=== PATIENT | female | born 1950 | race Caucasian/White ===

== ENCOUNTER → 2017-03-10 | Outpatient (CLI) | payer OTHER, MEDICAID ==
[~2017-03-10] VITALS: Ht 172.7 cm; Wt 134.7 kg
[~2017-03-10] MED LIST: ADENOSINE 113 MG in GIVE UN-DILUTED 0 ML IV ONE; ADENOSINE 90 MG/30 ML INJ IV ONE
== END | disposition home or self-care (01) ==
LOC: Rad HDHVI 10:35
PROVIDERS: ATTEND Internal Medicine Cardiovascular Disease
DX: I10 Essential (primary) hypertension (principal); E78.5 Hyperlipidemia, unspecified; R63.8 Other symptoms and signs concerning food and fluid intake
CPT/HCPCS: 78452; 93005; 96374; 96375; A9500; J0153

== ENCOUNTER → 2017-03-12 | Outpatient (CLI) | payer OTHER, MEDICAID | END | disposition home or self-care (01) | LOC: Rad HDHVI 07:50 | PROVIDERS: ATTEND Internal Medicine Cardiovascular Disease | DX: I08.1 Rheumatic disorders of both mitral and tricuspid valves (principal); I10 Essential (primary) hypertension | CPT/HCPCS: 93306 ==

== ENCOUNTER 2023-10-08 11:48 | Inpatient (IN) | payer OTHER, MEDICAID ==
[~2023-10-08] VITALS: Ht 170.2 cm; Wt 114.5 kg
[2023-10-08 13:19] LABS: Basophils # (auto) 0.1 10 ^3/uL (0-0.2); Basophils % (auto) 0.6 % (0.0-2.0); Eosinophils # (auto) 0.3 10 ^3/uL (0-0.8); Eosinophils % (auto) 2.6 % (0.0-7.0); Hematocrit 38.2 % (36.0-46.0); Hemoglobin 12.5 g/dL (12.2-16.2); Lymphocytes % (auto) 9.3 % (10.0-50.0); Mean Corpuscular Hemoglobin 28.2 pg (28.0-32.0); Mean Corpuscular Hgb Conc. 32.9 g/dL (32.0-36.0); Mean Corpuscular Volume 85.9 fL (80.0-100.0); Monocytes # (auto) 0.8 10 ^3/uL (0-1.3); Monocytes % (auto) 8.1 % (0.0-12.0); Neutrophils # (auto) 8.3 10 ^3/uL (1.6-8.6); Neutrophils % (auto) 79.4 % (37.0-80.0); Red Blood Cells 4.44 10^6/uL (4.0-5.20); Red Cell Distribution Width 15.6 % (11.8-14.3); White Blood Cell 10.4 10^3/uL (4.4-10.8)
[2023-10-08] MEDS: ONDANSETRON HCL 4 MG/2 ML VIAL IV ONE ×2 (13:25→20:35)
[2023-10-08] MEDS: MORPHINE SULFATE 4 MG/ML SYR/VIAL IV ONE (13:26)
[2023-10-08] MEDS: SODIUM CHLORIDE 0.9% 1,000 ML IV ONE (13:33)
[2023-10-08 13:34] LABS: INR 1.1 (0.9-1.15); Prothrombin Time 11.6 sec (9.3-11.8)
[2023-10-08 13:49] LABS: Alkaline Phosphatase 67 U/L (46-116); Anion Gap 3 (5-15); Aspartate Aminotransferase 15 U/L (13-40); BUN/Creatinine Ratio 21.9 (10.0-20.0); Blood Urea Nitrogen 16 mg/dL (9-23); Calcium 10.1 mg/dL (8.5-10.1); Carbon Dioxide 32 mmol/L (20-30); Chloride 107 mmol/L (98-107); Glucose 102 mg/dL (74-106); Potassium 4.1 mmol/L (3.5-5.1); Sodium 142 mmol/L (136-145)
[2023-10-08 13:50] LABS: Albumin 4.1 g/dL (3.2-4.8); Bilirubin, Total 0.5 mg/dL (0.2-1.0)
[2023-10-08 13:54] LABS: Alanine Aminotransferase < 9 U/L (7-40)
[2023-10-08 15:04] LABS: Urine Bacteria None Seen /hpf (None Seen)
[2023-10-08 15:40] LABS: Urine Blood Negative /uL (Negative); Urine Clarity Clear (Clear); Urine Color Yellow (Yellow); Urine Mucus FEW (None Seen); Urine Protein, UAD TRACE (Negative); Urine Specific Gravity 1.021 (1.001-1.035); Urine Urobilinogen Normal (Negative); Urine WBC 1 /hpf (0 - 5)
[2023-10-08 19:30] VITALS: PULSE 62; RESP 12; O2SAT 96
[2023-10-08] MEDS: ONDANSETRON HCL 4 MG/2 ML VIAL ONE (20:35)
[2023-10-08] MEDS: HYDROmorphone HCL 2 MG/ML VL/or syr IV ONE (20:35)
[2023-10-08] MEDS: SODIUM CHLORIDE 0.9% 1,000 ML IV SCH (22:30)
[2023-10-08] MEDS: ONDANSETRON HCL 4 MG/2 ML VIAL IV PRN (22:56)
[2023-10-08] MEDS: MORPHINE SULFATE 4 MG/ML SYR/VIAL IV PRN (22:57)
[2023-10-09] VITALS (8 sets, daily range): BP systolic 90–143; BP diastolic 57–78; PULSE 67–97; RESP 18–23; TEMP 98.4–100.3; O2SAT 90–97
[2023-10-09] MEDS ORDERED: METO25TA93 PO (01:48)
[2023-10-09] MEDS ORDERED: MIRA50TA PO (01:48)
[2023-10-09] MEDS ORDERED: OMEP1CAP70 PO (01:48)
[2023-10-09] MEDS ORDERED: LOSA-534 PO (01:48)
[2023-10-09] MEDS ORDERED: MELO15TA29 PO (01:48)
[2023-10-09] MEDS ORDERED: HYDR-4072 (01:48)
[2023-10-09] MEDS ORDERED: PRAV20TA3 PO (01:48)
[2023-10-09 07:14] LABS: Basophils # (auto) 0 10 ^3/uL (0-0.2); Basophils % (auto) 0.3 % (0.0-2.0); Eosinophils # (auto) 0.1 10 ^3/uL (0-0.8); Eosinophils % (auto) 1.2 % (0.0-7.0); Hematocrit 37.3 % (36.0-46.0); Hemoglobin 12.1 g/dL (12.2-16.2); Lymphocytes % (auto) 10.9 % (10.0-50.0); Mean Corpuscular Hemoglobin 27.9 pg (28.0-32.0); Mean Corpuscular Hgb Conc. 32.3 g/dL (32.0-36.0); Mean Corpuscular Volume 86.2 fL (80.0-100.0); Monocytes # (auto) 0.9 10 ^3/uL (0-1.3); Monocytes % (auto) 9.9 % (0.0-12.0); Neutrophils # (auto) 7.3 10 ^3/uL (1.6-8.6); Neutrophils % (auto) 77.7 % (37.0-80.0); Nucleated Red Blood Cells % 0.1 %; Red Blood Cells 4.33 10^6/uL (4.0-5.20); Red Cell Distribution Width 15.1 % (11.8-14.3); White Blood Cell 9.5 10^3/uL (4.4-10.8)
[2023-10-09 07:16] LABS: Chloride 106 mmol/L (98-107); Potassium 4.4 mmol/L (3.5-5.1); Sodium 141 mmol/L (136-145)
[2023-10-09 07:17] LABS: Anion Gap 3 (5-15); Carbon Dioxide 32 mmol/L (20-30)
[2023-10-09 07:18] LABS: Calcium 9.8 mg/dL (8.5-10.1)
[2023-10-09 07:22] LABS: BUN/Creatinine Ratio 16.4 (10.0-20.0); Blood Urea Nitrogen 12 mg/dL (9-23); Glucose 129 mg/dL (74-106)
[2023-10-09 08:59] LABS: Hepatitis B Surface Antigen Negative (Negative)
[2023-10-09 09:19] LABS: Hepatitis C Antibody Negative (Negative)
[2023-10-10] VITALS (8 sets, daily range): BP systolic 115–145; BP diastolic 51–81; PULSE 68–86; RESP 19–23; TEMP 97.9–98.9; O2SAT 90–96
[2023-10-10] MEDS ORDERED: ACETAMINOPHEN 325 MG TAB PO PRN (10:45)
[2023-10-11] VITALS (8 sets, daily range): BP systolic 105–176; BP diastolic 57–87; PULSE 74–88; RESP 19–22; TEMP 98–98.3; O2SAT 90–95
[2023-10-11] MEDS: PANTOPRAZOLE 40 MG/10 ML VIAL INJ IV SCH (09:45)
[2023-10-11] MEDS: LACTULOSE 20Gm/30ML SOLN PO ONE (09:46)
[2023-10-11] MEDS: METOPROLOL SUCCINATE XL 50 MG TAB PO SCH (09:46)
[2023-10-11] MEDS: ENOXAPARIN SOD 40 MG/0.4 ML SYRINGE SC SCH (09:46)
[2023-10-11] MEDS: DOCUSATE SOD 100 MG CAP PO SCH (09:46)
[2023-10-11] MEDS: LOSARTAN POTASSIUM 50 MG TAB PO SCH (09:47)
[2023-10-11] MEDS: ATORVASTATIN 20 MG TAB PO SCH (22:12)
[2023-10-12 05:00] VITALS: BP 141/78; PULSE 67; RESP 23; TEMP 98; O2SAT 90
[2023-10-12 06:20] LABS: Basophils # (auto) 0 10 ^3/uL (0-0.2); Basophils % (auto) 0.2 % (0.0-2.0); Eosinophils # (auto) 0.1 10 ^3/uL (0-0.8); Eosinophils % (auto) 0.7 % (0.0-7.0); Hematocrit 36.9 % (36.0-46.0); Hemoglobin 12.4 g/dL (12.2-16.2); Lymphocytes # (auto) 1.2 10 ^3/uL (0.4-5.4); Lymphocytes % (auto) 8.9 % (10.0-50.0); Mean Corpuscular Hemoglobin 28.5 pg (28.0-32.0); Mean Corpuscular Hgb Conc. 33.8 g/dL (32.0-36.0); Mean Corpuscular Volume 84.3 fL (80.0-100.0); Monocytes # (auto) 1.3 10 ^3/uL (0-1.3); Neutrophils # (auto) 10.8 10 ^3/uL (1.6-8.6); Neutrophils % (auto) 80.2 % (37.0-80.0); Nucleated Red Blood Cells % 0.1 %; Red Blood Cells 4.37 10^6/uL (4.0-5.20); Red Cell Distribution Width 14.1 % (11.8-14.3); White Blood Cell 13.5 10^3/uL (4.4-10.8)
[2023-10-12 06:25] LABS: Anion Gap 4 (5-15); Carbon Dioxide 31 mmol/L (20-30); Chloride 98 mmol/L (98-107); Potassium 3.6 mmol/L (3.5-5.1)
[2023-10-12 06:31] LABS: BUN/Creatinine Ratio 17.9 (10.0-20.0); Blood Urea Nitrogen 10 mg/dL (9-23); Glucose 119 mg/dL (74-106); Sodium 133 mmol/L (136-145)
[2023-10-12 08:00] VITALS: BP 155/77; PULSE 75; RESP 18; TEMP 98.6; O2SAT 90
[2023-10-12 09:20] VITALS: BP 155/77; PULSE 75; RESP 18; TEMP 98.6; O2SAT 90
[2023-10-12 13:12] VITALS: BP 145/72; PULSE 72; RESP 20; TEMP 98.5; O2SAT 92
[2023-10-12 17:35] VITALS: BP 132/75; PULSE 71; RESP 20; TEMP 98.2; O2SAT 98
[2023-10-12 20:00] VITALS: RESP 20; O2SAT 95
[2023-10-13 05:00] VITALS: BP 140/66; PULSE 65; RESP 23; TEMP 98; O2SAT 92
[2023-10-13 06:33] LABS: COVID19 ANTIGEN SOFIA FIA NEGATIVE (NEGATIVE)
[2023-10-13 08:00] VITALS: BP 122/48; PULSE 69; RESP 18; TEMP 98.9; O2SAT 94
[2023-10-13 09:00] VITALS: BP 122/48; PULSE 69; RESP 18; TEMP 98.9; O2SAT 94
[2023-10-13 13:00] VITALS: BP_SYST 133; BP_SYST 138; BP_DIAS 67; BP_DIAS 80; PULSE 68; PULSE 94; RESP 18; RESP 20; TEMP 98.1; TEMP 98.7; O2SAT 94; O2SAT 99
[2023-10-13 16:35] VITALS: BP 133/67; PULSE 68; RESP 20; TEMP 98.7; O2SAT 94
[2023-10-13 17:00] VITALS: BP 131/61; PULSE 62; RESP 18; TEMP 98; O2SAT 95
== END 2023-10-13 19:05 | disposition short-term general hospital (02) | DRG 563 ==
LOC: ER 11:48 → EDBD 11:48 → OVERFLOW 21:37 → CENTRAL 23:45
PROVIDERS: ADMIT Nurse Practitioner; ATTEND Family Medicine
PROC: 05HD33Z Insertion of Infusion Device into Right Cephalic Vein, Percutaneous Approach (ICD-10-PCS; principal; 2023-10-13)
PROC: B54MZZA Ultrasonography of Right Upper Extremity Veins, Guidance (ICD-10-PCS; 2023-10-13)
DX: S82.251A Displaced comminuted fracture of shaft of right tibia, initial encounter for closed fracture (principal); Z68.43 Body mass index [BMI] 50.0-59.9, adult; I10 Essential (primary) hypertension; E66.01 Morbid (severe) obesity due to excess calories; Z20.822 Contact with and (suspected) exposure to COVID-19; W18.39XA Other fall on same level, initial encounter; Y93.89 Activity, other specified; Y92.89 Other specified places as the place of occurrence of the external cause; Y99.8 Other external cause status; Z82.49 Family history of ischemic heart disease and other diseases of the circulatory system
CPT/HCPCS: 36415; 73562; 73590; 73600; 80048; 80053; 81001; 85025; 85610; 86803; 87340; 87426; C9113; G0378; J2405

== ENCOUNTER 2023-10-15 17:29 | Inpatient (IN) | payer OTHER, MEDICAID ==
[~2023-10-15] VITALS: Ht 172.7 cm; Wt 153.0 kg
[~2023-10-15 17:29] MED LIST changes: -ADENOSINE 113 MG in GIVE UN-DILUTED 0 ML IV ONE; -ADENOSINE 90 MG/30 ML INJ IV ONE; +HYDR-4072; +LOSA-534 PO; +MELO15TA29 PO; +METO25TA93 PO; +MIRA50TA PO; +OMEP1CAP70 PO; +PRAV20TA3 PO
[2023-10-15 22:45] VITALS: BP_SYST 99; BP_DIAS 55; BP_DIAS 59; PULSE 88; RESP 20; TEMP 98.5; TEMP 99.5; O2SAT 92
[2023-10-15 23:52] VITALS: BP_SYST 99; BP_DIAS 55; BP_DIAS 59; PULSE 88; PULSE 92; RESP 20; TEMP 98.5; TEMP 99.5; O2SAT 92
[2023-10-16] VITALS (8 sets, daily range): BP systolic 98–154; BP diastolic 56–74; PULSE 68–87; RESP 16–20; TEMP 97.4–98.8; O2SAT 91–96
[2023-10-16] MEDS ORDERED: ONDANSETRON HCL 4 MG/2 ML VIAL IV PRN
[2023-10-16] MEDS ORDERED: TEMAZEPAM 15 MG CAP PO PRN
[2023-10-16] MEDS ORDERED: ACETAMINOPHEN 325 MG TAB PO PRN
[2023-10-16 00:16] LABS: Basophils # (auto) 0 10 ^3/uL (0-0.2); Basophils % (auto) 0.1 % (0.0-2.0); Eosinophils # (auto) 0.8 10 ^3/uL (0-0.8); Eosinophils % (auto) 4.9 % (0.0-7.0); Hematocrit 36.1 % (36.0-46.0); Hemoglobin 11.6 g/dL (12.2-16.2); Lymphocytes # (auto) 0.8 10 ^3/uL (0.4-5.4); Lymphocytes % (auto) 5.2 % (10.0-50.0); Mean Corpuscular Hemoglobin 27.6 pg (28.0-32.0); Mean Corpuscular Hgb Conc. 32.2 g/dL (32.0-36.0); Mean Corpuscular Volume 85.7 fL (80.0-100.0); Monocytes # (auto) 1.1 10 ^3/uL (0-1.3); Monocytes % (auto) 6.9 % (0.0-12.0); Neutrophils # (auto) 12.9 10 ^3/uL (1.6-8.6); Neutrophils % (auto) 82.9 % (37.0-80.0); Red Blood Cells 4.22 10^6/uL (4.0-5.20); Red Cell Distribution Width 15.1 % (11.8-14.3); White Blood Cell 15.6 10^3/uL (4.4-10.8)
[2023-10-16 00:31] LABS: INR 1.17 (0.9-1.15); Partial Thromboplastin Time 26.3 SEC (24.5-34.5); Prothrombin Time 12.3 sec (9.3-11.8)
[2023-10-16 00:34] LABS: Alanine Aminotransferase 16 U/L (7-40); Albumin 3.4 g/dL (3.2-4.8); Alkaline Phosphatase 67 U/L (46-116); Anion Gap 4 (5-15); Aspartate Aminotransferase 19 U/L (13-40); BUN/Creatinine Ratio 29.6 (10.0-20.0); Blood Urea Nitrogen 24 mg/dL (9-23); Calcium 10.1 mg/dL (8.7-10.4); Carbon Dioxide 31 mmol/L (20-30); Chloride 103 mmol/L (98-107); Glucose 124 mg/dL (74-106); Potassium 3.8 mmol/L (3.5-5.1); Sodium 138 mmol/L (136-145)
[2023-10-16 00:35] LABS: Bilirubin, Total 0.5 mg/dL (0.2-1.0); Total Protein 6.4 g/dL (5.7-8.2)
[2023-10-16 03:55] LABS: Urine Bacteria None Seen /hpf (None Seen)
[2023-10-16 04:15] LABS: Urine Blood 2+ /uL (Negative); Urine Clarity Turbid (Clear); Urine Color Yellow (Yellow); Urine Hyaline Cast FEW /lpf (0 - 2); Urine Mucus FEW (None Seen); Urine Protein, UAD 1+ (Negative); Urine Specific Gravity 1.026 (1.001-1.035); Urine Urobilinogen Normal (Negative); Urine WBC 626 /hpf (0 - 5); Urine WBC Clumps PRESENT /hpf (None Seen)
[2023-10-16] MEDS: HYDROcodone-ACET 5/325MG TAB PO PRN (05:50)
[2023-10-16] MEDS: LOSARTAN POTASSIUM 50 MG TAB PO SCH (10:00)
[2023-10-16] MEDS: METOPROLOL SUCCINATE XL 50 MG TAB PO SCH (10:00)
[2023-10-16] MEDS: ENOXAPARIN SOD 40 MG/0.4 ML SYRINGE SC SCH (12:18)
[2023-10-16] MEDS: cefTRIAXone 1GM/50ML D5W 50 ML IV ONE (14:27)
[2023-10-16] MEDS: cloNIDine HCL 0.1 MG TAB PO PRN (18:06)
[2023-10-16] MEDS: PRAVASTATIN SODIUM 20 MG TAB PO SCH (20:57)
[2023-10-16] MEDS: MUPIROCIN 2% OINT 15gm or 22gm FOR MRSA NARES EACHNOSTRI SCH (21:31)
[2023-10-17 05:00] VITALS: BP 112/62; PULSE 76; RESP 20; TEMP 97.9; O2SAT 96
[2023-10-17 08:53] VITALS: BP 122/75; PULSE 71; RESP 19; TEMP 98.2; O2SAT 96
[2023-10-17] MEDS: cefTRIAXone 1GM/50ML D5W 50 ML IV SCH (10:56)
[2023-10-17] MEDS: MORPHINE SULFATE INJ 2 MG/ml SYRG IV PRN (12:26)
[2023-10-17 13:00] VITALS: BP 120/75; PULSE 69; RESP 18; TEMP 98.5; O2SAT 93
[2023-10-17 15:59] LABS: COVID19 ANTIGEN SOFIA FIA NEGATIVE (NEGATIVE)
[2023-10-17 17:00] VITALS: BP 128/62; PULSE 69; RESP 19; TEMP 98.2; O2SAT 97
[2023-10-17 17:53] VITALS: BP 128/62; PULSE 69; RESP 19; TEMP 98.2; O2SAT 97
[2023-10-17 21:00] VITALS: BP 119/71; PULSE 71; RESP 0; TEMP 98.7; O2SAT 97
[2023-10-18 01:00] VITALS: BP 117/62; PULSE 70; RESP 18; TEMP 96.5; O2SAT 94
[2023-10-18 05:00] VITALS: BP 151/70; PULSE 70; RESP 19; TEMP 96.9; O2SAT 96
[2023-10-18 08:34] VITALS: BP 134/50; PULSE 66; RESP 17; TEMP 97.6; O2SAT 92
== END 2023-10-18 07:30 | DRG 872 ==
LOC: WEST WING 22:04
PROVIDERS: ADMIT Nurse Practitioner; ATTEND Family Medicine
DX: A41.9 Sepsis, unspecified organism (principal); N39.0 Urinary tract infection, site not specified; Z68.43 Body mass index [BMI] 50.0-59.9, adult; I10 Essential (primary) hypertension; E78.00 Pure hypercholesterolemia, unspecified; E66.01 Morbid (severe) obesity due to excess calories; Z20.822 Contact with and (suspected) exposure to COVID-19
CPT/HCPCS: 36415; 80053; 81001; 85025; 85610; 85730; 87040; 87077; 87081; 87086; 87088; 87186; 87426; 97110; 97163; 97530; G0378

== ENCOUNTER 2025-04-19 09:55 | Inpatient (IN) | payer MEDICARE, MEDICAID ==
[~2025-04-19] VITALS: Ht 175.3 cm; Wt 167.0 kg
[2025-04-19 02:07] VITALS: BP 108/54; PULSE 85; RESP 20; TEMP 97.5; O2SAT 95
[~2025-04-19 09:55] MED LIST changes: +BRIM0.2S2 LEFTEYE; +DORZ2SOL18 LEFTEYE; +HYDR-3682 PO; +LATA0.008 LEFTEYE; +PRAM0.752 PO
[2025-04-19] MEDS ORDERED: OXYB5TAB14 PO (10:31)
--- NOTE | 2025-04-19 10:31 | ED.PDOC ---
SOB-HPI HPI Comments 74 y/o F, with PMHx of HTN and HLD presents to the ED for CC of shortness of breath. EMS reports, patient is coming from home where she c/o shortness of breath with a non-productive cough x1day. Patient states, she is always short of breath however, symptoms have been exacerbated in the past couple of days; patient is on continuous home O2 at 2L via [place] Patient denies chest pain, palpitations, fever, chills, or recent sick contacts. 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 Family History Family History: Unknown Social History Smoker: Unknown Alcohol: Unknown Drugs: Unknown Lives In: Home Constitutional: denies: chills, diaphoresis, fatigue, fever, malaise, sweats, weakness, others EENTM: denies: blurred vision, double vision, ear bleeding, ear discharge, ear drainage, ear pain, ear ringing, eye pain, eye redness, hearing loss, mouth pain, mouth swelling, nasal discharge, nose bleeding, nose congestion, nose pain, photophobia, tearing, throat pain, throat swelling, voice changes, others Respiratory: reports: cough, shortness of breath; denies: hemoptysis, orthopnea, SOB at rest, SOB with excertion, stridor, wheezing, others Cardiovascular: denies: chest pain, dizzy spells, diaphoresis, Dyspnea on exertion, edema, irregular heart beat, left arm pain, lightheadedness, palpitations, PND, syncope, others Gastrointestinal: denies: abdomen distended, abdominal pain, blood streaked bowels, constipated, diarrhea, dysphagia, difficulty swallowing, hematemesis, melena, nausea, poor appetite, poor fluid intake, rectal bleeding, rectal pain, vomiting, others Genitourinary: denies: abnormal vagina bleeding, burning, dyspareunia, dysuria, flank pain, frequency, hematuria, incontinence, pain, , vagina discharge, urgency, others Neurological: denies: dizziness, fainting, headache, left sided numbness, left sided weakness, numbness, paresthesia, pre-existing deficit, right sided numbness, right sided weakness, seizure, speech problems, tingling, tremors, weakness, others Musculoskeletal: denies: back pain, gout, joint pain, joint swelling, muscle pain, muscle stiffness, neck pain, others Integumetry: denies: bruises, change in color, change in hair/nails, dryness, laceration, lesions, lumps, rash, wounds, others Allergic/Immunocompromised: denies: Difficulty Healing, Frequent Infections, Hives, Itching, others Hematologic/Lymphatic: denies: anemia, blood clots, easy bleeding, easy bruising, swollen glands, others Endocrine: denies: excessive hunger, excessive sweating, excessive thirst, excessive urination, flushing, intolerance to cold, intolerance to heat, u nexplained weight gain, unexplained weight loss, others Psychiatric: denies: anxiety, bipolar disorder, depression, hopeless, panic disorder, schizophrenia, sleepless, suicidal, others All Other Systems: Reviewed and Negative Physical Exam General Appearance: Moderate Distress HEENT: Normal ENT Inspection, Pharynx Normal, TMs Normal Neck: Full Range of Motion, Non-Tender, Normal, Normal Inspection Respiratory: Chest Non-Tender, Lungs Clear, No Accessory Muscle Use, No Respiratory Distress, Normal Breath Sounds Cardiovascular: Irregular Breast Exam: Deferred Gastrointestinal: No Organomegaly, Non Tender, No Pulsatile Mass, Normal Bowel Sounds, Soft Genitalia: Deferred Pelvic: Deferred Rectal: Deferred Extremities: No calf tenderness Musculoskeletal : Apperance: Normal Neurologic: Alert Cerebellar Function: NOT DONE Reflexes: NOT DONE Skin: Normal Color Peripheral Pulses: 3+ Radial (R), 3+ Radial (L) Lymphatic: No Adenopathy EKG EKG : Pulse Rate (adult): 126 Cardiac Rhythm: Afib Was a procedure done? Was a procedure done?: No Differential Dx Differential Diagnosis: Anxiety, Asthma, Bronchitis, Pneumonia, Sinusitis, Pharyngitis, URI X-Ray, Labs, Meds, VS Vital Signs Date Time Temp Pulse Resp B/P (MAP) Pulse Ox O2 Delivery O2 Flow Rate FiO2 04/19/25 10:04 141 04/19/25 09:56 98.9 88 15 135/102 95 98.9 Lab Test 04/19/25 10:41 Range/Units White Blood Count Pending Red Blood Count Pending Hemoglobin Pending Hematocrit Pending Mean Corpuscular Volume Pending Mean Corpuscular Hemoglobin Pending Mean Corpuscular Hemoglobin Concent Pending Red Cell Distribution Width Pending Platelet Count Pending Mean Platelet Volume Pending Neutrophils (%) (Auto) Pending Lymphocytes (%) (Auto) Pending Monocytes (%) (Auto) Pending Basophils (%) (Auto) Pending Neutrophils # (Auto) Pending Lymphocytes # (Auto) Pending Monocytes # (Auto) Pending Sodium Level Pending Potassium Level Pending Chloride Level Pending Carbon Dioxide Level Pending Anion Gap Pending Blood Urea Nitrogen Pending Creatinine Pending Glomerular Filtration Rate Calc Pending BUN/Creatinine Ratio Pending Serum Glucose Pending Calcium Level Pending Troponin I High Sensitivity Pending B-Type Natriuretic Peptide Pending [place] [id number] Ph: [phone] DIAGNOSTIC IMAGING Diagnostic Imaging Report : [id number] Signed PATIENT: MIREYA ALLRED ACCT: [id number] UNIT: [id number] : 1950 LOC: ER ROOM / BED: / AGE / SEX: 74 / F ADM STATUS: REG ER SERVICE 1022 ORDERING PHYSICIAN: FELICITY AVILES MD PROCEDURE(s): CXRP - CHEST PORTABLE REASON: sob ORDER NUMBER(s): [id number], ACCESSION NUMBER(s): [id number] CHEST RADIOGRAPH Indication: sob Technique: Single frontal view of the chest was obtained. Comparison: None Findings: Limited study with right costophrenic angle out of [id number]. Pulmonary vascular congestion. No significant pleural effusion. No pneumothorax. Enlarged cardiomediastinal silhouette. IMPRESSION: Limited study with right costophrenic angle out of nasmu-ti-[id number]. Cardiomegaly and pulmonary vascular congestion. ATED BY: FRANDY RATLIFF MD DICTATED DATE/TIME: 04/19/25 1104 SIGNED BY: FRANDY RATLIFF MD SIGNED DATE/TIME: 04/19/25 1104 CC: Patient alert. Complaining of shortness a breath. EKG reviewed does show atrial fibrillation. Chest x-ray reviewed does show congestion. Was given Lasix pain Started on amiodarone. No history of AFib. Explained to the patient. Continue monitoring. Time of 1ST Reevaluation: 10:55 Reevaluation 1ST: Unchanged Patient Education/Counseling: Diagnosis, Treatment Family Education/Counseling: No Family Present SEPSIS Sepsis Screen Date sepsis recognized/suspect: Apr 19, 2025 Time Sepsis recognized/suspect: 955 Recent Procedure: No On Antibiotic Therapy: No Respiratory Rate >20: No Heart Rate >90: No Temp<36 C (96.8 F) or >38.3 C: No SBP <90 or MAP <65 mmHG: No New Acute Mental Status Change: No Is the patient on CPAP, BIPAP,: No Physician Orders Troponin-I Hs (04/19/25 10:22) Complete Blood Count (04/19/25 10:22) Chest Portable (04/19/25 10:22) Urinalysis (04/19/25 10:22) Basic Metabolic Panel (04/19/25 10:22) Troponin-I Hs (04/19/25 11:22) Troponin-I Hs (04/19/25 13:22) B-Type Natriuretic Peptide (04/19/25 10:22) Amiodarone 450mg/250ml Ae (Cordarone) (04/19/25 10:45) Vital Signs Date Time Temp Pulse Resp B/P (MAP) Pulse Ox O2 Delivery O2 Flow Rate FiO2 04/19/25 10:04 141 04/19/25 09:56 98.9 88 15 135/102 95 98.9 Laboratory Tests Test 04/19/25 10:41 White Blood Count Pending Departure 1 Departure Time of Disposition: 11:26 Impression: Primary Impression: CHF (congestive heart failure) Qualified Codes: I50.43 - Acute on chronic combined systolic (congestive) and diastolic (congestive) heart failure Additional Impression: Atrial fibrillation Qualified Codes: I48.0 - Paroxysmal atrial fibrillation Disposition: ADMITTED INPATIENT Admit to: Med Surg Condition: Guarded Critical Care Note Critical Care Time?: Yes (90 min-critical care time only) Stability Stability form required: No Heart Score Heart Score: Heart Score Response (Comments) Value History Slightly Suspicious 0 EKG Normal 0 Age >65 2 Risk Factors >3 or Hx ASHD 2 Troponin Normal limit 0 Total 4 I personally scribed for FELICITY AVILES MD ([email or web address]) on 04/19/25 at 10:31. Electronically submitted by Maxine Jasmine ([email or web address]). I personally scribed for FELICITY AVILES MD ([email or web address]) on 04/19/25 at 11:10. Electronically submitted by Maxine Jasmine ([email or web address]). FELICITY AVILES MD Apr 19, 2025 10:31
--- NOTE | 2025-04-19 10:44 | ECG ---
[facility] Test Date: 2025-04-19 Test Time: 10:04:05 Pat Name: MIREYA ALLRED Department: ED Room: 0232T Gender: F Lead Mechanic: ARISTIDES : 1950 Requested By: EMERGENCY EMERGENCY Order Number: [id number] Reading MD: Arnold Zurita Measurements Intervals [place] Rate: 141 P: 0 [place]: 0 QRS: -81 QRSD: 117 T: 84 QT: 323 QTc: 495 Interpretive Statements Atrial fibrillation Paired ventricular premature complexes Nonspecific IVCD with LAD Inferior infarct, old Probable anteroseptal infarct, old Lateral leads are also involved Artifact in lead(s) I,II,III,aVR,aVL,V1,V2 Electronically Signed On 04-20-2025 17:47:21 PST by Arnold Zurita Please click the below link to view image of tracing.
--- NOTE | 2025-04-19 11:07 | DVH ---
CHEST RADIOGRAPH Indication: sob Technique: Single frontal view of the chest was obtained. Comparison: None Findings: Limited study with right costophrenic angle out of [id number]. Pulmonary vascular congestion. No significant pleural effusion. No pneumothorax. Enlarged cardiomediastinal silhouette. IMPRESSION: Limited study with right costophrenic angle out of [id number]. Cardiomegaly and pulmonary vascular congestion.
[2025-04-19 11:15] VITALS: PULSE 95; RESP 22; O2SAT 95
[2025-04-19 11:40] LABS: Hematocrit 39.2 % (36.0-46.0); Hemoglobin 12.7 g/dL (12.2-16.2); Mean Corpuscular Hemoglobin 27.5 pg (28.0-32.0); Mean Corpuscular Volume 84.8 fL (80.0-100.0); Nucleated Red Blood Cells % 0.0 %
[2025-04-19 11:43] LABS: Potassium 4.2 mmol/L (3.5-5.1); Sodium 137 mmol/L (136-145)
[2025-04-19 11:44] LABS: Anion Gap 8 (5-15); Calcium 9.7 mg/dL (8.7-10.4)
[2025-04-19 11:49] LABS: BUN/Creatinine Ratio 13.0 (10.0-20.0); Glucose 104 mg/dL (74-106)
[2025-04-19 11:57] LABS: Blood Urea Nitrogen 7 mg/dL (9-23); Carbon Dioxide 36 mmol/L (20-31); Chloride 93 mmol/L (98-107)
[2025-04-19] MEDS: AMIODARONE BOLUS KIT 100 ML IV ONE (12:49)
[2025-04-19 13:00] VITALS: BP 135/102; PULSE 88; RESP 15; TEMP 98.9; O2SAT 95
[2025-04-19] MEDS ORDERED: ALBUTEROL SULF 2.5 MG/0.5ML(0.5%) NEB SOLN NEB PRN (13:00)
[2025-04-19] MEDS ORDERED: ONDANSETRON HCL 4 MG/2 ML VIAL IV PRN (13:00)
[2025-04-19] MEDS ORDERED: IPRATROPIUM BROM 0.5 MG/2.5ML INH SOL NEB PRN (13:00)
[2025-04-19] MEDS ORDERED: NITROGLYCERIN 0.4 MG SL TAB SL PRN (13:00)
[2025-04-19] MEDS ORDERED: MORPHINE SULFATE INJ 2 MG/ml SYRG IV PRN (13:00)
--- NOTE | 2025-04-19 13:20 | DVHHP2 ---
History of Present Illness Reason for Visit: Shortness of breath History of Present Illness Mayelin Ziegler is a 74-year-old female with past medical history of hypertension, hyperlipidemia, and home oxygen use, who came to the hospital for shortness of breath. Patient states her shortness of breath began last night. It was continuing to worsen this morning so her became concerned and called EMS. Patient was found to be in atrial fibrillation with RVR. Patient denies any chest pain or palpitations. 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) Past Surgical History: Cholecystectomy, Hysterectomy, Hernia Repair, Other (left arm, right leg) Smoke: No ALCOHOL: none Drugs: None Lives: with Family Domestic Violence: Neg Review of Systems Constitutional: No: Fever, Chills, Sweats, Weakness, Malaise, Other Eyes: No: Pain, Vision change, Conjunctivae inflammation, Eyelid inflammation, Other, Redness ENT: No: Ear pain, Ear discharge, Nose pain, Nose discharge, Nose congestion, Mouth pain, Mouth swelling, Throat pain, Throat swelling, Other Respiratory: Cough, Dry, Shortness of breath, SOB with excertion; No: Wheezing, Hemoptysis, Pleuritic Pain, Sputum, Wheezing, Other Cardiovascular: No: Chest Pain, Palpitations, Orthopnea, Paroxysmal Noc. Dyspnea, Edema, Lt Headedness, Other Gastrointestinal: No: Nausea, Vomiting, Abdominal Pain, Diarrhea, Constipation, Melena, Hematochezia, Other Genitourinary: No Dysuria, No Frequency, No Incontinence, No Hematuria, No Retention, No Other Musculoskeletal: No: other, neck pain, shoulder pain, arm pain, back pain, hand pain, leg pain, foot pain Skin: No: Rash, Lesions, Jaundice, Bruising, Other Neurological: No: Weakness, Numbness, Incoordination, Change in speech, Confusion, Seizures, Other Allergies: Coded Allergies: NO KNOWN ALLERGIES (Unverified , 02/26/16) Exam Vital Signs Vital Signs Date Time Temp Pulse Resp B/P (MAP) Pulse Ox O2 Delivery O2 Flow Rate FiO2 04/19/25 12:00 87 04/19/25 09:56 98.9 15 135/102 95 98.9 General Appearance: Alert, Oriented X3, Cooperative, mild distress HEENT: Atraumatic, PERRLA, Mucous membr. moist/pink Respiratory: Other (Diminished breath sounds) Cardiovascular: Other (Atrail fibrillation) Abdominal: Normal bowel sounds, Soft, No tenderness Extremities: No clubbing, No cyanosis, Normal pulses, Other (bilateral lower extremity edema) Skin: No rashes, No breakdown Neuro: Normal speech Psych/Mental Status: Mental status NL Labs/Xrays Labs Test 04/19/25 10:41 Range/Units White Blood Count 8.4 4.4-10.8 10^3/uL Red Blood Count 4.62 4.0-5.20 10^6/uL Hemoglobin 12.7 12.2-16.2 g/dL Hematocrit 39.2 36.0-46.0 % Mean Corpuscular Volume 84.8 80.0-100.0 fL Mean Corpuscular Hemoglobin 27.5 L 28.0-32.0 pg Mean Corpuscular Hemoglobin Concent 32.4 32.0-36.0 g/dL Red Cell Distribution Width 14.9 H 11.8-14.3 % Platelet Count 188 140-450 10^3/uL Mean Platelet Volume 7.6 6.9-10.8 fL Neutrophils (%) (Auto) 77.4 37.0-80.0 % Lymphocytes (%) (Auto) 11.8 10.0-50.0 % Monocytes (%) (Auto) 8.3 0.0-12.0 % Eosinophils (%) (Auto) 2.1 0.0-7.0 % Basophils (%) (Auto) 0.4 0.0-2.0 % Neutrophils # (Auto) 6.5 1.6-8.6 10 ^3/uL Lymphocytes # (Auto) 1.0 0.4-5.4 10 ^3/uL Monocytes # (Auto) 0.7 0-1.3 10 ^3/uL Eosinophils # (Auto) 0.2 0-0.8 10 ^3/uL Basophils # (Auto) 0 0-0.2 10 ^3/uL Nucleated Red Blood Cells 0.0 % Sodium Level 137 136-145 mmol/L Potassium Level 4.2 3.5-5.1 mmol/L Chloride Level 93 L 98-107 mmol/L Carbon Dioxide Level 36 H 20-31 mmol/L Anion Gap 8 5-15 Blood Urea Nitrogen 7 L 9-23 mg/dL Creatinine 0.54 L 0.550-1.02 mg/dL Glomerular Filtration Rate Calc 95 >90 mL/min BUN/Creatinine Ratio 13.0 10.0-20.0 Serum Glucose 104 74-106 mg/dL Calcium Level 9.7 8.7-10.4 mg/dL Troponin I High Sensitivity 13 </=34 ng/L B-Type Natriuretic Peptide 239.22 0-100 pg/mL CHEST RADIOGRAPH Findings: Limited study with right costophrenic angle out of [id number]-wvxr. Pulmonary vascular congestion. No significant pleural effusion. No pneumothorax. Enlarged cardiomediastinal silhouette. IMPRESSION: Limited study with right costophrenic angle out of secxb-eo-doda. Cardiomegaly and pulmonary vascular congestion. SEPSIS Sepsis Screen Date sepsis recognized/suspect: Apr 19, 2025 Time Sepsis recognized/suspect: 955 Recent Procedure: No On Antibiotic Therapy: No Respiratory Rate >20: No Heart Rate >90: No Temp<36 C (96.8 F) or >38.3 C: No SBP <90 or MAP <65 mmHG: No New Acute Mental Status Change: No Is the patient on CPAP, BIPAP,: No Physician Orders Chest Portable (04/19/25 10:22) Urinalysis (04/19/25 10:22) Troponin-I Hs (04/19/25 11:22) Troponin-I Hs (04/19/25 13:22) Amiodarone 450mg/250ml Ae (Cordarone) (04/19/25 10:45) Admit (04/19/25 12:56) Code Status (04/19/25 12:56) Ondansetron Hcl (Zofran) (04/19/25 13:00) Docusate Sodium Capsule (Colace Capsule) (04/19/25 13:00) Complete Blood Count (04/20/25 04:00) Comprehensive Metabolic Panel (04/20/25 04:00) Cardiac Diet-2gna,Lofat,Lochol (04/19/25 Lunch) Echo 2d Mode Cardiac Dop (04/19/25 12:56) Condition: Serious (04/19/25 12:56) Nitroglycerin Sublingual (Ntrostat Subli (04/19/25 13:00) Morphine Sulfate Injection (04/19/25 13:00) Stat Ekg For Chest Pain (04/19/25 12:56) Notify Md Of Changes From Base (04/19/25 12:56) Weigher And Grader For 24 Hours (04/19/25 12:56) Emergency Dysrhythmia Protocol (04/19/25 12:56) Rhythm Strips Once Every Shift (04/19/25 12:56) Oxygen By Nasal Cannula (04/19/25 12:56) * Cardiology Consult (04/19/25 12:56) Albuterol Medneb (Ventolin Medneb) (04/19/25 13:00) Ipratropium Medneb (Atrovent Medneb) (04/19/25 13:00) Losartan Tablet (Cozaar Tablet) (04/20/25 10:00) Pravastatin Sodium Tablet (Pravachol Tab (04/20/25 10:00) (Nf) Metoprolol Succinate (Metoprolol Ingram (04/20/25 10:00) (Nf) Omeprazole (Omeprazole Dr) (04/19/25 22:00) Vital Signs Date Time Temp Pulse Resp B/P (MAP) Pulse Ox O2 Delivery O2 Flow Rate FiO2 04/19/25 12:00 87 04/19/25 11:27 126 04/19/25 10:04 141 04/19/25 09:56 98.9 88 15 135/102 95 98.9 Laboratory Tests Test 04/19/25 10:41 White Blood Count 8.4 10^3/uL (4.4-10.8) Medications Medications Dose Ordered Sig/Jl Route Start Time Stop Time Status Last Admin Dose Admin Amiodarone HCl 100 ml @ 600 mls/hr ONCE ONCE IV 04/19/25 10:30 04/19/25 10:39 DC 04/19/25 12:49 600 MLS/HR Amiodarone HCl 250 ml @ 33.33 mls/ hr [id number] ONCE IV 04/19/25 10:45 04/19/25 18:15 04/19/25 12:56 33.33 MLS/HR Assessment/Plan Assessment/Plan Assessment: New onset atrial fibrillation, Pulmonary vascular congestion, Bilateral edema, Hypertension, Hyperlipidemia, Home oxygen use, Plan: Admit to Tele, Cardiology consult, ECHO, IV amiodarone, IV Lasix, Breathing treatments as needed, Supplemental oxygen as needed, Home medications reconciled, Plan discussed with: Patient My Orders Orders - MICAH RAHMAN Procedure Category Date Status Time Admit ADMIT 04/19/25 Verified 12:56 Code Status CODE 04/19/25 Verified 12:56 Ondansetron Hcl PHA 04/19/25 Verified (Zofran) 13:00 Docusate Sodium PHA 04/19/25 Verified Capsule (Colace 13:00 Complete Blood Count LAB 04/20/25 Verified 04:00 Comprehensive LAB 04/20/25 Verified Metabolic Panel 04:00 Cardiac DIET 04/19/25 Verified Diet-2gna,Lofat,Lochol Lunch Echo 2d Mode Cardiac US 04/19/25 Verified DOP 12:56 Condition: Serious CORI 04/19/25 Verified 12:56 Nitroglycerin PHA 04/19/25 Verified Sublingual (Ntrostat 13:00 Morphine Sulfate PHA 04/19/25 Verified Injection 13:00 Stat Ekg For Chest CORI 04/19/25 Verified Pain 12:56 Notify Md Of Changes CORI 04/19/25 Verified From Base 12:56 Weigher And Grader For CORI 04/19/25 Verified 24 Hours 12:56 Emergency Dysrhythmia CORI 04/19/25 Verified Protocol 12:56 Rhythm Strips Once CORI 04/19/25 Verified Every Shift 12:56 Oxygen By Nasal RT 04/19/25 Verified Cannula 12:56 * Cardiology Consult CONS 04/19/25 Verified 12:56 Albuterol Medneb PHA 04/19/25 Verified (Ventolin Medneb) 13:00 Ipratropium Medneb PHA 04/19/25 Verified (Atrovent Medneb) 13:00 Losartan Tablet PHA 04/20/25 Verified (Cozaar Tablet) 10:00 Pravastatin Sodium PHA 04/20/25 Verified Tablet (Pravachol Tab 10:00 (Nf) Metoprolol PHA 04/20/25 Verified Succinate (Metoprolol 10:00 (Nf) Omeprazole PHA 04/19/25 Verified (Omeprazole Dr) 22:00 Date of Service: Apr 19, 2025 Billing Provider: MICAH RAHMAN Common Visit Codes: [id number] INP/OBS CARE (HIGH) MICAH RAHMAN Apr 19, 2025 13:20
[2025-04-19 13:30] VITALS: O2SAT 98
--- NOTE | 2025-04-19 14:25 | DVHINCON2 ---
Date Seen: Apr 19, 2025 Referring Physician BONNIE Katz Reason for Consultation New onset a-fib History of Present Illness This is a 74-year-old female who presented to the emergency room via EMS with a chief complaint of shortness of breath. At time of assessment the patient was found A&O x2 and with associated anisocoria. Information obtained from records which indicate the patient presented with a chief complaint of shortness of breath and an associated nonproductive cough for one day. She underwent a 12 lead electrocardiogram revealing atrial fibrillation rhythm regular ventricular rate and multiple premature ventricular contractions in the 140s bpm. Patient denies a previous history of tachyarrhythmias or cardiovascular disease. She is currently on an amiodarone drip with a heart rate fluctuating between 70s-90s bpm and on a simple mask for O2 supplementation. Significant medical history includes pulmonary hypertension, hypertension, dyslipidemia, home oxygen dependent, arthritis, carpal tunnel, bed-bound status, and morbid obesity. Past Medical History Past medical history reviewed. No other significant than mentioned above. Past Surgical History Cholecystectomy Hysterectomy Hernia repair Left arm Right CVA Family History: Hypertension G8 MOTHER G8 FATHER Family History Unable to obtain family history at this time. Social History Unable to obtain social history at this time. It appears the patient lives with . Allergies: Coded Allergies: NO KNOWN ALLERGIES (Unverified , 02/26/16) Home Meds Reported Medications Meloxicam (Meloxicam) 15 Mg Tab, 15 MG PO DAILY, TAB 10/09/23 Pravastatin Sodium (PRAVACHOL TABLET) 20 Mg Tb, 1 TAB PO DAILY 10/09/23 Metoprolol Succinate (Metoprolol Succinate Er) 25 Mg Tab, 1 TAB PO DAILY 10/09/23 Meloxicam (Meloxicam) 15 Mg Tab, 1 TAB PO DAILY 10/09/23 Mirabegron Base (MYRBETRIQ) 50 Mg Tab, 1 TAB PO DAILY 10/09/23 Omeprazole (Omeprazole Dr) 20 Mg Cap, 1 CAP PO BID 10/09/23 Losartan Potassium (Losartan Potassium) 50 Mg Tab, 1 TAB PO DAILY 10/09/23 Hydrocodone-Acetaminophen (Hydrocodone/Acetaminophen 10-325 mg) 1 Tab Tab 10/09/23 Home Meds Home medications reviewed. Current Medications Current Medications Medications (Trade) Dose Ordered Sig/Jl Route PRN Reason Start Time Stop Time Status Last Admin Ondansetron HCl (Zofran) 4 mg Q4HP PRN IV NAUSEA / VOMITING 04/19/25 13:00 Docusate Sodium (Colace Capsule) 100 mg BIDPRN PRN PO FOR CONSTIPATION 04/19/25 13:00 Nitroglycerin (Ntrostat Sublingual) 0.4 mg Q5MINP PRN SL FOR CHEST PAIN 04/19/25 13:00 Morphine Sulfate 2 mg Q30M PRN IV FOR CHEST PAIN 04/19/25 13:00 Albuterol (Ventolin Medneb) 2.5 mg Q4HPRN PRN NEB SHORTNESS OF BREATH 04/19/25 13:00 Ipratropium [place] (Atrovent Medneb) 0.5 mg Q4HPRN PRN NEB SHORTNESS OF BREATH 04/19/25 13:00 Losartan Potassium (Cozaar Tablet) 50 mg DAILY PO 04/20/25 10:00 Pravastatin Sodium (Pravachol Tablet) 20 mg DAILY PO 04/20/25 10:00 Patient Own Medication 1 tab DAILY PO 04/20/25 10:00 UNV Patient Own Medication 1 cap BID PO 04/19/25 22:00 UNV Furosemide (Lasix Injection) 20 mg DAILY IV 04/20/25 10:00 Metoprolol Succinate (Toprol Xl) 25 mg DAILY PO 04/20/25 10:00 Pantoprazole Sodium (Protonix Tablet) 40 mg DAILY PO 04/20/25 10:00 Review of Systems Constitutional: No symptom reported Ears, Nose, & Throat: No symptom reported Eyes: No symptom reported Neurological: No symptoms reported Pulmonary/Respiratory: SOB, nonproductive cough Cardiovascular: No symptom reported Gastrointestinal: No symptom reported Genitourinary: No symptom reported Musculoskeletal: No symptom reported Skin: No symptom reported Psychiatric: No symptom reported Endocrine: No symptom reported Hemotologic/Lymphatic: No symptom reported Vital Signs Vital Signs Date Time Temp Pulse Resp B/P (MAP) Pulse Ox O2 Delivery O2 Flow Rate FiO2 04/19/25 13:30 98 Simple Mask* 6 50 04/19/25 13:00 98.9 88 15 135/102 98.9 Physical Exam General Appearance: Somewhat obtunded. Morbidly obese. Moderate acute respiratory distress Head Exam: Normal inspection Neck Exam: Normal inspection. Non-tender. Normal alignment Pulmonary/Respiratory: Chest non-tender. Diminished bilateral breath sounds. O2 via simple mask Cardiovascular/Chest: Irregular rate and rhythm. AFib, controlled rate. No murmurs. No JVD. Peripheral Pulses: 2+ Radial (R). 2+ Radial (L). 2+ Pedal (R). 2+ Pedal (L) Abdominal Exam: Normal bowel sounds Ankle Exam: Positive ankle edema Lower extremities: Positive lower extremity edema Neuro/Mental Status: A&O x2. Somewhat obtunded Thoughts/Psych: Unable to assess at this time Appearance: Moderate acute respiratory distress Skin Exam: Erythema to bilateral lower extremity Labs/Diagnostic Data Labs Test 04/19/25 13:29 04/19/25 10:41 Range/Units Troponin I High Sensitivity 13 </=34 ng/L White Blood Count 8.4 4.4-10.8 10^3/uL Red Blood Count 4.62 4.0-5.20 10^6/uL Hemoglobin 12.7 12.2-16.2 g/dL Hematocrit 39.2 36.0-46.0 % Mean Corpuscular Volume 84.8 80.0-100.0 fL Mean Corpuscular Hemoglobin 27.5 L 28.0-32.0 pg Mean Corpuscular Hemoglobin Concent 32.4 32.0-36.0 g/dL Red Cell Distribution Width 14.9 H 11.8-14.3 % Platelet Count 188 140-450 10^3/uL Mean Platelet Volume 7.6 6.9-10.8 fL Neutrophils (%) (Auto) 77.4 37.0-80.0 % Lymphocytes (%) (Auto) 11.8 10.0-50.0 % Monocytes (%) (Auto) 8.3 0.0-12.0 % Eosinophils (%) (Auto) 2.1 0.0-7.0 % Basophils (%) (Auto) 0.4 0.0-2.0 % Neutrophils # (Auto) 6.5 1.6-8.6 10 ^3/uL Lymphocytes # (Auto) 1.0 0.4-5.4 10 ^3/uL Monocytes # (Auto) 0.7 0-1.3 10 ^3/uL Eosinophils # (Auto) 0.2 0-0.8 10 ^3/uL Basophils # (Auto) 0 0-0.2 10 ^3/uL Nucleated Red Blood Cells 0.0 % Sodium Level 137 136-145 mmol/L Potassium Level 4.2 3.5-5.1 mmol/L Chloride Level 93 L 98-107 mmol/L Carbon Dioxide Level 36 H 20-31 mmol/L Anion Gap 8 5-15 Blood Urea Nitrogen 7 L 9-23 mg/dL Creatinine 0.54 L 0.550-1.02 mg/dL Glomerular Filtration Rate Calc 95 >90 mL/min BUN/Creatinine Ratio 13.0 10.0-20.0 Serum Glucose 104 74-106 mg/dL Calcium Level 9.7 8.7-10.4 mg/dL B-Type Natriuretic Peptide 239.22 0-100 pg/mL Assessment Atrial fibrillation with rapid ventricular rate, newly diagnosed De Librado decompensated HFpEF, NYHA Class III Rule out acute CVA (+anisocoria) Pulmonary hypertension, moderate degree Acute respiratory failure Hypertension Home O2 dependence Bed-bound status Morbid obesity Plan/Recommendation (Dr. Liu) We will continue further cardiac evaluation with a transthoracic echocardiogram to rule out structural heart disease. In the meantime, initiate preload and afterload reduction, strict I&Os, daily weight, and maintain fluid restrictions. Continue rate control with beta-monica. Continue antiarrhythmic therapy, amiodarone drip. Initiate anticoagulation therapy after a head CT has been completed ([id number] Score 5 points, HAS-BLED Score 1 point). Replete electrolytes as necessary, K>4 and Mg>2. Rule out acute CVA and lower extremity DVT. Obtain an ABG. Continue with TSH level. Further orders per clinical course and progression. Thank you for allowing us to participate in this patient's care. Please call if you have any questions or concerns. Critical care time: 45 minutes. This medical document was created using an electronic medical record system with voice recognition software and computerized dictation system. Although this document has been carefully reviewed, there might still be some phonetic and typographical errors. Occasional wrong-word or ``sound-alike substitutions may have occurred due to the inherent limitations of voice recognition software. These areas are purely typographical due to imperfections of the software programs and do not reflect any compromise in the patient's medical care. Please read the chart carefully and recognize, using context, where these substitutions have occurred. Plan discussed with: Patient, Other NYHA Physical activity limitations: Class3(Marked) ordinary (activity causes symtoms) Date of Service: Apr 19, 2025 Billing Provider: THU GONZALEZ Cardiology Common Codes: 73198-BASCYQHN CARE 30-74 MIN THU GONZALEZ Apr 19, 2025 14:25
[2025-04-19] MEDS: FUROSEMIDE 20 MG/2 ML VIAL IV ONE (14:36)
[2025-04-19 14:44] LABS: Triglycerides 71.0 mg/dL (< 150)
[2025-04-19 14:45] LABS: Magnesium 1.8 mg/dL (1.6-2.6)
[2025-04-19 14:46] LABS: Cholesterol 139.0 mg/dL (< 200); HDL Cholesterol 41.0 mg/dL (40-59)
[2025-04-19 14:51] LABS: Base Excess 7.3 mmol/L (-2.0-3.0)
--- NOTE | 2025-04-19 15:21 | DVH ---
Bilateral lower extremity venous duplex Clinical History: Edema rule out DVT Comparison: None Technique: Duplex Doppler evaluation of the deep venous systems of both lower extremities from the common femoral veins to the popliteal veins including color Doppler and spectral/pulsed waveform analysis was performed. Findings: RIGHT SIDE: The common femoral vein demonstrates appropriate compressibility and waveform variability. There is compressibility/patency of the great saphenous vein at the proximal thigh. The femoral vein demonstrates appropriate compressibility and waveform variability. The deep femoral vein demonstrates appropriate compressibility and waveform variability. The popliteal vein demonstrates appropriate compressibility and waveform variability. There is normal compressibility at the tibioperoneal trunk. LEFT SIDE: The common femoral vein demonstrates appropriate compressibility and waveform variability. There is compressibility/patency of the great saphenous vein at the proximal thigh. The femoral vein demonstrates appropriate compressibility and waveform variability. The deep femoral vein demonstrates appropriate compressibility and waveform variability. The popliteal vein demonstrates appropriate compressibility and waveform variability. There is normal compressibility at the tibioperoneal trunk. Impression: No right or left femoropopliteal venous thrombosis.
[2025-04-19] MEDS: METOPROLOL TARTRATE 1MG/1ML-5ML VIAL IV ONE (15:22)
[2025-04-19 16:08] VITALS: PULSE 80; O2SAT 98
--- NOTE | 2025-04-19 16:38 | DVH ---
Procedure: CT HEAD WITHOUT CONTRAST Study Date and Requested Time: 04/19/2025 03:56 PM History: Anisacoria rule out acute CVA Comparison: None Dose: CTDI: 61.83 mGy DLP: 1.71 mGycm Technique: Multiplanar images obtained through the brain without intravenous contrast. Findings: Streak/motion artifact slightly limits evaluation. Mild frontoparietal predominant brain Atrophy. Mild chronic small vessel ischemic changes. No hemorrhages, masses, mass effect, midline shift, herniation or cytotoxic edema following a large vascular territory. No intra-axial or extra-axial fluid collections. No evidence of hydrocephalus. The basal cisterns are patent. The pituitary gland, sella and parasellar regions are unremarkable. The cerebellar tonsils are in normal position. The cerebellum is unremarkable. The orbits and globes are unremarkable. The paranasal sinuses and mastoids are clear. There are no worrisome calvarial lesions. Chronic deformity of the right lamina papyracea. Impression: Streak/motion artifact slightly limits evaluation. Otherwise, No evidence of acute intracranial abnormality. If symptoms persist, consider MRI for further evaluation.
[2025-04-19] MEDS: MAGNESIUM SULFATE 1GM/100ML 100 ML IV ONE (16:57)
[2025-04-19 18:36] LABS: Base Excess 6.0 mmol/L (-2.0-3.0)
[2025-04-19] MEDS: FUROSEMIDE 40 MG/4 ML VIAL IV SCH (18:39)
[2025-04-19 20:36] LABS: Urine Protein, UAD Negative (Negative)
--- NOTE | 2025-04-19 21:14 | DVHSR ---
APPROVED REPORT EXAM: Two-dimensional and M-mode echocardiogram with Doppler and color Doppler. Blood Pressure: 135/102 mmHg INDICATION New onset atrial fibrillation RISK FACTORS Obesity: Height: 5'9", Weight: 396 DIMENSIONS LVDd 5.1 (3.8-5.7cm) LA (2D) (1.9-4.0cm) Aortic Root 3.9 (2.0-3.7cm) LVDs 3.2 (2.5-4.0cm) LA (MM) (1.9-4.0cm) Aortic Cusp Exc 1.8 (1.5-2.0cm) EF (%) 65.0 (55-70%) Rt. Atrium (1.9-4.0cm) Asc. Aorta cm IVSd 1.2 (0.7-1.1cm) RV (D) (1.8-2.4cm) PWd 1.2 (0.7-1.1cm) Mitral Valve Mitral Mitral Stenosis E/A ratio 0.0 2D MVA cm2 Aortic Valve Aortic Valve Aortic Stenosis LVOT Diameter 2.2 (1.8-2.4cm) Doppler NORMAN cm2 2D NORMAN 2.67cm2 Pulmonic Valve V2 1.11m/s Tricuspid Valve TR Velocity 3.37m/s RVSP 60mmHg Other Information Quality : Technically Limited Rhythm : Technically limited study due to body habitus, patient lying flat. Conclusion MODERATELY CALCIFIED POSTERIOR MITRAL LEAFLET MODERATELY CALCIFIED AORTIC LEAFLETS MODERATE DEGREE LVH AND MODERATE DEGREE LV DIASTOLIC DYSFUNCTION LV EF IS 60% no effusion MODERATELY DILATED RV AND RA SEVERE PULMONARY HYPERTENSION RVSP IS 60 MM OF HG AND IS VERY HIGH
[2025-04-19] MEDS ORDERED: PATIENTS OWN MEDICATION (Omeprazole (Omeprazole Dr) 1 CAP) PO SCH (22:00)
[2025-04-19 22:29] VITALS: O2SAT 95
[2025-04-20] VITALS (10 sets, daily range): BP systolic 92–132; BP diastolic 54–84; PULSE 61–97; RESP 17–19; TEMP 97.2–98.9; O2SAT 91–98
--- NOTE | 2025-04-20 00:01 | DVHINCON2 ---
Date Seen: Apr 19, 2025 Referring Physician BONNIE Katz Reason for Consultation New onset a-fib History of Present Illness This is a 74-year-old female with a past medical history of pulmonary hypertension, hypertension, dyslipidemia, home oxygen dependent, arthritis, carpal tunnel, bed-bound status, and morbid obesity who presented to the emergency room via EMS with a complaint of shortness of breath. At time of assessment the patient was found A&O x2 and with associated anisocoria. Information obtained from records which indicate the patient presented with a chief complaint of shortness of breath and an associated nonproductive cough for one day. She underwent a 12 lead electrocardiogram revealing atrial fibrillation rhythm regular ventricular rate and multiple premature ventricular contractions in the 140s bpm. Patient denies a previous history of tachyarrhythmias or cardiovascular disease. She is currently on an amiodarone drip with a heart rate fluctuating between 70s-90s bpm and on a simple mask for O2 supplementation. TROP 13 >15. Chest x-ray shows cardiomegaly and pulmonary vascular congestion. Patient was admitted to the hospital. I am asked to consult on this patient. Past Medical History Past medical history reviewed. No other significant than mentioned above. Past Surgical History Cholecystectomy Hysterectomy Hernia repair Left arm Right CVA Family History: Hypertension G8 MOTHER G8 FATHER Allergies: Coded Allergies: NO KNOWN ALLERGIES (Unverified , 02/26/16) Home Meds Reported Medications Meloxicam (Meloxicam) 15 Mg Tab, 15 MG PO DAILY, TAB 10/09/23 Pravastatin Sodium (PRAVACHOL TABLET) 20 Mg Tb, 1 TAB PO DAILY 10/09/23 Metoprolol Succinate (Metoprolol Succinate Er) 25 Mg Tab, 1 TAB PO DAILY 10/09/23 Meloxicam (Meloxicam) 15 Mg Tab, 1 TAB PO DAILY 10/09/23 Mirabegron Base (MYRBETRIQ) 50 Mg Tab, 1 TAB PO DAILY 10/09/23 Omeprazole (Omeprazole Dr) 20 Mg Cap, 1 CAP PO BID 10/09/23 Losartan Potassium (Losartan Potassium) 50 Mg Tab, 1 TAB PO DAILY 10/09/23 Hydrocodone-Acetaminophen (Hydrocodone/Acetaminophen 10-325 mg) 1 Tab Tab 10/09/23 Current Medications Current Medications Medications (Trade) Dose Ordered Sig/Jl Route PRN Reason Start Time Stop Time Status Last Admin Ondansetron HCl (Zofran) 4 mg Q4HP PRN IV NAUSEA / VOMITING 04/19/25 13:00 Docusate Sodium (Colace Capsule) 100 mg BIDPRN PRN PO FOR CONSTIPATION 04/19/25 13:00 Nitroglycerin (Ntrostat Sublingual) 0.4 mg Q5MINP PRN SL FOR CHEST PAIN 04/19/25 13:00 Morphine Sulfate 2 mg Q30M PRN IV FOR CHEST PAIN 04/19/25 13:00 Albuterol (Ventolin Medneb) 2.5 mg Q4HPRN PRN NEB SHORTNESS OF BREATH 04/19/25 13:00 Ipratropium [place] (Atrovent Medneb) 0.5 mg Q4HPRN PRN NEB SHORTNESS OF BREATH 04/19/25 13:00 Losartan Potassium (Cozaar Tablet) 50 mg DAILY PO 04/20/25 10:00 Pravastatin Sodium (Pravachol Tablet) 20 mg DAILY PO 04/20/25 10:00 Patient Own Medication 1 tab DAILY PO 04/20/25 10:00 UNV Patient Own Medication 1 cap BID PO 04/19/25 22:00 UNV Furosemide (Lasix Injection) 20 mg DAILY IV 04/20/25 10:00 04/19/25 14:30 DC Metoprolol Succinate (Toprol Xl) 25 mg DAILY PO 04/20/25 10:00 Pantoprazole Sodium (Protonix Tablet) 40 mg DAILY PO 04/20/25 10:00 Furosemide (Lasix Injection) 40 mg BIDD IV 04/19/25 18:00 Review of Systems Constitutional: No symptom reported Ears, Nose, & Throat: No symptom reported Eyes: No symptom reported Neurological: No symptoms reported Pulmonary/Respiratory: SOB, nonproductive cough Cardiovascular: No symptom reported Gastrointestinal: No symptom reported Genitourinary: No symptom reported Musculoskeletal: No symptom reported Skin: No symptom reported Psychiatric: No symptom reported Endocrine: No symptom reported Hemotologic/Lymphatic: No symptom reported Vital Signs Vital Signs Date Time Temp Pulse Resp B/P (MAP) Pulse Ox O2 Delivery O2 Flow Rate FiO2 04/19/25 16:08 80 98 Facial BiPAP Mask 30 04/19/25 15:22 143/71 04/19/25 13:30 6 04/19/25 13:00 98.9 15 98.9 Physical Exam GENERAL: Somewhat obtunded. Morbidly obese. EYES: PERRL, EOMI. Anicteric. HENT: Moist mucous membranes. LUNGS: Clear to auscultation bilaterally. CARDIOVASCULAR: Irregular rate and rhythm. AFib, controlled rate. ABDOMEN: Soft, nontender and nondistended. EXTREMITIES: BLE edema. SKIN: Warm, dry. Erythema to bilateral lower extremity. Labs/Diagnostic Data Labs Test 04/19/25 16:13 04/19/25 14:42 04/19/25 13:29 04/19/25 10:41 Range/Units Troponin I High Sensitivity 15 </=34 ng/L Blood Gas Specimen Type Arterial Blood Gas Sample Site Left radial Blood Gas Patient Temperature 37.0 Arterial Blood Date Drawn [id number] Arterial Blood pH 7.299 L 7.350-7.450 Arterial Blood Partial Pressure CO2 76.2 *H 32.0-45.0 mmHg Arterial Blood Partial Pressure O2 83.9 83.0-108.0 mmHg Arterial Blood HCO3 36.6 H 21.0-28.0 mmol/L Arterial Blood Oxygen Saturation 95.5 94.0-98.0 % Arterial Blood Base Excess 7.3 H -2.0-3.0 mmol/L Arterial Blood Oxyhemoglobin 93.2 L 94.0-98.0 % Arterial Blood Carboxyhemoglobin 1.8 H 0.5-1.5 % Arterial Blood Methemoglobin 0.6 0.0-1.5 % Arterial Blood Deoxyhemoglobin 4.4 0.0-5.0 % Brandon Test Yes Blood Gas Total Hemoglobin 13.50 12.0-16.0 g/dL Blood Gas Liter Flow 5.00 Blood Gas Modality Nasal cannula FiO2 % 36.0 Blood Gas Critical Value Read Back Colleen agudelo Blood Gas Notified Whom Paola rivero [facility] Blood Gas Notified Time [id number] Blood Gas Notified By Elvia johnson rrt Magnesium Level 1.8 1.6-2.6 mg/dL Triglycerides Level 71 < 150 mg/dL Cholesterol Level 139 < 200 mg/dL LDL Cholesterol 87 < 100 mg/dL HDL Cholesterol 41 40-59 mg/dL Thyroid Stimulating Hormone (TSH) 1.58 0.55-4.78 uIU/mL White Blood Count 8.4 4.4-10.8 10^3/uL Red Blood Count 4.62 4.0-5.20 10^6/uL Hemoglobin 12.7 12.2-16.2 g/dL Hematocrit 39.2 36.0-46.0 % Mean Corpuscular Volume 84.8 80.0-100.0 fL Mean Corpuscular Hemoglobin 27.5 L 28.0-32.0 pg Mean Corpuscular Hemoglobin Concent 32.4 32.0-36.0 g/dL Red Cell Distribution Width 14.9 H 11.8-14.3 % Platelet Count 188 140-450 10^3/uL Mean Platelet Volume 7.6 6.9-10.8 fL Neutrophils (%) (Auto) 77.4 37.0-80.0 % Lymphocytes (%) (Auto) 11.8 10.0-50.0 % Monocytes (%) (Auto) 8.3 0.0-12.0 % Eosinophils (%) (Auto) 2.1 0.0-7.0 % Basophils (%) (Auto) 0.4 0.0-2.0 % Neutrophils # (Auto) 6.5 1.6-8.6 10 ^3/uL Lymphocytes # (Auto) 1.0 0.4-5.4 10 ^3/uL Monocytes # (Auto) 0.7 0-1.3 10 ^3/uL Eosinophils # (Auto) 0.2 0-0.8 10 ^3/uL Basophils # (Auto) 0 0-0.2 10 ^3/uL Nucleated Red Blood Cells 0.0 % D-Dimer, Quantitative 0.47 0.0-0.49 mg/L FEU Sodium Level 137 136-145 mmol/L Potassium Level 4.2 3.5-5.1 mmol/L Chloride Level 93 L 98-107 mmol/L Carbon Dioxide Level 36 H 20-31 mmol/L Anion Gap 8 5-15 Blood Urea Nitrogen 7 L 9-23 mg/dL Creatinine 0.54 L 0.550-1.02 mg/dL Glomerular Filtration Rate Calc 95 >90 mL/min BUN/Creatinine Ratio 13.0 10.0-20.0 Serum Glucose 104 74-106 mg/dL Hemoglobin A1c 5.5 <5.7 % A1C Calcium Level 9.7 8.7-10.4 mg/dL B-Type Natriuretic Peptide 239.22 0-100 pg/mL Assessment Atrial fibrillation with rapid ventricular rate, newly diagnosed. De Librado decompensated HFpEF, NYHA Class III. Rule out acute CVA (+anisocoria). Pulmonary hypertension, moderate degree. Acute respiratory failure. Hypertension. Home O2 dependence. Bed-bound status. Morbid obesity. Plan/Recommendation I agree with your ongoing assessment and care of plan. Patient has been seen by Maylin Rivero NP on my behalf, her and I discussed the plan with the patient. We will continue further cardiac evaluation with a transthoracic echocardiogram to rule out structural heart disease. In the meantime, initiate preload and afterload reduction, strict I&Os, daily weight, and maintain fluid restrictions. Continue rate control with beta-monica. Continue antiarrhythmic therapy, amiodarone drip. Initiate anticoagulation therapy after a head CT has been completed ([id number] Score 5 points, HAS- BLED Score 1 point). Replete electrolytes as necessary, K>4 and Mg>2. Rule out acute CVA and lower extremity DVT. Obtain an ABG. Continue with TSH level. Further orders per clinical course and progression. Additional plan as per the hospital course. Plan discussed with: Other NYHA Physical activity limitations: Class3(Marked) ordinary Date of Service: Apr 20, 2025 Billing Provider: AZAR MELGOZA MD Cardiology Common Codes: 09778-[id number] INP/OBS CARE (High), 63523-[id number] CARE 30-74 MIN, 62258-[id number] CARE-EACH +30MIN AZAR MELGOZA MD Apr 19, 2025 17:20
[2025-04-20 07:45] LABS: Hematocrit 40.6 % (36.0-46.0); Hemoglobin 13.1 g/dL (12.2-16.2); Mean Corpuscular Hemoglobin 27.7 pg (28.0-32.0); Mean Corpuscular Volume 85.9 fL (80.0-100.0); Nucleated Red Blood Cells % 0.1 %
[2025-04-20 08:32] LABS: Alanine Aminotransferase 12 U/L (7-40); Alkaline Phosphatase 81 U/L (46-116); BUN/Creatinine Ratio 12.5 (10.0-20.0); Calcium 9.6 mg/dL (8.7-10.4); Glucose 84 mg/dL (74-106); Potassium 3.9 mmol/L (3.5-5.1); Sodium 140 mmol/L (136-145); Total Protein 6.9 g/dL (5.7-8.2)
[2025-04-20 08:34] LABS: Albumin 3.8 g/dL (3.2-4.8); Bilirubin, Total 0.6 mg/dL (0.2-1.0)
[2025-04-20 08:45] LABS: Anion Gap 6.99999 (5-15); Blood Urea Nitrogen 8 mg/dL (9-23); Carbon Dioxide > 40 mmol/L (20-31); Chloride 93 mmol/L (98-107)
[2025-04-20] MEDS: LOSARTAN POTASSIUM 50 MG TAB PO SCH (09:20)
[2025-04-20] MEDS: METOPROLOL SUCCINATE XL 50 MG TAB PO SCH (09:21)
[2025-04-20] MEDS: PRAVASTATIN SODIUM 20 MG TAB PO SCH (09:21)
[2025-04-20] MEDS: PANTOPRAZOLE 40 MG TAB PO SCH (09:22)
[2025-04-20] MEDS ORDERED: PATIENTS OWN MEDICATION (Metoprolol Succinate (Metoprolol Succinate Er) 1 TAB) PO SCH (10:00)
[2025-04-20] MEDS ORDERED: PNEUMOCOCCAL VACC POLYS 25 MCG/0.5 ML VIAL IM ONE (10:00)
[2025-04-20] MEDS ORDERED: FUROSEMIDE 20 MG/2 ML VIAL IV SCH (10:00)
--- NOTE | 2025-04-20 10:50 | ECG ---
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
--- NOTE | 2025-04-20 11:07 | DVHPN2 ---
Consult Progress Note Date Seen: Apr 20, 2025 Subjective Review of Systems: CVS:Normal, RESPIRATORY:Normal, NEURO:Normal Objective vital signs Vital Sign Date Time Temp Pulse Resp B/P (MAP) Pulse Ox O2 Delivery O2 Flow Rate FiO2 04/20/25 09:21 68 132/83 04/20/25 08:46 98.0 19 98 98.0 04/20/25 08:00 Nasal Cannula* 3 32 Total Intake and Output 04/19/25 04/19/25 04/20/25 15:00 23:00 07:00 Intake Total 166.66 ml 199.99 ml 140 ml Output Total 150 ml Balance 166.66 ml 199.99 ml -10 ml medications Current Medications Medications Dose Ordered Sig/Jl Route Start Time Stop Time Status Last Admin Dose Admin Ondansetron HCl 4 mg Q4HP PRN IV 04/19/25 13:00 Docusate Sodium 100 mg BIDPRN PRN PO 04/19/25 13:00 Nitroglycerin 0.4 mg Q5MINP PRN SL 04/19/25 13:00 Morphine Sulfate 2 mg Q30M PRN IV 04/19/25 13:00 Albuterol 2.5 mg Q4HPRN PRN NEB 04/19/25 13:00 Ipratropium [place] 0.5 mg Q4HPRN PRN NEB 04/19/25 13:00 Losartan Potassium 50 mg DAILY PO 04/20/25 10:00 04/20/25 09:20 50 MG Pravastatin Sodium 20 mg DAILY PO 04/20/25 10:00 04/20/25 09:21 20 MG Patient Own Medication 1 tab DAILY PO 04/20/25 10:00 UNV Patient Own Medication 1 cap BID PO 04/19/25 22:00 UNV Metoprolol Succinate 25 mg DAILY PO 04/20/25 10:00 04/20/25 09:21 25 MG Pantoprazole Sodium 40 mg DAILY PO 04/20/25 10:00 04/20/25 09:22 40 MG Furosemide 40 mg BIDD IV 04/19/25 18:00 04/20/25 05:43 40 MG Apixaban 5 mg BID PO 04/20/25 22:00 UNV Examination: GENERAL:Abnormal (Morbidly obese), LUNGS:Abnormal (Diminished bilaterally), CVS:Normal (A-fib low 100s bpm), NEURO:Normal laboratory and microbiology Laboratory Tests 04/20/25 06:28 Test 04/20/25 06:28 Range/Units Serum Glucose 84 74-106 mg/dL Problem List/Assessment/Plan Problem List/Assessment/Plan Atrial fibrillation with rapid ventricular rate, newly diagnosed De Librado decompensated HFpEF, NYHA Class III +Anisocoria, acute CVA ruled out Pulmonary hypertension, moderate degree Acute respiratory failure Hypertension Home O2 dependence Bed-bound status Morbid obesity * Transthoracic echocardiogram revealed a LVEF 60% with moderately calcified posterior mitral leaflet and aortic leaflets as well as moderate degree of LVH and diastolic dysfunction. Moderately dilated RV and RA. RVSP 60 mmHg * Twelve-lead electrocardiograms x 4 atrial fibrillation with multiple premature ventricular contractions * Serial troponin levels negative. BNP level 239 Plan/Recommendation (Dr. Liu) Continue preload and afterload reduction, strict I&Os, daily weight, and maintain fluid restrictions. Continue rate control with beta-monica. Continue antiarrhythmic therapy, transition to amiodarone p.o. Initiate DOAC therapy with Eliquis ([id number] Score 5 points, HAS-BLED Score 1 point). Replete electrolytes as necessary, K>4 and Mg>2. Scheduled for follow-up with cardiology on 05/12/2025 at 0845 am. Kindly call if in need of further recommendations. Thank you for allowing us to participate in this patient's care. This medical document was created using an electronic medical record system with voice recognition software and computerized dictation system. Although this document has been carefully reviewed, there might still be some phonetic and typographical errors. Occasional wrong-word or ``sound-alike substitutions may have occurred due to the inherent limitations of voice recognition software. These areas are purely typographical due to imperfections of the software programs and do not reflect any compromise in the patient's medical care. Please read the chart carefully and recognize, using context, where these substitutions have occurred. Plan discussed with: Patient, Son, Other Date of Service: Apr 20, 2025 Billing Provider: THU GONZALEZ Cardiology Common Codes: [id number] [facility]OSP CARE([facility] THU GONZALEZ Apr 20, 2025 11:07
--- NOTE | 2025-04-20 11:13 | DVHPN2 ---
Progress Note Date Seen: Apr 20, 2025 Medical Necessity Reason Pt with a Central, PICC or Fol: Yes The following are medically ne: Smith Catheter Reason for smith catheter: Strict I&O Subjective Patient reports: No new complaints Review of Systems: HEENT:Normal, CVS:Normal, RESPIRATORY:Normal, GI:Normal, :Normal, MSK:Normal, NEURO:Normal Objective vital signs Vital Sign Date Time Temp Pulse Resp B/P (MAP) Pulse Ox O2 Delivery O2 Flow Rate FiO2 04/20/25 09:21 68 132/83 04/20/25 08:46 98.0 19 98 98.0 04/20/25 08:00 Nasal Cannula* 3 32 Total Intake and Output 04/19/25 04/19/25 04/20/25 15:00 23:00 07:00 Intake Total 166.66 ml 199.99 ml 140 ml Output Total 150 ml Balance 166.66 ml 199.99 ml -10 ml medications Current Medications Medications Dose Ordered Sig/Jl Route Start Time Stop Time Status Last Admin Dose Admin Ondansetron HCl 4 mg Q4HP PRN IV 04/19/25 13:00 Docusate Sodium 100 mg BIDPRN PRN PO 04/19/25 13:00 Nitroglycerin 0.4 mg Q5MINP PRN SL 04/19/25 13:00 Morphine Sulfate 2 mg Q30M PRN IV 04/19/25 13:00 Albuterol 2.5 mg Q4HPRN PRN NEB 04/19/25 13:00 Ipratropium [place] 0.5 mg Q4HPRN PRN NEB 04/19/25 13:00 Losartan Potassium 50 mg DAILY PO 04/20/25 10:00 04/20/25 09:20 50 MG Pravastatin Sodium 20 mg DAILY PO 04/20/25 10:00 04/20/25 09:21 20 MG Patient Own Medication 1 tab DAILY PO 04/20/25 10:00 UNV Patient Own Medication 1 cap BID PO 04/19/25 22:00 UNV Metoprolol Succinate 25 mg DAILY PO 04/20/25 10:00 04/20/25 09:21 25 MG Pantoprazole Sodium 40 mg DAILY PO 04/20/25 10:00 04/20/25 09:22 40 MG Furosemide 40 mg BIDD IV 04/19/25 18:00 04/20/25 05:43 40 MG Apixaban 5 mg BID PO 04/20/25 22:00 UNV Amiodarone HCl 200 mg Q12HR PO 04/20/25 22:00 UNV Examination: GENERAL:Normal, HEENT:Normal, NECK:Normal, LUNGS:Normal, LUNGS:Abnormal (on oxygen), CVS:Normal, ABDOMEN:Normal, MSK:Normal, MSK:Abnormal (edema++), SKIN:Normal, NEURO:Normal, :Normal laboratory and microbiology Laboratory Tests 04/20/25 06:28 Test 04/20/25 06:28 Range/Units Serum Glucose 84 74-106 mg/dL Problem List/Assessment/Plan Problem List/Assessment/Plan #1 a fib with rvr: on amiodarone, toprol, eliquis #2 acute diastolic heart failure: lasix iv #3 morbid obesity #4 likely obesity hypoventilation syndrome/SARA: refuses bipap #5 h/o tibial fracture #6 functional quadriplegia #7 htn #8 chronic resp failure advance care planning- full code- time spent 18 mins Plan discussed with: Patient, Son My Orders My Orders Orders - VIDYA DUGGAN MD Procedure Category Date Status Time Pt Request For Service PT 04/20/25 Logged 11:06 Basic Metabolic Panel LAB 04/21/25 Verified 06:00 Complete Blood Count LAB 04/21/25 Verified 06:00 Magnesium LAB 04/21/25 Verified 05:00 Electrocardigram EKG 04/20/25 Logged 11:08 Date of Service: Apr 20, 2025 Billing Provider: VIDYA DUGGAN MD Common Visit Codes: [id number] INP/OBS CARE(HIGH) Secondary Visit Codes: [id number] CARE PLAN 30 MINUTES VIDYA DUGGAN MD Apr 20, 2025 11:13
[2025-04-20] MEDS: APIXABAN 5 MG TAB PO ONE (11:50)
[2025-04-20] MEDS: AMIODARONE HCL 200 MG TAB PO ONE (11:50)
[2025-04-20] MEDS ORDERED: ACETAMINOPHEN 325 MG TAB PO PRN (16:15)
[2025-04-20] MEDS ORDERED: MORPHINE SULFATE 4 MG/ML SYR/VIAL IV PRN (16:30)
[2025-04-20] MEDS: MORPHINE SULFATE 4 MG/ML SYR/VIAL IV PRN (17:23)
[2025-04-20] MEDS: AMIODARONE HCL 200 MG TAB PO SCH (21:36)
[2025-04-20] MEDS: APIXABAN 5 MG TAB PO SCH (21:36)
[2025-04-20] MEDS: PRAMIPEXOLE DIHYDROCHLORIDE MO 0.25 MG TAB PO SCH (21:36)
--- NOTE | 2025-04-20 23:30 | DVHPN2 ---
Consult Progress Note Date Seen: Apr 20, 2025 Subjective Review of Systems: CVS:Normal, RESPIRATORY:Normal, NEURO:Normal Other Systems: Patient was seen and evaluated in follow up. Patient is complaining of generalized pain. WBC 11.1, CL 93, CO2> 40. Bilateral lower extremity venous duplex is negative for DVT. Telemetry reviewed. Objective vital signs Vital Sign Date Time Temp Pulse Resp B/P (MAP) Pulse Ox O2 Delivery O2 Flow Rate FiO2 04/20/25 12:31 98.1 74 17 105/66 (79) 96 98.1 04/20/25 08:00 Nasal Cannula* 3 32 Total Intake and Output 04/19/25 04/19/25 04/20/25 15:00 23:00 07:00 Intake Total 166.66 ml 199.99 ml 140 ml Output Total 150 ml Balance 166.66 ml 199.99 ml -10 ml medications Current Medications Medications Dose Ordered Sig/Jl Route Start Time Stop Time Status Last Admin Dose Admin Ondansetron HCl 4 mg Q4HP PRN IV 04/19/25 13:00 Docusate Sodium 100 mg BIDPRN PRN PO 04/19/25 13:00 Nitroglycerin 0.4 mg Q5MINP PRN SL 04/19/25 13:00 Morphine Sulfate 2 mg Q30M PRN IV 04/19/25 13:00 Ipratropium [place] 0.5 mg Q4HPRN PRN NEB 04/19/25 13:00 Losartan Potassium 50 mg DAILY PO 04/20/25 10:00 04/20/25 09:20 50 MG Pravastatin Sodium 20 mg DAILY PO 04/20/25 10:00 04/20/25 09:21 20 MG Patient Own Medication 1 tab DAILY PO 04/20/25 10:00 UNV Patient Own Medication 1 cap BID PO 04/19/25 22:00 UNV Metoprolol Succinate 25 mg DAILY PO 04/20/25 10:00 04/20/25 09:21 25 MG Pantoprazole Sodium 40 mg DAILY PO 04/20/25 10:00 04/20/25 09:22 40 MG Furosemide 40 mg BIDD IV 04/19/25 18:00 04/20/25 05:43 40 MG Apixaban 5 mg BID PO 04/20/25 22:00 Amiodarone HCl 200 mg Q12HR PO 04/20/25 22:00 Examination: GENERAL:Abnormal (Morbidly obese), HEENT:Normal, NECK:Normal, LUNGS:Normal, LUNGS:Abnormal (Diminished bilaterally), CVS:Normal (A-fib low 100s bpm), ABDOMEN:Normal, MSK:Normal, SKIN:Normal, NEURO:Normal laboratory and microbiology Laboratory Tests 04/20/25 06:28 Test 04/20/25 06:28 Range/Units Serum Glucose 84 74-106 mg/dL Problem List/Assessment/Plan Problem List/Assessment/Plan Problem List Atrial fibrillation with rapid ventricular rate, newly diagnosed. De Librado decompensated HFpEF, NYHA Class III. +Anisocoria, acute CVA ruled out. Pulmonary hypertension, moderate degree. Acute respiratory failure. Hypertension. Home O2 dependence. Bed-bound status. Morbid obesity. Plan/Recommendation Continued all current supportive medical care. Patient has been seen by Maylin Vora NP on my behalf, her and I discussed the plan with the patient. Transthoracic echocardiogram revealed a LVEF 60% with moderately calcified posterior mitral leaflet and aortic leaflets as well as moderate degree of LVH and diastolic dysfunction. Moderately dilated RV and RA. RVSP 60 mmHg. Twelve-lead electrocardiograms x 4 atrial fibrillation with multiple premature ventricular contractions. Serial troponin levels negative. BNP level 239. Continue preload and afterload reduction, strict I&Os, daily weight, and maintain fluid restrictions. Continue rate control with beta-monica. Continue antiarrhythmic therapy, transition to amiodarone p.o. Initiate DOAC therapy with Eliquis ([id number] Score 5 points, HAS-BLED Score 1 point). Replete electrolytes as necessary, K>4 and Mg>2. Scheduled for follow-up with cardiology on 05/12/2025 at 0845 am. Additional plan as per the hospital course. Plan discussed with: Patient Date of Service: Apr 20, 2025 Billing Provider: AZAR MELGOZA MD Cardiology Common Codes: [id number] [facility](High AZAR MELGOZA MD Apr 20, 2025 14:05
[2025-04-21] VITALS (19 sets, daily range): BP systolic 83–152; BP diastolic 60–95; PULSE 55–179; RESP 16–24; TEMP 98.2–99; O2SAT 92–100
[2025-04-21 06:14] LABS: Anion Gap 10 (5-15)
[2025-04-21 06:15] LABS: Calcium 9.4 mg/dL (8.7-10.4)
[2025-04-21 06:19] LABS: BUN/Creatinine Ratio 19.1 (10.0-20.0); Blood Urea Nitrogen 13 mg/dL (9-23); Glucose 89 mg/dL (74-106)
[2025-04-21 06:20] LABS: Magnesium 1.8 mg/dL (1.6-2.6)
[2025-04-21 06:27] LABS: Carbon Dioxide 37 mmol/L (20-31); Chloride 93 mmol/L (98-107); Potassium 4.4 mmol/L (3.5-5.1); Sodium 140 mmol/L (136-145)
[2025-04-21 08:44] LABS: Hematocrit 39.2 % (36.0-46.0); Hemoglobin 12.8 g/dL (12.2-16.2); Mean Corpuscular Hemoglobin 27.8 pg (28.0-32.0); Mean Corpuscular Volume 84.9 fL (80.0-100.0); Nucleated Red Blood Cells % 0.0 %
[2025-04-21] MEDS ORDERED: LIDO5DIS21 TOP (08:51)
[2025-04-21] MEDS ORDERED: OXYB2.5T PO (08:51)
--- NOTE | 2025-04-21 09:21 | ECG ---
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
[2025-04-21] MEDS ORDERED: LIDOCAINE 5% TOPICAL PATCH TOP SCH (11:50)
[2025-04-21] MEDS: ONDANSETRON HCL 4 MG/2 ML VIAL IV PRN (14:28)
[2025-04-21] MEDS: HYDROcodone-ACET 5/325MG TAB PO PRN (14:30)
[2025-04-21] MEDS: OXYBUTYNIN CHL 5 MG TAB PO SCH (14:45)
--- NOTE | 2025-04-21 16:04 | DVHPNRES ---
Progress Note Date Seen: Apr 21, 2025 Resident Creating Document: SABA FULTON RESIDENT Has the PT tested + for MRSA If YES, has PT been informed?: No Medical Necessity Reason Pt with a Central, PICC or Fol: Yes The following are medically ne: Smith Catheter Reason for smith catheter: Strict I&O Subjective Review of Systems Patient seen and examined at bedside. Patient is currently on 2.5 L of oxygen through nasal cannula. Patient states that uses home oxygen 2 L occasionally. Patient stated that shortness of breath has slightly improved compared to admission but still not at her baseline. Patient is currently on amiodarone 200 mg q.12, Eliquis 5 mg b.i.d. and metoprolol succinate 25 mg daily. We will also continue furosemide 40 mg b.i.d.. Patient does has slight lower extremity edema bilaterally for which we will continue her current diuresis. Last echocardiogram showed an LVEF of 60%. Bilateral lower extremity venous Doppler showed no DVT and head CT was grossly unremarkable. ROS Constitutional: Denies weight loss, fever and chills. HEENT: Denies changes in vision and hearing. Respiratory: Reports shortness of breaths, denies cough Cardiovascular: Denies chest discomfort or palpitations GI: Denies abdominal pain, nausea, vomiting and diarrhea. : Denies dysuria and urinary frequency. Musculoskeletal: Denies myalgias and joint pain Skin: Denies rash and pruritus. Neurological: Denies dizziness, headache, vision or hearing problems Objective vital signs Vital Sign Date Time Temp Pulse Resp B/P (MAP) Pulse Ox O2 Delivery O2 Flow Rate FiO2 04/21/25 12:37 99.0 55 16 130/79 (96) 95 99.0 04/20/25 22:21 Nasal Cannula 3.0 04/20/25 22:21 32 Total Intake and Output 04/20/25 04/20/25 04/21/25 15:00 23:00 07:00 Intake Total 680 ml 1100 ml Output Total 1600 ml 1150 ml Balance -920 ml -50 ml medications Current Medications Medications Dose Ordered Sig/Jl Route Start Time Stop Time Status Last Admin Dose Admin Docusate Sodium 100 mg BIDPRN PRN PO 04/19/25 13:00 Nitroglycerin 0.4 mg Q5MINP PRN SL 04/19/25 13:[address] [place] 0.5 mg Q4HPRN PRN NEB 04/19/25 13:00 Losartan Potassium 50 mg DAILY PO 04/20/25 10:00 04/21/25 10:42 50 MG Pravastatin Sodium 20 mg DAILY PO 04/20/25 10:00 04/21/25 10:38 20 MG Patient Own Medication 1 tab DAILY PO 04/20/25 10:00 UNV Patient Own Medication 1 cap BID PO 04/19/25 22:00 UNV Metoprolol Succinate 25 mg DAILY PO 04/20/25 10:00 04/21/25 10:42 25 MG Pantoprazole Sodium 40 mg DAILY PO 04/20/25 10:00 04/21/25 10:38 40 MG Furosemide 40 mg BIDD IV 04/19/25 18:00 04/21/25 05:54 40 MG Apixaban 5 mg BID PO 04/20/25 22:00 04/21/25 10:37 5 MG Amiodarone HCl 200 mg Q12HR PO 04/20/25 22:00 04/21/25 10:37 200 MG Pramipexole Dihydrochloride 0.25 mg HS PO 04/20/25 22:00 04/20/25 21:36 0.25 MG Acetaminophen 650 mg Q6HP PRN PO 04/20/25 16:15 Acetaminophen/ Hydrocodone Bitart 1 tab Q6HPRN PRN PO 04/20/25 16:15 04/21/25 14:30 1 TAB Morphine Sulfate 2 mg Q6HPRN PRN IV 04/20/25 16:15 04/20/25 17:23 2 MG Ondansetron HCl 4 mg Q6HPRN PRN IV 04/20/25 16:15 04/21/25 14:28 4 MG Morphine Sulfate 2 mg Q30M PRN IV 04/20/25 16:30 Patient Own Medication 1 HS LEFTEYE 04/21/25 22:00 Oxybutynin Chloride 5 mg TID PO 04/21/25 14:00 04/21/25 14:45 5 MG Patient Own Medication 0.2 mg BID LEFTEYE 04/21/25 22:00 Patient Own Medication 1 drop BID LEFTEYE 04/21/25 22:00 Hydroxyzine Pamoate 25 mg BID PO 04/21/25 22:00 Mupirocin 1 applic BID EACHNOSTRI 04/21/25 22:00 04/26/25 21:59 Lidocaine 2 patch DAILY@1500 TOP 04/21/25 15:00 Examination Physical Examination General: Patient alert and oriented in person, place and time. Patient following commands. Morbidly obese HEENT: Normocephalic, atraumatic, moist mucous membranes Respiratory/pulmonary: There is slight bilateral lung bases crackles, no wheezes at this time. Currently on 2.5 L of oxygen through nasal cannula Cardiovascular: Normal heart sounds S1 and S2 with no associated murmurs Abdomen: Abdomen nondistended, there is no pain to palpation in any of the abdominal quadrants, no palpable masses. Extremities: There is mild bilateral lower extremity edema 1+ Skin: No rashes or pruritus, there is no sacral edema present at this time. Neurological: Intact cranial nerves with no focal neurologic deficits laboratory and microbiology Laboratory Tests 04/21/25 08:30 04/21/25 04:30 Test 04/21/25 04:30 Range/Units Serum Glucose 89 74-106 mg/dL Microbiology Date/Time Source Procedure Growth Status 04/20/25 03:00 Nose MRSA Screen - Final Methicillin Resistant S.aureus Complete Labs and/or images reviewed: Labs reviewed by me, Image(s) reviewed by me Problem List/Assessment/Plan Problem List/Assessment/Plan Assessment/plan Acute hypoxic respiratory failure likely due to diastolic heart failure exacerbation Acute on chronic diastolic heart failure HFpEF 60% Atrial fibrillation with RVR Obesity hypoventilation syndrome, possible SARA Hyperlipidemia Primary hypertension Functional quadriplegia Plan -patient was initially on AFib with RVR, continue amiodarone 200 mg q.12 and metoprolol succinate 25 mg daily -chads Vasc5 points, continue Eliquis 5 mg b.i.d. -continue losartan 50 mg daily and furosemide 40 mg IV b.i.d. -patient is currently on 2.5 L of oxygen through nasal cannula, patient uses home oxygen at 2 L -echocardiogram showed LVEF of 60% -bilateral lower extremity venous Doppler ruled out DVT -social service was consulted for SNF which apparently was accepted by delmer [facility] tomorrow if patient continues to improve Goals of care discussed with the patient at bedside for 20 minutes, full code Plan discussed with Dr. Mallory Plan discussed with: Patient, Other (Nurse) My Orders My Orders Orders - SABA FULTON Procedure Category Date Status Time Mupirocin 2% Oint PHA 04/21/25 In Process Mrsa Nares (Bactroban 22:00 Lidocaine 5% Topical PHA 04/21/25 In Process Patch (Lidoderm 5% 15:00 Electrocardigram EKG 04/21/25 Logged 15:12 Date of Service: Apr 21, 2025 Billing Provider: HAYLIE MALLORY MD Common Visit Codes: [id number] INP/OBS CARE(HIGH) Secondary Visit Codes: [id number]-[id number] CARE PLAN 30 MINUTES (20 minutes) SABA FULTON RESIDENT Apr 21, 2025 16:04 HAYLIE MALLORY MD Apr 25, 2025 10:07
[2025-04-21] MEDS: LIDOCAINE 5% TOPICAL PATCH TOP SCH (17:33)
[2025-04-21 18:56] LABS: Base Excess 12.7 mmol/L (-2.0-3.0)
[2025-04-21] MEDS: HALOPERIDOL LACTATE 5 MG/ML INJ VIAL IM PRN (19:02)
[2025-04-21 19:30] LABS: Hematocrit 40.8 % (36.0-46.0); Hemoglobin 13.0 g/dL (12.2-16.2); Mean Corpuscular Hemoglobin 27.6 pg (28.0-32.0); Mean Corpuscular Volume 86.7 fL (80.0-100.0); Nucleated Red Blood Cells % 0.0 %
--- NOTE | 2025-04-21 19:36 | DVH ---
EXAM: CT HEAD WITHOUT CONTRAST INDICATION: NEW ONSET ALOC TECHNIQUE: CT of the head without intravenous contrast. Radiation Dose Information: CT Dose: CTDI volume is 63.25 mGy. Dose-length product is 1182.95 mGy*cm The dose indicators for CT are the volume Computed Tomography (CT) Dose Index (CTDIvol) and the Dose Length Product (DLP), and are measured in units of mGy and mGy-cm, respectively. These indicators are not patient dose, but values generated from the CT scanner acquisition factors. The report includes radiation exposure data for exposures received during this examination. COMPARISON: CT HEAD WITHOUT CONTRAST on DOS: 04/19/25 FINDINGS: There is no evidence of acute intracranial hemorrhage, extra-axial collection, mass effect, midline shift, herniation or hydrocephalus. The ventricles, sulci and cisterns are age appropriate. The walker-white differentiation is intact. Patchy periventricular and subcortical white matter hypoattenuation is nonspecific but may be related to small vessel ischemic disease. The visualized paranasal sinuses and mastoid air cells are clear. The surrounding soft tissues and osseous structures are unremarkable. IMPRESSION: No acute intracranial abnormality.
[2025-04-21 19:48] LABS: Alanine Aminotransferase 12 U/L (7-40); Albumin 3.6 g/dL (3.2-4.8); Alkaline Phosphatase 73 U/L (46-116); Anion Gap 6 (5-15); BUN/Creatinine Ratio 16.0 (10.0-20.0); Blood Urea Nitrogen 17 mg/dL (9-23); Calcium 9.6 mg/dL (8.7-10.4); Potassium 4.3 mmol/L (3.5-5.1); Sodium 140 mmol/L (136-145)
[2025-04-21 19:49] LABS: Total Protein 6.6 g/dL (5.7-8.2)
[2025-04-21 19:50] LABS: Bilirubin, Total 0.5 mg/dL (0.2-1.0)
[2025-04-21] MEDS: ROCURONIUM 10MG/ML 10ML VIAL IV ONE ×2 (20:35→21:07)
[2025-04-21] MEDS: ETOMIDATE (2MG/ML) 20ML VIAL IV ONE ×2 (20:35→21:07)
[2025-04-21 20:37] LABS: Chloride 94 mmol/L (98-107); Glucose 138 mg/dL (74-106)
[2025-04-21] MEDS: MIDAZOLAM DRIP 100 mg/100mL NS 100 ML IV ONE (20:44)
[2025-04-21] MEDS: fentaNYL Drip 2500mCg/250mlNS 250 ML IV SCH (20:45)
[2025-04-21] MEDS: MIDAZOLAM DRIP 100 mg/100mL NS 100 ML IV SCH (20:45)
[2025-04-21] MEDS ORDERED: NOREPINEPHRINE 8 MG/250ML KIT 250 ML IV SCH (20:45)
[2025-04-21] MEDS: NOREPINEPHRINE 8 MG/250ML KIT 250 ML IV ONE (20:45)
[2025-04-21] MEDS: fentaNYL Drip 2500mCg/250mlNS 250 ML IV ONE (20:45)
[2025-04-21 21:05] LABS: Carbon Dioxide 40 mmol/L (20-31)
[2025-04-21] MEDS: NOREPINEPHRINE 8 MG/250ML KIT 250 ML IV SCH (21:15)
[2025-04-21 21:47] LABS: Base Excess 14.2 mmol/L (-2.0-3.0)
[2025-04-21] MEDS: hydrOXYzine 25 MG TAB or CAP PO SCH (22:00)
--- NOTE | 2025-04-21 22:42 | DVH ---
CHEST RADIOGRAPH Indication: intubation Technique: Single frontal view of the chest was obtained COMPARISON: XY CHEST PORTABLE on DOS: 04/19/25 FINDINGS: ET tube tip terminating 3.3 cm above the frieda. NG tube in the mid to distal stomach. Cardiac silhouette is enlarged. Mild diffuse prominence of the pulmonary vasculature. Trace left-sided pleural effusion. Mild bibasilar atelectasis. IMPRESSION: Cardiomegaly with mild pulmonary venous congestion.
[2025-04-21 22:52] LABS: Base Excess 13.6 mmol/L (-2.0-3.0)
[2025-04-21 23:05] LABS: Hematocrit 38.8 % (36.0-46.0); Hemoglobin 12.6 g/dL (12.2-16.2); Mean Corpuscular Hemoglobin 27.7 pg (28.0-32.0); Mean Corpuscular Volume 85.6 fL (80.0-100.0); Nucleated Red Blood Cells % 0.1 %
[2025-04-21] MEDS: LATANOPROST 0.005% LEFTEYE SCH (23:13)
[2025-04-21] MEDS: MUPIROCIN 2% OINT 15gm or 22gm FOR MRSA NARES EACHNOSTRI SCH (23:13)
[2025-04-21 23:20] LABS: INR 1.24 (0.9-1.15); Partial Thromboplastin Time 29.0 SEC (24.5-34.5); Prothrombin Time 12.9 sec (9.3-11.8)
[2025-04-21 23:25] LABS: Alanine Aminotransferase 10 U/L (7-40); Albumin 3.7 g/dL (3.2-4.8); Alkaline Phosphatase 70 U/L (46-116); BUN/Creatinine Ratio 14.3 (10.0-20.0); Blood Urea Nitrogen 16 mg/dL (9-23); Calcium 9.7 mg/dL (8.7-10.4); Magnesium 1.7 mg/dL (1.6-2.6); Potassium 4.1 mmol/L (3.5-5.1); Sodium 140 mmol/L (136-145); Total Protein 6.8 g/dL (5.7-8.2)
[2025-04-21 23:26] LABS: Bilirubin, Total 0.8 mg/dL (0.2-1.0)
[2025-04-21 23:29] LABS: Anion Gap 7.99999 (5-15); Chloride 92 mmol/L (98-107); Glucose 147 mg/dL (74-106)
[2025-04-21 23:30] LABS: Carbon Dioxide > 40 mmol/L (20-31)
--- NOTE | 2025-04-21 23:58 | DVHPN2 ---
Progress Note - Dictate Date Seen: Apr 21, 2025 Has the PT tested + for MRSA If YES, has PT been informed?: No Medical Necessity Reason Pt with a Central, PICC or Fol: Yes The following are medically ne: Smith Catheter Reason for smith catheter: Strict I&O Subjective Patient was seen and evaluated in follow up in the ICU. Patient was transferred to the ICU and intubated for airway protection. Patient was obtunded and not tolerating Bi-PAP. CO2 >40. CT head shows no acute intracranial abnormality. Chest x-ray shows cardiomegaly with mild pulmonary venous congestion. vital signs Vital Sign Date Time Temp Pulse Resp B/P (MAP) Pulse Ox O2 Delivery O2 Flow Rate FiO2 04/21/25 22:03 98 24 112/95 (101) 95 75 04/21/25 17:00 99.0 99.0 04/20/25 22:21 Nasal Cannula 3.0 Total Intake and Output 04/20/25 04/20/25 04/21/25 15:00 23:00 07:00 Intake Total 680 ml 1100 ml Output Total 1600 ml 1150 ml Balance -920 ml -50 ml medications Current Medications Medications Dose Ordered Sig/Jl Route Start Time Stop Time Status Last Admin Dose Admin Docusate Sodium 100 mg BIDPRN PRN PO 04/19/25 13:00 Nitroglycerin 0.4 mg Q5MINP PRN SL 04/19/25 13:00 Ipratropium [place] 0.5 mg Q4HPRN PRN NEB 04/19/25 13:00 Losartan Potassium 50 mg DAILY PO 04/20/25 10:00 04/21/25 10:42 50 MG Pravastatin Sodium 20 mg DAILY PO 04/20/25 10:00 04/21/25 10:38 20 MG Patient Own Medication 1 tab DAILY PO 04/20/25 10:00 UNV Patient Own Medication 1 cap BID PO 04/19/25 22:00 UNV Metoprolol Succinate 25 mg DAILY PO 04/20/25 10:00 Hold 04/21/25 10:42 25 MG Pantoprazole Sodium 40 mg DAILY PO 04/20/25 10:00 04/21/25 10:38 40 MG Furosemide 40 mg BIDD IV 04/19/25 18:00 04/21/25 17:32 40 MG Apixaban 5 mg BID PO 04/20/25 22:00 04/21/25 23:18 5 MG Amiodarone HCl 200 mg Q12HR PO 04/20/25 22:00 04/21/25 23:18 200 MG Pramipexole Dihydrochloride 0.25 mg HS PO 04/20/25 22:00 04/20/25 21:36 0.25 MG Acetaminophen 650 mg Q6HP PRN PO 04/20/25 16:15 Acetaminophen/ Hydrocodone Bitart 1 tab Q6HPRN PRN PO 04/20/25 16:15 04/21/25 14:30 1 TAB Morphine Sulfate 2 mg Q6HPRN PRN IV 04/20/25 16:15 04/20/25 17:23 2 MG Ondansetron HCl 4 mg Q6HPRN PRN IV 04/20/25 16:15 04/21/25 14:28 4 MG Morphine Sulfate 2 mg Q30M PRN IV 04/20/25 16:30 Patient Own Medication 1 HS LEFTEYE 04/21/25 22:00 04/21/25 23:13 1 Oxybutynin Chloride 5 mg TID PO 04/21/25 14:00 04/21/25 23:18 5 MG Patient Own Medication 0.2 mg BID LEFTEYE 04/21/25 22:00 04/21/25 23:13 0.2 MG Patient Own Medication 1 drop BID LEFTEYE 04/21/25 22:00 04/21/25 23:13 1 DROP Hydroxyzine Pamoate 25 mg BID PO 04/21/25 22:00 Mupirocin 1 applic BID EACHNOSTRI 04/21/25 22:00 04/26/25 21:59 04/21/25 23:13 1 APPLIC Lidocaine 2 patch DAILY@1500 TOP 04/21/25 15:00 04/21/25 17:33 2 PATCH Haloperidol Lactate 5 mg Q8HP PRN IM 04/21/25 19:00 04/21/25 19:02 5 MG Midazolam HCl 100 ml @ 1 mls/hr Q24H IV 04/21/25 20:45 04/21/25 20:45 1 MLS/HR Fentanyl Citrate 250 ml @ 2.5 mls/hr Q24H IV 04/21/25 20:45 04/21/25 20:45 2.5 MLS/HR Norepinephrine Bitartrate 250 ml @ 3.75 mls/hr Q24H IV 04/21/25 21:15 04/21/25 21:15 3.75 MLS/HR objective GENERAL: Ill appearing, intubated on ventilator. Morbidly obese. EYES: PERRL, EOMI. Anicteric. HENT: Moist mucous membranes. LUNGS: Diminished breath sounds. CARDIOVASCULAR: Regular rate and rhythm. ABDOMEN: Soft, non-tender and non-distended. EXTREMITIES: No edema. SKIN: Warm, dry. laboratory and microbiology Laboratory Tests 04/21/25 22:10 Test 04/21/25 22:10 Range/Units Serum Glucose 147 H 74-106 mg/dL Problem List Atrial fibrillation with rapid ventricular rate, newly diagnosed. De Librado decompensated HFpEF, NYHA Class III. +Anisocoria, acute CVA ruled out. Pulmonary hypertension, moderate degree. Acute respiratory failure. Hypertension. Home O2 dependence. Bed-bound status. Morbid obesity. Assessment/Plan Continued all current supportive medical care. Morphine and Petroleum for pain management. Amiodarone. Eliquis. Diuretics with Lasix. Losartan. Nitro SL. Vasopressors for hemodynamic support. GI prophylactics. Additional plan as per the hospital course. Critical care time of 45 minutes provided to include time spent evaluation of patient at bedside, when appropriate patient/family education for diagnosis, treatment plan, review of pertinent medical information and discussion of care with specialty providers and PCP. Mechanical ventilator parameters, treatment and adjustments have personally been reviewed by me and treatment plan by medical staff credentialing coordinator has also been reviewed. Plan discussed with: Other AZAR MELGOZA MD Apr 21, 2025 23:58
[2025-04-22] VITALS (111 sets, daily range): BP systolic 68–141; BP diastolic 27–83; PULSE 54–120; RESP 12–21; TEMP 97.2–100.8; O2SAT 91–100
--- NOTE | 2025-04-22 01:56 | DVHNC2 ---
Intubation Indication: Respiratory Insufficiency, Altered Mental Status Prep: Preoxygenation Pretreated with: Analgesia, Sedation Medicated with: Other (Etomidate and rocuronium) Intubation Approach: Orotracheal Intubation size: cm (8) Notes A time out was performed. My hands were washed immediately prior to the procedure. I wore a surgical cap, mask with protective eyewear, gown and gloves throughout the procedure. The patient was placed on a gambling monitor including continuous pulse oximetry. Rapid Sequence Intubation was conducted. The patient received 20 mg of _etomidate for induction and _100 mg of _rocuronium for adequate paralysis. Cricoid pressure was maintained from time induction agent was given to time of cuff balloon inflation. Using a _ laryngoscope and a size _8 endotracheal tube with stylet, the patient was intubated on the _ attempt. The stylet was removed and cuff balloon was inflated. Appropriate endotracheal tube position was confirmed by direct visualization of vocal cord passage, fogging of the tube, CO2 colormetric indicator and symmetric breath sounds. The tube was secured at 24_ cm at the lips. Post intubation chest x-ray is pending at this time. Date of Service: Apr 21, 2025 Billing Provider: SHANTHI SEVILLA MD Common Visit Codes: PROCEDURE ONLY TANIA IRENE RESIDENT Apr 22, 2025 01:56
--- NOTE | 2025-04-22 02:15 | DVHNC2 ---
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 My hands were washed immediately prior to the procedure. I wore a surgical cap, mask with protective eyewear, sterile gown and sterile gloves throughout the procedure. The LEFT inguinal region was prepped using chlorhexidine scrub and draped in sterile fashion using a full drape and sterile probe cover and sterile gel employed. The femoral pulse was identified. Anesthesia was achieved using 1% lidocaine. Palpating the femoral pulse throughout the procedure, the introducer needle was inserted medial to the femoral artery, inferior to the inguinal crease and into the femoral vein. Venous blood was withdrawn. The syringe was removed and a guidewire was advanced into the introducer needle. A small incision was made at the skin surface with a scalpel and the introducer needle was exchanged for a dilator over the guidewire. After appropriate dilation was obtained, the dilator was exchanged over the wire for a _ central venous catheter. The wire was removed and the catheter was sutured in place at _ cm. A sterile sorbaview shield was placed over the catheter at the insertion site. The patient tolerated the procedure without any hemodynamic compromise. At time of procedure completion, all ports aspirated and flushed properly. Estimated blood loss is 5 ml. Date of Service: Apr 21, 2025 Billing Provider: SHANTHI SEVILLA MD Common Visit Codes: PROCEDURE ONLY TANIA IRENE RESIDENT Apr 22, 2025 02:15
[2025-04-22] MEDS: MAGNESIUM SULFATE 1GM/100ML 100 ML IV ONE (03:04)
[2025-04-22 04:24] LABS: Hematocrit 35.8 % (36.0-46.0); Hemoglobin 11.8 g/dL (12.2-16.2); Mean Corpuscular Hemoglobin 27.8 pg (28.0-32.0); Mean Corpuscular Volume 84.8 fL (80.0-100.0); Nucleated Red Blood Cells % 0.0 %
[2025-04-22 04:29] LABS: Potassium 3.7 mmol/L (3.5-5.1); Sodium 140 mmol/L (136-145)
[2025-04-22 04:30] LABS: Calcium 9.2 mg/dL (8.7-10.4)
[2025-04-22 04:34] LABS: Glucose 99 mg/dL (74-106)
[2025-04-22 04:35] LABS: BUN/Creatinine Ratio 19.0 (10.0-20.0); Blood Urea Nitrogen 16 mg/dL (9-23)
--- NOTE | 2025-04-22 04:39 | DVH ---
EXAM: CT HEAD WITHOUT CONTRAST INDICATION: unequal pupil, s/p intubation TECHNIQUE: CT of the head without intravenous contrast. Coronal and sagittal reformatted images are submitted. Radiation Dose : 1. Head: CT Dose: CTDI volume is 61.14 mGy. Dose-length product is 1.71 mGy*cm The dose indicators for CT are the volume Computed Tomography (CT) Dose Index (CTDIvol) and the Dose Length Product (DLP), and are measured in units of mGy and mGy-cm, respectively. These indicators are not patient dose, but values generated from the CT scanner acquisition factors. The report includes radiation exposure data for exposures received during this examination. All CT scans at this medical facility are performed using dose modulation techniques as appropriate to a performed exam including the following: Automated exposure control was utilized; adjustment of the MA and/or KV according to patient size; and use of iterative reconstruction technique. COMPARISON: CT HEAD WITHOUT CONTRAST on DOS: 04/21/25. FINDINGS: There is no evidence of acute intracranial hemorrhage, extra-axial collection, mass effect, midline shift, herniation or hydrocephalus. The ventricles, sulci and cisterns are age appropriate. The walker-white differentiation is intact. The mastoid air cells are clear. There is opacification of the ethmoid air cells and the left maxillary sinus. No depressed calvarial fracture. The surrounding soft tissues are unremarkable. Endotracheal and an enteric tube are noted. IMPRESSION: 1. No evidence of acute intracranial abnormality. If there is concern for acute infarct, MRI of the brain without intravenous contrast is recommended.
[2025-04-22 04:42] LABS: Chloride 94 mmol/L (98-107)
[2025-04-22 04:43] LABS: Anion Gap 5.99999 (5-15); Carbon Dioxide > 40 mmol/L (20-31)
[2025-04-22 07:01] LABS: Base Excess 12.8 mmol/L (-2.0-3.0)
--- NOTE | 2025-04-22 09:06 | ECG ---
[facility] Test Date: 2025-04-21 Test Time: 14:19:22 Pat Name: MIREYA ALLRED Department: Respiratoy Room: 0265 A Gender: F Metals Sales Representative: HARJIT : 1950 Requested By: SABA ARROYO Order Number: [id number] Reading MD: Arnold Zurita Measurements Intervals [place] Rate: 94 P: 0 NH: 0 QRS: -50 QRSD: 106 T: 123 QT: 366 QTc: 458 Interpretive Statements Atrial fibrillation Ventricular bigeminy Aberrant conduction of SV complex(es) Probable inferior infarct, recent Anteroseptal infarct, age indeterminate Lateral leads are also involved Electronically Signed On 04-26-2025 9:47:37 PST by Arnold Zurita Please click the below link to view image of tracing.
[2025-04-22] MEDS: DOCUSATE SOD 100 MG CAP PO PRN (09:21)
--- NOTE | 2025-04-22 09:26 | ECG ---
[facility] Test Date: 2025-04-20 Test Time: 10:44:42 Pat Name: MIREYA ALLRED Department: Respiratoy Room: 0265 A Gender: F Security Associate: DIDIER : 1950 Requested By: SHAINA LOYOLA Order Number: [id number] Reading MD: Arnold Zurita Measurements Intervals [place] Rate: 107 P: 0 LA: 209 QRS: -62 QRSD: 112 T: 99 QT: 348 QTc: 465 Interpretive Statements Sinus tachycardia Ventricular trigeminy Left anterior fascicular block Anteroseptal infarct, age indeterminate Electronically Signed On 04-26-2025 9:42:23 PST by Arnold Zurita Please click the below link to view image of tracing.
[2025-04-22 09:55] LABS: Base Excess 16.3 mmol/L (-2.0-3.0)
--- NOTE | 2025-04-22 10:18 | DVHPNRES ---
Progress Note Date Seen: Apr 22, 2025 Resident Creating Document: SABA FULTON RESIDENT Has the PT tested + for MRSA If YES, has PT been informed?: No Medical Necessity Reason Pt with a Central, PICC or Fol: Yes The following are medically ne: Smith Catheter Reason for smith catheter: Strict I&O Subjective Review of Systems Patient seen and examined at bedside on central ICU bed 265. Yesterday, around 6:00 p.m. patient started desaturating, looking more confused. CO2 was significantly elevated for which initially attempted to start BiPAP for which patient did not tolerated and was actively taking it off. The patient kept slightly confused with the elevated pCO2 for which her protection was performed and patient was intubated and sedated. Today, patient is sedated on fentanyl 100, Versed five and is currently requiring Levophed at four. Ventilatory settings are VT 450, R 18, FiO2 35%, peep five, saturating 98%. We will repeat an ABG since respiratory rate was slightly decreased from 20 to 18, to try to increase pco2 since patient is having significant metabolic alkalosis. We will also decrease diuretics which could be also contributing with metabolic alkalosis. Otherwise on physical examination patient bilateral lung fisher are grossly clear on upper lungs slightly decreased in the bases. We will continue current medical management except for metoprolol which we will hold it since patient is still needing slight dose of vasopressor. ROS unable to obtain due to patient's current status Objective vital signs Vital Sign Date Time Temp Pulse Resp B/P (MAP) Pulse Ox O2 Delivery O2 Flow Rate FiO2 04/22/25 09:39 61 18 95/56 (69) 98 30 04/22/25 07:00 99.0 99.0 04/22/25 06:00 Mechanical Ventilator+ 04/20/25 22:21 3.0 Total Intake and Output 04/21/25 04/21/25 04/22/25 15:00 23:00 07:00 Intake Total 555.50 ml 155.00 ml Output Total 1600 ml 650 ml Balance -1044.50 ml -495.00 ml medications Current Medications Medications Dose Ordered Sig/Jl Route Start Time Stop Time Status Last Admin Dose Admin Docusate Sodium 100 mg BIDPRN PRN PO 04/19/25 13:00 04/22/25 09:21 100 MG Nitroglycerin 0.4 mg Q5MINP PRN SL 04/19/25 13:00 Ipratropium [place] 0.5 mg Q4HPRN PRN NEB 04/19/25 13:00 Losartan Potassium 50 mg DAILY PO 04/20/25 10:00 04/21/25 10:42 50 MG Pravastatin Sodium 20 mg DAILY PO 04/20/25 10:00 04/21/25 10:38 20 MG Patient Own Medication 1 tab DAILY PO 04/20/25 10:00 UNV Patient Own Medication 1 cap BID PO 04/19/25 22:00 UNV Metoprolol Succinate 25 mg DAILY PO 04/20/25 10:00 Hold 04/21/25 10:42 25 MG Pantoprazole Sodium 40 mg DAILY PO 04/20/25 10:00 04/22/25 09:21 40 MG Apixaban 5 mg BID PO 04/20/25 22:00 04/21/25 23:18 5 MG Amiodarone HCl 200 mg Q12HR PO 04/20/25 22:00 04/22/25 09:20 200 MG Pramipexole Dihydrochloride 0.25 mg HS PO 04/20/25 22:00 04/20/25 21:36 0.25 MG Acetaminophen 650 mg Q6HP PRN PO 04/20/25 16:15 Acetaminophen/ Hydrocodone Bitart 1 tab Q6HPRN PRN PO 04/20/25 16:15 04/21/25 14:30 1 TAB Morphine Sulfate 2 mg Q6HPRN PRN IV 04/20/25 16:15 04/20/25 17:23 2 MG Ondansetron HCl 4 mg Q6HPRN PRN IV 04/20/25 16:15 04/21/25 14:28 4 MG Morphine Sulfate 2 mg Q30M PRN IV 04/20/25 16:30 Patient Own Medication 1 HS LEFTEYE 04/21/25 22:00 04/21/25 23:13 1 Oxybutynin Chloride 5 mg TID PO 04/21/25 14:00 04/22/25 09:21 5 MG Patient Own Medication 0.2 mg BID LEFTEYE 04/21/25 22:00 04/22/25 09:59 0.2 MG Patient Own Medication 1 drop BID LEFTEYE 04/21/25 22:00 04/22/25 10:00 1 DROP Hydroxyzine Pamoate 25 mg BID PO 04/21/25 22:00 04/22/25 09:20 25 MG Mupirocin 1 applic BID EACHNOSTRI 04/21/25 22:00 04/26/25 21:59 04/22/25 09:20 1 APPLIC Lidocaine 2 patch DAILY@1500 TOP 04/21/25 15:00 04/21/25 17:33 2 PATCH Haloperidol Lactate 5 mg Q8HP PRN IM 04/21/25 19:00 04/21/25 19:02 5 MG Midazolam HCl 100 ml @ 1 mls/hr Q24H IV 04/21/25 20:45 04/22/25 09:22 1 MLS/HR Fentanyl Citrate 250 ml @ 2.5 mls/hr Q24H IV 04/21/25 20:45 04/21/25 20:45 2.5 MLS/HR Norepinephrine Bitartrate 250 ml @ 3.75 mls/hr Q24H IV 04/21/25 21:15 04/21/25 21:15 3.75 MLS/HR Furosemide 40 mg DAILY IV 04/23/25 10:00 Examination Physical Examination General: Patient is sedated and intubated on the following parameters: VT 450, R 18, FiO2 35%, peep five, saturating 98% HEENT: Normocephalic, atraumatic, moist mucous membranes Respiratory/pulmonary: Bilateral upper lungs sounds grossly clear there is slightly decreased breath sounds in the lung bases with slight crackles. No wheezes Cardiovascular: Normal heart sounds S1 and S2 with no associated murmurs Abdomen: Abdomen nondistended, there is no pain to palpation in any of the abdominal quadrants, no palpable masses. Extremities: There is mild bilateral lower extremity edema 1+ Skin: No rashes or pruritus, there is no sacral edema present at this time. Neurological: RASS -2 laboratory and microbiology Laboratory Tests 04/22/25 02:35 Test 04/22/25 02:35 Range/Units Serum Glucose 99 74-106 mg/dL Microbiology Date/Time Source Procedure Growth Status 04/20/25 03:00 Nose MRSA Screen - Final Methicillin Resistant S.aureus Complete Labs and/or images reviewed: Labs reviewed by me, Image(s) reviewed by me Problem List/Assessment/Plan Problem List/Assessment/Plan Assessment/plan Acute hypoxic respiratory failure likely due to diastolic heart failure exacerbation Acute on chronic diastolic heart failure; HFpEF 60% Atrial fibrillation with RVR Obesity hypoventilation syndrome, possible SARA Hyperlipidemia Primary hypertension Functional quadriplegia Morbid obesity Plan -patient deteriorated yesterday, airway was secured and patient was intubated and sedated. Patient is currently on mechanical ventilatory settings: VT 450, R 18, FiO2 35%, peep five, saturating 98% -patient is currently requiring vasopressor, Levophed at four. Hold metoprolol due to pressor requirement -continue amiodarone 200 mg q.12 -[id number] score of 5 points, continue Eliquis 5 mg b.i.d. -decreased furosemide to 40 mg IV daily, patient has significant metabolic alkalosis so decreased on diuresis. -decrease respiratory rate to try to increase pCO2. Ordered new ABG we will follow up results -echocardiogram showed LVEF of 60% -bilateral lower extremity venous Doppler ruled out DVT 55 minutes of critical care time Talked to Gucci (Son) over the phone for 25 minutes. Explained current medical plan, events going on yesterday and today. all questions and concerns answered. Son agrees and understands the plan. Goals of care rediscussed with son via phone for 16 minutes, full code Plan discussed with Dr. Mallory Plan discussed with: Son, Other (RN) My Orders My Orders Orders - SABA FULTON Procedure Category Date Status Time Mupirocin 2% Oint PHA 04/21/25 In Process Mrsa Nares (Bactroban 22:00 Lidocaine 5% Topical PHA 04/21/25 In Process Patch (Lidoderm 5% 15:00 Furosemide Injection PHA 04/23/25 In Process (Lasix Injection) 10:00 Abg W/ Co-Ox RT 04/22/25 Logged 10:00 Date of Service: Apr 22, 2025 Billing Provider: HAYLIE MALLORY MD Common Visit Codes: 13399-[id number] CARE 30-74 MIN (55 minutes) Secondary Visit Codes: [id number] CARE PLAN 30 MINUTES (16 minutes) SABA FULTON Apr 22, 2025 10:18 HAYLIE MALLORY MD Apr 25, 2025 05:02
[2025-04-22] MEDS: POTASSIUM CHL 20MEQ/100ML 100 ML IV SCH (11:13)
--- NOTE | 2025-04-22 12:24 | DVH ---
Indication: cyanotic lower extemities Technique: Real- time ultrasound images of the bilateral lower extremity with grayscale, color, and spectral wave Doppler. Comparison: None Findings: Biphasic waveforms within the right LICENSED PRACTICAL NURSE CLINIC NURSE, SFA, popliteal, posterior tibial, anterior tibial arteries. Biphasic waveform left LICENSED PRACTICAL NURSE CLINIC NURSE. Monophasic waveform distal left SFA with severely diminished velocity. Biphasic waveform left popliteal artery. Monophasic waveform left posterior tibial artery. Biphasic waveform left dorsalis pedis /anterior tibial artery. Peak systolic velocities are as follows (in cm/s): Right: Common femoral artery: 83 Profunda femoris: 81 Proximal superficial femoral: 82 Mid superficial femoral artery: 60 Distal superficial femoral artery: 61 Popliteal artery: 53 Posterior tibial artery: 53 Anterior tibial artery: 32 Dorsalis pedis artery: 19 Left: Common femoral artery: 75 Profunda femoris: 50 Proximal superficial femoral: 116 Mid superficial femoral artery: 76 Distal superficial femoral artery: 20 Popliteal artery: 76 Posterior tibial artery: 48 Anterior tibial artery: 42 Dorsalis pedis artery: 43 Impression: Severe/high-grade stenosis of the distal left SFA. Diminished velocities within the right anterior tibial/ dorsalis pedis artery consistent with hemodynamically significant stenosis.
[2025-04-22 13:16] LABS: Base Excess 13.0 mmol/L (-2.0-3.0)
--- NOTE | 2025-04-22 14:32 | DVHPN2 ---
Progress Note - Dictate Date Seen: Apr 22, 2025 Has the PT tested + for MRSA If YES, has PT been informed?: No Medical Necessity Reason Pt with a Central, PICC or Fol: Yes The following are medically ne: Smith Catheter Reason for smith catheter: Strict I&O Subjective Patient was seen and evaluated in follow up in the ICU. Patient is intubated and sedated on ventilator. 30% FiO2. Patient is receiving vasopressors. CL 94, CO2 >40. CT head showed no evidence of acute intracranial abnormality. vital signs Vital Sign Date Time Temp Pulse Resp B/P (MAP) Pulse Ox O2 Delivery O2 Flow Rate FiO2 04/22/25 13:37 68 16 112/65 (81) 99 30 04/22/25 07:56 Mechanical Ventilator+ 04/22/25 07:00 99.0 99.0 04/20/25 22:21 3.0 Total Intake and Output 04/21/25 04/21/25 04/22/25 15:00 23:00 07:00 Intake Total 555.50 ml 177.50 ml Output Total 1600 ml 650 ml Balance -1044.50 ml -472.50 ml medications Current Medications Medications Dose Ordered Sig/Jl Route Start Time Stop Time Status Last Admin Dose Admin Docusate Sodium 100 mg BIDPRN PRN PO 04/19/25 13:00 04/22/25 09:21 100 MG Nitroglycerin 0.4 mg Q5MINP PRN SL 04/19/25 13:00 Ipratropium [place] 0.5 mg Q4HPRN PRN NEB 04/19/25 13:00 Losartan Potassium 50 mg DAILY PO 04/20/25 10:00 04/21/25 10:42 50 MG Pravastatin Sodium 20 mg DAILY PO 04/20/25 10:00 04/22/25 11:23 20 MG Patient Own Medication 1 tab DAILY PO 04/20/25 10:00 UNV Patient Own Medication 1 cap BID PO 04/19/25 22:00 UNV Metoprolol Succinate 25 mg DAILY PO 04/20/25 10:00 Hold 04/21/25 10:42 25 MG Pantoprazole Sodium 40 mg DAILY PO 04/20/25 10:00 04/22/25 09:21 40 MG Apixaban 5 mg BID PO 04/20/25 22:00 04/22/25 10:00 5 MG Amiodarone HCl 200 mg Q12HR PO 04/20/25 22:00 04/22/25 09:20 200 MG Pramipexole Dihydrochloride 0.25 mg HS PO 04/20/25 22:00 04/20/25 21:36 0.25 MG Acetaminophen 650 mg Q6HP PRN PO 04/20/25 16:15 Acetaminophen/ Hydrocodone Bitart 1 tab Q6HPRN PRN PO 04/20/25 16:15 04/21/25 14:30 1 TAB Morphine Sulfate 2 mg Q6HPRN PRN IV 04/20/25 16:15 04/20/25 17:23 2 MG Ondansetron HCl 4 mg Q6HPRN PRN IV 04/20/25 16:15 04/21/25 14:28 4 MG Morphine Sulfate 2 mg Q30M PRN IV 04/20/25 16:30 Patient Own Medication 1 HS LEFTEYE 04/21/25 22:00 04/21/25 23:13 1 Oxybutynin Chloride 5 mg TID PO 04/21/25 14:00 04/22/25 09:21 5 MG Patient Own Medication 0.2 mg BID LEFTEYE 04/21/25 22:00 04/22/25 09:59 0.2 MG Patient Own Medication 1 drop BID LEFTEYE 04/21/25 22:00 04/22/25 10:00 1 DROP Hydroxyzine Pamoate 25 mg BID PO 04/21/25 22:00 04/22/25 09:20 25 MG Mupirocin 1 applic BID EACHNOSTRI 04/21/25 22:00 04/26/25 21:59 04/22/25 09:20 1 APPLIC Lidocaine 2 patch DAILY@1500 TOP 04/21/25 15:00 04/21/25 17:33 2 PATCH Haloperidol Lactate 5 mg Q8HP PRN IM 04/21/25 19:00 04/21/25 19:02 5 MG Midazolam HCl 100 ml @ 1 mls/hr Q24H IV 04/21/25 20:45 04/22/25 09:22 1 MLS/HR Fentanyl Citrate 250 ml @ 2.5 mls/hr Q24H IV 04/21/25 20:45 04/21/25 20:45 2.5 MLS/HR Norepinephrine Bitartrate 250 ml @ 3.75 mls/hr Q24H IV 04/21/25 21:15 04/21/25 21:15 3.75 MLS/HR Furosemide 40 mg DAILY IV 04/23/25 10:00 Potassium Chloride 100 ml @ 50 mls/hr Q2H IV 04/22/25 10:30 04/22/25 14:29 04/22/25 13:26 50 MLS/HR objective GENERAL: Ill appearing, intubated on ventilator. Morbidly obese. EYES: PERRL, EOMI. Anicteric. HENT: Moist mucous membranes. LUNGS: Diminished breath sounds. CARDIOVASCULAR: Regular rate and rhythm. ABDOMEN: Soft, non-tender and non-distended. EXTREMITIES: No edema. SKIN: Warm, dry. laboratory and microbiology Laboratory Tests 04/22/25 02:35 Test 04/22/25 02:35 Range/Units Serum Glucose 99 74-106 mg/dL Problem List Atrial fibrillation with rapid ventricular rate, newly diagnosed. [place] decompensated HFpEF, NYHA Class III. +Anisocoria, acute CVA ruled out. Pulmonary hypertension, moderate degree. Acute respiratory failure. Hypertension. Home O2 dependence. Bed-bound status. Morbid obesity. Assessment/Plan Continued all current supportive medical care. Morphine and [place] for pain management. Amiodarone. Eliquis. Nitro SL. GI prophylactics. Additional plan as per the hospital course. Critical care time of 45 minutes provided to include time spent evaluation of patient at bedside, when appropriate patient/family education for diagnosis, treatment plan, review of pertinent medical information and discussion of care with specialty providers and PCP. Mechanical ventilator parameters, treatment and adjustments have personally been reviewed by me and treatment plan by construction equipment technician has also been reviewed. Plan discussed with: Other AZAR MEGLOZA MD Apr 22, 2025 14:19
--- NOTE | 2025-04-22 15:19 | DVH ---
CHEST RADIOGRAPH REASON FOR EXAM: Shortness of breath COMPARISON: XY CHEST PORTABLE on DOS: 04/21/25, XY CHEST PORTABLE on DOS: 04/19/25 TECHNIQUE: One view of the chest is provided FINDINGS: Evaluation is degraded by patient body habitus. The cardiomediastinal silhouette appears enlarged. There is an endotracheal tube terminating approximately 2.9 cm from the frieda. There are low inspiratory volumes. There is bibasilar airspace disease. There is diffuse interstitial prominence, likely pulmonary edema. There are small bilateral pleural effusions. There is no pneumothorax IMPRESSION: Evaluation degraded by patient body habitus. Low inspiratory volumes. Pulmonary edema. Bibasilar airspace disease may represent atelectasis although pneumonia is not ruled out. Small bilateral pleural effusions
--- NOTE | 2025-04-22 15:33 | DVHPN2 ---
Progress Note - Dictate Date Seen: Apr 22, 2025 Has the PT tested + for MRSA If YES, has PT been informed?: No Medical Necessity Reason Pt with a Central, PICC or Fol: Yes The following are medically ne: Smith Catheter Reason for smith catheter: Strict I&O vital signs Vital Sign Date Time Temp Pulse Resp B/P (MAP) Pulse Ox O2 Delivery O2 Flow Rate FiO2 04/22/25 13:37 68 16 112/65 (81) 99 30 04/22/25 07:56 Mechanical Ventilator+ 04/22/25 07:00 99.0 99.0 04/20/25 22:21 3.0 Total Intake and Output 04/21/25 04/21/25 04/22/25 15:00 23:00 07:00 Intake Total 555.50 ml 177.50 ml Output Total 1600 ml 650 ml Balance -1044.50 ml -472.50 ml medications Current Medications Medications Dose Ordered Sig/Jl Route Start Time Stop Time Status Last Admin Dose Admin Docusate Sodium 100 mg BIDPRN PRN PO 04/19/25 13:00 04/22/25 09:21 100 MG Nitroglycerin 0.4 mg Q5MINP PRN SL 04/19/25 13:00 Ipratropium [place] 0.5 mg Q4HPRN PRN NEB 04/19/25 13:00 Losartan Potassium 50 mg DAILY PO 04/20/25 10:00 04/21/25 10:42 50 MG Pravastatin Sodium 20 mg DAILY PO 04/20/25 10:00 04/22/25 11:23 20 MG Patient Own Medication 1 tab DAILY PO 04/20/25 10:00 UNV Patient Own Medication 1 cap BID PO 04/19/25 22:00 UNV Metoprolol Succinate 25 mg DAILY PO 04/20/25 10:00 Hold 04/21/25 10:42 25 MG Pantoprazole Sodium 40 mg DAILY PO 04/20/25 10:00 04/22/25 09:21 40 MG Apixaban 5 mg BID PO 04/20/25 22:00 04/22/25 10:00 5 MG Amiodarone HCl 200 mg Q12HR PO 04/20/25 22:00 04/22/25 09:20 200 MG Pramipexole Dihydrochloride 0.25 mg HS PO 04/20/25 22:00 04/20/25 21:36 0.25 MG Acetaminophen 650 mg Q6HP PRN PO 04/20/25 16:15 Acetaminophen/ Hydrocodone Bitart 1 tab Q6HPRN PRN PO 04/20/25 16:15 04/21/25 14:30 1 TAB Morphine Sulfate 2 mg Q6HPRN PRN IV 04/20/25 16:15 04/20/25 17:23 2 MG Ondansetron HCl 4 mg Q6HPRN PRN IV 04/20/25 16:15 04/21/25 14:28 4 MG Morphine Sulfate 2 mg Q30M PRN IV 04/20/25 16:30 Patient Own Medication 1 HS LEFTEYE 04/21/25 22:00 04/21/25 23:13 1 Oxybutynin Chloride 5 mg TID PO 04/21/25 14:00 04/22/25 09:21 5 MG Patient Own Medication 0.2 mg BID LEFTEYE 04/21/25 22:00 04/22/25 09:59 0.2 MG Patient Own Medication 1 drop BID LEFTEYE 04/21/25 22:00 04/22/25 10:00 1 DROP Hydroxyzine Pamoate 25 mg BID PO 04/21/25 22:00 04/22/25 09:20 25 MG Mupirocin 1 applic BID EACHNOSTRI 04/21/25 22:00 04/26/25 21:59 04/22/25 09:20 1 APPLIC Lidocaine 2 patch DAILY@1500 TOP 04/21/25 15:00 04/21/25 17:33 2 PATCH Haloperidol Lactate 5 mg Q8HP PRN IM 04/21/25 19:00 04/21/25 19:02 5 MG Midazolam HCl 100 ml @ 1 mls/hr Q24H IV 04/21/25 20:45 04/22/25 09:22 1 MLS/HR Fentanyl Citrate 250 ml @ 2.5 mls/hr Q24H IV 04/21/25 20:45 04/21/25 20:45 2.5 MLS/HR Norepinephrine Bitartrate 250 ml @ 3.75 mls/hr Q24H IV 04/21/25 21:15 04/21/25 21:15 3.75 MLS/HR Furosemide 40 mg DAILY IV 04/23/25 10:00 laboratory and microbiology Laboratory Tests 04/22/25 02:35 Test 04/22/25 02:35 Range/Units Serum Glucose 99 74-106 mg/dL Assessment/Plan 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 Acute hypercapnic respiratory failure Altered mental status Morbid obesity CHF Patient seen and examined in [facility]WIN Events On mechanical ventilation S/p intubation PEEP 5, FiO2 100% Labs and imaging reviewed Chest x-ray shows pulmonary edema BUN/Creatinine elevated ABG reviewed S/p intubation- rebound alkalosis pH 7.53, pCO2 40, pO2 77 Management Vent support Titrate to maintain sats 90% or above Sedation for vent synchrony Bronchodilators Diurese Monitor renal function Monitor electrolytes Supplement as needed Pressors as needed for hemodynamic support To maintain a mean arterial pressure of 65 mmHg Start Diamox 250mg IV BID DVT prophylaxis Critical care time 35 minutes Plan discussed with: Other (Rn) INDIA MORALES MD Apr 22, 2025 15:33
[2025-04-22] MEDS ORDERED: acetaZOLAMIDE SODIUM 500 MG VL IV SCH (22:00)
[2025-04-23] VITALS (112 sets, daily range): BP systolic 88–122; BP diastolic 36–76; PULSE 70–112; RESP 11–19; TEMP 99.1–100.4; O2SAT 89–100
[2025-04-23 03:23] LABS: Hematocrit 37.3 % (36.0-46.0); Hemoglobin 12.3 g/dL (12.2-16.2); Mean Corpuscular Hemoglobin 27.7 pg (28.0-32.0); Mean Corpuscular Volume 84.0 fL (80.0-100.0); Nucleated Red Blood Cells % 0.0 %
[2025-04-23 03:33] LABS: Anion Gap 8 (5-15); Potassium 3.8 mmol/L (3.5-5.1); Sodium 140 mmol/L (136-145)
[2025-04-23 03:34] LABS: Calcium 8.9 mg/dL (8.7-10.4)
[2025-04-23 03:36] LABS: Carbon Dioxide 39 mmol/L (20-31); Chloride 93 mmol/L (98-107)
[2025-04-23 03:40] LABS: BUN/Creatinine Ratio 20.0 (10.0-20.0); Blood Urea Nitrogen 14 mg/dL (9-23); Magnesium 1.8 mg/dL (1.6-2.6)
[2025-04-23 04:03] LABS: Glucose 119 mg/dL (74-106)
[2025-04-23] MEDS: MAGNESIUM SULFATE 1GM/100ML 100 ML IV ONE (05:01)
[2025-04-23] MEDS: POTASSIUM CHL 20MEQ/100ML 100 ML IV ONE (05:01)
--- NOTE | 2025-04-23 06:29 | DVH ---
INDICATION: et tube verification TECHNIQUE: One view of the chest is provided COMPARISON: XY CHEST PORTABLE on DOS: 04/22/25, XY CHEST PORTABLE on DOS: 04/21/25, XY CHEST PORTABLE on DOS: 04/19/25, XY CHEST PORTABLE on DOS: 04/22/25 FINDINGS: Evaluation is degraded by patient body habitus. The cardiomediastinal silhouette appears enlarged. There is an endotracheal tube terminating approximately 2.9 cm from the frieda. There are low inspiratory volumes. There is bibasilar airspace disease. There is diffuse interstitial prominence, likely pulmonary edema. There are small bilateral pleural effusions. There is no pneumothorax IMPRESSION: ET tutbe 1.1 cm from frieda. Retract by 3cm. Otherwise no change.
[2025-04-23 06:59] LABS: Base Excess 7.7 mmol/L (-2.0-3.0)
[2025-04-23] MEDS ORDERED: VANCOMYCIN PER PHARMACY 0 MG IV SCH (10:00)
[2025-04-23] MEDS: FUROSEMIDE 40 MG/4 ML VIAL IV SCH (10:22)
[2025-04-23] MEDS: VANCOMYCIN 1GM/250ML KIT 250 ML IV SCH (10:52)
[2025-04-23] MEDS: PANTOPRAZOLE 40 MG/10 ML VIAL INJ IV ONE (10:52)
--- NOTE | 2025-04-23 12:19 | DVHPN2 ---
Progress Note - Dictate Date Seen: Apr 23, 2025 Has the PT tested + for MRSA If YES, has PT been informed?: No Medical Necessity Reason Pt with a Central, PICC or Fol: Yes The following are medically ne: Smith Catheter Reason for smith catheter: Strict I&O vital signs Vital Sign Date Time Temp Pulse Resp B/P (MAP) Pulse Ox O2 Delivery O2 Flow Rate FiO2 04/23/25 12:10 90 12 91/48 (62) 95 30 04/23/25 11:56 Mechanical Ventilator+ 04/23/25 08:00 99.7 99.7 Total Intake and Output 04/22/25 04/22/25 04/23/25 15:00 23:00 07:00 Intake Total 207.5 ml 240 ml 574.00 ml Output Total 2300 ml 750 ml Balance 207.5 ml -2060 ml -176.00 ml medications Current Medications Medications Dose Ordered Sig/Jl Route Start Time Stop Time Status Last Admin Dose Admin Docusate Sodium 100 mg BIDPRN PRN PO 04/19/25 13:00 04/22/25 09:21 100 MG Nitroglycerin 0.4 mg Q5MINP PRN SL 04/19/25 13:00 Ipratropium [place] 0.5 mg Q4HPRN PRN NEB 04/19/25 13:00 Pravastatin Sodium 20 mg DAILY PO 04/20/25 10:00 04/23/25 10:23 20 MG Patient Own Medication 1 tab DAILY PO 04/20/25 10:00 UNV Patient Own Medication 1 cap BID PO 04/19/25 22:00 UNV Metoprolol Succinate 25 mg DAILY PO 04/20/25 10:00 Hold 04/21/25 10:42 25 MG Apixaban 5 mg BID PO 04/20/25 22:00 04/23/25 10:23 5 MG Amiodarone HCl 200 mg Q12HR PO 04/20/25 22:00 04/23/25 10:23 200 MG Pramipexole Dihydrochloride 0.25 mg HS PO 04/20/25 22:00 04/20/25 21:36 0.25 MG Acetaminophen/ Hydrocodone Bitart 1 tab Q6HPRN PRN PO 04/20/25 16:15 04/21/25 14:30 1 TAB Morphine Sulfate 2 mg Q6HPRN PRN IV 04/20/25 16:15 04/20/25 17:23 2 MG Ondansetron HCl 4 mg Q6HPRN PRN IV 04/20/25 16:15 04/21/25 14:28 4 MG Morphine Sulfate 2 mg Q30M PRN IV 04/20/25 16:30 Patient Own Medication 1 HS LEFTEYE 04/21/25 22:00 04/22/25 21:36 1 Oxybutynin Chloride 5 mg TID PO 04/21/25 14:00 04/23/25 05:16 5 MG Patient Own Medication 0.2 mg BID LEFTEYE 04/21/25 22:00 04/23/25 10:22 0.2 MG Patient Own Medication 1 drop BID LEFTEYE 04/21/25 22:00 04/23/25 10:23 1 DROP Mupirocin 1 applic BID EACHNOSTRI 04/21/25 22:00 04/26/25 21:59 04/23/25 10:22 1 APPLIC Lidocaine 2 patch DAILY@1500 TOP 04/21/25 15:00 04/22/25 16:50 2 PATCH Haloperidol Lactate 5 mg Q8HP PRN IM 04/21/25 19:00 04/21/25 19:02 5 MG Midazolam HCl 100 ml @ 1 mls/hr Q24H IV 04/21/25 20:45 04/23/25 02:21 5 MLS/HR Fentanyl Citrate 250 ml @ 2.5 mls/hr Q24H IV 04/21/25 20:45 04/22/25 18:53 2.5 MLS/HR Norepinephrine Bitartrate 250 ml @ 3.75 mls/hr Q24H IV 04/21/25 21:15 04/23/25 10:27 18.75 MLS/HR Furosemide 40 mg DAILY IV 04/23/25 10:00 04/23/25 10:22 40 MG Acetazolamide Sodium 250 mg BID IV 04/22/25 22:00 Hold Piperacillin Sod/ Tazobactam Sod 100 ml @ 25 mls/hr Q8HR IV 04/23/25 14:00 Vancomycin HCl 0 ml @ 0 mls/hr PER PHARMACY IV 04/23/25 10:00 Pantoprazole Sodium 40 mg DAILY IV 04/24/25 10:00 Vancomycin HCl 250 ml @ 250 mls/hr Q1H IV 04/23/25 10:45 04/23/25 12:44 04/23/25 10:52 250 MLS/HR Acetaminophen 650 mg Q6HP PRN PO 04/23/25 11:15 laboratory and microbiology Laboratory Tests 04/23/25 02:45 Test 04/23/25 02:45 Range/Units Serum Glucose 119 H 74-106 mg/dL 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/Plan 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 Acute hypercapnic respiratory failure Altered mental status Morbid obesity CHF Patient seen and examined in EDWIN Events On mechanical ventilation S/p intubation PEEP 5, FiO2 35% Labs and imaging reviewed Chest x-ray improvement mild BUN/Creatinine elevated ABG reviewed compensated Management Vent support Titrate to maintain sats 90% or above Sedation for vent synchrony Bronchodilators Diurese Monitor renal function Monitor electrolytes Supplement as needed Pressors as needed for hemodynamic support To maintain a mean arterial pressure of 65 mmHg Diamox 250mg IV BID DVT prophylaxis Critical care time 35 minutes Plan discussed with: Patient, Other (rn) INDIA MORALES MD Apr 23, 2025 12:19
--- NOTE | 2025-04-23 13:12 | DVHPN2 ---
Subjective Developed fever overnight Reviewed: Care Plan, H&P, Labs, Medications, Previous Orders, Radiology, Other (Consultations) Changes from previous H/P or p: Changes Objective Vitals Vital Signs Date Time Temp Pulse Resp B/P (MAP) Pulse Ox O2 Delivery O2 Flow Rate FiO2 04/23/25 12:15 79 14 106/58 (74) 100 04/23/25 12:10 30 04/23/25 12:00 99.9 99.9 04/23/25 11:56 Mechanical Ventilator+ Intake/Output Intake and Output 04/23/25 07:00 Intake Total 1021.50 ml Output Total 3050 ml Balance -2028.50 ml Intake Oral 120 ml IV Total 901.50 ml Output Urine Total 3050 ml General Appearance: Other (Intubated and sedated; morbidly obese) HEENT: Atraumatic Lungs: Other (Mechanical ventilation sounds) Cardiovascular: Other (Irregularly irregular) Abdomen: Normal bowel sounds, Soft Genitourinary: Other (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) Extremities: Other (Left femoral central line) Neuro: Other (Intubated and sedated) Skin: Other (Dusky feet) Psych/Mental Status: Other (Intubated and sedated) Medications Current Medications Medications Dose Ordered Sig/Jl Route Start Time Stop Time Status Last Admin Dose Admin Docusate Sodium 100 mg BIDPRN PRN PO 04/19/25 13:00 04/22/25 09:21 100 MG Nitroglycerin 0.4 mg Q5MINP PRN SL 04/19/25 13:00 Ipratropium [place] 0.5 mg Q4HPRN PRN NEB 04/19/25 13:00 Pravastatin Sodium 20 mg DAILY PO 04/20/25 10:00 04/23/25 10:23 20 MG Patient Own Medication 1 tab DAILY PO 04/20/25 10:00 UNV Patient Own Medication 1 cap BID PO 04/19/25 22:00 UNV Metoprolol Succinate 25 mg DAILY PO 04/20/25 10:00 Hold 04/21/25 10:42 25 MG Apixaban 5 mg BID PO 04/20/25 22:00 04/23/25 10:23 5 MG Amiodarone HCl 200 mg Q12HR PO 04/20/25 22:00 04/23/25 10:23 200 MG Pramipexole Dihydrochloride 0.25 mg HS PO 04/20/25 22:00 04/20/25 21:36 0.25 MG Acetaminophen/ Hydrocodone Bitart 1 tab Q6HPRN PRN PO 04/20/25 16:15 04/21/25 14:30 1 TAB Morphine Sulfate 2 mg Q6HPRN PRN IV 04/20/25 16:15 04/20/25 17:23 2 MG Ondansetron HCl 4 mg Q6HPRN PRN IV 04/20/25 16:15 04/21/25 14:28 4 MG Morphine Sulfate 2 mg Q30M PRN IV 04/20/25 16:30 Patient Own Medication 1 HS LEFTEYE 04/21/25 22:00 04/22/25 21:36 1 Oxybutynin Chloride 5 mg TID PO 04/21/25 14:00 04/23/25 05:16 5 MG Patient Own Medication 0.2 mg BID LEFTEYE 04/21/25 22:00 04/23/25 10:22 0.2 MG Patient Own Medication 1 drop BID LEFTEYE 04/21/25 22:00 04/23/25 10:23 1 DROP Mupirocin 1 applic BID EACHNOSTRI 04/21/25 22:00 04/26/25 21:59 04/23/25 10:22 1 APPLIC Lidocaine 2 patch DAILY@1500 TOP 04/21/25 15:00 04/22/25 16:50 2 PATCH Haloperidol Lactate 5 mg Q8HP PRN IM 04/21/25 19:00 04/21/25 19:02 5 MG Midazolam HCl 100 ml @ 1 mls/hr Q24H IV 04/21/25 20:45 04/23/25 02:21 5 MLS/HR Fentanyl Citrate 250 ml @ 2.5 mls/hr Q24H IV 04/21/25 20:45 04/22/25 18:53 2.5 MLS/HR Norepinephrine Bitartrate 250 ml @ 3.75 mls/hr Q24H IV 04/21/25 21:15 04/23/25 10:27 18.75 MLS/HR Furosemide 40 mg DAILY IV 04/23/25 10:00 04/23/25 10:22 40 MG Acetazolamide Sodium 250 mg BID IV 04/22/25 22:00 Hold Piperacillin Sod/ Tazobactam Sod 100 ml @ 25 mls/hr Q8HR IV 04/23/25 14:00 Vancomycin HCl 0 ml @ 0 mls/hr PER PHARMACY IV 04/23/25 10:00 Pantoprazole Sodium 40 mg DAILY IV 04/24/25 10:00 Acetaminophen 650 mg Q6HP PRN PO 04/23/25 11:15 Laboratory Results Laboratory Tests 04/23/25 02:45 Chemistry Test 04/23/25 02:45 Calcium Level 8.9 mg/dL (8.7-10.4) Magnesium Level 1.8 mg/dL (1.6-2.6) Urinalysis Test 04/19/25 20:11 Urine Color Colorless (Yellow) Urine Clarity Clear (Clear) Urine pH 6.5 (5.0-9.0) Urine Specific [place] 1.006 (1.001-1.035) Urine Protein Negative (Negative) Urine Ketones Negative (Negative) Urine Blood 1+ /uL (Negative) H Urine Nitrite Negative (Negative) Urine Bilirubin Negative (Negative) Urine Urobilinogen Normal mg/dL (Negative) Urine Leukocyte Esterase Negative /uL (Negative) Urine RBC 8 /hpf (0 - 4) Urine Microscopic WBC < 1 /HPF (0-5) Urine Squamous Epithelial Cells Few /hpf (<5) Urine Bacteria Few /hpf (None Seen) H Urine Glucose Normal mg/dL (Normal) Blood Gas Results Test 04/22/25 13:05 04/23/25 06:54 Arterial Blood pH 7.530 (7.350-7.450) 7.415 (7.350-7.450) FiO2 % 35.0 30.0 Microbiology Microbiology Date/Time Source Procedure Growth Status 04/21/25 00:00 Sputum Gram Stain Pending Resulted 04/21/25 00:00 Sputum Respiratory Culture - Preliminary Resulted 04/20/25 03:00 Nose MRSA Screen - Final Methicillin Resistant S.aureus Complete Labs and/or images reviewed: Labs reviewed by me, Image(s) reviewed by me Assessment/Plan Assessment/Plan Covering Dr. Ch: Septic shock with fever due to suspected aspiration pneumonia with positive MRSA in nares Acute hypercapnic hypoxic respiratory failure due to acute on chronic diastolic heart failure and suspected aspiration pneumonia in the setting of obesity hypoventilation syndrome and possible SARA Acute hypercapnic/metabolic/toxic encephalopathy Acute on chronic diastolic heart failure; HFpEF 60% Atrial fibrillation with RVR Obesity hypoventilation syndrome with possible SARA Hyperlipidemia Primary hypertension Functional quadriplegia Peripheral artery disease Morbid obesity Reviewed available lab work including ABGs Reviewed available imaging studies including CXRs Cultures were sent due to fever Started on IV vancomycin and IV Zosyn Consulted vascular surgery Started aspirin and statin Continue anticoagulation as per cardiology Continue IV vasopressors as indicated To continue oxygen therapy via mechanical ventilation, and adjust setting according to ABGs Telemetry Continue close monitoring Goals of care discussed with the patient's son for 20 minutes; full code 99 minutes of critical care time Late Entry. This medical document was created using an electronic medical record system with computerized dictation system. Although this document has been carefully reviewed, there might still be some phonetic and typographical errors. These areas are purely typographical due to imperfections of the software programs, and do not reflect any compromise in the patient's medical care. Plan discussed with: Son, Other (Nurse) My Orders Orders - HAYLIE MALLORY MD Procedure Category Date Status Time Piperacillin-Tazob PHA 04/23/25 In Process 3.375gm (Zosyn 3.375g 14:00 Consult CONS 04/23/25 Transmitted Vascular/Endovascular 09:52 Vancomycin Per PHA 04/23/25 In Process Pharmacy 10:00 Pantoprazole PHA 04/24/25 In Process (Protonix) 10:00 Complete Blood Count LAB 04/24/25 Verified 04:00 Creatinine LAB 04/24/25 Verified 04:00 Vancomycin,Random LAB 04/24/25 Verified 04:00 * Dietary Consult CONS 04/23/25 Transmitted 11:01 Acetaminophen Tablet PHA 04/23/25 In Process (Tylenol Tablet) 11:15 Date of Service: Apr 23, 2025 Billing Provider: HAYLIE MALLORY MD Common Visit Codes: 76460-[id number] CARE 30-74 MIN (99 minutes), [id number] CARE-EACH +30MIN Secondary Visit Codes: [id number] CARE PLAN 30 MINUTES (20 minutes) HAYLIE MALLORY MD Apr 23, 2025 13:12
[2025-04-23] MEDS: PIPERACILLIN-TAZOB 3.375GM 100 ML IV SCH (14:00)
[2025-04-23] MEDS: ACETAMINOPHEN 325 MG TAB PO PRN (17:06)
--- NOTE | 2025-04-23 18:20 | DVHPN2 ---
Progress Note - Dictate Date Seen: Apr 23, 2025 Has the PT tested + for MRSA If YES, has PT been informed?: No Medical Necessity Reason Pt with a Central, PICC or Fol: Yes The following are medically ne: Smith Catheter Reason for smith catheter: Strict I&O Subjective Patient was seen and evaluated in follow up in the ICU. Patient is intubated and sedated on ventilator. 30% FiO2. Patient developed fever overnight. Patient remains on vasopressor support. WBC 12.4, CL 93, CO2 39. Chest x-ray shows bibasilar airspace disease, diffuse interstitial prominence, likely pulmonary edema and small bilateral pleural effusions.ed no change. vital signs Vital Sign Date Time Temp Pulse Resp B/P (MAP) Pulse Ox O2 Delivery O2 Flow Rate FiO2 04/23/25 12:15 79 14 106/58 (74) 100 04/23/25 12:10 30 04/23/25 12:00 99.9 99.9 04/23/25 11:56 Mechanical Ventilator+ Total Intake and Output 04/22/25 04/22/25 04/23/25 15:00 23:00 07:00 Intake Total 207.5 ml 240 ml 574.00 ml Output Total 2300 ml 750 ml Balance 207.5 ml -2060 ml -176.00 ml medications Current Medications Medications Dose Ordered Sig/Jl Route Start Time Stop Time Status Last Admin Dose Admin Docusate Sodium 100 mg BIDPRN PRN PO 04/19/25 13:00 04/22/25 09:21 100 MG Nitroglycerin 0.4 mg Q5MINP PRN SL 04/19/25 13:00 Ipratropium [place] 0.5 mg Q4HPRN PRN NEB 04/19/25 13:00 Pravastatin Sodium 20 mg DAILY PO 04/20/25 10:00 04/23/25 10:23 20 MG Patient Own Medication 1 tab DAILY PO 04/20/25 10:00 UNV Patient Own Medication 1 cap BID PO 04/19/25 22:00 UNV Metoprolol Succinate 25 mg DAILY PO 04/20/25 10:00 Hold 04/21/25 10:42 25 MG Apixaban 5 mg BID PO 04/20/25 22:00 04/23/25 10:23 5 MG Amiodarone HCl 200 mg Q12HR PO 04/20/25 22:00 04/23/25 10:23 200 MG Pramipexole Dihydrochloride 0.25 mg HS PO 04/20/25 22:00 04/20/25 21:36 0.25 MG Acetaminophen/ Hydrocodone Bitart 1 tab Q6HPRN PRN PO 04/20/25 16:15 04/21/25 14:30 1 TAB Morphine Sulfate 2 mg Q6HPRN PRN IV 04/20/25 16:15 04/20/25 17:23 2 MG Ondansetron HCl 4 mg Q6HPRN PRN IV 04/20/25 16:15 04/21/25 14:28 4 MG Morphine Sulfate 2 mg Q30M PRN IV 04/20/25 16:30 Patient Own Medication 1 HS LEFTEYE 04/21/25 22:00 04/22/25 21:36 1 Oxybutynin Chloride 5 mg TID PO 04/21/25 14:00 04/23/25 05:16 5 MG Patient Own Medication 0.2 mg BID LEFTEYE 04/21/25 22:00 04/23/25 10:22 0.2 MG Patient Own Medication 1 drop BID LEFTEYE 04/21/25 22:00 04/23/25 10:23 1 DROP Mupirocin 1 applic BID EACHNOSTRI 04/21/25 22:00 04/26/25 21:59 04/23/25 10:22 1 APPLIC Lidocaine 2 patch DAILY@1500 TOP 04/21/25 15:00 04/22/25 16:50 2 PATCH Haloperidol Lactate 5 mg Q8HP PRN IM 04/21/25 19:00 04/21/25 19:02 5 MG Midazolam HCl 100 ml @ 1 mls/hr Q24H IV 04/21/25 20:45 04/23/25 02:21 5 MLS/HR Fentanyl Citrate 250 ml @ 2.5 mls/hr Q24H IV 04/21/25 20:45 04/22/25 18:53 2.5 MLS/HR Norepinephrine Bitartrate 250 ml @ 3.75 mls/hr Q24H IV 04/21/25 21:15 04/23/25 10:27 18.75 MLS/HR Furosemide 40 mg DAILY IV 04/23/25 10:00 04/23/25 10:22 40 MG Acetazolamide Sodium 250 mg BID IV 04/22/25 22:00 Hold Piperacillin Sod/ Tazobactam Sod 100 ml @ 25 mls/hr Q8HR IV 04/23/25 14:00 Vancomycin HCl 0 ml @ 0 mls/hr PER PHARMACY IV 04/23/25 10:00 Pantoprazole Sodium 40 mg DAILY IV 04/24/25 10:00 Vancomycin HCl 250 ml @ 250 mls/hr Q1H IV 04/23/25 10:45 04/23/25 12:44 04/23/25 12:18 250 MLS/HR Acetaminophen 650 mg Q6HP PRN PO 04/23/25 11:15 objective GENERAL: Ill appearing, intubated on ventilator. Morbidly obese. EYES: PERRL, EOMI. Anicteric. HENT: Moist mucous membranes. LUNGS: Diminished breath sounds. CARDIOVASCULAR: Regular rate and rhythm. ABDOMEN: Soft, non-tender and non-distended. EXTREMITIES: No edema. SKIN: Warm, dry. laboratory and microbiology Laboratory Tests 04/23/25 02:45 Test 04/23/25 02:45 Range/Units Serum Glucose 119 H 74-106 mg/dL Problem List Atrial fibrillation with rapid ventricular rate, newly diagnosed. [place] decompensated HFpEF, NYHA Class III. +Anisocoria, acute CVA ruled out. Pulmonary hypertension, moderate degree. Acute respiratory failure. Hypertension. Home O2 dependence. Bed-bound status. Morbid obesity. Assessment/Plan Continued all current supportive medical care. Morphine for pain management. Diuretics with Lasix. Amiodarone. Eliquis. Nitro SL. GI prophylactics. Additional plan as per the hospital course. Critical care time of 45 minutes provided to include time spent evaluation of patient at bedside, when appropriate patient/family education for diagnosis, treatment plan, review of pertinent medical information and discussion of care with specialty providers and PCP. Mechanical ventilator parameters, treatment and adjustments have personally been reviewed by me and treatment plan by hand ii cutter has also been reviewed. Plan discussed with: Other AZAR MELGOZA MD Apr 23, 2025 12:37
[2025-04-23] MEDS: ATORVASTATIN 20 MG TAB NG SCH (22:39)
[2025-04-24] VITALS (109 sets, daily range): BP systolic 82–214; BP diastolic 40–193; PULSE 64–130; RESP 11–35; TEMP 98.8–99.9; O2SAT 89–100
[2025-04-24 03:31] LABS: Hematocrit 38.2 % (36.0-46.0); Hemoglobin 12.3 g/dL (12.2-16.2); Mean Corpuscular Hemoglobin 27.4 pg (28.0-32.0); Mean Corpuscular Volume 85.0 fL (80.0-100.0); Nucleated Red Blood Cells % 0.0 %
[2025-04-24 03:51] LABS: Alanine Aminotransferase 10 U/L (7-40); Alkaline Phosphatase 71 U/L (46-116); Anion Gap 8 (5-15); BUN/Creatinine Ratio 16.9 (10.0-20.0); Blood Urea Nitrogen 11 mg/dL (9-23); Calcium 8.7 mg/dL (8.7-10.4); Potassium 3.7 mmol/L (3.5-5.1); Sodium 138 mmol/L (136-145); Total Protein 5.8 g/dL (5.7-8.2)
[2025-04-24 03:52] LABS: Albumin 3.1 g/dL (3.2-4.8); Bilirubin, Total 1.7 mg/dL (0.2-1.0); Carbon Dioxide 36 mmol/L (20-31); Chloride 94 mmol/L (98-107); Glucose 120 mg/dL (74-106)
[2025-04-24] MEDS: POTASSIUM CHL 20MEQ/100ML 100 ML IV ONE (06:07)
[2025-04-24 06:58] LABS: Base Excess 7.4 mmol/L (-2.0-3.0)
--- NOTE | 2025-04-24 08:10 | DVH ---
CHEST RADIOGRAPH Indication: Intubated. Thank You! Technique: Single frontal view of the chest was obtained COMPARISON: XY CHEST PORTABLE on DOS: 04/23/25, XY CHEST PORTABLE on DOS: 04/22/25, XY CHEST PORTABLE on DOS: 04/21/25, XY CHEST PORTABLE on DOS: 04/19/25 FINDINGS: Lines and Tubes: Endotracheal tube and enteric catheter in satisfactory position. Lungs: Low lung volumes. Unchanged diffuse pulmonary vascular congestion. Pleura: Possible trace bilateral pleural effusions. No pneumothorax. Cardiomediastinal contours: Unremarkable Bones: Unremarkable IMPRESSION: Unchanged diffuse pulmonary vascular congestion. Possible trace bilateral pleural effusions.
[2025-04-24] MEDS ORDERED: Jevity 1.2 Cal/Fiber 1 Liter GT SCH (08:15)
[2025-04-24] MEDS: DEXMEDETOMIDINE HCL IN D5W 100 ML IV SCH (10:04)
[2025-04-24] MEDS: PANTOPRAZOLE 40 MG/10 ML VIAL INJ IV SCH (10:04)
[2025-04-24] MEDS: VANCOMYCIN 1.5GM/250ML 250 ML IV SCH ×2 (11:00→21:15)
[2025-04-24] MEDS ORDERED: Vital High Protein 1liter Bottle GT SCH (11:45)
--- NOTE | 2025-04-24 14:36 | DVHPN2 ---
Subjective Worsening CO2 level this morning Reviewed: Care Plan, H&P, Labs, Medications, Previous Orders, Radiology, Other (Consultations) Changes from previous H/P or p: Changes Objective Vitals Vital Signs Date Time Temp Pulse Resp B/P (MAP) Pulse Ox O2 Delivery O2 Flow Rate FiO2 04/24/25 14:03 76 24 100/57 (71) 97 40 04/24/25 12:00 99.9 99.9 04/24/25 12:00 Mechanical Ventilator+ Intake/Output Intake and Output 04/24/25 07:00 Intake Total 1733.75 ml Output Total 2000 ml Balance -266.25 ml Intake Oral 180 ml IV Total 1553.75 ml Output Urine Total 2000 ml General Appearance: Other (Intubated and sedated; morbidly obese) HEENT: Atraumatic Lungs: Other (Mechanical ventilation sounds) Cardiovascular: Other (Irregularly irregular) Abdomen: Normal bowel sounds, Soft Genitourinary: Other (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) Extremities: Other (Left femoral central line) Neuro: Other (Intubated and sedated) Skin: Other (Dusky feet) Psych/Mental Status: Other (Intubated and sedated) Medications Current Medications Medications Dose Ordered Sig/Jl Route Start Time Stop Time Status Last Admin Dose Admin Docusate Sodium 100 mg BIDPRN PRN PO 04/19/25 13:00 04/22/25 09:21 100 MG Nitroglycerin 0.4 mg Q5MINP PRN SL 04/19/25 13:00 Ipratropium [place] 0.5 mg Q4HPRN PRN NEB 04/19/25 13:00 Pravastatin Sodium 20 mg DAILY PO 04/20/25 10:00 04/24/25 10:04 20 MG Patient Own Medication 1 tab DAILY PO 04/20/25 10:00 UNV Patient Own Medication 1 cap BID PO 04/19/25 22:00 UNV Metoprolol Succinate 25 mg DAILY PO 04/20/25 10:00 Hold 04/21/25 10:42 25 MG Apixaban 5 mg BID PO 04/20/25 22:00 04/24/25 10:05 5 MG Amiodarone HCl 200 mg Q12HR PO 04/20/25 22:00 04/24/25 10:04 200 MG Pramipexole Dihydrochloride 0.25 mg HS PO 04/20/25 22:00 04/20/25 21:36 0.25 MG Acetaminophen/ Hydrocodone Bitart 1 tab Q6HPRN PRN PO 04/20/25 16:15 04/21/25 14:30 1 TAB Morphine Sulfate 2 mg Q6HPRN PRN IV 04/20/25 16:15 04/20/25 17:23 2 MG Ondansetron HCl 4 mg Q6HPRN PRN IV 04/20/25 16:15 04/21/25 14:28 4 MG Morphine Sulfate 2 mg Q30M PRN IV 04/20/25 16:30 Patient Own Medication 1 HS LEFTEYE 04/21/25 22:00 04/23/25 22:51 1 Oxybutynin Chloride 5 mg TID PO 04/21/25 14:00 04/24/25 13:35 5 MG Patient Own Medication 0.2 mg BID LEFTEYE 04/21/25 22:00 04/24/25 10:05 0.2 MG Patient Own Medication 1 drop BID LEFTEYE 04/21/25 22:00 04/24/25 10:05 1 DROP Mupirocin 1 applic BID EACHNOSTRI 04/21/25 22:00 04/26/25 21:59 04/24/25 10:05 1 APPLIC Lidocaine 2 patch DAILY@1500 TOP 04/21/25 15:00 04/23/25 15:40 2 PATCH Haloperidol Lactate 5 mg Q8HP PRN IM 04/21/25 19:00 04/21/25 19:02 5 MG Midazolam HCl 100 ml @ 1 mls/hr Q24H IV 04/21/25 20:45 04/23/25 02:21 5 MLS/HR Fentanyl Citrate 250 ml @ 2.5 mls/hr Q24H IV 04/21/25 20:45 04/23/25 15:38 12.5 MLS/HR Norepinephrine Bitartrate 250 ml @ 3.75 mls/hr Q24H IV 04/21/25 21:15 04/24/25 05:59 18.75 MLS/HR Furosemide 40 mg DAILY IV 04/23/25 10:00 04/24/25 10:04 40 MG Acetazolamide Sodium 250 mg BID IV 04/22/25 22:00 Hold Piperacillin Sod/ Tazobactam Sod 100 ml @ 25 mls/hr Q8HR IV 04/23/25 14:00 04/24/25 13:34 25 MLS/HR Vancomycin HCl 0 ml @ 0 mls/hr PER PHARMACY IV 04/23/25 10:00 Pantoprazole Sodium 40 mg DAILY IV 04/24/25 10:00 04/24/25 10:04 40 MG Acetaminophen 650 mg Q6HP PRN PO 04/23/25 11:15 04/23/25 17:06 650 MG Aspirin 81 mg DAILY NG 04/24/25 10:00 04/24/25 10:05 81 MG Atorvastatin Calcium 40 mg HS NG 04/23/25 22:00 04/23/25 22:39 40 MG Vancomycin HCl 250 ml @ 166.667 mls/hr Q8H IV 04/24/25 11:00 04/24/25 11:00 166.667 MLS/HR Enteral Nutritional Formula 1,000 ml 70ML/HR GT 04/24/25 11:45 Enteral Nutritional Formula 1,000 ml 70ML/HR GT 04/24/25 11:45 UNV Laboratory Results Laboratory Tests 04/24/25 03:00 Chemistry Test 04/24/25 03:00 Albumin 3.1 g/dL (3.2-4.8) L Calcium Level 8.7 mg/dL (8.7-10.4) Magnesium Level 1.8 mg/dL (1.6-2.6) Total Protein 5.8 g/dL (5.7-8.2) LFT Test 04/24/25 03:00 Alanine Aminotransferase (ALT) 10 U/L (7-40) Alkaline Phosphatase 71 U/L (46-116) Aspartate Amino Transferase (AST) 13 U/L (13-40) Total Bilirubin 1.7 mg/dL (0.2-1.0) H Urinalysis Test 04/19/25 20:11 Urine Color Colorless (Yellow) Urine Clarity Clear (Clear) Urine pH 6.5 (5.0-9.0) Urine Specific [place] 1.006 (1.001-1.035) Urine Protein Negative (Negative) Urine Ketones Negative (Negative) Urine Blood 1+ /uL (Negative) H Urine Nitrite Negative (Negative) Urine Bilirubin Negative (Negative) Urine Urobilinogen Normal mg/dL (Negative) Urine Leukocyte Esterase Negative /uL (Negative) Urine RBC 8 /hpf (0 - 4) Urine Microscopic WBC < 1 /HPF (0-5) Urine Squamous Epithelial Cells Few /hpf (<5) Urine Bacteria Few /hpf (None Seen) H Urine Glucose Normal mg/dL (Normal) Blood Gas Results Test 04/24/25 06:23 Arterial Blood pH 7.375 (7.350-7.450) FiO2 % 30.0 Microbiology Microbiology Date/Time Source Procedure Growth Status 04/23/25 13:20 Blood Blood Culture - Preliminary NO GROWTH AFTER 24 HOURS OF INCUBATION. Resulted 04/23/25 04:47 Urine - [place] Urine Culture - Preliminary Resulted 04/21/25 00:00 Sputum Gram Stain - Final Resulted 04/21/25 00:00 Sputum Respiratory Culture - Preliminary Resulted 04/20/25 03:00 Nose MRSA Screen - Final Methicillin Resistant S.aureus Complete Assessment/Plan Assessment/Plan Covering Dr. Ch: Septic shock with fever due to suspected aspiration pneumonia with positive MRSA in nares Acute hypercapnic hypoxic respiratory failure due to acute on chronic diastolic heart failure and suspected aspiration pneumonia in the setting of obesity hypoventilation syndrome and possible SARA Acute hypercapnic/metabolic/toxic encephalopathy Acute on chronic diastolic heart failure; HFpEF 60% Atrial fibrillation with RVR Obesity hypoventilation syndrome with possible SARA Hyperlipidemia Primary hypertension Functional quadriplegia Peripheral artery disease Morbid obesity Reviewed available lab work including ABGs Reviewed available imaging studies including CXRs Pending cultures Continue IV vancomycin and IV Zosyn Consulted vascular surgery Continue aspirin and statin Continue anticoagulation as per cardiology Continue IV vasopressors as indicated To continue oxygen therapy via mechanical ventilation, and adjust setting according to ABGs Telemetry Continue close monitoring 60 minutes of critical care time Late Entry. This medical document was created using an electronic medical record system with computerized dictation system. Although this document has been carefully reviewed, there might still be some phonetic and typographical errors. These areas are purely typographical due to imperfections of the software programs, and do not reflect any compromise in the patient's medical care. Plan discussed with: Son, Other (Nurse) My Orders Orders - HAYLIE MALLORY MD Procedure Category Date Status Time Ventilator Orders RT 04/24/25 Transmitted 08:06 Vancomycin PHA 04/24/25 In Process 1.5gm/250ml 11:00 Vancomycin Per CORI 04/24/25 In Process Pharmacy Protoc 10:32 Creatinine LAB 04/25/25 Verified 10:00 Vancomycin,Trough LAB 04/25/25 Verified 10:00 Nutritional PHA 04/24/25 In Process Supplements (Vital 11:45 Comprehensive LAB 04/25/25 Verified Metabolic Panel 04:00 Complete Blood Count LAB 04/25/25 Verified 04:00 Chest Xray 1 View XY 04/25/25 Logged 04:00 Abg W/ Co-Ox RT 04/25/25 Logged 06:00 Date of Service: Apr 24, 2025 Billing Provider: HAYLIE MALLORY MD Common Visit Codes: [id number] CARE 30-74 MIN (60 minutes) HAYLIE MALLORY MD Apr 24, 2025 14:36
--- NOTE | 2025-04-24 14:46 | DVHPN2 ---
Progress Note - Dictate Date Seen: Apr 24, 2025 Has the PT tested + for MRSA If YES, has PT been informed?: No Medical Necessity Reason Pt with a Central, PICC or Fol: Yes The following are medically ne: Smith Catheter Reason for smith catheter: Strict I&O vital signs Vital Sign Date Time Temp Pulse Resp B/P (MAP) Pulse Ox O2 Delivery O2 Flow Rate FiO2 04/24/25 14:03 76 24 100/57 (71) 97 40 04/24/25 12:00 99.9 99.9 04/24/25 12:00 Mechanical Ventilator+ Total Intake and Output 04/23/25 04/23/25 04/24/25 15:00 23:00 07:00 Intake Total 777.50 ml 377.5 ml 578.75 ml Output Total 1500 ml 500 ml Balance 777.50 ml -1122.5 ml 78.75 ml medications Current Medications Medications Dose Ordered Sig/Jl Route Start Time Stop Time Status Last Admin Dose Admin Docusate Sodium 100 mg BIDPRN PRN PO 04/19/25 13:00 04/22/25 09:21 100 MG Nitroglycerin 0.4 mg Q5MINP PRN SL 04/19/25 13:00 Ipratropium [place] 0.5 mg Q4HPRN PRN NEB 04/19/25 13:00 Pravastatin Sodium 20 mg DAILY PO 04/20/25 10:00 04/24/25 10:04 20 MG Patient Own Medication 1 tab DAILY PO 04/20/25 10:00 UNV Patient Own Medication 1 cap BID PO 04/19/25 22:00 UNV Metoprolol Succinate 25 mg DAILY PO 04/20/25 10:00 Hold 04/21/25 10:42 25 MG Apixaban 5 mg BID PO 04/20/25 22:00 04/24/25 10:05 5 MG Amiodarone HCl 200 mg Q12HR PO 04/20/25 22:00 04/24/25 10:04 200 MG Pramipexole Dihydrochloride 0.25 mg HS PO 04/20/25 22:00 04/20/25 21:36 0.25 MG Acetaminophen/ Hydrocodone Bitart 1 tab Q6HPRN PRN PO 04/20/25 16:15 04/21/25 14:30 1 TAB Morphine Sulfate 2 mg Q6HPRN PRN IV 04/20/25 16:15 04/20/25 17:23 2 MG Ondansetron HCl 4 mg Q6HPRN PRN IV 04/20/25 16:15 04/21/25 14:28 4 MG Morphine Sulfate 2 mg Q30M PRN IV 04/20/25 16:30 Patient Own Medication 1 HS LEFTEYE 04/21/25 22:00 04/23/25 22:51 1 Oxybutynin Chloride 5 mg TID PO 04/21/25 14:00 04/24/25 13:35 5 MG Patient Own Medication 0.2 mg BID LEFTEYE 04/21/25 22:00 04/24/25 10:05 0.2 MG Patient Own Medication 1 drop BID LEFTEYE 04/21/25 22:00 04/24/25 10:05 1 DROP Mupirocin 1 applic BID EACHNOSTRI 04/21/25 22:00 04/26/25 21:59 04/24/25 10:05 1 APPLIC Lidocaine 2 patch DAILY@1500 TOP 04/21/25 15:00 04/24/25 14:39 2 PATCH Haloperidol Lactate 5 mg Q8HP PRN IM 04/21/25 19:00 04/21/25 19:02 5 MG Midazolam HCl 100 ml @ 1 mls/hr Q24H IV 04/21/25 20:45 04/23/25 02:21 5 MLS/HR Fentanyl Citrate 250 ml @ 2.5 mls/hr Q24H IV 04/21/25 20:45 04/23/25 15:38 12.5 MLS/HR Norepinephrine Bitartrate 250 ml @ 3.75 mls/hr Q24H IV 04/21/25 21:15 04/24/25 05:59 18.75 MLS/HR Furosemide 40 mg DAILY IV 04/23/25 10:00 04/24/25 10:04 40 MG Acetazolamide Sodium 250 mg BID IV 04/22/25 22:00 Hold Piperacillin Sod/ Tazobactam Sod 100 ml @ 25 mls/hr Q8HR IV 04/23/25 14:00 04/24/25 13:34 25 MLS/HR Vancomycin HCl 0 ml @ 0 mls/hr PER PHARMACY IV 04/23/25 10:00 Pantoprazole Sodium 40 mg DAILY IV 04/24/25 10:00 04/24/25 10:04 40 MG Acetaminophen 650 mg Q6HP PRN PO 04/23/25 11:15 04/23/25 17:06 650 MG Aspirin 81 mg DAILY NG 04/24/25 10:00 04/24/25 10:05 81 MG Atorvastatin Calcium 40 mg HS NG 04/23/25 22:00 04/23/25 22:39 40 MG Vancomycin HCl 250 ml @ 166.667 mls/hr Q8H IV 04/24/25 11:00 04/24/25 11:00 166.667 MLS/HR Enteral Nutritional Formula 1,000 ml 70ML/HR GT 04/24/25 11:45 Enteral Nutritional Formula 1,000 ml 70ML/HR GT 04/24/25 11:45 UNV laboratory and microbiology Laboratory Tests 04/24/25 03:00 Test 04/24/25 03:00 Range/Units Serum Glucose 120 H 74-106 mg/dL Assessment/Plan 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 Impression Acute hypercapnic respiratory failure Altered mental status Morbid obesity CHF Patient seen and examined in [facility] Events On mechanical ventilation S/p intubation PEEP 5, FiO2 35% Labs and imaging reviewed ABG reviewed Management Vent support Titrate to maintain sats 90% or above Sedation holiday daily If patient follows commands, proceed to weaning trial Pressure support 11/27, extubate when ready Bronchodilators Diurese Monitor renal function Monitor electrolytes Supplement as needed Pressors as needed for hemodynamic support To maintain a mean arterial pressure of 65 mmHg DVT prophylaxis Critical care time 35 minutes Dietary Evaluation Review Comments: Vital High Protein Goal Rate @70ml/hr, providing 147g Protein, 1680 kcal, 1404ml free water in 24 hours, This protocol will meet her needs @101% protein, @90% energy. Initiate rate @35ml/hr, increase 10ml/6hr increment till meeting her goal rate@70ml/hr. Expected Outcomes/Goals: Meeting Pt's needs for being on mechanical ventilator. Gradual weight loss, improved nutrition related lab values and overall nutrition status. Fluid Accumulation (Severe): Moderate Fluid Retention Protein Calorie Malnutrition: Severe Plan discussed with: Other (Rn) INDIA MORALES MD Apr 24, 2025 14:46
--- NOTE | 2025-04-24 20:41 | DVHPN2 ---
Progress Note - Dictate Date Seen: Apr 24, 2025 Has the PT tested + for MRSA If YES, has PT been informed?: No Medical Necessity Reason Pt with a Central, PICC or Fol: Yes The following are medically ne: Smith Catheter Reason for smith catheter: Strict I&O Subjective Patient was seen and evaluated in follow up in the ICU. Patient is intubated and sedated on ventilator. 30% FiO2. Patient went into A fib in the 150s on color television console monitor early this morning. Patient is undergoing CPAP trial. WBC 11.9, CL 94, CO2 36. Chest x-ray shows unchanged diffuse pulmonary vascular congestion. vital signs Vital Sign Date Time Temp Pulse Resp B/P (MAP) Pulse Ox O2 Delivery O2 Flow Rate FiO2 04/24/25 13:00 72 30 108/55 (72) 97 04/24/25 12:00 99.9 99.9 04/24/25 12:00 Mechanical Ventilator+ 30 30 Total Intake and Output 04/23/25 04/23/25 04/24/25 15:00 23:00 07:00 Intake Total 777.50 ml 377.5 ml 528.75 ml Output Total 1500 ml 500 ml Balance 777.50 ml -1122.5 ml 28.75 ml medications Current Medications Medications Dose Ordered Sig/Jl Route Start Time Stop Time Status Last Admin Dose Admin Docusate Sodium 100 mg BIDPRN PRN PO 04/19/25 13:00 04/22/25 09:21 100 MG Nitroglycerin 0.4 mg Q5MINP PRN SL 04/19/25 13:00 Ipratropium [place] 0.5 mg Q4HPRN PRN NEB 04/19/25 13:00 Pravastatin Sodium 20 mg DAILY PO 04/20/25 10:00 04/24/25 10:04 20 MG Patient Own Medication 1 tab DAILY PO 04/20/25 10:00 UNV Patient Own Medication 1 cap BID PO 04/19/25 22:00 UNV Metoprolol Succinate 25 mg DAILY PO 04/20/25 10:00 Hold 04/21/25 10:42 25 MG Apixaban 5 mg BID PO 04/20/25 22:00 04/24/25 10:05 5 MG Amiodarone HCl 200 mg Q12HR PO 04/20/25 22:00 04/24/25 10:04 200 MG Pramipexole Dihydrochloride 0.25 mg HS PO 04/20/25 22:00 04/20/25 21:36 0.25 MG Acetaminophen/ Hydrocodone Bitart 1 tab Q6HPRN PRN PO 04/20/25 16:15 04/21/25 14:30 1 TAB Morphine Sulfate 2 mg Q6HPRN PRN IV 04/20/25 16:15 04/20/25 17:23 2 MG Ondansetron HCl 4 mg Q6HPRN PRN IV 04/20/25 16:15 04/21/25 14:28 4 MG Morphine Sulfate 2 mg Q30M PRN IV 04/20/25 16:30 Patient Own Medication 1 HS LEFTEYE 04/21/25 22:00 04/23/25 22:51 1 Oxybutynin Chloride 5 mg TID PO 04/21/25 14:00 04/24/25 13:35 5 MG Patient Own Medication 0.2 mg BID LEFTEYE 04/21/25 22:00 04/24/25 10:05 0.2 MG Patient Own Medication 1 drop BID LEFTEYE 04/21/25 22:00 04/24/25 10:05 1 DROP Mupirocin 1 applic BID EACHNOSTRI 04/21/25 22:00 04/26/25 21:59 04/24/25 10:05 1 APPLIC Lidocaine 2 patch DAILY@1500 TOP 04/21/25 15:00 04/23/25 15:40 2 PATCH Haloperidol Lactate 5 mg Q8HP PRN IM 04/21/25 19:00 04/21/25 19:02 5 MG Midazolam HCl 100 ml @ 1 mls/hr Q24H IV 04/21/25 20:45 04/23/25 02:21 5 MLS/HR Fentanyl Citrate 250 ml @ 2.5 mls/hr Q24H IV 04/21/25 20:45 04/23/25 15:38 12.5 MLS/HR Norepinephrine Bitartrate 250 ml @ 3.75 mls/hr Q24H IV 04/21/25 21:15 04/24/25 05:59 18.75 MLS/HR Furosemide 40 mg DAILY IV 04/23/25 10:00 04/24/25 10:04 40 MG Acetazolamide Sodium 250 mg BID IV 04/22/25 22:00 Hold Piperacillin Sod/ Tazobactam Sod 100 ml @ 25 mls/hr Q8HR IV 04/23/25 14:00 04/24/25 13:34 25 MLS/HR Vancomycin HCl 0 ml @ 0 mls/hr PER PHARMACY IV 04/23/25 10:00 Pantoprazole Sodium 40 mg DAILY IV 04/24/25 10:00 04/24/25 10:04 40 MG Acetaminophen 650 mg Q6HP PRN PO 04/23/25 11:15 04/23/25 17:06 650 MG Aspirin 81 mg DAILY NG 04/24/25 10:00 04/24/25 10:05 81 MG Atorvastatin Calcium 40 mg HS NG 04/23/25 22:00 04/23/25 22:39 40 MG Vancomycin HCl 250 ml @ 166.667 mls/hr Q8H IV 04/24/25 11:00 04/24/25 11:00 166.667 MLS/HR Enteral Nutritional Formula 1,000 ml 70ML/HR GT 04/24/25 11:45 Enteral Nutritional Formula 1,000 ml 70ML/HR GT 04/24/25 11:45 UNV objective GENERAL: Ill appearing, intubated on ventilator. Morbidly obese. EYES: PERRL, EOMI. Anicteric. HENT: Moist mucous membranes. LUNGS: Diminished breath sounds. CARDIOVASCULAR: Regular rate and rhythm. ABDOMEN: Soft, non-tender and non-distended. EXTREMITIES: No edema. SKIN: Warm, dry. laboratory and microbiology Laboratory Tests 04/24/25 03:00 Test 04/24/25 03:00 Range/Units Serum Glucose 120 H 74-106 mg/dL Problem List Atrial fibrillation with rapid ventricular rate, newly diagnosed. [place] decompensated HFpEF, NYHA Class III. +Anisocoria, acute CVA ruled out. Pulmonary hypertension, moderate degree. Acute respiratory failure. Hypertension. Home O2 dependence. Bed-bound status. Morbid obesity. Assessment/Plan Continued all current supportive medical care. Morphine for pain management. Diuretics with Lasix. Amiodarone. Eliquis. Nitro SL. GI prophylactics. Additional plan as per the hospital course. Critical care time of 45 minutes provided to include time spent evaluation of patient at bedside, when appropriate patient/family education for diagnosis, treatment plan, review of pertinent medical information and discussion of care with specialty providers and PCP. Mechanical ventilator parameters, treatment and adjustments have personally been reviewed by me and treatment plan by tobacco hanger has also been reviewed. Dietary Evaluation Review Comments: Vital High Protein Goal Rate @70ml/hr, providing 147g Protein, 1680 kcal, 1404ml free water in 24 hours, This protocol will meet her needs @101% protein, @90% energy. Initiate rate @35ml/hr, increase 10ml/6hr increment till meeting her goal rate@70ml/hr. Expected Outcomes/Goals: Meeting Pt's needs for being on mechanical ventilator. Gradual weight loss, improved nutrition related lab values and overall nutrition status. Fluid Accumulation (Severe): Moderate Fluid Retention Protein Calorie Malnutrition: Severe Plan discussed with: Other AZAR MELGOZA MD Apr 24, 2025 13:47
[2025-04-25] VITALS (111 sets, daily range): BP systolic 77–136; BP diastolic 34–85; PULSE 58–115; RESP 15–22; TEMP 99–100.1; O2SAT 92–100
[2025-04-25 03:14] LABS: Hematocrit 36.9 % (36.0-46.0); Hemoglobin 12.3 g/dL (12.2-16.2); Mean Corpuscular Hemoglobin 28.1 pg (28.0-32.0); Mean Corpuscular Volume 84.2 fL (80.0-100.0); Nucleated Red Blood Cells % 0.0 %
[2025-04-25 03:31] LABS: Albumin 3.3 g/dL (3.2-4.8); Alkaline Phosphatase 64 U/L (46-116); Anion Gap 9 (5-15); BUN/Creatinine Ratio 13.8 (10.0-20.0); Bilirubin, Total 1.1 mg/dL (0.2-1.0); Blood Urea Nitrogen 9 mg/dL (9-23); Calcium 9.0 mg/dL (8.7-10.4); Potassium 3.5 mmol/L (3.5-5.1); Sodium 138 mmol/L (136-145); Total Protein 6.2 g/dL (5.7-8.2)
[2025-04-25 03:37] LABS: Alanine Aminotransferase < 9 U/L (7-40); Carbon Dioxide 35 mmol/L (20-31); Chloride 94 mmol/L (98-107); Glucose 133 mg/dL (74-106)
--- NOTE | 2025-04-25 04:42 | DVH ---
CHEST RADIOGRAPH Indication: Intubated. Technique: Single frontal view of the chest was obtained Comparison: XY CHEST XRAY 1 VIEW on DOS: 04/24/25, XY CHEST PORTABLE on DOS: 04/23/25 FINDINGS: Lines and Tubes: The endotracheal tube terminates 1.1 cm above the frieda. The enteric tube courses below the left hemidiaphragm and the tip extends outside the field of view. Lungs: Pulmonary interstitial prominence is similar to prior study. Pleura: No effusion. No pneumothorax. Cardiomediastinal contours: Cardiomegaly Bones: No acute osseous abnormality. IMPRESSION: 1. Endotracheal tube terminates 1.1 cm above the frieda. Retraction is recommended. 2. Cardiomegaly with pulmonary vascular congestion.
[2025-04-25 06:45] LABS: Base Excess 5.2 mmol/L (-2.0-3.0)
[2025-04-25 07:18] LABS: Urine Protein, UAD 1+ (Negative)
--- NOTE | 2025-04-25 10:39 | DVHPN2 ---
Subjective Patient intubated and sedated Reviewed: Care Plan, H&P, Labs, Medications, Previous Orders, Radiology, Other (Consultations) Changes from previous H/P or p: No Changes General: Per HPI Objective Vitals Vital Signs Date Time Temp Pulse Resp B/P (MAP) Pulse Ox O2 Delivery O2 Flow Rate FiO2 04/25/25 10:13 64 16 118/63 96 30 04/25/25 10:00 Mechanical Ventilator+ 04/25/25 08:00 99.0 99.0 Intake/Output Intake and Output 04/25/25 07:00 Intake Total 1986.795 ml Output Total 3650 ml Balance -1663.205 ml Intake Oral 120 ml IV Total 1506.795 ml Tube Feeding 360 ml Output Urine Total 3650 ml General Appearance: Alert, mild distress, Other (Intubated and sedated; morbidly obese) HEENT: Atraumatic, PERRLA Lungs: Other (Mechanical ventilation sounds. Decrease breath sounds at bases) Cardiovascular: Normal S1, Normal S2, Other (Atrial fibrillation with controlled rate) Abdomen: Normal bowel sounds, Soft Genitourinary: Other (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) Extremities: Other (Left femoral central line) Neuro: Other (Intubated and sedated) Skin: Wounds (See nurse notes and pictures), Other (Dusky feet) Psych/Mental Status: Other (Intubated and sedated) Medications Current Medications Medications Dose Ordered Sig/Jl Route Start Time Stop Time Status Last Admin Dose Admin Docusate Sodium 100 mg BIDPRN PRN PO 04/19/25 13:00 04/22/25 09:21 100 MG Nitroglycerin 0.4 mg Q5MINP PRN SL 04/19/25 13:00 Ipratropium [place] 0.5 mg Q4HPRN PRN NEB 04/19/25 13:00 Pravastatin Sodium 20 mg DAILY PO 04/20/25 10:00 04/25/25 08:54 20 MG Patient Own Medication 1 tab DAILY PO 04/20/25 10:00 UNV Patient Own Medication 1 cap BID PO 04/19/25 22:00 UNV Apixaban 5 mg BID PO 04/20/25 22:00 04/25/25 08:54 5 MG Amiodarone HCl 200 mg Q12HR PO 04/20/25 22:00 04/25/25 08:54 200 MG Pramipexole Dihydrochloride 0.25 mg HS PO 04/20/25 22:00 04/20/25 21:36 0.25 MG Acetaminophen/ Hydrocodone Bitart 1 tab Q6HPRN PRN PO 04/20/25 16:15 04/21/25 14:30 1 TAB Morphine Sulfate 2 mg Q6HPRN PRN IV 04/20/25 16:15 04/20/25 17:23 2 MG Ondansetron HCl 4 mg Q6HPRN PRN IV 04/20/25 16:15 04/21/25 14:28 4 MG Morphine Sulfate 2 mg Q30M PRN IV 04/20/25 16:30 Patient Own Medication 1 HS LEFTEYE 04/21/25 22:00 04/24/25 22:23 1 Oxybutynin Chloride 5 mg TID PO 04/21/25 14:00 04/25/25 05:33 5 MG Patient Own Medication 0.2 mg BID LEFTEYE 04/21/25 22:00 04/25/25 08:59 0.2 MG Patient Own Medication 1 drop BID LEFTEYE 04/21/25 22:00 04/25/25 08:59 1 DROP Mupirocin 1 applic BID EACHNOSTRI 04/21/25 22:00 04/26/25 21:59 04/25/25 08:57 1 APPLIC Lidocaine 2 patch DAILY@1500 TOP 04/21/25 15:00 04/24/25 14:39 2 PATCH Midazolam HCl 100 ml @ 1 mls/hr Q24H IV 04/21/25 20:45 04/23/25 02:21 5 MLS/HR Fentanyl Citrate 250 ml @ 2.5 mls/hr Q24H IV 04/21/25 20:45 04/23/25 15:38 12.5 MLS/HR Norepinephrine Bitartrate 250 ml @ 3.75 mls/hr Q24H IV 04/21/25 21:15 04/25/25 05:42 7.5 MLS/HR Furosemide 40 mg DAILY IV 04/23/25 10:00 04/25/25 08:53 40 MG Piperacillin Sod/ Tazobactam Sod 100 ml @ 25 mls/hr Q8HR IV 04/23/25 14:00 04/25/25 05:33 25 MLS/HR Vancomycin HCl 0 ml @ 0 mls/hr PER PHARMACY IV 04/23/25 10:00 Pantoprazole Sodium 40 mg DAILY IV 04/24/25 10:00 04/25/25 08:52 40 MG Acetaminophen 650 mg Q6HP PRN PO 04/23/25 11:15 04/23/25 17:06 650 MG Aspirin 81 mg DAILY NG 04/24/25 10:00 04/25/25 08:54 81 MG Atorvastatin Calcium 40 mg HS NG 04/23/25 22:00 04/24/25 22:14 40 MG Enteral Nutritional Formula 1,000 ml 70ML/HR GT 04/24/25 11:45 Enteral Nutritional Formula 1,000 ml 70ML/HR GT 04/24/25 11:45 UNV Vancomycin HCl 250 ml @ 166.667 mls/hr Q8H IV 04/24/25 21:00 04/25/25 05:23 166.667 MLS/HR Laboratory Results Laboratory Tests 04/25/25 02:55 Chemistry Test 04/25/25 02:55 Albumin 3.3 g/dL (3.2-4.8) Calcium Level 9.0 mg/dL (8.7-10.4) Total Protein 6.2 g/dL (5.7-8.2) LFT Test 04/25/25 02:55 Alanine Aminotransferase (ALT) < 9 U/L (7-40) Alkaline Phosphatase 64 U/L (46-116) Aspartate Amino Transferase (AST) 13 U/L (13-40) Total Bilirubin 1.1 mg/dL (0.2-1.0) H Urinalysis Test 04/25/25 05:50 Urine Color Light-orange (Yellow) Urine Clarity Turbid (Clear) H Urine pH 8.0 (5.0-9.0) Urine Specific [place] 1.019 (1.001-1.035) Urine Protein 1+ (Negative) H Urine Ketones Trace (Negative) Urine Blood 3+ /uL (Negative) H Urine Nitrite Negative (Negative) Urine Bilirubin Negative (Negative) Urine Urobilinogen 8 mg/dL (Negative) H Urine Leukocyte Esterase 3+ /uL (Negative) Urine RBC 829 /hpf (0 - 4) Urine Microscopic WBC 82 /HPF (0-5) H Urine Squamous Epithelial Cells Many /hpf (<5) Urine Bacteria None seen /hpf (None Seen) Urine Glucose Normal mg/dL (Normal) Blood Gas Results Test 04/25/25 06:36 Arterial Blood pH 7.423 (7.350-7.450) FiO2 % 30.0 Microbiology Microbiology Date/Time Source Procedure Growth Status 04/23/25 13:20 Blood Blood Culture - Preliminary NO GROWTH AFTER 24 HOURS OF INCUBATION. Resulted 04/23/25 04:47 Urine - [place] Urine Culture - Preliminary Resulted 04/21/25 00:00 Sputum Gram Stain - Final Complete 04/21/25 00:00 Respiratory Culture - Final Staphylococcus aureus Complete 04/20/25 03:00 Nose MRSA Screen - Final Methicillin Resistant S.aureus Complete Labs and/or images reviewed: Labs reviewed by me, Image(s) reviewed by me Assessment/Plan Assessment/Plan Impression: -septic shock -questionable aspiration pneumonia -positive aspiration of the nares -acute hypoxic and hypercarbic respiratory failure -metabolic encephalopathy -acute on chronic diastolic heart failure, HFpEF -AFib with RVR, now controlled -probable obstructive sleep apnea, obesity related hypoventilation syndrome -dyslipidemia -primary hypertension -functional quadriplegia -peripheral arterial disease -morbid obesity -constipation Plan: -patient currently on 30% FiO2. Proceed with spontaneous breathing trial once appropriate -weaned off sedation -continue norepinephrine to keep map greater than 65 mmHg -PPI -Gram-negative rods in urine, continue Zosyn. Continue vancomycin time given MRSA of the nares -tube feeding -repeat labs, chest x-ray, ABG in a.m. Critical care time spent with patient discussing and formulating plan of care: 40 minutes. This does not include time spent performing procedures. This medical document was created using an electronic medical record system with [employer] dictation system. Although this document has been carefully reviewed, there may still be some phonetic and typographical errors. These areas are purely typographical due to imperfections of the software programs, and do not reflect any compromise in the patient's medical care. Plan discussed with: Patient, Other (RN) My Orders Orders - TRICIA GALARZA NP Procedure Category Date Status Time Cpap/Sed Vacation Med ORDERS 04/25/25 Transmitted Weaning 09:51 Cpap Trial For Am ORDERS 04/25/25 Transmitted 09:51 Date of Service: Apr 25, 2025 Billing Provider: TRICIA GALARZA NP Common Visit Codes: [id number]-[id number] CARE 30-74 MIN TRICIA GALARZA NP Apr 25, 2025 10:39
[2025-04-25] MEDS: POTASSIUM CHL 20MEQ/100ML 100 ML IV ONE (11:45)
[2025-04-25] MEDS: MAGNESIUM SULFATE 1GM/100ML 100 ML IV ONE (11:45)
--- NOTE | 2025-04-25 14:25 | DVHPN2 ---
Progress Note - Dictate Date Seen: Apr 25, 2025 Has the PT tested + for MRSA If YES, has PT been informed?: No Medical Necessity Reason Pt with a Central, PICC or Fol: Yes The following are medically ne: Smith Catheter Reason for smith catheter: Strict I&O vital signs Vital Sign Date Time Temp Pulse Resp B/P (MAP) Pulse Ox O2 Delivery O2 Flow Rate FiO2 04/25/25 14:22 99.4 04/25/25 14:01 17 93 Mechanical Ventilator+ 30 30 04/25/25 14:00 70 04/25/25 13:17 89/41 (57) Total Intake and Output 04/24/25 04/24/25 04/25/25 15:00 23:00 07:00 Intake Total 625.250 ml 665.250 ml 821.000 ml Output Total 2550 ml 1100 ml Balance 625.250 ml -1884.750 ml -279.000 ml medications Current Medications Medications Dose Ordered Sig/Jl Route Start Time Stop Time Status Last Admin Dose Admin Docusate Sodium 100 mg BIDPRN PRN PO 04/19/25 13:00 04/22/25 09:21 100 MG Nitroglycerin 0.4 mg Q5MINP PRN SL 04/19/25 13:00 Ipratropium [place] 0.5 mg Q4HPRN PRN NEB 04/19/25 13:00 Pravastatin Sodium 20 mg DAILY PO 04/20/25 10:00 04/25/25 08:54 20 MG Patient Own Medication 1 tab DAILY PO 04/20/25 10:00 UNV Patient Own Medication 1 cap BID PO 04/19/25 22:00 UNV Apixaban 5 mg BID PO 04/20/25 22:00 04/25/25 08:54 5 MG Amiodarone HCl 200 mg Q12HR PO 04/20/25 22:00 04/25/25 08:54 200 MG Pramipexole Dihydrochloride 0.25 mg HS PO 04/20/25 22:00 04/20/25 21:36 0.25 MG Acetaminophen/ Hydrocodone Bitart 1 tab Q6HPRN PRN PO 04/20/25 16:15 04/21/25 14:30 1 TAB Morphine Sulfate 2 mg Q6HPRN PRN IV 04/20/25 16:15 04/20/25 17:23 2 MG Ondansetron HCl 4 mg Q6HPRN PRN IV 04/20/25 16:15 04/21/25 14:28 4 MG Morphine Sulfate 2 mg Q30M PRN IV 04/20/25 16:30 Patient Own Medication 1 HS LEFTEYE 04/21/25 22:00 04/24/25 22:23 1 Oxybutynin Chloride 5 mg TID PO 04/21/25 14:00 04/25/25 14:15 5 MG Patient Own Medication 0.2 mg BID LEFTEYE 04/21/25 22:00 04/25/25 08:59 0.2 MG Patient Own Medication 1 drop BID LEFTEYE 04/21/25 22:00 04/25/25 08:59 1 DROP Mupirocin 1 applic BID EACHNOSTRI 04/21/25 22:00 04/26/25 21:59 04/25/25 08:57 1 APPLIC Lidocaine 2 patch DAILY@1500 TOP 04/21/25 15:00 04/25/25 14:15 2 PATCH Midazolam HCl 100 ml @ 1 mls/hr Q24H IV 04/21/25 20:45 04/23/25 02:21 5 MLS/HR Fentanyl Citrate 250 ml @ 2.5 mls/hr Q24H IV 04/21/25 20:45 04/23/25 15:38 12.5 MLS/HR Norepinephrine Bitartrate 250 ml @ 3.75 mls/hr Q24H IV 04/21/25 21:15 04/25/25 05:42 7.5 MLS/HR Furosemide 40 mg DAILY IV 04/23/25 10:00 04/25/25 08:53 40 MG Piperacillin Sod/ Tazobactam Sod 100 ml @ 25 mls/hr Q8HR IV 04/23/25 14:00 04/25/25 14:15 25 MLS/HR Vancomycin HCl 0 ml @ 0 mls/hr PER PHARMACY IV 04/23/25 10:00 Pantoprazole Sodium 40 mg DAILY IV 04/24/25 10:00 04/25/25 08:52 40 MG Acetaminophen 650 mg Q6HP PRN PO 04/23/25 11:15 04/25/25 12:01 650 MG Aspirin 81 mg DAILY NG 04/24/25 10:00 04/25/25 08:54 81 MG Atorvastatin Calcium 40 mg HS NG 04/23/25 22:00 04/24/25 22:14 40 MG Enteral Nutritional Formula 1,000 ml 70ML/HR GT 04/24/25 11:45 Enteral Nutritional Formula 1,000 ml 70ML/HR GT 04/24/25 11:45 UNV laboratory and microbiology Laboratory Tests 04/25/25 10:24 04/25/25 02:55 Test 04/25/25 02:55 Range/Units Serum Glucose 133 H 74-106 mg/dL Assessment/Plan 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 Impression Acute hypercapnic respiratory failure Altered mental status Morbid obesity CHF Patient seen and examined in [facility] Events On mechanical ventilation S/p intubation PEEP 5, FiO2 35% Off sedation, not waking up Labs and imaging reviewed ABG reviewed Management Vent support Titrate to maintain sats 90% or above When patient is more, proceed to weaning trial Pressure support 11/27, extubate when ready Bronchodilators Diurese Monitor renal function Monitor electrolytes Supplement as needed Pressors as needed for hemodynamic support To maintain a mean arterial pressure of 65 mmHg DVT prophylaxis Critical care time 35 minutes Dietary Evaluation Review Comments: Vital High Protein Goal Rate @70ml/hr, providing 147g Protein, 1680 kcal, 1404ml free water in 24 hours, This protocol will meet her needs @101% protein, @90% energy. Initiate rate @35ml/hr, increase 10ml/6hr increment till meeting her goal rate@70ml/hr. Expected Outcomes/Goals: Meeting Pt's needs for being on mechanical ventilator. Gradual weight loss, improved nutrition related lab values and overall nutrition status. Fluid Accumulation (Severe): Moderate Fluid Retention Protein Calorie Malnutrition: Severe Plan discussed with: Other (Rn) INDIA MORALES MD Apr 25, 2025 14:25
[2025-04-25] MEDS: Vital High Protein 1liter Bottle GT SCH (17:42)
--- NOTE | 2025-04-25 22:41 | DVHPN2 ---
Progress Note - Dictate Date Seen: Apr 25, 2025 Has the PT tested + for MRSA If YES, has PT been informed?: No Medical Necessity Reason Pt with a Central, PICC or Fol: Yes The following are medically ne: Smith Catheter Reason for smith catheter: Strict I&O Subjective Patient was seen and evaluated in follow up in the ICU. Patient is intubated and sedated on ventilator. 30% FiO2. Patient failed CPAP trial this afternoon. Patient on vasopressor support. WBC 11.2, CO2 35. Prelim blood cultures are negative for growth. Chest x-ray shows cardiomegaly with pulmonary vascular congestion. vital signs Vital Sign Date Time Temp Pulse Resp B/P (MAP) Pulse Ox O2 Delivery O2 Flow Rate FiO2 04/25/25 22:15 82 16 96/53 (67) 96 30 04/25/25 20:00 Mechanical Ventilator+ 04/25/25 16:00 99.3 99.3 Total Intake and Output 04/24/25 04/24/25 04/25/25 15:00 23:00 07:00 Intake Total 625.250 ml 665.250 ml 821.000 ml Output Total 2550 ml 1100 ml Balance 625.250 ml -1884.750 ml -279.000 ml medications Current Medications Medications Dose Ordered Sig/Jl Route Start Time Stop Time Status Last Admin Dose Admin Docusate Sodium 100 mg BIDPRN PRN PO 04/19/25 13:00 04/22/25 09:21 100 MG Nitroglycerin 0.4 mg Q5MINP PRN SL 04/19/25 13:00 Ipratropium [place] 0.5 mg Q4HPRN PRN NEB 04/19/25 13:00 Pravastatin Sodium 20 mg DAILY PO 04/20/25 10:00 04/25/25 08:54 20 MG Patient Own Medication 1 tab DAILY PO 04/20/25 10:00 UNV Patient Own Medication 1 cap BID PO 04/19/25 22:00 UNV Apixaban 5 mg BID PO 04/20/25 22:00 04/25/25 21:38 5 MG Amiodarone HCl 200 mg Q12HR PO 04/20/25 22:00 04/25/25 21:37 200 MG Pramipexole Dihydrochloride 0.25 mg HS PO 04/20/25 22:00 04/25/25 21:38 0.25 MG Acetaminophen/ Hydrocodone Bitart 1 tab Q6HPRN PRN PO 04/20/25 16:15 04/21/25 14:30 1 TAB Morphine Sulfate 2 mg Q6HPRN PRN IV 04/20/25 16:15 04/20/25 17:23 2 MG Ondansetron HCl 4 mg Q6HPRN PRN IV 04/20/25 16:15 04/21/25 14:28 4 MG Morphine Sulfate 2 mg Q30M PRN IV 04/20/25 16:30 Patient Own Medication 1 HS LEFTEYE 04/21/25 22:00 04/25/25 21:40 1 Oxybutynin Chloride 5 mg TID PO 04/21/25 14:00 04/25/25 21:37 5 MG Patient Own Medication 0.2 mg BID LEFTEYE 04/21/25 22:00 04/25/25 21:40 0.2 MG Patient Own Medication 1 drop BID LEFTEYE 04/21/25 22:00 04/25/25 21:40 1 DROP Mupirocin 1 applic BID EACHNOSTRI 04/21/25 22:00 04/26/25 21:59 04/25/25 21:39 1 APPLIC Lidocaine 2 patch DAILY@1500 TOP 04/21/25 15:00 04/25/25 14:15 2 PATCH Midazolam HCl 100 ml @ 1 mls/hr Q24H IV 04/21/25 20:45 04/23/25 02:21 5 MLS/HR Fentanyl Citrate 250 ml @ 2.5 mls/hr Q24H IV 04/21/25 20:45 04/23/25 15:38 12.5 MLS/HR Norepinephrine Bitartrate 250 ml @ 3.75 mls/hr Q24H IV 04/21/25 21:15 04/25/25 20:39 18.75 MLS/HR Furosemide 40 mg DAILY IV 04/23/25 10:00 04/25/25 08:53 40 MG Piperacillin Sod/ Tazobactam Sod 100 ml @ 25 mls/hr Q8HR IV 04/23/25 14:00 04/25/25 21:38 25 MLS/HR Vancomycin HCl 0 ml @ 0 mls/hr PER PHARMACY IV 04/23/25 10:00 Pantoprazole Sodium 40 mg DAILY IV 04/24/25 10:00 04/25/25 08:52 40 MG Acetaminophen 650 mg Q6HP PRN PO 04/23/25 11:15 04/25/25 12:01 650 MG Aspirin 81 mg DAILY NG 04/24/25 10:00 04/25/25 08:54 81 MG Atorvastatin Calcium 40 mg HS NG 04/23/25 22:00 04/25/25 21:37 40 MG Enteral Nutritional Formula 1,000 ml 70ML/HR GT 04/24/25 11:45 04/25/25 17:42 1,000 ML Enteral Nutritional Formula 1,000 ml 70ML/HR GT 04/24/25 11:45 UNV objective GENERAL: Ill appearing, intubated on ventilator. Morbidly obese. EYES: PERRL, EOMI. Anicteric. HENT: Moist mucous membranes. LUNGS: Diminished breath sounds. CARDIOVASCULAR: Regular rate and rhythm. ABDOMEN: Soft, non-tender and non-distended. EXTREMITIES: No edema. SKIN: Warm, dry. laboratory and microbiology Laboratory Tests 04/25/25 10:24 04/25/25 02:55 Test 04/25/25 02:55 Range/Units Serum Glucose 133 H 74-106 mg/dL Problem List Atrial fibrillation with rapid ventricular rate, newly diagnosed. [place] decompensated HFpEF, NYHA Class III. +Anisocoria, acute CVA ruled out. Pulmonary hypertension, moderate degree. Acute respiratory failure. Hypertension. Home O2 dependence. Bed-bound status. Morbid obesity. Assessment/Plan Continued all current supportive medical care. Morphine and [place] for pain management. Amiodarone. Eliquis. Aspirin, Lipitor. Diuretics with Lasix. Vasopressors for hemodynamic support. GI prophylactics. Additional plan as per the hospital course. Critical care time of 45 minutes provided to include time spent evaluation of patient at bedside, when appropriate patient/family education for diagnosis, treatment plan, review of pertinent medical information and discussion of care with specialty providers and PCP. Mechanical ventilator parameters, treatment and adjustments have personally been reviewed by me and treatment plan by statistical methods teacher has also been reviewed. Dietary Evaluation Review Comments: Vital High Protein Goal Rate @70ml/hr, providing 147g Protein, 1680 kcal, 1404ml free water in 24 hours, This protocol will meet her needs @101% protein, @90% energy. Initiate rate @35ml/hr, increase 10ml/6hr increment till meeting her goal rate@70ml/hr. Expected Outcomes/Goals: Meeting Pt's needs for being on mechanical ventilator. Gradual weight loss, improved nutrition related lab values and overall nutrition status. Fluid Accumulation (Severe): Moderate Fluid Retention Protein Calorie Malnutrition: Severe Plan discussed with: Other AZAR MELGOZA MD Apr 25, 2025 22:41
[2025-04-26] VITALS (106 sets, daily range): BP systolic 83–130; BP diastolic 38–94; PULSE 67–105; RESP 12–33; TEMP 98.7–99.7; O2SAT 94–100
[2025-04-26 03:41] LABS: Hematocrit 36.0 % (36.0-46.0); Hemoglobin 12.1 g/dL (12.2-16.2); Mean Corpuscular Hemoglobin 28.0 pg (28.0-32.0); Mean Corpuscular Volume 83.6 fL (80.0-100.0); Nucleated Red Blood Cells % 0.0 %
--- NOTE | 2025-04-26 05:44 | DVH ---
CHEST RADIOGRAPH Indication: intubated Technique: Single frontal view of the chest was obtained COMPARISON: XY CHEST XRAY 1 VIEW on DOS: 04/25/25, XY CHEST XRAY 1 VIEW on DOS: 04/24/25, XY CHEST PORTABLE on DOS: 04/23/25, XY CHEST PORTABLE on DOS: 04/22/25, XY CHEST PORTABLE on DOS: 04/21/25 FINDINGS: Lines and Tubes: Slight interval retraction of the endotracheal tube such that the tip now projects approximately 3.6 cm above the level of the frieda. Enteric catheter is unchanged. Lungs: Grossly stable appearing diffuse increased prominence of the pulmonary vasculature. Pleura: No effusion. No pneumothorax. Cardiomediastinal contours: Cardiomegaly. Bones: Unremarkable IMPRESSION: 1. Slight interval retraction of the endotracheal tube such that the tip now projects approximately 3.6 cm above the level of the frieda. Enteric catheter unchanged. 2. Cardiomegaly and diffuse increased prominence of the pulmonary vasculature.
[2025-04-26 07:48] LABS: Base Excess 8.7 mmol/L (-2.0-3.0)
--- NOTE | 2025-04-26 07:48 | ECG ---
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
--- NOTE | 2025-04-26 07:50 | ECG ---
[facility] Test Date: 2025-04-22 Test Time: 02:47:48 Pat Name: MIREYA ALLRED Department: Respiratoy Room: 0265 A Gender: F Foot Caster: Олег : 1950 Requested By: SHAINA LOYOLA Order Number: [id number] Reading MD: Arnold Zurita Measurements Intervals [place] Rate: 62 P: -57 [place]: 172 QRS: -60 QRSD: 109 T: 90 QT: 408 QTc: 415 Interpretive Statements Sinus or ectopic atrial rhythm Ventricular trigeminy Left anterior fascicular block Anterior infarct, old Nonspecific T abnormalities, lateral leads Electronically Signed On 04-26-2025 9:48:14 PST by Arnold Zurita Please click the below link to view image of tracing.
--- NOTE | 2025-04-26 07:50 | ECG ---
[facility] Test Date: 2025-04-21 Test Time: 14:20:25 Pat Name: MIREYA ALLRED Department: Respiratoy Room: 0265 A Gender: F Fish Tender: LUIS ALFREDO2 : 1950 Requested By: SABA ARROYO Order Number: [id number] Reading MD: Arnold Zurita Measurements Intervals [place] Rate: 87 P: 0 [place]: 0 QRS: -47 QRSD: 111 T: 122 QT: 375 QTc: 451 Interpretive Statements Atrial fibrillation Aberrant conduction of SV complex(es) LVH with secondary repolarization abnormality Inferior infarct, old Anterior infarct, old Electronically Signed On 04-26-2025 9:47:39 PST by Arnold Zurita Please click the below link to view image of tracing.
--- NOTE | 2025-04-26 07:50 | ECG ---
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
--- NOTE | 2025-04-26 07:51 | ECG ---
[facility] Test Date: 2025-04-20 Test Time: 10:47:13 Pat Name: MIREYA ALLRED Department: Respiratoy Room: 0265 A Gender: F Viscosity Inspector: DIDIER : 1950 Requested By: THU GONZALEZ Order Number: [id number] Reading MD: Arnold Zurita Measurements Intervals [place] Rate: 86 P: 0 ID: 0 QRS: -64 QRSD: 109 T: 99 QT: 355 QTc: 425 Interpretive Statements Atrial fibrillation Left anterior fascicular block Anterior infarct, old Borderline repolarization abnormality Electronically Signed On 04-26-2025 9:42:54 PST by Arnold Zurita Please click the below link to view image of tracing.
[2025-04-26 09:10] LABS: Anion Gap 7 (5-15)
--- NOTE | 2025-04-26 09:19 | MEDREC ---
[facility] ASP Intervention Section I [facility] ASP Intervention: Deescalate AB based on CS (PLEASE CONSIDER DE-ESCALATION BASED ON CULTURE RESULTS (SPUTUM CULTURE GROWING MSSA MMICROORGANISMS)) ROSMERY POSADA PHARMACIST Apr 26, 2025 09:19
[2025-04-26 09:26] LABS: BUN/Creatinine Ratio 14.3 (10.0-20.0); Carbon Dioxide 34 mmol/L (20-31); Chloride 96 mmol/L (98-107); Potassium 3.4 mmol/L (3.5-5.1)
[2025-04-26 09:27] LABS: Alanine Aminotransferase 10 U/L (7-40); Albumin 3.4 g/dL (3.2-4.8); Alkaline Phosphatase 64 U/L (46-116); Bilirubin, Total 1.0 mg/dL (0.2-1.0); Blood Urea Nitrogen 9 mg/dL (9-23); Calcium 9.2 mg/dL (8.7-10.4); Glucose 142 mg/dL (74-106); Magnesium 1.8 mg/dL (1.6-2.6); Sodium 137 mmol/L (136-145); Total Protein 6.7 g/dL (5.7-8.2)
--- NOTE | 2025-04-26 10:33 | DVHPN2 ---
Subjective Patient intubated and sedated Reviewed: Care Plan, H&P, Labs, Medications, Previous Orders, Radiology, Other (Consultations) Changes from previous H/P or p: No Changes General: Per HPI Objective Vitals Vital Signs Date Time Temp Pulse Resp B/P (MAP) Pulse Ox O2 Delivery O2 Flow Rate FiO2 04/26/25 09:54 99/61 04/26/25 08:00 16 96 Mechanical Ventilator+ 30 30 04/26/25 08:00 81 04/26/25 00:00 98.7 98.7 Intake/Output Intake and Output 04/26/25 07:00 Intake Total 1267.700 ml Output Total 2350 ml Balance -1082.300 ml Intake Oral 300 ml IV Total 670.700 ml Tube Feeding 297 ml Output Urine Total 2350 ml General Appearance: Alert, mild distress, Other (Intubated and sedated; morbidly obese) HEENT: Atraumatic, PERRLA Lungs: Other (Mechanical ventilation sounds. Decrease breath sounds at bases) Cardiovascular: Normal S1, Normal S2, Other (Atrial fibrillation with frequent PVCs) Abdomen: Normal bowel sounds, Soft Genitourinary: Other (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) Extremities: Other (Left femoral central line) Neuro: Other (Intubated and sedated) Skin: Wounds (See nurse notes and pictures), Other (Dusky feet) Psych/Mental Status: Other (Intubated and sedated) Medications Current Medications Medications Dose Ordered Sig/Jl Route Start Time Stop Time Status Last Admin Dose Admin Docusate Sodium 100 mg BIDPRN PRN PO 04/19/25 13:00 04/22/25 09:21 100 MG Nitroglycerin 0.4 mg Q5MINP PRN SL 04/19/25 13:00 Ipratropium [place] 0.5 mg Q4HPRN PRN NEB 04/19/25 13:00 Pravastatin Sodium 20 mg DAILY PO 04/20/25 10:00 04/26/25 09:58 20 MG Patient Own Medication 1 tab DAILY PO 04/20/25 10:00 UNV Patient Own Medication 1 cap BID PO 04/19/25 22:00 UNV Apixaban 5 mg BID PO 04/20/25 22:00 04/26/25 09:58 5 MG Amiodarone HCl 200 mg Q12HR PO 04/20/25 22:00 04/26/25 09:58 200 MG Pramipexole Dihydrochloride 0.25 mg HS PO 04/20/25 22:00 04/25/25 21:38 0.25 MG Acetaminophen/ Hydrocodone Bitart 1 tab Q6HPRN PRN PO 04/20/25 16:15 04/21/25 14:30 1 TAB Morphine Sulfate 2 mg Q6HPRN PRN IV 04/20/25 16:15 04/20/25 17:23 2 MG Ondansetron HCl 4 mg Q6HPRN PRN IV 04/20/25 16:15 04/21/25 14:28 4 MG Morphine Sulfate 2 mg Q30M PRN IV 04/20/25 16:30 Patient Own Medication 1 HS LEFTEYE 04/21/25 22:00 04/25/25 21:40 1 Oxybutynin Chloride 5 mg TID PO 04/21/25 14:00 04/26/25 06:26 5 MG Patient Own Medication 0.2 mg BID LEFTEYE 04/21/25 22:00 04/26/25 10:07 0.2 MG Patient Own Medication 1 drop BID LEFTEYE 04/21/25 22:00 04/26/25 10:07 1 DROP Mupirocin 1 applic BID EACHNOSTRI 04/21/25 22:00 04/26/25 21:59 04/26/25 10:08 1 APPLIC Lidocaine 2 patch DAILY@1500 TOP 04/21/25 15:00 04/25/25 14:15 2 PATCH Midazolam HCl 100 ml @ 1 mls/hr Q24H IV 04/21/25 20:45 04/23/25 02:21 5 MLS/HR Fentanyl Citrate 250 ml @ 2.5 mls/hr Q24H IV 04/21/25 20:45 04/23/25 15:38 12.5 MLS/HR Norepinephrine Bitartrate 250 ml @ 3.75 mls/hr Q24H IV 04/21/25 21:15 04/26/25 07:59 22.5 MLS/HR Furosemide 40 mg DAILY IV 04/23/25 10:00 04/26/25 09:54 40 MG Piperacillin Sod/ Tazobactam Sod 100 ml @ 25 mls/hr Q8HR IV 04/23/25 14:00 04/26/25 06:26 25 MLS/HR Vancomycin HCl 0 ml @ 0 mls/hr PER PHARMACY IV 04/23/25 10:00 Pantoprazole Sodium 40 mg DAILY IV 04/24/25 10:00 04/26/25 09:50 40 MG Acetaminophen 650 mg Q6HP PRN PO 04/23/25 11:15 04/25/25 12:01 650 MG Aspirin 81 mg DAILY NG 04/24/25 10:00 04/26/25 09:58 81 MG Atorvastatin Calcium 40 mg HS NG 04/23/25 22:00 04/25/25 21:37 40 MG Enteral Nutritional Formula 1,000 ml 70ML/HR GT 04/24/25 11:45 04/25/25 17:42 1,000 ML Enteral Nutritional Formula 1,000 ml 70ML/HR GT 04/24/25 11:45 UNV Potassium Chloride 100 ml @ 50 mls/hr Q2H IV 04/26/25 09:30 04/26/25 13:29 UNV Magnesium Sulfate/ Dextrose 100 ml @ 100 mls/hr Q1HR IV 04/26/25 10:00 04/26/25 11:59 UNV Laboratory Results Laboratory Tests 04/26/25 02:40 04/26/25 08:37 Chemistry Test 04/26/25 08:37 Albumin 3.4 g/dL (3.2-4.8) Calcium Level 9.2 mg/dL (8.7-10.4) Magnesium Level 1.8 mg/dL (1.6-2.6) Total Protein 6.7 g/dL (5.7-8.2) LFT Test 04/26/25 08:37 Alanine Aminotransferase (ALT) 10 U/L (7-40) Alkaline Phosphatase 64 U/L (46-116) Aspartate Amino Transferase (AST) 16 U/L (13-40) Total Bilirubin 1.0 mg/dL (0.2-1.0) Urinalysis Test 04/25/25 05:50 Urine Color Light-orange (Yellow) Urine Clarity Turbid (Clear) H Urine pH 8.0 (5.0-9.0) Urine Specific [place] 1.019 (1.001-1.035) Urine Protein 1+ (Negative) H Urine Ketones Trace (Negative) Urine Blood 3+ /uL (Negative) H Urine Nitrite Negative (Negative) Urine Bilirubin Negative (Negative) Urine Urobilinogen 8 mg/dL (Negative) H Urine Leukocyte Esterase 3+ /uL (Negative) Urine RBC 829 /hpf (0 - 4) Urine Microscopic WBC 82 /HPF (0-5) H Urine Squamous Epithelial Cells Many /hpf (<5) Urine Bacteria None seen /hpf (None Seen) Urine Glucose Normal mg/dL (Normal) Blood Gas Results Test 04/26/25 07:13 Arterial Blood pH 7.434 (7.350-7.450) FiO2 % 30.0 Microbiology Microbiology Date/Time Source Procedure Growth Status 04/23/25 13:20 Blood Blood Culture - Preliminary NO GROWTH AFTER 48 HOURS OF INCUBATION. Resulted 04/23/25 04:47 Urine - [place] Urine Culture - Final Complete 04/21/25 00:00 Sputum Gram Stain - Final Complete 04/21/25 00:00 Respiratory Culture - Final Staphylococcus aureus Complete 04/20/25 03:00 Nose MRSA Screen - Final Methicillin Resistant S.aureus Complete Labs and/or images reviewed: Labs reviewed by me, Image(s) reviewed by me Assessment/Plan Assessment/Plan Impression: -septic shock -questionable aspiration pneumonia -positive aspiration of the nares -acute hypoxic and hypercarbic respiratory failure -metabolic encephalopathy -acute on chronic diastolic heart failure, HFpEF -AFib with RVR, now controlled -probable obstructive sleep apnea, obesity related hypoventilation syndrome -dyslipidemia -primary hypertension -functional quadriplegia -peripheral arterial disease -morbid obesity -constipation Plan: Events: Patient currently on CPAP trial. Patient having increased heart rate with increase multifocal PVCs. Patient also requiring increase pressure support while on CPAP. -continue CPAP as tolerated -K and Mag replete -Precedex as needed -continue norepinephrine to keep map greater than 65 mmHg -PPI -stop Zosyn, continue vancomycin, add Rocephin -tube feeding -repeat labs, chest x-ray, ABG in a.m. Critical care time spent with patient discussing and formulating plan of care: 40 minutes. This does not include time spent performing procedures. This medical document was created using an electronic medical record system with [employer] system. Although this document has been carefully reviewed, there may still be some phonetic and typographical errors. These areas are purely typographical due to imperfections of the software programs, and do not reflect any compromise in the patient's medical care. Plan discussed with: Patient, Other (RN) My Orders Orders - TRICIA GALARZA NP Procedure Category Date Status Time Potassium Chl PHA 04/26/25 Logged 20meq/100ml 09:30 Magnesium Sulfate PHA 04/26/25 Logged 1gm/100ml 10:00 Basic Metabolic Panel LAB 04/27/25 Verified 04:00 Date of Service: Apr 26, 2025 Billing Provider: TRICIA GALARZA NP Common Visit Codes: 25304-[facility] C[facility] 30-74 MIN TRICIA GALARZA NP Apr 26, 2025 10:33
[2025-04-26] MEDS: POTASSIUM CHL 20MEQ/100ML 100 ML IV SCH (10:49)
[2025-04-26] MEDS: MAGNESIUM SULFATE 1GM/100ML 100 ML IV SCH (10:59)
[2025-04-26] MEDS: VANCOMYCIN 1.25GM/250ML 250 ML IV SCH (11:08)
--- NOTE | 2025-04-26 11:49 | DVHPN2 ---
Progress Note - Dictate Date Seen: Apr 26, 2025 Has the PT tested + for MRSA If YES, has PT been informed?: No Medical Necessity Reason Pt with a Central, PICC or Fol: Yes The following are medically ne: Smith Catheter Reason for smith catheter: Strict I&O vital signs Vital Sign Date Time Temp Pulse Resp B/P (MAP) Pulse Ox O2 Delivery O2 Flow Rate FiO2 04/26/25 10:58 82 16 121/94 04/26/25 10:45 96 04/26/25 10:28 30 04/26/25 08:00 Mechanical Ventilator+ 04/26/25 00:00 98.7 98.7 Total Intake and Output 04/25/25 04/25/25 04/26/25 15:00 23:00 07:00 Intake Total 184.450 ml 635.75 ml 495.0 ml Output Total 1850 ml 500 ml Balance 184.450 ml -1214.25 ml -5.0 ml medications Current Medications Medications Dose Ordered Sig/Jl Route Start Time Stop Time Status Last Admin Dose Admin Docusate Sodium 100 mg BIDPRN PRN PO 04/19/25 13:00 04/22/25 09:21 100 MG Nitroglycerin 0.4 mg Q5MINP PRN SL 04/19/25 13:00 Ipratropium [place] 0.5 mg Q4HPRN PRN NEB 04/19/25 13:00 Pravastatin Sodium 20 mg DAILY PO 04/20/25 10:00 04/26/25 09:58 20 MG Patient Own Medication 1 tab DAILY PO 04/20/25 10:00 UNV Patient Own Medication 1 cap BID PO 04/19/25 22:00 UNV Apixaban 5 mg BID PO 04/20/25 22:00 04/26/25 09:58 5 MG Amiodarone HCl 200 mg Q12HR PO 04/20/25 22:00 04/26/25 09:58 200 MG Pramipexole Dihydrochloride 0.25 mg HS PO 04/20/25 22:00 04/25/25 21:38 0.25 MG Acetaminophen/ Hydrocodone Bitart 1 tab Q6HPRN PRN PO 04/20/25 16:15 04/21/25 14:30 1 TAB Morphine Sulfate 2 mg Q6HPRN PRN IV 04/20/25 16:15 04/26/25 10:58 2 MG Ondansetron HCl 4 mg Q6HPRN PRN IV 04/20/25 16:15 04/21/25 14:28 4 MG Morphine Sulfate 2 mg Q30M PRN IV 04/20/25 16:30 Patient Own Medication 1 HS LEFTEYE 04/21/25 22:00 04/25/25 21:40 1 Oxybutynin Chloride 5 mg TID PO 04/21/25 14:00 04/26/25 06:26 5 MG Patient Own Medication 0.2 mg BID LEFTEYE 04/21/25 22:00 04/26/25 10:07 0.2 MG Patient Own Medication 1 drop BID LEFTEYE 04/21/25 22:00 04/26/25 10:07 1 DROP Mupirocin 1 applic BID EACHNOSTRI 04/21/25 22:00 04/26/25 21:59 04/26/25 10:08 1 APPLIC Lidocaine 2 patch DAILY@1500 TOP 04/21/25 15:00 04/25/25 14:15 2 PATCH Fentanyl Citrate 250 ml @ 2.5 mls/hr Q24H IV 04/21/25 20:45 04/23/25 15:38 12.5 MLS/HR Norepinephrine Bitartrate 250 ml @ 3.75 mls/hr Q24H IV 04/21/25 21:15 04/26/25 07:59 22.5 MLS/HR Furosemide 40 mg DAILY IV 04/23/25 10:00 04/26/25 09:54 40 MG Vancomycin HCl 0 ml @ 0 mls/hr PER PHARMACY IV 04/23/25 10:00 Pantoprazole Sodium 40 mg DAILY IV 04/24/25 10:00 04/26/25 09:50 40 MG Acetaminophen 650 mg Q6HP PRN PO 04/23/25 11:15 04/25/25 12:01 650 MG Aspirin 81 mg DAILY NG 04/24/25 10:00 04/26/25 09:58 81 MG Atorvastatin Calcium 40 mg HS NG 04/23/25 22:00 04/25/25 21:37 40 MG Enteral Nutritional Formula 1,000 ml 70ML/HR GT 04/24/25 11:45 04/25/25 17:42 1,000 ML Enteral Nutritional Formula 1,000 ml 70ML/HR GT 04/24/25 11:45 UNV Potassium Chloride 100 ml @ 50 mls/hr Q2H IV 04/26/25 09:30 04/26/25 13:29 04/26/25 10:49 50 MLS/HR Magnesium Sulfate/ Dextrose 100 ml @ 100 mls/hr Q1HR IV 04/26/25 10:00 04/26/25 11:59 04/26/25 10:59 100 MLS/HR Ceftriaxone Sodium 50 ml @ 100 mls/hr DAILY@09 IV 04/27/25 09:00 Vancomycin HCl 250 ml @ 200 mls/hr Q8H IV 04/26/25 11:00 04/26/25 11:08 200 MLS/HR laboratory and microbiology Laboratory Tests 04/26/25 08:37 04/26/25 02:40 Test 04/26/25 08:37 Range/Units Serum Glucose 142 H 74-106 mg/dL Assessment/Plan Pelletizer rounds Impression Acute hypercapnic respiratory failure Altered mental status Morbid obesity CHF Patient seen and examined in [facility] Events On mechanical ventilation S/p intubation PEEP 5, FiO2 35% Off sedation, beginning to wake up Labs and imaging reviewed ABG reviewed Management Vent support Titrate to maintain sats 90% or above When patient is more, proceed to weaning trial Pressure support 11/27, extubate when ready Bronchodilators Diurese Monitor renal function Monitor electrolytes Supplement as needed Pressors as needed for hemodynamic support To maintain a mean arterial pressure of 65 mmHg DVT prophylaxis Critical care time 35 minutes Dietary Evaluation Review Comments: Vital High Protein Goal Rate @70ml/hr, providing 147g Protein, 1680 kcal, 1404ml free water in 24 hours, This protocol will meet her needs @101% protein, @90% energy. Initiate rate @35ml/hr, increase 10ml/6hr increment till meeting her goal rate@70ml/hr. Expected Outcomes/Goals: Meeting Pt's needs for being on mechanical ventilator. Gradual weight loss, improved nutrition related lab values and overall nutrition status. Fluid Accumulation (Severe): Moderate Fluid Retention Protein Calorie Malnutrition: Severe Plan discussed with: Other (Rn) INDIA MORALES MD Apr 26, 2025 11:49
[2025-04-26] MEDS: HYDROcodone-ACET 5/325MG TAB PO PRN (16:57)
[2025-04-27] VITALS (107 sets, daily range): BP systolic 71–173; BP diastolic 48–143; PULSE 64–112; RESP 14–40; TEMP 97.6–99.6; O2SAT 85–100
--- NOTE | 2025-04-27 00:28 | DVHPN2 ---
Progress Note - Dictate Date Seen: Apr 26, 2025 Has the PT tested + for MRSA If YES, has PT been informed?: No Medical Necessity Reason Pt with a Central, PICC or Fol: Yes The following are medically ne: Smith Catheter Reason for smith catheter: Strict I&O Subjective Patient was seen and evaluated in follow up in the ICU. Patient is intubated on ventilator. 30% FiO2. Patient off sedation. The patient failed CPAP trial today. K 3.4, CO2 34. Chest x-ray shows cardiomegaly and diffuse increased prominence of the pulmonary vasculature. vital signs Vital Sign Date Time Temp Pulse Resp B/P (MAP) Pulse Ox O2 Delivery O2 Flow Rate FiO2 04/26/25 14:30 77 17 100/59 (73) 98 04/26/25 14:05 30 04/26/25 14:00 Mechanical Ventilator+ 04/26/25 12:00 99.7 99.7 Total Intake and Output 04/25/25 04/25/25 04/26/25 15:00 23:00 07:00 Intake Total 184.450 ml 635.75 ml 495.0 ml Output Total 1850 ml 500 ml Balance 184.450 ml -1214.25 ml -5.0 ml medications Current Medications Medications Dose Ordered Sig/Jl Route Start Time Stop Time Status Last Admin Dose Admin Docusate Sodium 100 mg BIDPRN PRN PO 04/19/25 13:00 04/22/25 09:21 100 MG Nitroglycerin 0.4 mg Q5MINP PRN SL 04/19/25 13:00 Ipratropium [place] 0.5 mg Q4HPRN PRN NEB 04/19/25 13:00 Pravastatin Sodium 20 mg DAILY PO 04/20/25 10:00 04/26/25 09:58 20 MG Patient Own Medication 1 tab DAILY PO 04/20/25 10:00 UNV Patient Own Medication 1 cap BID PO 04/19/25 22:00 UNV Apixaban 5 mg BID PO 04/20/25 22:00 04/26/25 09:58 5 MG Amiodarone HCl 200 mg Q12HR PO 04/20/25 22:00 04/26/25 09:58 200 MG Pramipexole Dihydrochloride 0.25 mg HS PO 04/20/25 22:00 04/25/25 21:38 0.25 MG Acetaminophen/ Hydrocodone Bitart 1 tab Q6HPRN PRN PO 04/20/25 16:15 04/21/25 14:30 1 TAB Morphine Sulfate 2 mg Q6HPRN PRN IV 04/20/25 16:15 04/26/25 10:58 2 MG Ondansetron HCl 4 mg Q6HPRN PRN IV 04/20/25 16:15 04/21/25 14:28 4 MG Morphine Sulfate 2 mg Q30M PRN IV 04/20/25 16:30 Patient Own Medication 1 HS LEFTEYE 04/21/25 22:00 04/25/25 21:40 1 Oxybutynin Chloride 5 mg TID PO 04/21/25 14:00 04/26/25 14:19 5 MG Patient Own Medication 0.2 mg BID LEFTEYE 04/21/25 22:00 04/26/25 10:07 0.2 MG Patient Own Medication 1 drop BID LEFTEYE 04/21/25 22:00 04/26/25 10:07 1 DROP Mupirocin 1 applic BID EACHNOSTRI 04/21/25 22:00 04/26/25 21:59 04/26/25 10:08 1 APPLIC Lidocaine 2 patch DAILY@1500 TOP 04/21/25 15:00 04/26/25 15:09 2 PATCH Fentanyl Citrate 250 ml @ 2.5 mls/hr Q24H IV 04/21/25 20:45 04/23/25 15:38 12.5 MLS/HR Norepinephrine Bitartrate 250 ml @ 3.75 mls/hr Q24H IV 04/21/25 21:15 04/26/25 07:59 22.5 MLS/HR Furosemide 40 mg DAILY IV 04/23/25 10:00 04/26/25 09:54 40 MG Vancomycin HCl 0 ml @ 0 mls/hr PER PHARMACY IV 04/23/25 10:00 Pantoprazole Sodium 40 mg DAILY IV 04/24/25 10:00 04/26/25 09:50 40 MG Acetaminophen 650 mg Q6HP PRN PO 04/23/25 11:15 04/25/25 12:01 650 MG Aspirin 81 mg DAILY NG 04/24/25 10:00 04/26/25 09:58 81 MG Atorvastatin Calcium 40 mg HS NG 04/23/25 22:00 04/25/25 21:37 40 MG Enteral Nutritional Formula 1,000 ml 70ML/HR GT 04/24/25 11:45 04/25/25 17:42 1,000 ML Enteral Nutritional Formula 1,000 ml 70ML/HR GT 04/24/25 11:45 UNV Ceftriaxone Sodium 50 ml @ 100 mls/hr DAILY@09 IV 04/27/25 09:00 Vancomycin HCl 250 ml @ 200 mls/hr Q8H IV 04/26/25 11:00 04/26/25 11:08 200 MLS/HR Acetaminophen/ Hydrocodone Bitart 1 tab Q6HPRN PRN PO 04/26/25 15:00 UNV objective GENERAL: Ill appearing, intubated on ventilator. Morbidly obese. EYES: PERRL, EOMI. Anicteric. HENT: Moist mucous membranes. LUNGS: Diminished breath sounds. CARDIOVASCULAR: Regular rate and rhythm. ABDOMEN: Soft, non-tender and non-distended. EXTREMITIES: No edema. SKIN: Warm, dry. laboratory and microbiology Laboratory Tests 04/26/25 08:37 04/26/25 02:40 Test 04/26/25 08:37 Range/Units Serum Glucose 142 H 74-106 mg/dL Problem List Atrial fibrillation with rapid ventricular rate, newly diagnosed. [place] decompensated HFpEF, NYHA Class III. +Anisocoria, acute CVA ruled out. Pulmonary hypertension, moderate degree. Acute respiratory failure. Hypertension. Home O2 dependence. Bed-bound status. Morbid obesity. Assessment/Plan Continued all current supportive medical care. Morphine and [place] for pain management. Amiodarone. Eliquis. Aspirin, Lipitor. Diuretics with Lasix. Vasopressors for hemodynamic support. GI prophylactics. Additional plan as per the hospital course. Critical care time of 45 minutes provided to include time spent evaluation of patient at bedside, when appropriate patient/family education for diagnosis, treatment plan, review of pertinent medical information and discussion of care with specialty providers and PCP. Mechanical ventilator parameters, treatment and adjustments have personally been reviewed by me and treatment plan by giving officer has also been reviewed. Dietary Evaluation Review Comments: Vital High Protein Goal Rate @70ml/hr, providing 147g Protein, 1680 kcal, 1404ml free water in 24 hours, This protocol will meet her needs @101% protein, @90% energy. Initiate rate @35ml/hr, increase 10ml/6hr increment till meeting her goal rate@70ml/hr. Expected Outcomes/Goals: Meeting Pt's needs for being on mechanical ventilator. Gradual weight loss, improved nutrition related lab values and overall nutrition status. Fluid Accumulation (Severe): Moderate Fluid Retention Protein Calorie Malnutrition: Severe Plan discussed with: Other AZAR MELGOZA MD Apr 26, 2025 15:39
[2025-04-27 04:14] LABS: Anion Gap 7 (5-15); Sodium 137 mmol/L (136-145)
[2025-04-27 04:15] LABS: Calcium 9.0 mg/dL (8.7-10.4)
[2025-04-27 04:18] LABS: Carbon Dioxide 34 mmol/L (20-31); Chloride 96 mmol/L (98-107); Potassium 3.3 mmol/L (3.5-5.1)
[2025-04-27 04:20] LABS: BUN/Creatinine Ratio 15.0 (10.0-20.0)
[2025-04-27 04:21] LABS: Magnesium 1.9 mg/dL (1.6-2.6)
[2025-04-27 04:25] LABS: Blood Urea Nitrogen 9 mg/dL (9-23); Glucose 155 mg/dL (74-106)
--- NOTE | 2025-04-27 05:20 | DVH ---
CHEST RADIOGRAPH Indication: pna Technique: Single frontal view of the chest was obtained COMPARISON: XY CHEST XRAY 1 VIEW on DOS: 04/26/25, XY CHEST XRAY 1 VIEW on DOS: 04/25/25, XY CHEST XRAY 1 VIEW on DOS: 04/24/25, XY CHEST PORTABLE on DOS: 04/23/25, XY CHEST PORTABLE on DOS: 04/22/25 FINDINGS: Lines and Tubes: Unchanged. Lungs: Stable appearing diffuse Increased prominence of the pulmonary vasculature and small bilateral pleural effusions. No pneumothorax. Cardiomediastinal contours: Cardiomegaly. Bones: Unremarkable IMPRESSION: 1. Stable appearing pulmonary edema and small bilateral pleural effusions. 2. Cardiomegaly. 3. Lines and tubes unchanged.
[2025-04-27] MEDS: POTASSIUM CHL 20MEQ/100ML 100 ML IV ONE ×2 (05:54→09:16)
[2025-04-27 07:10] LABS: Base Excess 6.4 mmol/L (-2.0-3.0)
--- NOTE | 2025-04-27 09:06 | DVHPN2 ---
Subjective Patient intubated and sedated Reviewed: Care Plan, H&P, Labs, Medications, Previous Orders, Radiology, Other (Consultations) Changes from previous H/P or p: No Changes General: Per HPI Objective Vitals Vital Signs Date Time Temp Pulse Resp B/P (MAP) Pulse Ox O2 Delivery O2 Flow Rate FiO2 04/27/25 08:45 78 16 90/60 (70) 98 04/27/25 08:00 97.9 97.9 04/27/25 06:00 Mechanical Ventilator+ 30 30 Intake/Output Intake and Output 04/27/25 07:00 Intake Total 2310.75 ml Output Total 3400 ml Balance -1089.25 ml Intake Oral 30 ml IV Total 1838.75 ml Tube Feeding 442 ml Output Urine Total 3400 ml General Appearance: Alert, Oriented X3, mild distress, Other (Intubated) HEENT: Atraumatic, PERRLA Lungs: Other (Mechanical ventilation sounds. Decrease breath sounds at bases) Cardiovascular: Normal S1, Normal S2, Other (Atrial fibrillation with frequent PVCs) Abdomen: Normal bowel sounds, Soft Genitourinary: Other (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) Musculoskeletal: Normal sensory function, Normal motor function Extremities: Other (Left femoral central line) Neuro: Other (Intubated and sedated) Skin: Wounds (See nurse notes and pictures), Other (Dusky feet) Psych/Mental Status: Other (Intubated and sedated) Medications Current Medications Medications Dose Ordered Sig/Jl Route Start Time Stop Time Status Last Admin Dose Admin Docusate Sodium 100 mg BIDPRN PRN PO 04/19/25 13:00 04/26/25 22:32 100 MG Nitroglycerin 0.4 mg Q5MINP PRN SL 04/19/25 13:00 Ipratropium [place] 0.5 mg Q4HPRN PRN NEB 04/19/25 13:00 Pravastatin Sodium 20 mg DAILY PO 04/20/25 10:00 04/26/25 09:58 20 MG Patient Own Medication 1 tab DAILY PO 04/20/25 10:00 UNV Patient Own Medication 1 cap BID PO 04/19/25 22:00 UNV Apixaban 5 mg BID PO 04/20/25 22:00 04/26/25 22:32 5 MG Amiodarone HCl 200 mg Q12HR PO 04/20/25 22:00 04/26/25 22:32 200 MG Pramipexole Dihydrochloride 0.25 mg HS PO 04/20/25 22:00 04/26/25 22:32 0.25 MG Morphine Sulfate 2 mg Q6HPRN PRN IV 04/20/25 16:15 04/27/25 01:02 2 MG Ondansetron HCl 4 mg Q6HPRN PRN IV 04/20/25 16:15 04/21/25 14:28 4 MG Morphine Sulfate 2 mg Q30M PRN IV 04/20/25 16:30 Patient Own Medication 1 HS LEFTEYE 04/21/25 22:00 04/26/25 22:37 1 Oxybutynin Chloride 5 mg TID PO 04/21/25 14:00 04/27/25 05:54 5 MG Patient Own Medication 0.2 mg BID LEFTEYE 04/21/25 22:00 04/26/25 22:38 0.2 MG Patient Own Medication 1 drop BID LEFTEYE 04/21/25 22:00 04/26/25 22:37 1 DROP Lidocaine 2 patch DAILY@1500 TOP 04/21/25 15:00 04/26/25 15:09 2 PATCH Fentanyl Citrate 250 ml @ 2.5 mls/hr Q24H IV 04/21/25 20:45 04/23/25 15:38 12.5 MLS/HR Norepinephrine Bitartrate 250 ml @ 3.75 mls/hr Q24H IV 04/21/25 21:15 04/27/25 05:54 22.5 MLS/HR Furosemide 40 mg DAILY IV 04/23/25 10:00 04/26/25 09:54 40 MG Vancomycin HCl 0 ml @ 0 mls/hr PER PHARMACY IV 04/23/25 10:00 Pantoprazole Sodium 40 mg DAILY IV 04/24/25 10:00 04/26/25 09:50 40 MG Acetaminophen 650 mg Q6HP PRN PO 04/23/25 11:15 04/25/25 12:01 650 MG Aspirin 81 mg DAILY NG 04/24/25 10:00 04/26/25 09:58 81 MG Atorvastatin Calcium 40 mg HS NG 04/23/25 22:00 04/26/25 22:31 40 MG Enteral Nutritional Formula 1,000 ml 70ML/HR GT 04/24/25 11:45 04/27/25 03:43 1,000 ML Enteral Nutritional Formula 1,000 ml 70ML/HR GT 04/24/25 11:45 UNV Ceftriaxone Sodium 50 ml @ 100 mls/hr DAILY@09 IV 04/27/25 09:00 Vancomycin HCl 250 ml @ 200 mls/hr Q8H IV 04/26/25 11:00 04/27/25 03:09 200 MLS/HR Acetaminophen/ Hydrocodone Bitart 1 tab Q6HPRN PRN PO 04/26/25 15:00 04/26/25 16:57 1 TAB Laboratory Results Laboratory Tests 04/26/25 02:40 04/27/25 03:36 Chemistry Test 04/27/25 03:36 Calcium Level 9.0 mg/dL (8.7-10.4) Magnesium Level 1.9 mg/dL (1.6-2.6) Urinalysis Test 04/25/25 05:50 Urine Color Light-orange (Yellow) Urine Clarity Turbid (Clear) H Urine pH 8.0 (5.0-9.0) Urine Specific [place] 1.019 (1.001-1.035) Urine Protein 1+ (Negative) H Urine Ketones Trace (Negative) Urine Blood 3+ /uL (Negative) H Urine Nitrite Negative (Negative) Urine Bilirubin Negative (Negative) Urine Urobilinogen 8 mg/dL (Negative) H Urine Leukocyte Esterase 3+ /uL (Negative) Urine RBC 829 /hpf (0 - 4) Urine Microscopic WBC 82 /HPF (0-5) H Urine Squamous Epithelial Cells Many /hpf (<5) Urine Bacteria None seen /hpf (None Seen) Urine Glucose Normal mg/dL (Normal) Blood Gas Results Test 04/27/25 07:07 Arterial Blood pH 7.422 (7.350-7.450) FiO2 % 30.0 Microbiology Microbiology Date/Time Source Procedure Growth Status 04/23/25 13:20 Blood Blood Culture - Preliminary NO GROWTH AFTER 72 HOURS OF INCUBATION. Resulted 04/23/25 04:47 Urine - [place] Urine Culture - Final Complete 04/21/25 00:00 Sputum Gram Stain - Final Complete 04/21/25 00:00 Respiratory Culture - Final Staphylococcus aureus Complete 04/20/25 03:00 Nose MRSA Screen - Final Methicillin Resistant S.aureus Complete Labs and/or images reviewed: Labs reviewed by me, Image(s) reviewed by me Assessment/Plan Assessment/Plan Impression: -septic shock -questionable aspiration pneumonia -positive aspiration of the nares -acute hypoxic and hypercarbic respiratory failure -metabolic encephalopathy -acute on chronic diastolic heart failure, HFpEF -AFib with RVR, now controlled -probable obstructive sleep apnea, obesity related hypoventilation syndrome -dyslipidemia -primary hypertension -functional quadriplegia -peripheral arterial disease -morbid obesity -constipation Plan: Events: Patient more awake today. Proceed with spontaneous breathing trial. Continues to be on norepinephrine at 10 micrograms/minute. -start hydrocortisone 50 mg IV b.i.d. -continue CPAP as tolerated -K and Mag replete -Precedex as needed -continue norepinephrine to keep map greater than 65 mmHg -PPI -continue vancomycin and Rocephin -tube feeding -repeat labs, chest x-ray, ABG in a.m. Critical care time spent with patient discussing and formulating plan of care: 40 minutes. This does not include time spent performing procedures. This medical document was created using an electronic medical record system with [employer] dictation system. Although this document has been carefully reviewed, there may still be some phonetic and typographical errors. These areas are purely typographical due to imperfections of the software programs, and do not reflect any compromise in the patient's medical care. Plan discussed with: Patient, Other (RN) My Orders Orders - TRICIA GALARZA NP Procedure Category Date Status Time Chest Portable XY 04/27/25 Resulted 04:00 Ceftriaxone 1gm/50ml PHA 04/27/25 In Process (Rocephin) 09:00 Hydrocodone-Acet PHA 04/26/25 In Process 5/325mg Tab ([place] 15:00 Potassium Chl PHA 04/27/25 In Process 20meq/100ml 08:00 Basic Metabolic Panel LAB 04/28/25 Verified 04:00 Chest Portable XY 04/28/25 Logged 04:00 Abg W/ Co-Ox RT 04/28/25 Logged 04:00 Cpap/Sed Vacation Med ORDERS 04/27/25 Transmitted Weaning 07:59 Cpap Trial For Am ORDERS 04/27/25 Transmitted 07:59 Date of Service: Apr 27, 2025 Billing Provider: TRICIA GALARZA COMMUNITY DEVELOPMENT SPECIALIST Common Visit Codes: [id number] CARE 30-74 MIN TRICIA GALARZA NP Apr 27, 2025 09:06
[2025-04-27] MEDS: HYDROCORTISONE SOD SUCC 100 MG/2ML INJ VIAL IV SCH (09:44)
--- NOTE | 2025-04-27 10:04 | MEDREC ---
[facility] Intervention Section I [facility] Intervention: Deescalate AB based on CS (PLEASE CONSIDER DE-ESCALATION BASED ON CULTURE RESULTS (SPUTUM CULTURE GROWING MSSA MMICROORGANISMS)), Review courses of therapy (PLEASE CONSIDER SWITCHING VANCO TO NAFCILLIN) [facility] RESIDENT Apr 27, 2025 10:04
[2025-04-27 10:39] LABS: Base Excess 4.4 mmol/L (-2.0-3.0)
--- NOTE | 2025-04-27 13:04 | DVHPN2 ---
Progress Note - Dictate Date Seen: Apr 27, 2025 Has the PT tested + for MRSA If YES, has PT been informed?: No Medical Necessity Reason Pt with a Central, PICC or Fol: Yes The following are medically ne: Smith Catheter Reason for smith catheter: Strict I&O vital signs Vital Sign Date Time Temp Pulse Resp B/P (MAP) Pulse Ox O2 Delivery O2 Flow Rate FiO2 04/27/25 12:15 80 17 94/67 (76) 96 04/27/25 12:00 Mechanical Ventilator+ 30 30 04/27/25 12:00 98.2 98.2 Total Intake and Output 04/26/25 04/26/25 04/27/25 15:00 23:00 07:00 Intake Total 955.0 ml 502.0 ml 922.50 ml Output Total 2900 ml 500 ml Balance 955.0 ml -2398.0 ml 422.50 ml medications Current Medications Medications Dose Ordered Sig/Jl Route Start Time Stop Time Status Last Admin Dose Admin Docusate Sodium 100 mg BIDPRN PRN PO 04/19/25 13:00 04/26/25 22:32 100 MG Nitroglycerin 0.4 mg Q5MINP PRN SL 04/19/25 13:00 Ipratropium [place] 0.5 mg Q4HPRN PRN NEB 04/19/25 13:00 Pravastatin Sodium 20 mg DAILY PO 04/20/25 10:00 04/27/25 09:16 20 MG Patient Own Medication 1 tab DAILY PO 04/20/25 10:00 UNV Patient Own Medication 1 cap BID PO 04/19/25 22:00 UNV Apixaban 5 mg BID PO 04/20/25 22:00 04/27/25 09:16 5 MG Amiodarone HCl 200 mg Q12HR PO 04/20/25 22:00 04/27/25 09:16 200 MG Pramipexole Dihydrochloride 0.25 mg HS PO 04/20/25 22:00 04/26/25 22:32 0.25 MG Morphine Sulfate 2 mg Q6HPRN PRN IV 04/20/25 16:15 04/27/25 01:02 2 MG Ondansetron HCl 4 mg Q6HPRN PRN IV 04/20/25 16:15 04/21/25 14:28 4 MG Morphine Sulfate 2 mg Q30M PRN IV 04/20/25 16:30 Patient Own Medication 1 HS LEFTEYE 04/21/25 22:00 04/26/25 22:37 1 Oxybutynin Chloride 5 mg TID PO 04/21/25 14:00 04/27/25 05:54 5 MG Patient Own Medication 0.2 mg BID LEFTEYE 04/21/25 22:00 04/27/25 09:33 0.2 MG Patient Own Medication 1 drop BID LEFTEYE 04/21/25 22:00 04/27/25 09:33 1 DROP Lidocaine 2 patch DAILY@1500 TOP 04/21/25 15:00 04/26/25 15:09 2 PATCH Fentanyl Citrate 250 ml @ 2.5 mls/hr Q24H IV 04/21/25 20:45 04/23/25 15:38 12.5 MLS/HR Norepinephrine Bitartrate 250 ml @ 3.75 mls/hr Q24H IV 04/21/25 21:15 04/27/25 05:54 22.5 MLS/HR Furosemide 40 mg DAILY IV 04/23/25 10:00 04/27/25 09:15 40 MG Vancomycin HCl 0 ml @ 0 mls/hr PER PHARMACY IV 04/23/25 10:00 Pantoprazole Sodium 40 mg DAILY IV 04/24/25 10:00 04/27/25 09:15 40 MG Acetaminophen 650 mg Q6HP PRN PO 04/23/25 11:15 04/25/25 12:01 650 MG Aspirin 81 mg DAILY NG 04/24/25 10:00 04/27/25 09:16 81 MG Atorvastatin Calcium 40 mg HS NG 04/23/25 22:00 04/26/25 22:31 40 MG Enteral Nutritional Formula 1,000 ml 70ML/HR GT 04/24/25 11:45 04/27/25 03:43 1,000 ML Enteral Nutritional Formula 1,000 ml 70ML/HR GT 04/24/25 11:45 UNV Ceftriaxone Sodium 50 ml @ 100 mls/hr DAILY@09 IV 04/27/25 09:00 04/27/25 09:16 100 MLS/HR Acetaminophen/ Hydrocodone Bitart 1 tab Q6HPRN PRN PO 04/26/25 15:00 04/26/25 16:57 1 TAB Hydrocortisone Sodium Succinate 50 mg Q12HR IV 04/27/25 10:00 04/27/25 09:44 50 MG laboratory and microbiology Laboratory Tests 04/27/25 03:36 04/26/25 02:40 Test 04/27/25 03:36 Range/Units Serum Glucose 155 H 74-106 mg/dL Assessment/Plan [employer] Manager rounds Impression Acute hypercapnic respiratory failure Altered mental status Morbid obesity CHF Patient seen and examined in [facility] Events On mechanical ventilation S/p intubation PEEP 5, FiO2 35% pt failed weaning this morning due to hypercapnea d Labs and imaging reviewed ABG reviewed Management Vent support Titrate to maintain sats 90% or above daily weaning trials Pressure support 11/27, extubate when ready Bronchodilators Diurese Monitor renal function Monitor electrolytes Supplement as needed Pressors as needed for hemodynamic support To maintain a mean arterial pressure of 65 mmHg DVT prophylaxis Critical care time 35 minutes Dietary Evaluation Review Comments: Vital High Protein Goal Rate @70ml/hr, providing 147g Protein, 1680 kcal, 1404ml free water in 24 hours, This protocol will meet her needs @101% protein, @90% energy. Initiate rate @35ml/hr, increase 10ml/6hr increment till meeting her goal rate@70ml/hr. Expected Outcomes/Goals: Meeting Pt's needs for being on mechanical ventilator. Gradual weight loss, improved nutrition related lab values and overall nutrition status. Fluid Accumulation (Severe): Moderate Fluid Retention Protein Calorie Malnutrition: Severe Plan discussed with: Other (rn) INDIA MORALES MD Apr 27, 2025 13:04
[2025-04-28] VITALS (105 sets, daily range): BP systolic 82–136; BP diastolic 42–84; PULSE 60–107; RESP 12–36; TEMP 98.2–99; O2SAT 72–100
--- NOTE | 2025-04-28 01:04 | DVHPN2 ---
Progress Note - Dictate Date Seen: Apr 27, 2025 Has the PT tested + for MRSA If YES, has PT been informed?: No Medical Necessity Reason Pt with a Central, PICC or Fol: Yes The following are medically ne: Smith Catheter Reason for smith catheter: Strict I&O Subjective Patient was seen and evaluated in follow up in the ICU. Patient is intubated on ventilator. 30% FiO2. Patient failed CPAP trial. K 3.3, CO2 34. Chest x-ray shows stable appearing pulmonary edema and small bilateral pleural effusions and cardiomegaly. vital signs Vital Sign Date Time Temp Pulse Resp B/P (MAP) Pulse Ox O2 Delivery O2 Flow Rate FiO2 04/27/25 12:15 80 17 94/67 (76) 96 04/27/25 12:00 Mechanical Ventilator+ 30 30 04/27/25 12:00 98.2 98.2 Total Intake and Output 04/26/25 04/26/25 04/27/25 15:00 23:00 07:00 Intake Total 955.0 ml 502.0 ml 922.50 ml Output Total 2900 ml 500 ml Balance 955.0 ml -2398.0 ml 422.50 ml medications Current Medications Medications Dose Ordered Sig/Jl Route Start Time Stop Time Status Last Admin Dose Admin Docusate Sodium 100 mg BIDPRN PRN PO 04/19/25 13:00 04/26/25 22:32 100 MG Nitroglycerin 0.4 mg Q5MINP PRN SL 04/19/25 13:00 Ipratropium [place] 0.5 mg Q4HPRN PRN NEB 04/19/25 13:00 Pravastatin Sodium 20 mg DAILY PO 04/20/25 10:00 04/27/25 09:16 20 MG Patient Own Medication 1 tab DAILY PO 04/20/25 10:00 UNV Patient Own Medication 1 cap BID PO 04/19/25 22:00 UNV Apixaban 5 mg BID PO 04/20/25 22:00 04/27/25 09:16 5 MG Amiodarone HCl 200 mg Q12HR PO 04/20/25 22:00 04/27/25 09:16 200 MG Pramipexole Dihydrochloride 0.25 mg HS PO 04/20/25 22:00 04/26/25 22:32 0.25 MG Morphine Sulfate 2 mg Q6HPRN PRN IV 04/20/25 16:15 04/27/25 01:02 2 MG Ondansetron HCl 4 mg Q6HPRN PRN IV 04/20/25 16:15 04/21/25 14:28 4 MG Morphine Sulfate 2 mg Q30M PRN IV 04/20/25 16:30 Patient Own Medication 1 HS LEFTEYE 04/21/25 22:00 04/26/25 22:37 1 Oxybutynin Chloride 5 mg TID PO 04/21/25 14:00 04/27/25 14:18 5 MG Patient Own Medication 0.2 mg BID LEFTEYE 04/21/25 22:00 04/27/25 09:33 0.2 MG Patient Own Medication 1 drop BID LEFTEYE 04/21/25 22:00 04/27/25 09:33 1 DROP Lidocaine 2 patch DAILY@1500 TOP 04/21/25 15:00 04/26/25 15:09 2 PATCH Fentanyl Citrate 250 ml @ 2.5 mls/hr Q24H IV 04/21/25 20:45 04/23/25 15:38 12.5 MLS/HR Norepinephrine Bitartrate 250 ml @ 3.75 mls/hr Q24H IV 04/21/25 21:15 04/27/25 05:54 22.5 MLS/HR Furosemide 40 mg DAILY IV 04/23/25 10:00 04/27/25 09:15 40 MG Vancomycin HCl 0 ml @ 0 mls/hr PER PHARMACY IV 04/23/25 10:00 Pantoprazole Sodium 40 mg DAILY IV 04/24/25 10:00 04/27/25 09:15 40 MG Acetaminophen 650 mg Q6HP PRN PO 04/23/25 11:15 04/25/25 12:01 650 MG Aspirin 81 mg DAILY NG 04/24/25 10:00 04/27/25 09:16 81 MG Atorvastatin Calcium 40 mg HS NG 04/23/25 22:00 04/26/25 22:31 40 MG Enteral Nutritional Formula 1,000 ml 70ML/HR GT 04/24/25 11:45 04/27/25 03:43 1,000 ML Enteral Nutritional Formula 1,000 ml 70ML/HR GT 04/24/25 11:45 UNV Ceftriaxone Sodium 50 ml @ 100 mls/hr DAILY@09 IV 04/27/25 09:00 04/27/25 09:16 100 MLS/HR Acetaminophen/ Hydrocodone Bitart 1 tab Q6HPRN PRN PO 04/26/25 15:00 04/26/25 16:57 1 TAB Hydrocortisone Sodium Succinate 50 mg Q12HR IV 04/27/25 10:00 04/27/25 09:44 50 MG objective GENERAL: Ill appearing, intubated on ventilator. Morbidly obese. EYES: PERRL, EOMI. Anicteric. HENT: Moist mucous membranes. LUNGS: Diminished breath sounds. CARDIOVASCULAR: Regular rate and rhythm. ABDOMEN: Soft, non-tender and non-distended. EXTREMITIES: No edema. SKIN: Warm, dry. laboratory and microbiology Laboratory Tests 04/27/25 03:36 04/26/25 02:40 Test 04/27/25 03:36 Range/Units Serum Glucose 155 H 74-106 mg/dL Problem List Atrial fibrillation with rapid ventricular rate, newly diagnosed. [place] decompensated HFpEF, NYHA Class III. +Anisocoria, acute CVA ruled out. Pulmonary hypertension, moderate degree. Acute respiratory failure. Hypertension. Home O2 dependence. Bed-bound status. Morbid obesity. Assessment/Plan Continued all current supportive medical care. Morphine and Kamrar for pain management. Amiodarone. Eliquis. Aspirin. Diuretics with Lasix. Vasopressors for hemodynamic support. GI prophylactics. IV antibiotics as ordered. Additional plan as per the hospital course. Critical care time of 45 minutes provided to include time spent evaluation of patient at bedside, when appropriate patient/family education for diagnosis, treatment plan, review of pertinent medical information and discussion of care with specialty providers and PCP. Mechanical ventilator parameters, treatment and adjustments have personally been reviewed by me and treatment plan by telephone answering service operator has also been reviewed. Dietary Evaluation Review Comments: Vital High Protein Goal Rate @70ml/hr, providing 147g Protein, 1680 kcal, 1404ml free water in 24 hours, This protocol will meet her needs @101% protein, @90% energy. Initiate rate @35ml/hr, increase 10ml/6hr increment till meeting her goal rate@70ml/hr. Expected Outcomes/Goals: Meeting Pt's needs for being on mechanical ventilator. Gradual weight loss, improved nutrition related lab values and overall nutrition status. Fluid Accumulation (Severe): Moderate Fluid Retention Protein Calorie Malnutrition: Severe Plan discussed with: Other AZAR MELGOZA MD Apr 27, 2025 14:29
[2025-04-28] MEDS: LIDOCAINE 5% TOPICAL PATCH TOP SCH (03:10)
[2025-04-28 04:17] LABS: Anion Gap 9 (5-15); Sodium 137 mmol/L (136-145)
[2025-04-28 04:18] LABS: Calcium 9.6 mg/dL (8.7-10.4)
[2025-04-28 04:23] LABS: BUN/Creatinine Ratio 17.2 (10.0-20.0); Blood Urea Nitrogen 11 mg/dL (9-23)
[2025-04-28 04:33] LABS: Carbon Dioxide 33 mmol/L (20-31); Chloride 95 mmol/L (98-107); Glucose 173 mg/dL (74-106); Potassium 3.4 mmol/L (3.5-5.1)
[2025-04-28] MEDS: POTASSIUM CHL 20MEQ/100ML 100 ML IV ONE ×2 (05:49→13:03)
--- NOTE | 2025-04-28 05:59 | DVH ---
CHEST RADIOGRAPH Indication: pna Technique: Single frontal view of the chest was obtained COMPARISON: XY CHEST PORTABLE on DOS: 04/27/25, XY CHEST XRAY 1 VIEW on DOS: 04/26/25, XY CHEST XRAY 1 VIEW on DOS: 04/25/25, XY CHEST XRAY 1 VIEW on DOS: 04/24/25, XY CHEST PORTABLE on DOS: 04/23/25 FINDINGS: Lines and Tubes: Endotracheal tube and enteric catheter in satisfactory position. Lungs: Unchanged pulmonary vascular congestion. Pleura: No effusion.No pneumothorax. Cardiomediastinal contours: Unchanged cardiomegaly. Bones: Unremarkable IMPRESSION: Lines and tubes in satisfactory position. No significant interval change.
[2025-04-28] MEDS ORDERED: DOCUSATE ORAL LIQUID 100 MG/10 ML UD GT PRN (09:00)
--- NOTE | 2025-04-28 09:10 | DVHPN2 ---
Subjective Patient intubated and sedated Reviewed: Care Plan, H&P, Labs, Medications, Previous Orders, Radiology, Other (Consultations) Changes from previous H/P or p: No Changes General: Per HPI Objective Vitals Vital Signs Date Time Temp Pulse Resp B/P (MAP) Pulse Ox O2 Delivery O2 Flow Rate FiO2 04/28/25 07:33 88 16 111/47 04/28/25 07:00 94 04/28/25 06:14 30 04/28/25 06:00 Mechanical Ventilator+ 04/28/25 04:00 98.4 98.4 Intake/Output Intake and Output 04/28/25 07:00 Intake Total 950.00 ml Output Total 2500 ml Balance -1550.00 ml Intake Oral 150 ml IV Total 510.00 ml Tube Feeding 290 ml Output Urine Total 2500 ml General Appearance: Alert, Oriented X3, mild distress, Other (Intubated) HEENT: Atraumatic, PERRLA Lungs: Other (Mechanical ventilation sounds. Decrease breath sounds at bases) Cardiovascular: Normal S1, Normal S2, Other (Atrial fibrillation with frequent PVCs) Abdomen: Normal bowel sounds, Soft Genitourinary: Other (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) Musculoskeletal: Normal sensory function, Normal motor function Extremities: Other (Left femoral central line) Neuro: Other (Intubated and sedated) Skin: Wounds (See nurse notes and pictures), Other (Dusky feet) Psych/Mental Status: Other (Intubated and sedated) Medications Current Medications Medications Dose Ordered Sig/Jl Route Start Time Stop Time Status Last Admin Dose Admin Nitroglycerin 0.4 mg Q5MINP PRN SL 04/19/25 13:00 Ipratropium [place] 0.5 mg Q4HPRN PRN NEB 04/19/25 13:00 Pravastatin Sodium 20 mg DAILY PO 04/20/25 10:00 04/27/25 09:16 20 MG Patient Own Medication 1 tab DAILY PO 04/20/25 10:00 UNV Patient Own Medication 1 cap BID PO 04/19/25 22:00 UNV Apixaban 5 mg BID PO 04/20/25 22:00 04/27/25 22:34 5 MG Amiodarone HCl 200 mg Q12HR PO 04/20/25 22:00 04/27/25 22:34 200 MG Pramipexole Dihydrochloride 0.25 mg HS PO 04/20/25 22:00 04/27/25 22:35 0.25 MG Morphine Sulfate 2 mg Q6HPRN PRN IV 04/20/25 16:15 04/28/25 07:33 2 MG Ondansetron HCl 4 mg Q6HPRN PRN IV 04/20/25 16:15 04/21/25 14:28 4 MG Morphine Sulfate 2 mg Q30M PRN IV 04/20/25 16:30 Patient Own Medication 1 HS LEFTEYE 04/21/25 22:00 04/27/25 22:40 1 Oxybutynin Chloride 5 mg TID PO 04/21/25 14:00 04/28/25 05:48 5 MG Patient Own Medication 0.2 mg BID LEFTEYE 04/21/25 22:00 04/27/25 22:43 0.2 MG Patient Own Medication 1 drop BID LEFTEYE 04/21/25 22:00 04/27/25 22:41 1 DROP Fentanyl Citrate 250 ml @ 2.5 mls/hr Q24H IV 04/21/25 20:45 04/23/25 15:38 12.5 MLS/HR Norepinephrine Bitartrate 250 ml @ 3.75 mls/hr Q24H IV 04/21/25 21:15 04/27/25 18:37 15 MLS/HR Furosemide 40 mg DAILY IV 04/23/25 10:00 04/27/25 09:15 40 MG Pantoprazole Sodium 40 mg DAILY IV 04/24/25 10:00 04/27/25 09:15 40 MG Acetaminophen 650 mg Q6HP PRN PO 04/23/25 11:15 04/25/25 12:01 650 MG Aspirin 81 mg DAILY NG 04/24/25 10:00 04/27/25 09:16 81 MG Atorvastatin Calcium 40 mg HS NG 04/23/25 22:00 04/27/25 22:34 40 MG Enteral Nutritional Formula 1,000 ml 70ML/HR GT 04/24/25 11:45 04/27/25 03:43 1,000 ML Enteral Nutritional Formula 1,000 ml 70ML/HR GT 04/24/25 11:45 UNV Ceftriaxone Sodium 50 ml @ 100 mls/hr DAILY@09 IV 04/27/25 09:00 04/27/25 09:16 100 MLS/HR Acetaminophen/ Hydrocodone Bitart 1 tab Q6HPRN PRN PO 04/26/25 15:00 04/26/25 16:57 1 TAB Hydrocortisone Sodium Succinate 50 mg Q12HR IV 04/27/25 10:00 04/27/25 22:34 50 MG Lidocaine 2 patch DAILY@1500 TOP 04/28/25 03:00 04/28/25 03:10 2 PATCH Docusate Sodium 100 mg BID PRN GT 04/28/25 09:00 Laboratory Results Laboratory Tests 04/26/25 02:40 04/28/25 02:32 Chemistry Test 04/28/25 02:32 Calcium Level 9.6 mg/dL (8.7-10.4) Urinalysis Test 04/25/25 05:50 Urine Color Light-orange (Yellow) Urine Clarity Turbid (Clear) H Urine pH 8.0 (5.0-9.0) Urine Specific [place] 1.019 (1.001-1.035) Urine Protein 1+ (Negative) H Urine Ketones Trace (Negative) Urine Blood 3+ /uL (Negative) H Urine Nitrite Negative (Negative) Urine Bilirubin Negative (Negative) Urine Urobilinogen 8 mg/dL (Negative) H Urine Leukocyte Esterase 3+ /uL (Negative) Urine RBC 829 /hpf (0 - 4) Urine Microscopic WBC 82 /HPF (0-5) H Urine Squamous Epithelial Cells Many /hpf (<5) Urine Bacteria None seen /hpf (None Seen) Urine Glucose Normal mg/dL (Normal) Blood Gas Results Test 04/27/25 10:09 Arterial Blood pH 7.352 (7.350-7.450) FiO2 % 30.0 Microbiology Microbiology Date/Time Source Procedure Growth Status 04/23/25 13:20 Blood Blood Culture - Preliminary NO GROWTH AFTER 72 HOURS OF INCUBATION. Resulted 04/23/25 04:47 Urine - [place] Urine Culture - Final Complete 04/21/25 00:00 Sputum Gram Stain - Final Complete 04/21/25 00:00 Respiratory Culture - Final Staphylococcus aureus Complete 04/20/25 03:00 Nose MRSA Screen - Final Methicillin Resistant S.aureus Complete Labs and/or images reviewed: Labs reviewed by me, Image(s) reviewed by me Assessment/Plan Assessment/Plan Impression: -septic shock -questionable aspiration pneumonia -positive aspiration of the nares -acute hypoxic and hypercarbic respiratory failure -metabolic encephalopathy -acute on chronic diastolic heart failure, HFpEF -AFib with RVR, now controlled -probable obstructive sleep apnea, obesity related hypoventilation syndrome -dyslipidemia -primary hypertension -functional quadriplegia -peripheral arterial disease -morbid obesity -constipation Plan: Events: Patient more awake today. Proceed with spontaneous breathing trial. Decreased vasopressor use -Hydrocortisone 50 mg IV b.i.d. -continue CPAP as tolerated -K and Mag replete -Precedex as needed -continue norepinephrine to keep map greater than 65 mmHg -PPI -stop vancomycin -tube feeding -repeat labs, chest x-ray, ABG in a.m. Critical care time spent with patient discussing and formulating plan of care: 40 minutes. This does not include time spent performing procedures. This medical document was created using an electronic medical record system with [employer] system. Although this document has been carefully reviewed, there may still be some phonetic and typographical errors. These areas are purely typographical due to imperfections of the software programs, and do not reflect any compromise in the patient's medical care. Plan discussed with: Patient, Other (RN) My Orders Orders - TRICIA GALARZA NP Procedure Category Date Status Time Abg W/ Co-Ox RT 04/27/25 Logged 10:00 Cleanse Wound With CORI 04/27/25 In Process Mild Soap A 11:28 Cpap/Sed Vacation Med ORDERS 04/28/25 Transmitted Weaning 08:06 Cpap Trial For Am ORDERS 04/28/25 Transmitted 08:06 Docusate Sodium PHA 04/28/25 In Process Liquid (Colace Liquid) 09:00 Basic Metabolic Panel LAB 04/29/25 Verified 04:00 Magnesium LAB 04/29/25 Verified 04:00 Chest Portable XY 04/29/25 Logged 04:00 Complete Blood Count LAB 04/29/25 Verified 04:00 Date of Service: Apr 28, 2025 Billing Provider: TRICIA GALARZA NP Common Visit Codes: [id number] CARE 30-74 MIN TRICIA GALARZA NP Apr 28, 2025 09:10
[2025-04-28 15:50] LABS: Base Excess 8.2 mmol/L (-2.0-3.0)
[2025-04-28] MEDS: LIDOCAINE 1% (LOCAL ANESTH.) PF 5ml SDV ID ONE (18:45)
--- NOTE | 2025-04-28 18:56 | DVHPN2 ---
Progress Note - Dictate Date Seen: Apr 28, 2025 Has the PT tested + for MRSA If YES, has PT been informed?: No Medical Necessity Reason Pt with a Central, PICC or Fol: Yes The following are medically ne: Smith Catheter Reason for smith catheter: Strict I&O Subjective Patient was seen and evaluated in follow up in the ICU. Patient is intubated on ventilator. 30% FiO2. Patient undergoing CPAP trial. K 3.4, CL 95, CO2 33. Chest x-ray shows unchanged pulmonary vascular congestion. vital signs Vital Sign Date Time Temp Pulse Resp B/P (MAP) Pulse Ox O2 Delivery O2 Flow Rate FiO2 04/28/25 11:07 86/48 04/28/25 10:45 91 32 97 04/28/25 10:40 30 04/28/25 10:00 Mechanical Ventilator+ 04/28/25 08:00 98.6 98.6 Total Intake and Output 04/27/25 04/27/25 04/28/25 15:00 23:00 07:00 Intake Total 292.50 ml 287.50 ml 377.50 ml Output Total 1900 ml 600 ml Balance 292.50 ml -1612.50 ml -222.50 ml medications Current Medications Medications Dose Ordered Sig/Jl Route Start Time Stop Time Status Last Admin Dose Admin Nitroglycerin 0.4 mg Q5MINP PRN SL 04/19/25 13:00 Ipratropium [place] 0.5 mg Q4HPRN PRN NEB 04/19/25 13:00 Pravastatin Sodium 20 mg DAILY PO 04/20/25 10:00 04/28/25 09:21 20 MG Patient Own Medication 1 tab DAILY PO 04/20/25 10:00 UNV Patient Own Medication 1 cap BID PO 04/19/25 22:00 UNV Apixaban 5 mg BID PO 04/20/25 22:00 04/28/25 09:20 5 MG Amiodarone HCl 200 mg Q12HR PO 04/20/25 22:00 04/28/25 09:20 200 MG Pramipexole Dihydrochloride 0.25 mg HS PO 04/20/25 22:00 04/27/25 22:35 0.25 MG Morphine Sulfate 2 mg Q6HPRN PRN IV 04/20/25 16:15 04/28/25 07:33 2 MG Ondansetron HCl 4 mg Q6HPRN PRN IV 04/20/25 16:15 04/21/25 14:28 4 MG Morphine Sulfate 2 mg Q30M PRN IV 04/20/25 16:30 Patient Own Medication 1 HS LEFTEYE 04/21/25 22:00 04/27/25 22:40 1 Oxybutynin Chloride 5 mg TID PO 04/21/25 14:00 04/28/25 05:48 5 MG Patient Own Medication 0.2 mg BID LEFTEYE 04/21/25 22:00 04/28/25 09:21 0.2 MG Patient Own Medication 1 drop BID LEFTEYE 04/21/25 22:00 04/28/25 09:21 1 DROP Fentanyl Citrate 250 ml @ 2.5 mls/hr Q24H IV 04/21/25 20:45 04/23/25 15:38 12.5 MLS/HR Norepinephrine Bitartrate 250 ml @ 3.75 mls/hr Q24H IV 04/21/25 21:15 04/27/25 18:37 15 MLS/HR Furosemide 40 mg DAILY IV 04/23/25 10:00 04/28/25 09:19 40 MG Pantoprazole Sodium 40 mg DAILY IV 04/24/25 10:00 04/28/25 09:19 40 MG Acetaminophen 650 mg Q6HP PRN PO 04/23/25 11:15 04/25/25 12:01 650 MG Aspirin 81 mg DAILY NG 04/24/25 10:00 04/28/25 09:20 81 MG Atorvastatin Calcium 40 mg HS NG 04/23/25 22:00 04/27/25 22:34 40 MG Enteral Nutritional Formula 1,000 ml 70ML/HR GT 04/24/25 11:45 04/27/25 03:43 1,000 ML Enteral Nutritional Formula 1,000 ml 70ML/HR GT 04/24/25 11:45 UNV Ceftriaxone Sodium 50 ml @ 100 mls/hr DAILY@09 IV 04/27/25 09:00 04/28/25 09:19 100 MLS/HR Acetaminophen/ Hydrocodone Bitart 1 tab Q6HPRN PRN PO 04/26/25 15:00 04/26/25 16:57 1 TAB Hydrocortisone Sodium Succinate 50 mg Q12HR IV 04/27/25 10:00 04/28/25 09:19 50 MG Lidocaine 2 patch DAILY@1500 TOP 04/28/25 03:00 04/28/25 03:10 2 PATCH Docusate Sodium 100 mg BID PRN GT 04/28/25 09:00 objective GENERAL: Ill appearing, intubated on ventilator. Morbidly obese. EYES: PERRL, EOMI. Anicteric. HENT: Moist mucous membranes. LUNGS: Diminished breath sounds. CARDIOVASCULAR: Regular rate and rhythm. ABDOMEN: Soft, non-tender and non-distended. EXTREMITIES: No edema. SKIN: Warm, dry. laboratory and microbiology Laboratory Tests 04/28/25 02:32 04/26/25 02:40 Test 04/28/25 02:32 Range/Units Serum Glucose 173 H 74-106 mg/dL Problem List Atrial fibrillation with rapid ventricular rate, newly diagnosed. [place] decompensated HFpEF, NYHA Class III. +Anisocoria, acute CVA ruled out. Pulmonary hypertension, moderate degree. Acute respiratory failure. Hypertension. Home O2 dependence. Bed-bound status. Morbid obesity. Assessment/Plan Continued all current supportive medical care. Morphine and [place] for pain management. Amiodarone. Eliquis. Aspirin. Diuretics with Lasix. GI prophylactics. IV antibiotics as ordered. Additional plan as per the hospital course. Critical care time of 45 minutes provided to include time spent evaluation of patient at bedside, when appropriate patient/family education for diagnosis, treatment plan, review of pertinent medical information and discussion of care with specialty providers and PCP. Mechanical ventilator parameters, treatment and adjustments have personally been reviewed by me and treatment plan by computer game designer has also been reviewed. Dietary Evaluation Review Comments: Vital High Protein Goal Rate @70ml/hr, providing 147g Protein, 1680 kcal, 1404ml free water in 24 hours, This protocol will meet her needs @101% protein, @90% energy. Initiate rate @35ml/hr, increase 10ml/6hr increment till meeting her goal rate@70ml/hr. Expected Outcomes/Goals: Meeting Pt's needs for being on mechanical ventilator. Gradual weight loss, improved nutrition related lab values and overall nutrition status. Fluid Accumulation (Severe): Moderate Fluid Retention Protein Calorie Malnutrition: Severe Plan discussed with: AZAR Currie MD Apr 28, 2025 13:21
[2025-04-28] MEDS: SODIUM CHLOR 0.9% PF (SALINE LOCK) 10ML VIAL/SYR IV SCH (21:19)
--- NOTE | 2025-04-28 23:09 | DVHPN2 ---
[facility] DOS: 04/28/2025 Patient seen and examined at bedside. S/p extubation, on supplemental oxygen Overnight events reviewed. Reviewed: Care Plan, H&P, Labs, Medications, Previous Orders, Radiology, Other (Consultations) Changes from previous H/P or p: Changes General: Per HPI Objective Vitals Vital Signs Date Time Temp Pulse Resp B/P (MAP) Pulse Ox O2 Delivery O2 Flow Rate FiO2 04/28/25 21:20 107/58 04/28/25 18:45 73 15 97 04/28/25 18:25 Nasal Cannula* 3 32 04/28/25 16:00 98.8 98.8 Intake/Output Intake and Output 04/28/25 07:00 Intake Total 957.50 ml Output Total 2500 ml Balance -1542.50 ml Intake Oral 150 ml IV Total 517.50 ml Tube Feeding 290 ml Output Urine Total 2500 ml Exam Gen.: Patient lying in bed in no apparent distress. On supplemental oxygen. Head: Normocephalic, atraumatic. Eyes: EOMI/PERRLA. Ears: Normal hearing. Normal anatomy. Neck/trachea: Trachea midline, supple. Nose: Normal external anatomy. Mouth: Moist mucous membranes. Chest: Decreased air entry bilaterally. No wheezing or rhonchi. Cardiovascular: Positive S1, positive S2. Regular rate and rhythm. Abdomen: Positive bowel sounds in all 4 quadrants. Soft, non-tender, non- distended. : Deferred. Rectal: Deferred. Skin: Warm, dry. Intact. Extremities: 2+ radial pulses bilaterally. No lower extremity edema. Neuro: Awake, alert, oriented x3. No gross motor or sensory deficits. Cranial nerves II through XII intact. Gait not assessed. 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) Musculoskeletal: Normal sensory function, Normal motor function Extremities: Other (Left femoral central line) Skin: Wounds (See nurse notes and pictures), Other (Dusky feet) Medications Current Medications Medications Dose Ordered Sig/Jl Route Start Time Stop Time Status Last Admin Dose Admin Nitroglycerin 0.4 mg Q5MINP PRN SL 04/19/25 13:00 Ipratropium [place] 0.5 mg Q4HPRN PRN NEB 04/19/25 13:00 Pravastatin Sodium 20 mg DAILY PO 04/20/25 10:00 04/28/25 09:21 20 MG Patient Own Medication 1 tab DAILY PO 04/20/25 10:00 UNV Patient Own Medication 1 cap BID PO 04/19/25 22:00 UNV Apixaban 5 mg BID PO 04/20/25 22:00 04/28/25 21:19 5 MG Amiodarone HCl 200 mg Q12HR PO 04/20/25 22:00 04/28/25 21:19 200 MG Pramipexole Dihydrochloride 0.25 mg HS PO 04/20/25 22:00 04/28/25 21:19 0.25 MG Morphine Sulfate 2 mg Q6HPRN PRN IV 04/20/25 16:15 04/28/25 07:33 2 MG Ondansetron HCl 4 mg Q6HPRN PRN IV 04/20/25 16:15 04/21/25 14:28 4 MG Morphine Sulfate 2 mg Q30M PRN IV 04/20/25 16:30 Patient Own Medication 1 HS LEFTEYE 04/21/25 22:00 04/28/25 21:33 1 Oxybutynin Chloride 5 mg TID PO 04/21/25 14:00 04/28/25 21:19 5 MG Patient Own Medication 0.2 mg BID LEFTEYE 04/21/25 22:00 04/28/25 21:33 0.2 MG Patient Own Medication 1 drop BID LEFTEYE 04/21/25 22:00 04/28/25 21:32 1 DROP Fentanyl Citrate 250 ml @ 2.5 mls/hr Q24H IV 04/21/25 20:45 04/23/25 15:38 12.5 MLS/HR Norepinephrine Bitartrate 250 ml @ 3.75 mls/hr Q24H IV 04/21/25 21:15 04/28/25 21:20 3.75 MLS/HR Furosemide 40 mg DAILY IV 04/23/25 10:00 04/28/25 09:19 40 MG Pantoprazole Sodium 40 mg DAILY IV 04/24/25 10:00 04/28/25 09:19 40 MG Acetaminophen 650 mg Q6HP PRN PO 04/23/25 11:15 04/25/25 12:01 650 MG Aspirin 81 mg DAILY NG 04/24/25 10:00 04/28/25 09:20 81 MG Atorvastatin Calcium 40 mg HS NG 04/23/25 22:00 04/28/25 21:19 40 MG Enteral Nutritional Formula 1,000 ml 70ML/HR GT 04/24/25 11:45 04/27/25 03:43 1,000 ML Enteral Nutritional Formula 1,000 ml 70ML/HR GT 04/24/25 11:45 UNV Ceftriaxone Sodium 50 ml @ 100 mls/hr DAILY@09 IV 04/27/25 09:00 04/28/25 09:19 100 MLS/HR Acetaminophen/ Hydrocodone Bitart 1 tab Q6HPRN PRN PO 04/26/25 15:00 04/26/25 16:57 1 TAB Hydrocortisone Sodium Succinate 50 mg Q12HR IV 04/27/25 10:00 04/28/25 21:18 50 MG Lidocaine 2 patch DAILY@1500 TOP 04/28/25 03:00 04/28/25 03:10 2 PATCH Docusate Sodium 100 mg BID PRN GT 04/28/25 09:00 Sodium Chloride 10 ml QSHIFT@10,22 IV 04/28/25 22:00 04/28/25 21:19 10 ML Laboratory Results Laboratory Tests 04/26/25 02:40 04/28/25 02:32 04/28/25 17:44 Chemistry Test 04/28/25 02:32 Calcium Level 9.6 mg/dL (8.7-10.4) Urinalysis Test 04/25/25 05:50 Urine Color Light-orange (Yellow) Urine Clarity Turbid (Clear) H Urine pH 8.0 (5.0-9.0) Urine Specific [place] 1.019 (1.001-1.035) Urine Protein 1+ (Negative) H Urine Ketones Trace (Negative) Urine Blood 3+ /uL (Negative) H Urine Nitrite Negative (Negative) Urine Bilirubin Negative (Negative) Urine Urobilinogen 8 mg/dL (Negative) H Urine Leukocyte Esterase 3+ /uL (Negative) Urine RBC 829 /hpf (0 - 4) Urine Microscopic WBC 82 /HPF (0-5) H Urine Squamous Epithelial Cells Many /hpf (<5) Urine Bacteria None seen /hpf (None Seen) Urine Glucose Normal mg/dL (Normal) Blood Gas Results Test 04/28/25 10:50 Arterial Blood pH 7.457 (7.350-7.450) FiO2 % 30.0 Microbiology Microbiology Date/Time Source Procedure Growth Status 04/23/25 13:20 Blood Blood Culture - Final NO GROWTH AFTER 5 DAYS OF INCUBATION. Complete 04/23/25 04:47 Urine - [place] Urine Culture - Final Complete 04/21/25 00:00 Sputum Gram Stain - Final Complete 04/21/25 00:00 Respiratory Culture - Final Staphylococcus aureus Complete 04/20/25 03:00 Nose MRSA Screen - Final Methicillin Resistant S.aureus Complete Assessment/Plan Assessment/Plan Impression: Acute hypoxic respiratory failure Acute hypercapnic respiratory failure Dependence on supplemental oxygen Altered mental status Congestive heart failure Morbid obesity Plan: Patient is s/p extubation - tolerated CPAP and was extubated uneventfully Supplemental oxygen Titrate to keep O2 sats above 92%. On 3 LPM NC Taper O2 as tolerated. Pressors for hemodynamic support Levophed 2 mcg/min Titrate to keep mean arterial pressure greater than 65 mmHg. Continue bronchodilators. Continue antibiotics Amiodarone PO Incentive spirometry Diurese with Lasix to maintain euvolemia Monitor renal function. Monitor electrolytes. Supplement as necessary. Potassium supplementation Monitor ins and outs. Recommend diet and lifestyle modifications for weight reduction Obesity complicates all care DVT prophylaxis. Prognosis: Poor given patient's multiple co-morbidities. Condition: Critical Rest of plan per hospitalist and other consultants. A total of 35 minutes of critical care time was spent reviewing the patient record, examining the patient, making a diagnostic and therapeutic plan, discussing this plan with the medical personnel, following up on diagnostic studies and following the patient for clinical stability excluding any and all procedures. At least 50% of this time was spent in direct, [id number] contact. Thank you, BONNIE Jenkins, for allowing me to participate in this patient's care. Further recommendations will depend on the patient's clinical course. Please do not hesitate to contact me if you have any questions or concerns. This medical document was created using an electronic medical record system with [employer] system. Although these documentations are being carefully reviewed, there may still be some phonetic and typographical changes. The errors are purely typographical, due to imperfection on the software program, and do not reflect any compromise in the patient's medical care. Plan discussed with: Patient, Other (KRISTEL Rizvi) Visit Coding Pulmonary Billing Provider: CATHERINE SANCHEZ MD Date of Service if different f: Apr 28, 2025 Common Visit Codes: [id number] INP/OBS CARE(HIGH), [id number] CARE 30-74 MIN CATHERINE SANCHEZ MD Apr 28, 2025 23:09
[2025-04-29] VITALS (99 sets, daily range): BP systolic 84–134; BP diastolic 35–83; PULSE 71–124; RESP 11–38; TEMP 97.5–99.3; O2SAT 91–99
[2025-04-29 03:25] LABS: Hematocrit 34.9 % (36.0-46.0); Hemoglobin 11.6 g/dL (12.2-16.2); Mean Corpuscular Hemoglobin 27.8 pg (28.0-32.0); Mean Corpuscular Volume 83.8 fL (80.0-100.0); Nucleated Red Blood Cells % 0.0 %
[2025-04-29 03:37] LABS: Anion Gap 7 (5-15); Calcium 9.7 mg/dL (8.7-10.4); Potassium 3.7 mmol/L (3.5-5.1); Sodium 138 mmol/L (136-145)
[2025-04-29 03:43] LABS: BUN/Creatinine Ratio 19.0 (10.0-20.0); Blood Urea Nitrogen 12 mg/dL (9-23); Magnesium 1.8 mg/dL (1.6-2.6)
[2025-04-29 03:56] LABS: Carbon Dioxide 34 mmol/L (20-31); Chloride 97 mmol/L (98-107); Glucose 131 mg/dL (74-106)
--- NOTE | 2025-04-29 06:02 | DVH ---
CHEST RADIOGRAPH Indication: pna Technique: Single frontal view of the chest was obtained COMPARISON: XY CHEST PORTABLE on DOS: 04/28/25, XY CHEST PORTABLE on DOS: 04/27/25, XY CHEST XRAY 1 VIEW on DOS: 04/26/25, XY CHEST XRAY 1 VIEW on DOS: 04/25/25, XY CHEST XRAY 1 VIEW on DOS: 04/24/25 FINDINGS: Lines and Tubes: Right PICC in satisfactory position overlying the superior vena cava. Lungs: Pulmonary vascular congestion, unchanged. Pleura: No effusion.No pneumothorax. Cardiomediastinal contours: Cardiomegaly. Bones: Unremarkable IMPRESSION: Right PICC in satisfactory position. Unchanged pulmonary vascular congestion.
--- NOTE | 2025-04-29 09:15 | DVHPN2 ---
Subjective Patient intubated and sedated Reviewed: Care Plan, H&P, Labs, Medications, Previous Orders, Radiology, Other (Consultations) Changes from previous H/P or p: No Changes General: Per HPI Objective Vitals Vital Signs Date Time Temp Pulse Resp B/P (MAP) Pulse Ox O2 Delivery O2 Flow Rate FiO2 04/29/25 08:30 76 15 108/57 (74) 95 04/29/25 08:00 Nasal Cannula* 2 28 04/29/25 08:00 97.6 97.6 Intake/Output Intake and Output 04/29/25 07:00 Intake Total 566.25 ml Output Total 1550 ml Balance -983.75 ml Intake Oral 230 ml IV Total 336.25 ml Output Urine Total 1550 ml 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) Musculoskeletal: Normal sensory function, Normal motor function Extremities: Other (Left femoral central line) Skin: Wounds (See nurse notes and pictures), Other (Dusky feet) Psych/Mental Status: Mental status NL, Mood NL Medications Current Medications Medications Dose Ordered Sig/Jl Route Start Time Stop Time Status Last Admin Dose Admin Nitroglycerin 0.4 mg Q5MINP PRN SL 04/19/25 13:00 Ipratropium [place] 0.5 mg Q4HPRN PRN NEB 04/19/25 13:00 Pravastatin Sodium 20 mg DAILY PO 04/20/25 10:00 04/28/25 09:21 20 MG Patient Own Medication 1 tab DAILY PO 04/20/25 10:00 UNV Patient Own Medication 1 cap BID PO 04/19/25 22:00 UNV Apixaban 5 mg BID PO 04/20/25 22:00 04/28/25 21:19 5 MG Amiodarone HCl 200 mg Q12HR PO 04/20/25 22:00 04/28/25 21:19 200 MG Pramipexole Dihydrochloride 0.25 mg HS PO 04/20/25 22:00 04/28/25 21:19 0.25 MG Morphine Sulfate 2 mg Q6HPRN PRN IV 04/20/25 16:15 04/28/25 07:33 2 MG Ondansetron HCl 4 mg Q6HPRN PRN IV 04/20/25 16:15 04/21/25 14:28 4 MG Morphine Sulfate 2 mg Q30M PRN IV 04/20/25 16:30 Patient Own Medication 1 HS LEFTEYE 04/21/25 22:00 04/28/25 21:33 1 Oxybutynin Chloride 5 mg TID PO 04/21/25 14:00 04/29/25 05:10 5 MG Patient Own Medication 0.2 mg BID LEFTEYE 04/21/25 22:00 04/28/25 21:33 0.2 MG Patient Own Medication 1 drop BID LEFTEYE 04/21/25 22:00 04/28/25 21:32 1 DROP Fentanyl Citrate 250 ml @ 2.5 mls/hr Q24H IV 04/21/25 20:45 04/23/25 15:38 12.5 MLS/HR Norepinephrine Bitartrate 250 ml @ 3.75 mls/hr Q24H IV 04/21/25 21:15 04/28/25 21:20 3.75 MLS/HR Furosemide 40 mg DAILY IV 04/23/25 10:00 04/28/25 09:19 40 MG Pantoprazole Sodium 40 mg DAILY IV 04/24/25 10:00 04/28/25 09:19 40 MG Acetaminophen 650 mg Q6HP PRN PO 04/23/25 11:15 04/25/25 12:01 650 MG Aspirin 81 mg DAILY NG 04/24/25 10:00 04/28/25 09:20 81 MG Atorvastatin Calcium 40 mg HS NG 04/23/25 22:00 04/28/25 21:19 40 MG Enteral Nutritional Formula 1,000 ml 70ML/HR GT 04/24/25 11:45 04/27/25 03:43 1,000 ML Enteral Nutritional Formula 1,000 ml 70ML/HR GT 04/24/25 11:45 UNV Ceftriaxone Sodium 50 ml @ 100 mls/hr DAILY@09 IV 04/27/25 09:00 04/28/25 09:19 100 MLS/HR Acetaminophen/ Hydrocodone Bitart 1 tab Q6HPRN PRN PO 04/26/25 15:00 04/26/25 16:57 1 TAB Hydrocortisone Sodium Succinate 50 mg Q12HR IV 04/27/25 10:00 04/28/25 21:18 50 MG Lidocaine 2 patch DAILY@1500 TOP 04/28/25 03:00 04/28/25 03:10 2 PATCH Docusate Sodium 100 mg BID PRN GT 04/28/25 09:00 Sodium Chloride 10 ml QSHIFT@10,22 IV 04/28/25 22:00 04/28/25 21:19 10 ML Laboratory Results Laboratory Tests 04/29/25 02:46 Chemistry Test 04/29/25 02:46 Calcium Level 9.7 mg/dL (8.7-10.4) Magnesium Level 1.8 mg/dL (1.6-2.6) Urinalysis Test 04/25/25 05:50 Urine Color Light-orange (Yellow) Urine Clarity Turbid (Clear) H Urine pH 8.0 (5.0-9.0) Urine Specific [place] 1.019 (1.001-1.035) Urine Protein 1+ (Negative) H Urine Ketones Trace (Negative) Urine Blood 3+ /uL (Negative) H Urine Nitrite Negative (Negative) Urine Bilirubin Negative (Negative) Urine Urobilinogen 8 mg/dL (Negative) H Urine Leukocyte Esterase 3+ /uL (Negative) Urine RBC 829 /hpf (0 - 4) Urine Microscopic WBC 82 /HPF (0-5) H Urine Squamous Epithelial Cells Many /hpf (<5) Urine Bacteria None seen /hpf (None Seen) Urine Glucose Normal mg/dL (Normal) Blood Gas Results Test 04/28/25 10:50 Arterial Blood pH 7.457 (7.350-7.450) FiO2 % 30.0 Microbiology Microbiology Date/Time Source Procedure Growth Status 04/23/25 13:20 Blood Blood Culture - Final NO GROWTH AFTER 5 DAYS OF INCUBATION. Complete 04/23/25 04:47 Urine - [place] Urine Culture - Final Complete 04/21/25 00:00 Sputum Gram Stain - Final Complete 04/21/25 00:00 Respiratory Culture - Final Staphylococcus aureus Complete 04/20/25 03:00 Nose MRSA Screen - Final Methicillin Resistant S.aureus Complete Labs and/or images reviewed: Labs reviewed by me, Image(s) reviewed by me Assessment/Plan Assessment/Plan Impression: -septic shock -questionable aspiration pneumonia -positive aspiration of the nares -acute hypoxic and hypercarbic respiratory failure -metabolic encephalopathy -acute on chronic diastolic heart failure, HFpEF -AFib with RVR, now controlled -probable obstructive sleep apnea, obesity related hypoventilation syndrome -dyslipidemia -primary hypertension -functional quadriplegia -peripheral arterial disease -morbid obesity -constipation Plan: Events: Patient on nasal cannula at 2 L/min. Continues to be on norepinephrine drip, at 2 micrograms/minute. -Hydrocortisone 50 mg IV b.i.d. -continue norepinephrine to keep map greater than 65 mmHg -PPI -advanced to full liquid diet -repeat labs, chest x-ray, ABG in a.m. Critical care time spent with patient discussing and formulating plan of care: 40 minutes. This does not include time spent performing procedures. This medical document was created using an electronic medical record system with [employer] dictation system. Although this document has been carefully reviewed, there may still be some phonetic and typographical errors. These areas are purely typographical due to imperfections of the software programs, and do not reflect any compromise in the patient's medical care. Plan discussed with: Patient, Other (RN) My Orders Orders - TRICIA GALARZA [employer] Procedure Category Date Status Time Extubate CORI 04/28/25 In Process 11:30 * Picc Line Consult CONS 04/28/25 Transmitted 13:39 Clear Liq Diet DIET 04/28/25 Transmitted Dinner BIPAP RT 04/28/25 Logged 16:33 Nursing Protocol Picc CORI 04/28/25 In Process 18:33 Change Dressing Prn CORI 04/28/25 In Process 18:33 PICC BD 04/28/25 Transmitted 18:33 Sodium Chloride Lock PHA 04/28/25 In Process (Saline Lock Ns) 22:00 Do Not Use Picc For CORI 04/28/25 In Process Blood Cult 18:33 May Draw Blood From CORI 04/28/25 In Process Picc 18:33 Chest Portable XY 04/28/25 Taken 18:33 Ok To Use Picc CORI 04/28/25 In Process 18:33 Change Picc Dressing CORI 04/28/25 In Process Q7 Days 18:33 Full Liq Diet DIET 04/29/25 Transmitted Breakfast Pt Request For Service PT 04/29/25 Transmitted 09:12 Basic Metabolic Panel LAB 04/30/25 Verified 04:00 Magnesium LAB 04/30/25 Verified 04:00 Date of Service: Apr 29, 2025 Billing Provider: TRICIA GALARZA NP Common Visit Codes: [id number] CARE 30-74 MIN TRICIA GALARZA NP Apr 29, 2025 09:15
--- NOTE | 2025-04-29 18:34 | DVH ---
INDICATION: S/P PICC LINE PLACEMENT TECHNIQUE: Frontal view of the chest. COMPARISON: XY CHEST PORTABLE on DOS: 04/29/25, XY CHEST PORTABLE on DOS: 04/28/25, XY CHEST PORTABLE on DOS: 04/27/25, XY CHEST XRAY 1 VIEW on DOS: 04/26/25, XY CHEST XRAY 1 VIEW on DOS: 04/25/25 FINDINGS/IMPRESSION: A right upper extremity PICC is seen, with the tip likely projecting over the SVC, though difficult to verify given proximity to adjacent overlying objects. A repeat examination with improved positioning is suggested. Low lung volumes with mild prominence of the interstitial markings. Unchanged cardiomediastinal silhouette. Possible small bilateral pleural effusions. No pneumothorax. No acute osseous abnormality.
--- NOTE | 2025-04-29 23:34 | DVHPN2 ---
Progress Note - Dictate Date Seen: Apr 29, 2025 Has the PT tested + for MRSA If YES, has PT been informed?: No Medical Necessity Reason Pt with a Central, PICC or Fol: Yes The following are medically ne: Smith Catheter Reason for smith catheter: Strict I&O Subjective Patient was seen and evaluated in follow up in the ICU. Patient was successfully extubated yesterday evening. She is now on 2 LPM NC. CO2 34. Chest x-ray shows unchanged pulmonary vascular congestion. vital signs Vital Sign Date Time Temp Pulse Resp B/P (MAP) Pulse Ox O2 Delivery O2 Flow Rate FiO2 04/29/25 12:30 79 36 120/75 (90) 95 04/29/25 12:00 Nasal Cannula* 2 28 04/29/25 12:00 98.9 98.9 Total Intake and Output 04/28/25 04/28/25 04/29/25 15:00 23:00 07:00 Intake Total 176.25 ml 130.00 ml 260.00 ml Output Total 1000 ml 550 ml Balance 176.25 ml -870.00 ml -290.00 ml medications Current Medications Medications Dose Ordered Sig/Jl Route Start Time Stop Time Status Last Admin Dose Admin Nitroglycerin 0.4 mg Q5MINP PRN SL 04/19/25 13:00 Ipratropium [place] 0.5 mg Q4HPRN PRN NEB 04/19/25 13:00 Pravastatin Sodium 20 mg DAILY PO 04/20/25 10:00 04/29/25 09:34 20 MG Patient Own Medication 1 tab DAILY PO 04/20/25 10:00 UNV Patient Own Medication 1 cap BID PO 04/19/25 22:00 UNV Apixaban 5 mg BID PO 04/20/25 22:00 04/29/25 09:34 5 MG Amiodarone HCl 200 mg Q12HR PO 04/20/25 22:00 04/29/25 09:33 200 MG Pramipexole Dihydrochloride 0.25 mg HS PO 04/20/25 22:00 04/28/25 21:19 0.25 MG Morphine Sulfate 2 mg Q6HPRN PRN IV 04/20/25 16:15 04/28/25 07:33 2 MG Ondansetron HCl 4 mg Q6HPRN PRN IV 04/20/25 16:15 04/21/25 14:28 4 MG Morphine Sulfate 2 mg Q30M PRN IV 04/20/25 16:30 Patient Own Medication 1 HS LEFTEYE 04/21/25 22:00 04/28/25 21:33 1 Oxybutynin Chloride 5 mg TID PO 04/21/25 14:00 04/29/25 05:10 5 MG Patient Own Medication 0.2 mg BID LEFTEYE 04/21/25 22:00 04/29/25 09:34 0.2 MG Patient Own Medication 1 drop BID LEFTEYE 04/21/25 22:00 04/29/25 09:34 1 DROP Fentanyl Citrate 250 ml @ 2.5 mls/hr Q24H IV 04/21/25 20:45 04/23/25 15:38 12.5 MLS/HR Norepinephrine Bitartrate 250 ml @ 3.75 mls/hr Q24H IV 04/21/25 21:15 04/28/25 21:20 3.75 MLS/HR Furosemide 40 mg DAILY IV 04/23/25 10:00 04/29/25 09:33 40 MG Pantoprazole Sodium 40 mg DAILY IV 04/24/25 10:00 04/29/25 09:33 40 MG Acetaminophen 650 mg Q6HP PRN PO 04/23/25 11:15 04/25/25 12:01 650 MG Aspirin 81 mg DAILY NG 04/24/25 10:00 04/29/25 09:34 81 MG Atorvastatin Calcium 40 mg HS NG 04/23/25 22:00 04/28/25 21:19 40 MG Enteral Nutritional Formula 1,000 ml 70ML/HR GT 04/24/25 11:45 04/27/25 03:43 1,000 ML Enteral Nutritional Formula 1,000 ml 70ML/HR GT 04/24/25 11:45 UNV Ceftriaxone Sodium 50 ml @ 100 mls/hr DAILY@09 IV 04/27/25 09:00 04/29/25 09:00 100 MLS/HR Acetaminophen/ Hydrocodone Bitart 1 tab Q6HPRN PRN PO 04/26/25 15:00 04/26/25 16:57 1 TAB Hydrocortisone Sodium Succinate 50 mg Q12HR IV 04/27/25 10:00 04/29/25 09:49 50 MG Lidocaine 2 patch DAILY@1500 TOP 04/28/25 03:00 04/28/25 03:10 2 PATCH Docusate Sodium 100 mg BID PRN GT 04/28/25 09:00 Sodium Chloride 10 ml QSHIFT@10,22 IV 04/28/25 22:00 04/29/25 09:34 10 ML objective GENERAL: Alert and oriented x 3. Morbidly obese. EYES: PERRL, EOMI. Anicteric. HENT: Moist mucous membranes. LUNGS: Diminished breath sounds. CARDIOVASCULAR: Regular rate and rhythm. ABDOMEN: Soft, non-tender and non-distended. EXTREMITIES: No edema. SKIN: Warm, dry. laboratory and microbiology Laboratory Tests 04/29/25 02:46 Test 04/29/25 02:46 Range/Units Serum Glucose 131 H 74-106 mg/dL Problem List Atrial fibrillation with rapid ventricular rate, newly diagnosed. [place] decompensated HFpEF, NYHA Class III. +Anisocoria, acute CVA ruled out. Pulmonary hypertension, moderate degree. Acute respiratory failure. Hypertension. Home O2 dependence. Bed-bound status. Morbid obesity. Assessment/Plan Continued all current supportive medical care. Morphine and [place] for pain management. Amiodarone. Eliquis. Aspirin. Diuretics with Lasix. GI prophylactics. IV antibiotics as ordered. Additional plan as per the hospital course. Critical care time of 45 minutes provided to include time spent evaluation of patient at bedside, when appropriate patient/family education for diagnosis, treatment plan, review of pertinent medical information and discussion of care with specialty providers and PCP. Dietary Evaluation Review Comments: Vital High Protein Goal Rate @70ml/hr, providing 147g Protein, 1680 kcal, 1404ml free water in 24 hours, This protocol will meet her needs @101% protein, @90% energy. Initiate rate @35ml/hr, increase 10ml/6hr increment till meeting her goal rate@70ml/hr. Expected Outcomes/Goals: Meeting Pt's needs for being on mechanical ventilator. Gradual weight loss, improved nutrition related lab values and overall nutrition status. Fluid Accumulation (Severe): Moderate Fluid Retention Protein Calorie Malnutrition: Severe Plan discussed with: Patient AZAR MELGOZA MD Apr 29, 2025 12:49
--- NOTE | 2025-04-29 23:35 | DVHPN2 ---
[facility] DOS: 04/29/2025 Patient seen and examined at bedside. Remains on supplemental oxygen Overnight events reviewed. Reviewed: Care Plan, H&P, Labs, Medications, Previous Orders, Radiology, Other (Consultations) Changes from previous H/P or p: No Changes General: Per HPI Objective Vitals Vital Signs Date Time Temp Pulse Resp B/P (MAP) Pulse Ox O2 Delivery O2 Flow Rate FiO2 04/29/25 23:00 72 29 127/72 (90) 98 04/29/25 22:00 Nasal Cannula* 2 28 04/29/25 20:00 97.7 97.7 Intake/Output Intake and Output 04/29/25 07:00 Intake Total 566.25 ml Output Total 1550 ml Balance -983.75 ml Intake Oral 230 ml IV Total 336.25 ml Output Urine Total 1550 ml Exam Gen.: Patient lying in bed in no apparent distress. On supplemental oxygen. Head: Normocephalic, atraumatic. Eyes: EOMI/PERRLA. Ears: Normal hearing. Normal anatomy. Neck/trachea: Trachea midline, supple. Nose: Normal external anatomy. Mouth: Moist mucous membranes. Chest: Decreased air entry bilaterally. No wheezing or rhonchi. Cardiovascular: Positive S1, positive S2. Regular rate and rhythm. Abdomen: Positive bowel sounds in all 4 quadrants. Soft, non-tender, non- distended. : Deferred. Rectal: Deferred. Skin: Warm, dry. Intact. Extremities: 2+ radial pulses bilaterally. No lower extremity edema. Neuro: Awake, alert, oriented x3. No gross motor or sensory deficits. Cranial nerves II through XII intact. Gait not assessed. 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) Musculoskeletal: Normal sensory function, Normal motor function Extremities: Other (Left femoral central line) Skin: Wounds (See nurse notes and pictures), Other (Dusky feet) Psych/Mental Status: Mental status NL, Mood NL Medications Current Medications Medications Dose Ordered Sig/Jl Route Start Time Stop Time Status Last Admin Dose Admin Nitroglycerin 0.4 mg Q5MINP PRN SL 04/19/25 13:00 Ipratropium [place] 0.5 mg Q4HPRN PRN NEB 04/19/25 13:00 Pravastatin Sodium 20 mg DAILY PO 04/20/25 10:00 04/29/25 09:34 20 MG Patient Own Medication 1 tab DAILY PO 04/20/25 10:00 UNV Patient Own Medication 1 cap BID PO 04/19/25 22:00 UNV Apixaban 5 mg BID PO 04/20/25 22:00 04/29/25 20:29 5 MG Amiodarone HCl 200 mg Q12HR PO 04/20/25 22:00 04/29/25 20:29 200 MG Pramipexole Dihydrochloride 0.25 mg HS PO 04/20/25 22:00 04/29/25 20:30 0.25 MG Morphine Sulfate 2 mg Q6HPRN PRN IV 04/20/25 16:15 04/28/25 07:33 2 MG Ondansetron HCl 4 mg Q6HPRN PRN IV 04/20/25 16:15 04/21/25 14:28 4 MG Morphine Sulfate 2 mg Q30M PRN IV 04/20/25 16:30 Patient Own Medication 1 HS LEFTEYE 04/21/25 22:00 04/29/25 20:32 1 Oxybutynin Chloride 5 mg TID PO 04/21/25 14:00 04/29/25 20:29 5 MG Patient Own Medication 0.2 mg BID LEFTEYE 04/21/25 22:00 04/29/25 20:32 0.2 MG Patient Own Medication 1 drop BID LEFTEYE 04/21/25 22:00 04/29/25 20:32 1 DROP Fentanyl Citrate 250 ml @ 2.5 mls/hr Q24H IV 04/21/25 20:45 04/23/25 15:38 12.5 MLS/HR Norepinephrine Bitartrate 250 ml @ 3.75 mls/hr Q24H IV 04/21/25 21:15 04/28/25 21:20 3.75 MLS/HR Furosemide 40 mg DAILY IV 04/23/25 10:00 04/29/25 09:33 40 MG Pantoprazole Sodium 40 mg DAILY IV 04/24/25 10:00 04/29/25 09:33 40 MG Acetaminophen 650 mg Q6HP PRN PO 04/23/25 11:15 04/25/25 12:01 650 MG Aspirin 81 mg DAILY NG 04/24/25 10:00 04/29/25 09:34 81 MG Atorvastatin Calcium 40 mg HS NG 04/23/25 22:00 04/29/25 20:30 40 MG Enteral Nutritional Formula 1,000 ml 70ML/HR GT 04/24/25 11:45 04/27/25 03:43 1,000 ML Enteral Nutritional Formula 1,000 ml 70ML/HR GT 04/24/25 11:45 UNV Ceftriaxone Sodium 50 ml @ 100 mls/hr DAILY@09 IV 04/27/25 09:00 04/29/25 09:00 100 MLS/HR Acetaminophen/ Hydrocodone Bitart 1 tab Q6HPRN PRN PO 04/26/25 15:00 04/26/25 16:57 1 TAB Hydrocortisone Sodium Succinate 50 mg Q12HR IV 04/27/25 10:00 04/29/25 20:29 50 MG Lidocaine 2 patch DAILY@1500 TOP 04/28/25 03:00 04/29/25 15:22 2 PATCH Docusate Sodium 100 mg BID PRN GT 04/28/25 09:00 Sodium Chloride 10 ml QSHIFT@10,22 IV 04/28/25 22:00 04/29/25 20:31 10 ML Laboratory Results Laboratory Tests 04/29/25 02:46 Chemistry Test 04/29/25 02:46 Calcium Level 9.7 mg/dL (8.7-10.4) Magnesium Level 1.8 mg/dL (1.6-2.6) Urinalysis Test 04/25/25 05:50 Urine Color Light-orange (Yellow) Urine Clarity Turbid (Clear) H Urine pH 8.0 (5.0-9.0) Urine Specific [place] 1.019 (1.001-1.035) Urine Protein 1+ (Negative) H Urine Ketones Trace (Negative) Urine Blood 3+ /uL (Negative) H Urine Nitrite Negative (Negative) Urine Bilirubin Negative (Negative) Urine Urobilinogen 8 mg/dL (Negative) H Urine Leukocyte Esterase 3+ /uL (Negative) Urine RBC 829 /hpf (0 - 4) Urine Microscopic WBC 82 /HPF (0-5) H Urine Squamous Epithelial Cells Many /hpf (<5) Urine Bacteria None seen /hpf (None Seen) Urine Glucose Normal mg/dL (Normal) Microbiology Microbiology Date/Time Source Procedure Growth Status 04/23/25 13:20 Blood Blood Culture - Final NO GROWTH AFTER 5 DAYS OF INCUBATION. Complete 04/23/25 04:47 Urine - [place] Urine Culture - Final Complete 04/21/25 00:00 Sputum Gram Stain - Final Complete 04/21/25 00:00 Respiratory Culture - Final Staphylococcus aureus Complete 04/20/25 03:00 Nose MRSA Screen - Final Methicillin Resistant S.aureus Complete Assessment/Plan Assessment/Plan Impression: Acute hypoxic respiratory failure Acute hypercapnic respiratory failure Dependence on supplemental oxygen Altered mental status Congestive heart failure Morbid obesity Events: Remains on supplemental oxygen, 2 LPM NC Taper O2 as tolerated Head of bed elevation Aspiration precautions Pressors for hemodynamic support Levophed 2 mcg/min Titrate to keep mean arterial pressure greater than 65 mmHg. Continue bronchodilators Continue antibiotics Amiodarone, Eliquis for AFib Incentive spirometry Diurese with Lasix as tolerated Monitor renal function Monitor electrolytes. Supplement as necessary. Labs and imaging reviewed. Rest of plan as noted below. Plan: Patient is s/p extubation on 04/28/25 Supplemental oxygen Titrate to keep O2 sats above 92%. Pressors for hemodynamic support Levophed 2 mcg/min Titrate to keep mean arterial pressure greater than 65 mmHg. Continue bronchodilators. Continue antibiotics Amiodarone, Eliquis for atrial fibrillation Incentive spirometry Diurese with Lasix to maintain euvolemia Monitor renal function. Monitor electrolytes. Supplement as necessary. Monitor ins and outs. Recommend diet and lifestyle modifications for weight reduction Obesity complicates all care DVT prophylaxis. Prognosis: Poor given patient's multiple co-morbidities. Condition: Critical Rest of plan per hospitalist and other consultants. A total of 35 minutes of critical care time was spent reviewing the patient record, examining the patient, making a diagnostic and therapeutic plan, discussing this plan with the medical personnel, following up on diagnostic studies and following the patient for clinical stability excluding any and all procedures. At least 50% of this time was spent in direct, [id number] contact. Thank you, BONNIE Jenkins, for allowing me to participate in this patient's care. Further recommendations will depend on the patient's clinical course. Please do not hesitate to contact me if you have any questions or concerns. This medical document was created using an electronic medical record system with [employer] dictation system. Although these documentations are being carefully reviewed, there may still be some phonetic and typographical changes. The errors are purely typographical, due to imperfection on the software program, and do not reflect any compromise in the patient's medical care. Plan discussed with: Patient, Other (RN Sherry) Visit Coding Pulmonary Billing Provider: CATHERINE SANCHEZ MD Date of Service if different f: Apr 29, 2025 Common Visit Codes: [id number] INP/OBS CARE(HIGH), [id number] CARE 30-74 MIN CATHERINE SANCHEZ MD Apr 29, 2025 23:35
[2025-04-30] VITALS (104 sets, daily range): BP systolic 88–143; BP diastolic 45–106; PULSE 61–100; RESP 8–36; TEMP 97.4–97.7; O2SAT 88–100
[2025-04-30 04:35] LABS: Anion Gap 8 (5-15); Calcium 10.0 mg/dL (8.7-10.4); Potassium 3.6 mmol/L (3.5-5.1); Sodium 138 mmol/L (136-145)
[2025-04-30 04:41] LABS: BUN/Creatinine Ratio 20.0 (10.0-20.0); Blood Urea Nitrogen 12 mg/dL (9-23); Magnesium 1.9 mg/dL (1.6-2.6)
[2025-04-30 04:56] LABS: Carbon Dioxide 35 mmol/L (20-31); Chloride 95 mmol/L (98-107); Glucose 147 mg/dL (74-106)
[2025-04-30] MEDS: POTASSIUM EFFERVESENT TAB 25 MEQ GT ONE (12:45)
--- NOTE | 2025-04-30 13:39 | DVHPN2 ---
Subjective In bed resting Reviewed: Care Plan, H&P, Labs, Medications, Previous Orders, Radiology, Other (Consultations) Changes from previous H/P or p: No Changes General: Per HPI Objective Vitals Vital Signs Date Time Temp Pulse Resp B/P (MAP) Pulse Ox O2 Delivery O2 Flow Rate FiO2 04/30/25 13:15 88 22 106/60 (75) 97 04/30/25 12:00 97.4 97.4 04/30/25 11:54 Nasal Cannula* 2 28 Intake/Output Intake and Output 04/30/25 07:00 Intake Total 1072.50 ml Output Total 2900 ml Balance -1827.50 ml Intake Oral 905 ml IV Total 167.50 ml Output Urine Total 2900 ml 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) Musculoskeletal: Normal sensory function, Normal motor function Extremities: Other (Left femoral central line) Skin: Wounds (See nurse notes and pictures), Other (Dusky feet) Psych/Mental Status: Mental status NL, Mood NL Medications Current Medications Medications Dose Ordered Sig/Jl Route Start Time Stop Time Status Last Admin Dose Admin Nitroglycerin 0.4 mg Q5MINP PRN SL 04/19/25 13:00 Ipratropium [place] 0.5 mg Q4HPRN PRN NEB 04/19/25 13:00 Pravastatin Sodium 20 mg DAILY PO 04/20/25 10:00 04/30/25 08:06 20 MG Patient Own Medication 1 tab DAILY PO 04/20/25 10:00 UNV Patient Own Medication 1 cap BID PO 04/19/25 22:00 UNV Apixaban 5 mg BID PO 04/20/25 22:00 04/30/25 08:06 5 MG Amiodarone HCl 200 mg Q12HR PO 04/20/25 22:00 04/30/25 08:06 200 MG Pramipexole Dihydrochloride 0.25 mg HS PO 04/20/25 22:00 04/29/25 20:30 0.25 MG Morphine Sulfate 2 mg Q6HPRN PRN IV 04/20/25 16:15 04/28/25 07:33 2 MG Ondansetron HCl 4 mg Q6HPRN PRN IV 04/20/25 16:15 04/21/25 14:28 4 MG Morphine Sulfate 2 mg Q30M PRN IV 04/20/25 16:30 Patient Own Medication 1 HS LEFTEYE 04/21/25 22:00 04/29/25 20:32 1 Oxybutynin Chloride 5 mg TID PO 04/21/25 14:00 04/30/25 06:01 5 MG Patient Own Medication 0.2 mg BID LEFTEYE 04/21/25 22:00 04/30/25 08:08 0.2 MG Patient Own Medication 1 drop BID LEFTEYE 04/21/25 22:00 04/30/25 08:10 1 DROP Fentanyl Citrate 250 ml @ 2.5 mls/hr Q24H IV 04/21/25 20:45 04/23/25 15:38 12.5 MLS/HR Norepinephrine Bitartrate 250 ml @ 3.75 mls/hr Q24H IV 04/21/25 21:15 04/28/25 21:20 3.75 MLS/HR Furosemide 40 mg DAILY IV 04/23/25 10:00 04/30/25 08:03 40 MG Pantoprazole Sodium 40 mg DAILY IV 04/24/25 10:00 04/30/25 08:01 40 MG Acetaminophen 650 mg Q6HP PRN PO 04/23/25 11:15 04/25/25 12:01 650 MG Aspirin 81 mg DAILY NG 04/24/25 10:00 04/30/25 08:06 81 MG Atorvastatin Calcium 40 mg HS NG 04/23/25 22:00 04/29/25 20:30 40 MG Enteral Nutritional Formula 1,000 ml 70ML/HR GT 04/24/25 11:45 04/27/25 03:43 1,000 ML Enteral Nutritional Formula 1,000 ml 70ML/HR GT 04/24/25 11:45 UNV Ceftriaxone Sodium 50 ml @ 100 mls/hr DAILY@09 IV 04/27/25 09:00 04/30/25 08:01 100 MLS/HR Acetaminophen/ Hydrocodone Bitart 1 tab Q6HPRN PRN PO 04/26/25 15:00 04/26/25 16:57 1 TAB Hydrocortisone Sodium Succinate 50 mg Q12HR IV 04/27/25 10:00 04/30/25 08:01 50 MG Lidocaine 2 patch DAILY@1500 TOP 04/28/25 03:00 04/29/25 15:22 2 PATCH Docusate Sodium 100 mg BID PRN GT 04/28/25 09:00 Sodium Chloride 10 ml QSHIFT@10,22 IV 04/28/25 22:00 04/30/25 08:01 10 ML Laboratory Results Laboratory Tests 04/29/25 02:46 04/30/25 04:00 Chemistry Test 04/30/25 04:00 Calcium Level 10.0 mg/dL (8.7-10.4) Magnesium Level 1.9 mg/dL (1.6-2.6) Urinalysis Test 04/25/25 05:50 Urine Color Light-orange (Yellow) Urine Clarity Turbid (Clear) H Urine pH 8.0 (5.0-9.0) Urine Specific [place] 1.019 (1.001-1.035) Urine Protein 1+ (Negative) H Urine Ketones Trace (Negative) Urine Blood 3+ /uL (Negative) H Urine Nitrite Negative (Negative) Urine Bilirubin Negative (Negative) Urine Urobilinogen 8 mg/dL (Negative) H Urine Leukocyte Esterase 3+ /uL (Negative) Urine RBC 829 /hpf (0 - 4) Urine Microscopic WBC 82 /HPF (0-5) H Urine Squamous Epithelial Cells Many /hpf (<5) Urine Bacteria None seen /hpf (None Seen) Urine Glucose Normal mg/dL (Normal) Microbiology Microbiology Date/Time Source Procedure Growth Status 04/23/25 13:20 Blood Blood Culture - Final NO GROWTH AFTER 5 DAYS OF INCUBATION. Complete 04/23/25 04:47 Urine - [place] Urine Culture - Final Complete 04/21/25 00:00 Sputum Gram Stain - Final Complete 04/21/25 00:00 Respiratory Culture - Final Staphylococcus aureus Complete 04/20/25 03:00 Nose MRSA Screen - Final Methicillin Resistant S.aureus Complete Assessment/Plan Assessment/Plan -septic shock -questionable aspiration pneumonia -positive aspiration of the nares -acute hypoxic and hypercarbic respiratory failure -metabolic encephalopathy -acute on chronic diastolic heart failure, HFpEF -AFib with RVR, now controlled -probable obstructive sleep apnea, obesity related hypoventilation syndrome -dyslipidemia -primary hypertension -functional quadriplegia -peripheral arterial disease -morbid obesity -constipation Plan: Events: Patient on nasal cannula at 2 L/min. Continues to be on norepinephrine drip, at 2 micrograms/minute. -Hydrocortisone 50 mg IV b.i.d. -continue norepinephrine to keep map greater than 65 mmHg -PPI -advanced to full liquid diet -repeat labs, chest x-ray, ABG in a.m. 04/30 weaning off pressors Critical care time spent with patient discussing and formulating plan of care: 40 minutes. This does not include time spent performing procedures. Plan discussed with: Patient My Orders Orders - EAN ALCANTARA MD Procedure Category Date Status Time Transfer Orders XFER 04/30/25 Transmitted 12:36 Date of Service: Apr 30, 2025 Billing Provider: EAN ALCANTARA MD Common Visit Codes: [id number] CARE 30-74 MIN EAN ALCANTARA MD Apr 30, 2025 13:39
--- NOTE | 2025-04-30 13:48 | DVHPN2 ---
Progress Note - Dictate Date Seen: Apr 30, 2025 Has the PT tested + for MRSA If YES, has PT been informed?: No Medical Necessity Reason Pt with a Central, PICC or Fol: Yes The following are medically ne: Smith Catheter Reason for smith catheter: Strict I&O Subjective Patient was seen and evaluated in follow up in the ICU. Patient is on 2 LPM NC. Patient is pending downgrade to [place]. CL 95, CO2 35. vital signs Vital Sign Date Time Temp Pulse Resp B/P (MAP) Pulse Ox O2 Delivery O2 Flow Rate FiO2 04/30/25 12:15 78 16 97 04/30/25 12:00 97.4 97.4 04/30/25 11:54 Nasal Cannula* 2 28 Total Intake and Output 04/29/25 04/29/25 04/30/25 15:00 23:00 07:00 Intake Total 126.25 ml 606.25 ml 340.00 ml Output Total 2450 ml 450 ml Balance 126.25 ml -1843.75 ml -110.00 ml medications Current Medications Medications Dose Ordered Sig/Jl Route Start Time Stop Time Status Last Admin Dose Admin Nitroglycerin 0.4 mg Q5MINP PRN SL 04/19/25 13:00 Ipratropium [place] 0.5 mg Q4HPRN PRN NEB 04/19/25 13:00 Pravastatin Sodium 20 mg DAILY PO 04/20/25 10:00 04/30/25 08:06 20 MG Patient Own Medication 1 tab DAILY PO 04/20/25 10:00 UNV Patient Own Medication 1 cap BID PO 04/19/25 22:00 UNV Apixaban 5 mg BID PO 04/20/25 22:00 04/30/25 08:06 5 MG Amiodarone HCl 200 mg Q12HR PO 04/20/25 22:00 04/30/25 08:06 200 MG Pramipexole Dihydrochloride 0.25 mg HS PO 04/20/25 22:00 04/29/25 20:30 0.25 MG Morphine Sulfate 2 mg Q6HPRN PRN IV 04/20/25 16:15 04/28/25 07:33 2 MG Ondansetron HCl 4 mg Q6HPRN PRN IV 04/20/25 16:15 04/21/25 14:28 4 MG Morphine Sulfate 2 mg Q30M PRN IV 04/20/25 16:30 Patient Own Medication 1 HS LEFTEYE 04/21/25 22:00 04/29/25 20:32 1 Oxybutynin Chloride 5 mg TID PO 04/21/25 14:00 04/30/25 06:01 5 MG Patient Own Medication 0.2 mg BID LEFTEYE 04/21/25 22:00 04/30/25 08:08 0.2 MG Patient Own Medication 1 drop BID LEFTEYE 04/21/25 22:00 04/30/25 08:10 1 DROP Fentanyl Citrate 250 ml @ 2.5 mls/hr Q24H IV 04/21/25 20:45 04/23/25 15:38 12.5 MLS/HR Norepinephrine Bitartrate 250 ml @ 3.75 mls/hr Q24H IV 04/21/25 21:15 04/28/25 21:20 3.75 MLS/HR Furosemide 40 mg DAILY IV 04/23/25 10:00 04/30/25 08:03 40 MG Pantoprazole Sodium 40 mg DAILY IV 04/24/25 10:00 04/30/25 08:01 40 MG Acetaminophen 650 mg Q6HP PRN PO 04/23/25 11:15 04/25/25 12:01 650 MG Aspirin 81 mg DAILY NG 04/24/25 10:00 04/30/25 08:06 81 MG Atorvastatin Calcium 40 mg HS NG 04/23/25 22:00 04/29/25 20:30 40 MG Enteral Nutritional Formula 1,000 ml 70ML/HR GT 04/24/25 11:45 04/27/25 03:43 1,000 ML Enteral Nutritional Formula 1,000 ml 70ML/HR GT 04/24/25 11:45 UNV Ceftriaxone Sodium 50 ml @ 100 mls/hr DAILY@09 IV 04/27/25 09:00 04/30/25 08:01 100 MLS/HR Acetaminophen/ Hydrocodone Bitart 1 tab Q6HPRN PRN PO 04/26/25 15:00 04/26/25 16:57 1 TAB Hydrocortisone Sodium Succinate 50 mg Q12HR IV 04/27/25 10:00 04/30/25 08:01 50 MG Lidocaine 2 patch DAILY@1500 TOP 04/28/25 03:00 04/29/25 15:22 2 PATCH Docusate Sodium 100 mg BID PRN GT 04/28/25 09:00 Sodium Chloride 10 ml QSHIFT@10,22 IV 04/28/25 22:00 04/30/25 08:01 10 ML objective GENERAL: Alert and oriented x 3. Morbidly obese. EYES: PERRL, EOMI. Anicteric. HENT: Moist mucous membranes. LUNGS: Diminished breath sounds. CARDIOVASCULAR: Regular rate and rhythm. ABDOMEN: Soft, non-tender and non-distended. EXTREMITIES: No edema. SKIN: Warm, dry. laboratory and microbiology Laboratory Tests 04/30/25 04:00 04/29/25 02:46 Test 04/30/25 04:00 Range/Units Serum Glucose 147 H 74-106 mg/dL Problem List Atrial fibrillation with rapid ventricular rate, newly diagnosed. [place] decompensated HFpEF, NYHA Class III. +Anisocoria, acute CVA ruled out. Pulmonary hypertension, moderate degree. Acute respiratory failure. Hypertension. Home O2 dependence. Bed-bound status. Morbid obesity. Assessment/Plan Continued all current supportive medical care. Morphine and [facility] for pain management. Amiodarone. Eliquis. Aspirin, Lipitor. IV antibiotics as ordered. Diuretics with Lasix. GI prophylactics. Vasopressors for hemodynamic support. Additional plan as per the hospital course. Critical care time of 45 minutes provided to include time spent evaluation of patient at bedside, when appropriate patient/family education for diagnosis, treatment plan, review of pertinent medical information and discussion of care with specialty providers and PCP. Dietary Evaluation Review Comments: Vital High Protein Goal Rate @70ml/hr, providing 147g Protein, 1680 kcal, 1404ml free water in 24 hours, This protocol will meet her needs @101% protein, @90% energy. Initiate rate @35ml/hr, increase 10ml/6hr increment till meeting her goal rate@70ml/hr. Expected Outcomes/Goals: Meeting Pt's needs for being on mechanical ventilator. Gradual weight loss, improved nutrition related lab values and overall nutrition status. Fluid Accumulation (Severe): Moderate Fluid Retention Protein Calorie Malnutrition: Severe Plan discussed with: Patient ABADAZAR Kruger MD Apr 30, 2025 12:46
[2025-04-30] MEDS: LACTULOSE 20Gm/30ML SOLN PO SCH (20:09)
--- NOTE | 2025-04-30 23:56 | DVHPN2 ---
[facility] DOS: 04/30/2025 Patient seen and examined at bedside. Remains on supplemental oxygen Overnight events reviewed. Reviewed: Care Plan, H&P, Labs, Medications, Previous Orders, Radiology, Other (Consultations) Changes from previous H/P or p: Changes General: Per HPI Objective Vitals Vital Signs Date Time Temp Pulse Resp B/P (MAP) Pulse Ox O2 Delivery O2 Flow Rate FiO2 04/30/25 23:00 86 26 121/64 (83) 95 04/30/25 22:00 Nasal Cannula* 2 28 04/30/25 20:00 97.4 97.4 Intake/Output Intake and Output 04/30/25 07:00 Intake Total 1072.50 ml Output Total 2900 ml Balance -1827.50 ml Intake Oral 905 ml IV Total 167.50 ml Output Urine Total 2900 ml Exam Gen.: Patient lying in bed in no apparent distress. On supplemental oxygen. Head: Normocephalic, atraumatic. Eyes: EOMI/PERRLA. Ears: Normal hearing. Normal anatomy. Neck/trachea: Trachea midline, supple. Nose: Normal external anatomy. Mouth: Moist mucous membranes. Chest: Decreased air entry bilaterally. No wheezing or rhonchi. Cardiovascular: Positive S1, positive S2. Regular rate and rhythm. Abdomen: Positive bowel sounds in all 4 quadrants. Soft, non-tender, non- distended. : Deferred. Rectal: Deferred. Skin: Warm, dry. Intact. Extremities: 2+ radial pulses bilaterally. No lower extremity edema. Neuro: Awake, alert, oriented x3. No gross motor or sensory deficits. Cranial nerves II through XII intact. Gait not assessed. 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) Musculoskeletal: Normal sensory function, Normal motor function Extremities: Other (Left femoral central line) Skin: Wounds (See nurse notes and pictures), Other (Dusky feet) Psych/Mental Status: Mental status NL, Mood NL Medications Current Medications Medications Dose Ordered Sig/Jl Route Start Time Stop Time Status Last Admin Dose Admin Nitroglycerin 0.4 mg Q5MINP PRN SL 04/19/25 13:00 Ipratropium [place] 0.5 mg Q4HPRN PRN NEB 04/19/25 13:00 Pravastatin Sodium 20 mg DAILY PO 04/20/25 10:00 04/30/25 08:06 20 MG Patient Own Medication 1 tab DAILY PO 04/20/25 10:00 UNV Patient Own Medication 1 cap BID PO 04/19/25 22:00 UNV Apixaban 5 mg BID PO 04/20/25 22:00 04/30/25 20:08 5 MG Amiodarone HCl 200 mg Q12HR PO 04/20/25 22:00 04/30/25 20:08 200 MG Pramipexole Dihydrochloride 0.25 mg HS PO 04/20/25 22:00 04/30/25 20:12 0.25 MG Morphine Sulfate 2 mg Q6HPRN PRN IV 04/20/25 16:15 04/28/25 07:33 2 MG Ondansetron HCl 4 mg Q6HPRN PRN IV 04/20/25 16:15 04/21/25 14:28 4 MG Morphine Sulfate 2 mg Q30M PRN IV 04/20/25 16:30 Patient Own Medication 1 HS LEFTEYE 04/21/25 22:00 04/30/25 20:09 1 Oxybutynin Chloride 5 mg TID PO 04/21/25 14:00 04/30/25 20:08 5 MG Patient Own Medication 0.2 mg BID LEFTEYE 04/21/25 22:00 04/30/25 20:09 0.2 MG Patient Own Medication 1 drop BID LEFTEYE 04/21/25 22:00 04/30/25 20:09 1 DROP Fentanyl Citrate 250 ml @ 2.5 mls/hr Q24H IV 04/21/25 20:45 04/23/25 15:38 12.5 MLS/HR Norepinephrine Bitartrate 250 ml @ 3.75 mls/hr Q24H IV 04/21/25 21:15 04/28/25 21:20 3.75 MLS/HR Furosemide 40 mg DAILY IV 04/23/25 10:00 04/30/25 08:03 40 MG Pantoprazole Sodium 40 mg DAILY IV 04/24/25 10:00 04/30/25 08:01 40 MG Acetaminophen 650 mg Q6HP PRN PO 04/23/25 11:15 04/25/25 12:01 650 MG Aspirin 81 mg DAILY NG 04/24/25 10:00 04/30/25 08:06 81 MG Atorvastatin Calcium 40 mg HS NG 04/23/25 22:00 04/30/25 20:08 40 MG Enteral Nutritional Formula 1,000 ml 70ML/HR GT 04/24/25 11:45 04/27/25 03:43 1,000 ML Enteral Nutritional Formula 1,000 ml 70ML/HR GT 04/24/25 11:45 UNV Ceftriaxone Sodium 50 ml @ 100 mls/hr DAILY@09 IV 04/27/25 09:00 04/30/25 08:01 100 MLS/HR Acetaminophen/ Hydrocodone Bitart 1 tab Q6HPRN PRN PO 04/26/25 15:00 04/26/25 16:57 1 TAB Hydrocortisone Sodium Succinate 50 mg Q12HR IV 04/27/25 10:00 04/30/25 20:07 50 MG Lidocaine 2 patch DAILY@1500 TOP 04/28/25 03:00 04/30/25 15:01 2 PATCH Docusate Sodium 100 mg BID PRN GT 04/28/25 09:00 Sodium Chloride 10 ml QSHIFT@10,22 IV 04/28/25 22:00 04/30/25 20:08 10 ML Lactulose 30 ml BID PO 04/30/25 22:00 04/30/25 20:09 30 ML Laboratory Results Laboratory Tests 04/29/25 02:46 04/30/25 04:00 Chemistry Test 04/30/25 04:00 Calcium Level 10.0 mg/dL (8.7-10.4) Magnesium Level 1.9 mg/dL (1.6-2.6) Urinalysis Test 04/25/25 05:50 Urine Color Light-orange (Yellow) Urine Clarity Turbid (Clear) H Urine pH 8.0 (5.0-9.0) Urine Specific [place] 1.019 (1.001-1.035) Urine Protein 1+ (Negative) H Urine Ketones Trace (Negative) Urine Blood 3+ /uL (Negative) H Urine Nitrite Negative (Negative) Urine Bilirubin Negative (Negative) Urine Urobilinogen 8 mg/dL (Negative) H Urine Leukocyte Esterase 3+ /uL (Negative) Urine RBC 829 /hpf (0 - 4) Urine Microscopic WBC 82 /HPF (0-5) H Urine Squamous Epithelial Cells Many /hpf (<5) Urine Bacteria None seen /hpf (None Seen) Urine Glucose Normal mg/dL (Normal) Microbiology Microbiology Date/Time Source Procedure Growth Status 04/23/25 13:20 Blood Blood Culture - Final NO GROWTH AFTER 5 DAYS OF INCUBATION. Complete 04/23/25 04:47 Urine - [place] Urine Culture - Final Complete 04/21/25 00:00 Sputum Gram Stain - Final Complete 04/21/25 00:00 Respiratory Culture - Final Staphylococcus aureus Complete 04/20/25 03:00 Nose MRSA Screen - Final Methicillin Resistant S.aureus Complete Assessment/Plan Assessment/Plan Impression: Acute hypoxic respiratory failure Acute hypercapnic respiratory failure Dependence on supplemental oxygen Altered mental status Congestive heart failure Morbid obesity Events: Remains on supplemental oxygen, 2 LPM NC Taper O2 as tolerated Head of bed elevation Aspiration precautions Off pressors since 4 AM, monitor hemodynamics Stable for downgrade to [place]. Continue bronchodilators Continue antibiotics Continue steroids Amiodarone, Eliquis for AFib Incentive spirometry Diurese with Lasix as tolerated Monitor renal function Monitor electrolytes. Supplement as necessary. Potassium supplementation Maintain euvolemia Labs and imaging reviewed. Rest of plan as noted below. Plan: Patient is s/p extubation on 04/28/25 Supplemental oxygen Titrate to keep O2 sats above 92%. Pressors as necessary for hemodynamic support Titrate to keep mean arterial pressure greater than 65 mmHg. Continue bronchodilators. Continue antibiotics Amiodarone, Eliquis for atrial fibrillation Incentive spirometry Diurese with Lasix to maintain euvolemia Monitor renal function. Monitor electrolytes. Supplement as necessary. Monitor ins and outs. Recommend diet and lifestyle modifications for weight reduction Obesity complicates all care DVT prophylaxis. Prognosis: Poor given patient's multiple co-morbidities. Condition: Critical Rest of plan per hospitalist and other consultants. A total of 35 minutes of critical care time was spent reviewing the patient record, examining the patient, making a diagnostic and therapeutic plan, discussing this plan with the medical personnel, following up on diagnostic studies and following the patient for clinical stability excluding any and all procedures. At least 50% of this time was spent in direct, [id number] contact. Thank you, BONNIE Jenkins, for allowing me to participate in this patient's care. Further recommendations will depend on the patient's clinical course. Please do not hesitate to contact me if you have any questions or concerns. This medical document was created using an electronic medical record system with [employer] dictation system. Although these documentations are being carefully reviewed, there may still be some phonetic and typographical changes. The errors are purely typographical, due to imperfection on the software program, and do not reflect any compromise in the patient's medical care. Plan discussed with: Patient, Other (RN Sherry) Visit Coding Pulmonary Billing Provider: CATHERINE SANCHEZ MD Date of Service if different f: Apr 30, 2025 Common Visit Codes: [id number] INP/OBS CARE(HIGH), [id number] CARE 30-74 MIN CATHERINE SANCHEZ MD Apr 30, 2025 23:56
[2025-05-01] VITALS (49 sets, daily range): BP systolic 97–138; BP diastolic 49–80; PULSE 65–102; RESP 11–33; TEMP 97.4–98.9; O2SAT 90–100
[2025-05-01 04:10] LABS: Hematocrit 35.5 % (36.0-46.0); Hemoglobin 11.7 g/dL (12.2-16.2); Mean Corpuscular Hemoglobin 27.7 pg (28.0-32.0); Mean Corpuscular Volume 84.1 fL (80.0-100.0); Nucleated Red Blood Cells % 0.0 %
[2025-05-01 04:24] LABS: Alanine Aminotransferase 36 U/L (7-40); Albumin 3.3 g/dL (3.2-4.8); Alkaline Phosphatase 58 U/L (46-116); Anion Gap 7 (5-15); BUN/Creatinine Ratio 16.7 (10.0-20.0); Blood Urea Nitrogen 10 mg/dL (9-23); Calcium 9.4 mg/dL (8.7-10.4); Magnesium 1.9 mg/dL (1.6-2.6); Potassium 3.6 mmol/L (3.5-5.1); Sodium 141 mmol/L (136-145); Total Protein 6.4 g/dL (5.7-8.2)
[2025-05-01 04:25] LABS: Bilirubin, Total 0.4 mg/dL (0.2-1.0)
[2025-05-01 05:06] LABS: Carbon Dioxide 39 mmol/L (20-31); Chloride 95 mmol/L (98-107); Glucose 142 mg/dL (74-106)
[2025-05-01] MEDS: MAGNESIUM SULFATE 1GM/100ML 100 ML IV SCH (13:17)
--- NOTE | 2025-05-01 14:23 | DVHPN2 ---
Subjective In bed resting Reviewed: Care Plan, H&P, Labs, Medications, Previous Orders, Radiology, Other (Consultations) Changes from previous H/P or p: No Changes General: Per HPI Objective Vitals Vital Signs Date Time Temp Pulse Resp B/P (MAP) Pulse Ox O2 Delivery O2 Flow Rate FiO2 05/01/25 13:00 84 20 106/55 (72) 95 05/01/25 12:00 Nasal Cannula* 2 28 05/01/25 12:00 97.4 97.4 Intake/Output Intake and Output 05/01/25 05:00 Intake Total 1175 ml Output Total 2400 ml Balance -1225 ml Intake Oral 1125 ml IV Total 50 ml Output Urine Total 2400 ml 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) Musculoskeletal: Normal sensory function, Normal motor function Extremities: Other (Left femoral central line) Skin: Wounds (See nurse notes and pictures), Other (Dusky feet) Psych/Mental Status: Mental status NL, Mood NL Medications Current Medications Medications Dose Ordered Sig/Jl Route Start Time Stop Time Status Last Admin Dose Admin Nitroglycerin 0.4 mg Q5MINP PRN SL 04/19/25 13:00 Ipratropium [place] 0.5 mg Q4HPRN PRN NEB 04/19/25 13:00 Pravastatin Sodium 20 mg DAILY PO 04/20/25 10:00 05/01/25 10:07 20 MG Patient Own Medication 1 tab DAILY PO 04/20/25 10:00 UNV Patient Own Medication 1 cap BID PO 04/19/25 22:00 UNV Apixaban 5 mg BID PO 04/20/25 22:00 05/01/25 10:07 5 MG Amiodarone HCl 200 mg Q12HR PO 04/20/25 22:00 05/01/25 10:07 200 MG Pramipexole Dihydrochloride 0.25 mg HS PO 04/20/25 22:00 04/30/25 20:12 0.25 MG Morphine Sulfate 2 mg Q6HPRN PRN IV 04/20/25 16:15 04/28/25 07:33 2 MG Ondansetron HCl 4 mg Q6HPRN PRN IV 04/20/25 16:15 04/21/25 14:28 4 MG Morphine Sulfate 2 mg Q30M PRN IV 04/20/25 16:30 Patient Own Medication 1 HS LEFTEYE 04/21/25 22:00 04/30/25 20:09 1 Oxybutynin Chloride 5 mg TID PO 04/21/25 14:00 05/01/25 14:20 5 MG Patient Own Medication 0.2 mg BID LEFTEYE 04/21/25 22:00 05/01/25 10:06 0.2 MG Patient Own Medication 1 drop BID LEFTEYE 04/21/25 22:00 05/01/25 10:06 1 DROP Fentanyl Citrate 250 ml @ 2.5 mls/hr Q24H IV 04/21/25 20:45 04/23/25 15:38 12.5 MLS/HR Norepinephrine Bitartrate 250 ml @ 3.75 mls/hr Q24H IV 04/21/25 21:15 04/28/25 21:20 3.75 MLS/HR Furosemide 40 mg DAILY IV 04/23/25 10:00 05/01/25 10:04 40 MG Pantoprazole Sodium 40 mg DAILY IV 04/24/25 10:00 05/01/25 10:04 40 MG Acetaminophen 650 mg Q6HP PRN PO 04/23/25 11:15 05/01/25 11:04 650 MG Aspirin 81 mg DAILY NG 04/24/25 10:00 05/01/25 10:06 81 MG Atorvastatin Calcium 40 mg HS NG 04/23/25 22:00 04/30/25 20:08 40 MG Enteral Nutritional Formula 1,000 ml 70ML/HR GT 04/24/25 11:45 04/27/25 03:43 1,000 ML Enteral Nutritional Formula 1,000 ml 70ML/HR GT 04/24/25 11:45 UNV Ceftriaxone Sodium 50 ml @ 100 mls/hr DAILY@09 IV 04/27/25 09:00 05/01/25 10:03 100 MLS/HR Acetaminophen/ Hydrocodone Bitart 1 tab Q6HPRN PRN PO 04/26/25 15:00 04/26/25 16:57 1 TAB Hydrocortisone Sodium Succinate 50 mg Q12HR IV 04/27/25 10:00 05/01/25 10:04 50 MG Lidocaine 2 patch DAILY@1500 TOP 04/28/25 03:00 05/01/25 14:20 2 PATCH Docusate Sodium 100 mg BID PRN GT 04/28/25 09:00 Sodium Chloride 10 ml QSHIFT@10,22 IV 04/28/25 22:00 05/01/25 10:04 10 ML Lactulose 30 ml BID PO 04/30/25 22:00 05/01/25 10:06 30 ML Magnesium Sulfate/ Dextrose 100 ml @ 100 mls/hr Q1HR IV 05/01/25 13:00 05/01/25 14:59 05/01/25 14:19 100 MLS/HR Potassium Chloride 100 ml @ 50 mls/hr Q2H IV 05/01/25 12:15 05/01/25 16:14 Laboratory Results Laboratory Tests 05/01/25 03:38 Chemistry Test 05/01/25 03:38 Albumin 3.3 g/dL (3.2-4.8) Calcium Level 9.4 mg/dL (8.7-10.4) Magnesium Level 1.9 mg/dL (1.6-2.6) Phosphorus Level 3.0 mg/dL (2.4-5.1) Total Protein 6.4 g/dL (5.7-8.2) LFT Test 05/01/25 03:38 Alanine Aminotransferase (ALT) 36 U/L (7-40) Alkaline Phosphatase 58 U/L (46-116) Aspartate Amino Transferase (AST) 36 U/L (13-40) Total Bilirubin 0.4 mg/dL (0.2-1.0) Urinalysis Test 04/25/25 05:50 Urine Color Light-orange (Yellow) Urine Clarity Turbid (Clear) H Urine pH 8.0 (5.0-9.0) Urine Specific [place] 1.019 (1.001-1.035) Urine Protein 1+ (Negative) H Urine Ketones Trace (Negative) Urine Blood 3+ /uL (Negative) H Urine Nitrite Negative (Negative) Urine Bilirubin Negative (Negative) Urine Urobilinogen 8 mg/dL (Negative) H Urine Leukocyte Esterase 3+ /uL (Negative) Urine RBC 829 /hpf (0 - 4) Urine Microscopic WBC 82 /HPF (0-5) H Urine Squamous Epithelial Cells Many /hpf (<5) Urine Bacteria None seen /hpf (None Seen) Urine Glucose Normal mg/dL (Normal) Microbiology Microbiology Date/Time Source Procedure Growth Status 04/23/25 13:20 Blood Blood Culture - Final NO GROWTH AFTER 5 DAYS OF INCUBATION. Complete 04/23/25 04:47 Urine - [place] Urine Culture - Final Complete 04/21/25 00:00 Sputum Gram Stain - Final Complete 04/21/25 00:00 Respiratory Culture - Final Staphylococcus aureus Complete 04/20/25 03:00 Nose MRSA Screen - Final Methicillin Resistant S.aureus Complete Assessment/Plan Assessment/Plan -septic shock -questionable aspiration pneumonia -positive aspiration of the nares -acute hypoxic and hypercarbic respiratory failure -metabolic encephalopathy -acute on chronic diastolic heart failure, HFpEF -AFib with RVR, now controlled -probable obstructive sleep apnea, obesity related hypoventilation syndrome -dyslipidemia -primary hypertension -functional quadriplegia -peripheral arterial disease -morbid obesity -constipation Plan: Events: Patient on nasal cannula at 2 L/min. Continues to be on norepinephrine drip, at 2 micrograms/minute. -Hydrocortisone 50 mg IV b.i.d. -continue norepinephrine to keep map greater than 65 mmHg -PPI -advanced to full liquid diet -repeat labs, chest x-ray, ABG in a.m. 04/30 weaning off pressors 05/01 off pressors today Critical care time spent with patient discussing and formulating plan of care: 40 minutes. This does not include time spent performing procedures. Plan discussed with: Patient My Orders Orders - EAN ALCANTARA MD Procedure Category Date Status Time Magnesium Sulfate PHA 05/01/25 In Process 1gm/100ml 13:00 Potassium Chl PHA 05/01/25 In Process 20meq/100ml 12:15 Date of Service: May 01, 2025 Billing Provider: EAN ALCANTARA MD Common Visit Codes: [id number] CARE 30-74 MIN EAN ALCANTARA MD May 01, 2025 14:23
[2025-05-01] MEDS: POTASSIUM CHL 20MEQ/100ML 100 ML IV SCH (15:08)
[2025-05-01] MEDS: ACETAMINOPHEN 650 mg PER 20.3 mL UD PO PRN (16:43)
--- NOTE | 2025-05-01 22:46 | DVHPN2 ---
[facility] DOS: 05/01/2025 Patient seen and examined at bedside. Remains on supplemental oxygen Overnight events reviewed. Reviewed: Care Plan, H&P, Labs, Medications, Previous Orders, Radiology, Other (Consultations) Changes from previous H/P or p: No Changes General: Per HPI Objective Vitals Vital Signs Date Time Temp Pulse Resp B/P (MAP) Pulse Ox O2 Delivery O2 Flow Rate FiO2 05/01/25 20:00 99 Nasal Cannula* 2 28 05/01/25 20:00 74 26 104/61 (75) 05/01/25 16:00 97.8 97.8 Intake/Output Intake and Output 05/01/25 07:00 Intake Total 1060 ml Output Total 2600 ml Balance -1540 ml Intake Oral 1010 ml IV Total 50 ml Output Urine Total 2600 ml Exam Gen.: Patient lying in bed in no apparent distress. On supplemental oxygen. Head: Normocephalic, atraumatic. Eyes: EOMI/PERRLA. Ears: Normal hearing. Normal anatomy. Neck/trachea: Trachea midline, supple. Nose: Normal external anatomy. Mouth: Moist mucous membranes. Chest: Decreased air entry bilaterally. No wheezing or rhonchi. Cardiovascular: Positive S1, positive S2. Regular rate and rhythm. Abdomen: Positive bowel sounds in all 4 quadrants. Soft, non-tender, non- distended. : Deferred. Rectal: Deferred. Skin: Warm, dry. Intact. Extremities: 2+ radial pulses bilaterally. No lower extremity edema. Neuro: Awake, alert, oriented x3. No gross motor or sensory deficits. Cranial nerves II through XII intact. Gait not assessed. 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) Musculoskeletal: Normal sensory function, Normal motor function Extremities: Other (Left femoral central line) Skin: Wounds (See nurse notes and pictures), Other (Dusky feet) Psych/Mental Status: Mental status NL, Mood NL Medications Current Medications Medications Dose Ordered Sig/Jl Route Start Time Stop Time Status Last Admin Dose Admin Nitroglycerin 0.4 mg Q5MINP PRN SL 04/19/25 13:00 Ipratropium [place] 0.5 mg Q4HPRN PRN NEB 04/19/25 13:00 Pravastatin Sodium 20 mg DAILY PO 04/20/25 10:00 05/01/25 10:07 20 MG Patient Own Medication 1 tab DAILY PO 04/20/25 10:00 UNV Patient Own Medication 1 cap BID PO 04/19/25 22:00 UNV Apixaban 5 mg BID PO 04/20/25 22:00 05/01/25 22:19 5 MG Amiodarone HCl 200 mg Q12HR PO 04/20/25 22:00 05/01/25 22:18 200 MG Pramipexole Dihydrochloride 0.25 mg HS PO 04/20/25 22:00 05/01/25 22:20 0.25 MG Morphine Sulfate 2 mg Q6HPRN PRN IV 04/20/25 16:15 04/28/25 07:33 2 MG Ondansetron HCl 4 mg Q6HPRN PRN IV 04/20/25 16:15 04/21/25 14:28 4 MG Morphine Sulfate 2 mg Q30M PRN IV 04/20/25 16:30 Patient Own Medication 1 HS LEFTEYE 04/21/25 22:00 05/01/25 22:31 1 Oxybutynin Chloride 5 mg TID PO 04/21/25 14:00 05/01/25 22:19 5 MG Patient Own Medication 0.2 mg BID LEFTEYE 04/21/25 22:00 05/01/25 22:30 0.2 MG Patient Own Medication 1 drop BID LEFTEYE 04/21/25 22:00 05/01/25 22:30 1 DROP Fentanyl Citrate 250 ml @ 2.5 mls/hr Q24H IV 04/21/25 20:45 04/23/25 15:38 12.5 MLS/HR Norepinephrine Bitartrate 250 ml @ 3.75 mls/hr Q24H IV 04/21/25 21:15 04/28/25 21:20 3.75 MLS/HR Furosemide 40 mg DAILY IV 04/23/25 10:00 05/01/25 10:04 40 MG Pantoprazole Sodium 40 mg DAILY IV 04/24/25 10:00 05/01/25 10:04 40 MG Aspirin 81 mg DAILY NG 04/24/25 10:00 12/7/25 10:06 81 MG Atorvastatin Calcium 40 mg HS NG 04/23/25 22:00 05/01/25 22:18 40 MG Enteral Nutritional Formula 1,000 ml 70ML/HR GT 04/24/25 11:45 04/27/25 03:43 1,000 ML Enteral Nutritional Formula 1,000 ml 70ML/HR GT 04/24/25 11:45 UNV Ceftriaxone Sodium 50 ml @ 100 mls/hr DAILY@09 IV 04/27/25 09:00 05/01/25 10:03 100 MLS/HR Acetaminophen/ Hydrocodone Bitart 1 tab Q6HPRN PRN PO 04/26/25 15:00 05/01/25 22:19 1 TAB Hydrocortisone Sodium Succinate 50 mg Q12HR IV 04/27/25 10:00 05/01/25 22:19 50 MG Lidocaine 2 patch DAILY@1500 TOP 04/28/25 03:00 05/01/25 14:20 2 PATCH Docusate Sodium 100 mg BID PRN GT 04/28/25 09:00 Sodium Chloride 10 ml QSHIFT@ IV 04/28/25 22:00 05/01/25 22:00 10 ML Lactulose 30 ml BID PO 04/30/25 22:00 05/01/25 10:06 30 ML Acetaminophen 650 mg Q6HP PRN PO 05/01/25 16:30 05/01/25 16:43 650 MG Laboratory Results Laboratory Tests 05/01/25 03:38 Chemistry Test 05/01/25 03:38 Albumin 3.3 g/dL (3.2-4.8) Calcium Level 9.4 mg/dL (8.7-10.4) Magnesium Level 1.9 mg/dL (1.6-2.6) Phosphorus Level 3.0 mg/dL (2.4-5.1) Total Protein 6.4 g/dL (5.7-8.2) LFT Test 05/01/25 03:38 Alanine Aminotransferase (ALT) 36 U/L (7-40) Alkaline Phosphatase 58 U/L (46-116) Aspartate Amino Transferase (AST) 36 U/L (13-40) Total Bilirubin 0.4 mg/dL (0.2-1.0) Urinalysis Test 04/25/25 05:50 Urine Color Light-orange (Yellow) Urine Clarity Turbid (Clear) H Urine pH 8.0 (5.0-9.0) Urine Specific [place] 1.019 (1.001-1.035) Urine Protein 1+ (Negative) H Urine Ketones Trace (Negative) Urine Blood 3+ /uL (Negative) H Urine Nitrite Negative (Negative) Urine Bilirubin Negative (Negative) Urine Urobilinogen 8 mg/dL (Negative) H Urine Leukocyte Esterase 3+ /uL (Negative) Urine RBC 829 /hpf (0 - 4) Urine Microscopic WBC 82 /HPF (0-5) H Urine Squamous Epithelial Cells Many /hpf (<5) Urine Bacteria None seen /hpf (None Seen) Urine Glucose Normal mg/dL (Normal) Microbiology Microbiology Date/Time Source Procedure Growth Status 04/23/25 13:20 Blood Blood Culture - Final NO GROWTH AFTER 5 DAYS OF INCUBATION. Complete 04/23/25 04:47 Urine - [place] Urine Culture - Final Complete 04/21/25 00:00 Sputum Gram Stain - Final Complete 04/21/25 00:00 Respiratory Culture - Final Staphylococcus aureus Complete 04/20/25 03:00 Nose MRSA Screen - Final Methicillin Resistant S.aureus Complete Assessment/Plan Assessment/Plan Impression: Acute hypoxic respiratory failure Acute hypercapnic respiratory failure Dependence on supplemental oxygen Altered mental status Congestive heart failure Morbid obesity Events: Remains on supplemental oxygen, 2 LPM NC Taper O2 as tolerated Head of bed elevation Aspiration precautions Off pressors since yesterday (04/30/25) Monitor hemodynamics Continue bronchodilators Continue antibiotics Continue steroids On lactulose due to constipation. Amiodarone, Eliquis for AFib Incentive spirometry Diurese with Lasix as tolerated Monitor renal function Monitor electrolytes. Supplement as necessary. Potassium, magnesium supplementation Maintain euvolemia Labs and imaging reviewed. Rest of plan as noted below. Plan: Patient is s/p extubation on 04/28/25 Supplemental oxygen Titrate to keep O2 sats above 92%. Pressors as necessary for hemodynamic support Titrate to keep mean arterial pressure greater than 65 mmHg. Continue bronchodilators. Continue antibiotics Amiodarone, Eliquis for atrial fibrillation Incentive spirometry Diurese with Lasix to maintain euvolemia Monitor renal function. Monitor electrolytes. Supplement as necessary. Monitor ins and outs. Recommend diet and lifestyle modifications for weight reduction Obesity complicates all care DVT prophylaxis. Prognosis: Poor given patient's multiple co-morbidities. Condition: Critical Rest of plan per hospitalist and other consultants. A total of 35 minutes of critical care time was spent reviewing the patient record, examining the patient, making a diagnostic and therapeutic plan, discussing this plan with the medical personnel, following up on diagnostic studies and following the patient for clinical stability excluding any and all procedures. At least 50% of this time was spent in direct, [id number] contact. Thank you, BONNIE Jenkins, for allowing me to participate in this patient's care. Further recommendations will depend on the patient's clinical course. Please do not hesitate to contact me if you have any questions or concerns. This medical document was created using an electronic medical record system with [employer] dictation system. Although these documentations are being carefully reviewed, there may still be some phonetic and typographical changes. The errors are purely typographical, due to imperfection on the software program, and do not reflect any compromise in the patient's medical care. Plan discussed with: Patient, Other (RN) Visit Coding Pulmonary Billing Provider: CATHERINE SANCHEZ MD Date of Service if different f: May 01, 2025 Common Visit Codes: [id number] INP/OBS CARE(HIGH), [id number] CARE 30-74 MIN CATHERINE SANCHEZ MD May 01, 2025 22:46
--- NOTE | 2025-05-01 23:48 | DVHPN2 ---
Progress Note - Dictate Date Seen: May 01, 2025 Has the PT tested + for MRSA If YES, has PT been informed?: No Medical Necessity Reason Pt with a Central, PICC or Fol: Yes The following are medically ne: Smith Catheter Reason for smith catheter: Strict I&O Subjective Patient was seen and evaluated in follow up in the ICU. Patient is on 2 LPM NC. Patient is off pressors today. CO2 39. vital signs Vital Sign Date Time Temp Pulse Resp B/P (MAP) Pulse Ox O2 Delivery O2 Flow Rate FiO2 05/01/25 13:00 84 20 106/55 (72) 95 05/01/25 12:00 Nasal Cannula* 2 28 05/01/25 12:00 97.4 97.4 Total Intake and Output 04/30/25 04/30/25 05/01/25 15:00 23:00 07:00 Intake Total 50 ml 800 ml 210 ml Output Total 1950 ml 650 ml Balance 50 ml -1150 ml -440 ml medications Current Medications Medications Dose Ordered Sig/Jl Route Start Time Stop Time Status Last Admin Dose Admin Nitroglycerin 0.4 mg Q5MINP PRN SL 04/19/25 13:00 Ipratropium [place] 0.5 mg Q4HPRN PRN NEB 04/19/25 13:00 Pravastatin Sodium 20 mg DAILY PO 04/20/25 10:00 05/01/25 10:07 20 MG Patient Own Medication 1 tab DAILY PO 04/20/25 10:00 UNV Patient Own Medication 1 cap BID PO 04/19/25 22:00 UNV Apixaban 5 mg BID PO 04/20/25 22:00 05/01/25 10:07 5 MG Amiodarone HCl 200 mg Q12HR PO 04/20/25 22:00 05/01/25 10:07 200 MG Pramipexole Dihydrochloride 0.25 mg HS PO 04/20/25 22:00 04/30/25 20:12 0.25 MG Morphine Sulfate 2 mg Q6HPRN PRN IV 04/20/25 16:15 04/28/25 07:33 2 MG Ondansetron HCl 4 mg Q6HPRN PRN IV 04/20/25 16:15 04/21/25 14:28 4 MG Morphine Sulfate 2 mg Q30M PRN IV 04/20/25 16:30 Patient Own Medication 1 HS LEFTEYE 04/21/25 22:00 04/30/25 20:09 1 Oxybutynin Chloride 5 mg TID PO 04/21/25 14:00 05/01/25 05:30 5 MG Patient Own Medication 0.2 mg BID LEFTEYE 04/21/25 22:00 05/01/25 10:06 0.2 MG Patient Own Medication 1 drop BID LEFTEYE 04/21/25 22:00 05/01/25 10:06 1 DROP Fentanyl Citrate 250 ml @ 2.5 mls/hr Q24H IV 04/21/25 20:45 04/23/25 15:38 12.5 MLS/HR Norepinephrine Bitartrate 250 ml @ 3.75 mls/hr Q24H IV 04/21/25 21:15 04/28/25 21:20 3.75 MLS/HR Furosemide 40 mg DAILY IV 04/23/25 10:00 05/01/25 10:04 40 MG Pantoprazole Sodium 40 mg DAILY IV 04/24/25 10:00 05/01/25 10:04 40 MG Acetaminophen 650 mg Q6HP PRN PO 04/23/25 11:15 05/01/25 11:04 650 MG Aspirin 81 mg DAILY NG 04/24/25 10:00 05/01/25 10:06 81 MG Atorvastatin Calcium 40 mg HS NG 04/23/25 22:00 04/30/25 20:08 40 MG Enteral Nutritional Formula 1,000 ml 70ML/HR GT 04/24/25 11:45 04/27/25 03:43 1,000 ML Enteral Nutritional Formula 1,000 ml 70ML/HR GT 04/24/25 11:45 UNV Ceftriaxone Sodium 50 ml @ 100 mls/hr DAILY@09 IV 04/27/25 09:00 05/01/25 10:03 100 MLS/HR Acetaminophen/ Hydrocodone Bitart 1 tab Q6HPRN PRN PO 04/26/25 15:00 04/26/25 16:57 1 TAB Hydrocortisone Sodium Succinate 50 mg Q12HR IV 04/27/25 10:00 05/01/25 10:04 50 MG Lidocaine 2 patch DAILY@1500 TOP 04/28/25 03:00 04/30/25 15:01 2 PATCH Docusate Sodium 100 mg BID PRN GT 04/28/25 09:00 Sodium Chloride 10 ml QSHIFT@10,22 IV 04/28/25 22:00 05/01/25 10:04 10 ML Lactulose 30 ml BID PO 04/30/25 22:00 05/01/25 10:06 30 ML Magnesium Sulfate/ Dextrose 100 ml @ 100 mls/hr Q1HR IV 05/01/25 13:00 05/01/25 14:59 05/01/25 13:17 100 MLS/HR Potassium Chloride 100 ml @ 50 mls/hr Q2H IV 05/01/25 12:15 05/01/25 16:14 objective GENERAL: Alert and oriented x 3. Morbidly obese. EYES: PERRL, EOMI. Anicteric. HENT: Moist mucous membranes. LUNGS: Diminished breath sounds. CARDIOVASCULAR: Regular rate and rhythm. ABDOMEN: Soft, non-tender and non-distended. EXTREMITIES: No edema. SKIN: Warm, dry. laboratory and microbiology Laboratory Tests 05/01/25 03:38 Test 05/01/25 03:38 Range/Units Serum Glucose 142 H 74-106 mg/dL Problem List Atrial fibrillation with rapid ventricular rate, newly diagnosed. [place] decompensated HFpEF, NYHA Class III. +Anisocoria, acute CVA ruled out. Pulmonary hypertension, moderate degree. Acute respiratory failure. Hypertension. Home O2 dependence. Bed-bound status. Morbid obesity. Assessment/Plan Continued all current supportive medical care. Morphine and [place] for pain management. Amiodarone. Eliquis. Aspirin, Lipitor. IV antibiotics as ordered. Diuretics with Lasix. GI prophylactics. Vasopressors for hemodynamic support. Additional plan as per the hospital course. Critical care time of 45 minutes provided to include time spent evaluation of patient at bedside, when appropriate patient/family education for diagnosis, treatment plan, review of pertinent medical information and discussion of care with specialty providers and PCP. Dietary Evaluation Review Comments: Vital High Protein Goal Rate @70ml/hr, providing 147g Protein, 1680 kcal, 1404ml free water in 24 hours, This protocol will meet her needs @101% protein, @90% energy. Initiate rate @35ml/hr, increase 10ml/6hr increment till meeting her goal rate@70ml/hr. Expected Outcomes/Goals: Meeting Pt's needs for being on mechanical ventilator. Gradual weight loss, improved nutrition related lab values and overall nutrition status. Fluid Accumulation (Severe): Moderate Fluid Retention Protein Calorie Malnutrition: Severe Plan discussed with: Patient AZAR MELGOZA MD May 01, 2025 13:57
[2025-05-02] VITALS (21 sets, daily range): BP systolic 106–130; BP diastolic 61–82; PULSE 65–90; RESP 11–33; TEMP 97.5–98; O2SAT 92–99
[2025-05-02 03:44] LABS: Anion Gap 5 (5-15); Potassium 3.9 mmol/L (3.5-5.1); Sodium 138 mmol/L (136-145)
[2025-05-02 03:45] LABS: Calcium 9.8 mg/dL (8.7-10.4)
[2025-05-02 03:46] LABS: Hematocrit 36.4 % (36.0-46.0); Hemoglobin 12.3 g/dL (12.2-16.2); Mean Corpuscular Hemoglobin 28.4 pg (28.0-32.0); Mean Corpuscular Volume 84.3 fL (80.0-100.0); Nucleated Red Blood Cells % 0.3 %
[2025-05-02 03:50] LABS: BUN/Creatinine Ratio 16.4 (10.0-20.0); Blood Urea Nitrogen 10 mg/dL (9-23)
[2025-05-02 03:51] LABS: Magnesium 2.2 mg/dL (1.6-2.6)
[2025-05-02 04:00] LABS: Carbon Dioxide 39 mmol/L (20-31); Chloride 94 mmol/L (98-107); Glucose 144 mg/dL (74-106)
--- NOTE | 2025-05-02 04:37 | DVH ---
CHEST RADIOGRAPH Indication: pulm vasc congestion Technique: Single frontal view of the chest was obtained COMPARISON: XY CHEST PORTABLE on DOS: 04/29/25, XY CHEST PORTABLE on DOS: 04/28/25, XY CHEST PORTABLE on DOS: 04/28/25, XY CHEST PORTABLE on DOS: 04/27/25, XY CHEST XRAY 1 VIEW on DOS: 04/26/25 FINDINGS: Lines and Tubes: Right peripherally inserted central catheter tip projects over the cavoatrial junction. Lungs: Mild diffuse increased prominence of the pulmonary vasculature without evidence of focal consolidation. Pleura: No effusion. No pneumothorax. Cardiomediastinal contours: Cardiomegaly. Bones: Unremarkable IMPRESSION: 1. Cardiomegaly with mild pulmonary vascular congestion. 2. Right PICC.
--- NOTE | 2025-05-02 10:59 | DVHPN2 ---
Subjective Patient denies any symptoms Reviewed: Care Plan, H&P, Labs, Medications, Previous Orders, Radiology, Other (Consultations) Changes from previous H/P or p: No Changes General: Per HPI Objective Vitals Vital Signs Date Time Temp Pulse Resp B/P (MAP) Pulse Ox O2 Delivery O2 Flow Rate FiO2 05/02/25 10:01 80 15 129/72 (91) 95 05/02/25 10:00 Nasal Cannula* 2 28 05/02/25 08:00 97.8 97.8 Intake/Output Intake and Output 05/02/25 07:00 Intake Total 2530 ml Output Total 2050 ml Balance 480 ml Intake Oral 2080 ml IV Total 450 ml Output Urine Total 2050 ml 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) Musculoskeletal: Normal sensory function, Normal motor function Extremities: Other (Left femoral central line) Skin: Dry, Intact, Wounds (See nurse notes and pictures), Other (Dusky feet) Psych/Mental Status: Mental status NL, Mood NL Medications Current Medications Medications Dose Ordered Sig/Jl Route Start Time Stop Time Status Last Admin Dose Admin Nitroglycerin 0.4 mg Q5MINP PRN SL 04/19/25 13:00 Ipratropium [place] 0.5 mg Q4HPRN PRN NEB 04/19/25 13:00 Pravastatin Sodium 20 mg DAILY PO 04/20/25 10:00 05/02/25 09:18 20 MG Patient Own Medication 1 tab DAILY PO 04/20/25 10:00 UNV Patient Own Medication 1 cap BID PO 04/19/25 22:00 UNV Apixaban 5 mg BID PO 04/20/25 22:00 05/02/25 09:18 5 MG Amiodarone HCl 200 mg Q12HR PO 04/20/25 22:00 05/02/25 09:17 200 MG Pramipexole Dihydrochloride 0.25 mg HS PO 04/20/25 22:00 05/01/25 22:20 0.25 MG Morphine Sulfate 2 mg Q6HPRN PRN IV 04/20/25 16:15 04/28/25 07:33 2 MG Ondansetron HCl 4 mg Q6HPRN PRN IV 04/20/25 16:15 04/21/25 14:28 4 MG Morphine Sulfate 2 mg Q30M PRN IV 04/20/25 16:30 Patient Own Medication 1 HS LEFTEYE 04/21/25 22:00 05/01/25 22:31 1 Oxybutynin Chloride 5 mg TID PO 04/21/25 14:00 05/02/25 05:06 5 MG Patient Own Medication 0.2 mg BID LEFTEYE 04/21/25 22:00 05/02/25 09:18 0.2 MG Patient Own Medication 1 drop BID LEFTEYE 04/21/25 22:00 05/02/25 09:18 1 DROP Fentanyl Citrate 250 ml @ 2.5 mls/hr Q24H IV 04/21/25 20:45 04/23/25 15:38 12.5 MLS/HR Norepinephrine Bitartrate 250 ml @ 3.75 mls/hr Q24H IV 04/21/25 21:15 04/28/25 21:20 3.75 MLS/HR Furosemide 40 mg DAILY IV 04/23/25 10:00 05/02/25 09:17 40 MG Pantoprazole Sodium 40 mg DAILY IV 04/24/25 10:00 05/02/25 09:17 40 MG Aspirin 81 mg DAILY NG 04/24/25 10:00 05/02/25 09:17 81 MG Atorvastatin Calcium 40 mg HS NG 04/23/25 22:00 05/01/25 22:18 40 MG Enteral Nutritional Formula 1,000 ml 70ML/HR GT 04/24/25 11:45 04/27/25 03:43 1,000 ML Enteral Nutritional Formula 1,000 ml 70ML/HR GT 04/24/25 11:45 UNV Ceftriaxone Sodium 50 ml @ 100 mls/hr DAILY@09 IV 04/27/25 09:00 05/02/25 08:41 100 MLS/HR Acetaminophen/ Hydrocodone Bitart 1 tab Q6HPRN PRN PO 04/26/25 15:00 05/01/25 22:19 1 TAB Hydrocortisone Sodium Succinate 50 mg Q12HR IV 04/27/25 10:00 05/02/25 09:17 50 MG Lidocaine 2 patch DAILY@1500 TOP 04/28/25 03:00 05/01/25 14:20 2 PATCH Docusate Sodium 100 mg BID PRN GT 04/28/25 09:00 Sodium Chloride 10 ml QSHIFT@10,22 IV 04/28/25 22:00 05/02/25 09:17 10 ML Lactulose 30 ml BID PO 04/30/25 22:00 05/02/25 09:17 30 ML Acetaminophen 650 mg Q6HP PRN PO 05/01/25 16:30 05/01/25 16:43 650 MG Laboratory Results Laboratory Tests 05/02/25 03:12 Chemistry Test 05/02/25 03:12 Calcium Level 9.8 mg/dL (8.7-10.4) Magnesium Level 2.2 mg/dL (1.6-2.6) Urinalysis Test 04/25/25 05:50 Urine Color Light-orange (Yellow) Urine Clarity Turbid (Clear) H Urine pH 8.0 (5.0-9.0) Urine Specific [place] 1.019 (1.001-1.035) Urine Protein 1+ (Negative) H Urine Ketones Trace (Negative) Urine Blood 3+ /uL (Negative) H Urine Nitrite Negative (Negative) Urine Bilirubin Negative (Negative) Urine Urobilinogen 8 mg/dL (Negative) H Urine Leukocyte Esterase 3+ /uL (Negative) Urine RBC 829 /hpf (0 - 4) Urine Microscopic WBC 82 /HPF (0-5) H Urine Squamous Epithelial Cells Many /hpf (<5) Urine Bacteria None seen /hpf (None Seen) Urine Glucose Normal mg/dL (Normal) Microbiology Microbiology Date/Time Source Procedure Growth Status 04/23/25 13:20 Blood Blood Culture - Final NO GROWTH AFTER 5 DAYS OF INCUBATION. Complete 04/23/25 04:47 Urine - [place] Urine Culture - Final Complete 04/21/25 00:00 Sputum Gram Stain - Final Complete 04/21/25 00:00 Respiratory Culture - Final Staphylococcus aureus Complete 04/20/25 03:00 Nose MRSA Screen - Final Methicillin Resistant S.aureus Complete Labs and/or images reviewed: Labs reviewed by me, Image(s) reviewed by me Assessment/Plan Assessment/Plan Impression: -septic shock -questionable aspiration pneumonia -positive aspiration of the nares -acute hypoxic and hypercarbic respiratory failure -metabolic encephalopathy -acute on chronic diastolic heart failure, HFpEF -AFib with RVR, now controlled -probable obstructive sleep apnea, obesity related hypoventilation syndrome -dyslipidemia -primary hypertension -functional quadriplegia -peripheral arterial disease -morbid obesity -constipation Plan: Events: Patient on nasal cannula at 2 L/min. Denies any symptoms -stop hydrocortisone -PPI -continue antibiotic therapy -social service consultation for DC planning back to [facility] -physical therapy consultation -transfer to telemetry floor Total time spent with patient discussing and formulating plan of care: 35 minutes. This medical document was created using an electronic medical record system with [employer] dictation system. Although this document has been carefully reviewed, there may still be some phonetic and typographical errors. These areas are purely typographical due to imperfections of the software programs, and do not reflect any compromise in the patient's medical care. Plan discussed with: Patient, Other (RN) Date of Service: May 02, 2025 Billing Provider: TRICIA GALARZA NP Common Visit Codes: [id number] INP/OBS CARE(HIGH) TRICIA GALARZA NP May 02, 2025 10:59
--- NOTE | 2025-05-02 14:15 | DVHPN2 ---
Progress Note - Dictate Date Seen: May 02, 2025 Has the PT tested + for MRSA If YES, has PT been informed?: No Medical Necessity Reason Pt with a Central, PICC or Fol: Yes The following are medically ne: Smith Catheter Reason for smith catheter: Strict I&O Subjective Patient was seen and evaluated in follow up in the ICU. The patient is on 2 LPM NC. CBC is unremarkable. BP is stable off vasopressors. CO2 39. Chest x-ray shows cardiomegaly with mild pulmonary vascular congestion. vital signs Vital Sign Date Time Temp Pulse Resp B/P (MAP) Pulse Ox O2 Delivery O2 Flow Rate FiO2 05/02/25 13:00 90 13 130/69 (89) 95 05/02/25 12:00 Nasal Cannula* 2 28 05/02/25 12:00 97.9 97.9 Total Intake and Output 05/01/25 05/01/25 05/02/25 15:00 23:00 07:00 Intake Total 750 ml 1500 ml 280 ml Output Total 1600 ml 450 ml Balance 750 ml -100 ml -170 ml medications Current Medications Medications Dose Ordered Sig/Jl Route Start Time Stop Time Status Last Admin Dose Admin Nitroglycerin 0.4 mg Q5MINP PRN SL 04/19/25 13:00 Ipratropium [place] 0.5 mg Q4HPRN PRN NEB 04/19/25 13:00 Pravastatin Sodium 20 mg DAILY PO 04/20/25 10:00 05/02/25 09:18 20 MG Patient Own Medication 1 tab DAILY PO 04/20/25 10:00 UNV Patient Own Medication 1 cap BID PO 04/19/25 22:00 UNV Apixaban 5 mg BID PO 04/20/25 22:00 05/02/25 09:18 5 MG Amiodarone HCl 200 mg Q12HR PO 04/20/25 22:00 05/02/25 09:17 200 MG Pramipexole Dihydrochloride 0.25 mg HS PO 04/20/25 22:00 05/01/25 22:20 0.25 MG Morphine Sulfate 2 mg Q6HPRN PRN IV 04/20/25 16:15 04/28/25 07:33 2 MG Ondansetron HCl 4 mg Q6HPRN PRN IV 04/20/25 16:15 04/21/25 14:28 4 MG Morphine Sulfate 2 mg Q30M PRN IV 04/20/25 16:30 Patient Own Medication 1 HS LEFTEYE 04/21/25 22:00 05/01/25 22:31 1 Oxybutynin Chloride 5 mg TID PO 04/21/25 14:00 05/02/25 05:06 5 MG Patient Own Medication 0.2 mg BID LEFTEYE 04/21/25 22:00 05/02/25 09:18 0.2 MG Patient Own Medication 1 drop BID LEFTEYE 04/21/25 22:00 05/02/25 09:18 1 DROP Furosemide 40 mg DAILY IV 04/23/25 10:00 05/02/25 09:17 40 MG Pantoprazole Sodium 40 mg DAILY IV 04/24/25 10:00 05/02/25 09:17 40 MG Aspirin 81 mg DAILY NG 04/24/25 10:00 05/02/25 09:17 81 MG Atorvastatin Calcium 40 mg HS NG 04/23/25 22:00 05/01/25 22:18 40 MG Enteral Nutritional Formula 1,000 ml 70ML/HR GT 04/24/25 11:45 UNV Acetaminophen/ Hydrocodone Bitart 1 tab Q6HPRN PRN PO 04/26/25 15:00 05/01/25 22:19 1 TAB Lidocaine 2 patch DAILY@1500 TOP 04/28/25 03:00 05/01/25 14:20 2 PATCH Docusate Sodium 100 mg BID PRN GT 04/28/25 09:00 Sodium Chloride 10 ml QSHIFT@10,22 IV 04/28/25 22:00 05/02/25 09:17 10 ML Lactulose 30 ml BID PO 04/30/25 22:00 05/02/25 09:17 30 ML Acetaminophen 650 mg Q6HP PRN PO 05/01/25 16:30 05/01/25 16:43 650 MG Doxycycline Monohydrate 100 mg Q12HR PO 05/02/25 22:00 objective GENERAL: Alert and oriented x 3. Morbidly obese. EYES: PERRL, EOMI. Anicteric. HENT: Moist mucous membranes. LUNGS: Diminished breath sounds. CARDIOVASCULAR: Regular rate and rhythm. ABDOMEN: Soft, non-tender and non-distended. EXTREMITIES: No edema. SKIN: Warm, dry. laboratory and microbiology Laboratory Tests 05/02/25 03:12 Test 05/02/25 03:12 Range/Units Serum Glucose 144 H 74-106 mg/dL Problem List Atrial fibrillation with rapid ventricular rate, newly diagnosed. [place] decompensated HFpEF, NYHA Class III. +Anisocoria, acute CVA ruled out. Pulmonary hypertension, moderate degree. Acute respiratory failure. Hypertension. Home O2 dependence. Bed-bound status. Morbid obesity. Assessment/Plan Continued all current supportive medical care. Morphine and [place] for pain management. Amiodarone. Eliquis. Aspirin, Lipitor. IV antibiotics as ordered. Diuretics with Lasix. GI prophylactics. Vasopressors for hemodynamic support. Additional plan as per the hospital course. Critical care time of 45 minutes provided to include time spent evaluation of patient at bedside, when appropriate patient/family education for diagnosis, treatment plan, review of pertinent medical information and discussion of care with specialty providers and PCP. Dietary Evaluation Review Comments: Vital High Protein Goal Rate @70ml/hr, providing 147g Protein, 1680 kcal, 1404ml free water in 24 hours, This protocol will meet her needs @101% protein, @90% energy. Initiate rate @35ml/hr, increase 10ml/6hr increment till meeting her goal rate@70ml/hr. Expected Outcomes/Goals: Meeting Pt's needs for being on mechanical ventilator. Gradual weight loss, improved nutrition related lab values and overall nutrition status. Fluid Accumulation (Severe): Moderate Fluid Retention Protein Calorie Malnutrition: Severe Plan discussed with: Patient MELGOZA,AZAR Kruger MD May 02, 2025 13:29
[2025-05-02] MEDS: DOXYCYCLINE 100 MG TAB/CAP PO SCH (23:08)
--- NOTE | 2025-05-02 23:49 | DVHPN2 ---
[facility] DOS: 05/02/2025 Patient seen and examined at bedside. Remains on supplemental oxygen Overnight events reviewed. Reviewed: Care Plan, H&P, Labs, Medications, Previous Orders, Radiology, Other (Consultations) Changes from previous H/P or p: No Changes General: Per HPI Objective Vitals Vital Signs Date Time Temp Pulse Resp B/P (MAP) Pulse Ox O2 Delivery O2 Flow Rate FiO2 05/02/25 21:00 97.7 80 20 119/68 (85) 94 97.7 05/02/25 18:16 Nasal Cannula 2.0 05/02/25 18:16 28 Intake/Output Intake and Output 05/02/25 07:00 Intake Total 2530 ml Output Total 2050 ml Balance 480 ml Intake Oral 2080 ml IV Total 450 ml Output Urine Total 2050 ml Exam Gen.: Patient lying in bed in no apparent distress. On supplemental oxygen. Head: Normocephalic, atraumatic. Eyes: EOMI/PERRLA. Ears: Normal hearing. Normal anatomy. Neck/trachea: Trachea midline, supple. Nose: Normal external anatomy. Mouth: Moist mucous membranes. Chest: Decreased air entry bilaterally. No wheezing or rhonchi. Cardiovascular: Positive S1, positive S2. Regular rate and rhythm. Abdomen: Positive bowel sounds in all 4 quadrants. Soft, non-tender, non- distended. : Deferred. Rectal: Deferred. Skin: Warm, dry. Intact. Extremities: 2+ radial pulses bilaterally. No lower extremity edema. Neuro: Awake, alert, oriented x3. No gross motor or sensory deficits. Cranial nerves II through XII intact. Gait not assessed. 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) Musculoskeletal: Normal sensory function, Normal motor function Extremities: Other (Left femoral central line) Skin: Dry, Intact, Wounds (See nurse notes and pictures), Other (Dusky feet) Psych/Mental Status: Mental status NL, Mood NL Medications Current Medications Medications Dose Ordered Sig/Jl Route Start Time Stop Time Status Last Admin Dose Admin Nitroglycerin 0.4 mg Q5MINP PRN SL 04/19/25 13:00 Ipratropium [place] 0.5 mg Q4HPRN PRN NEB 04/19/25 13:00 Pravastatin Sodium 20 mg DAILY PO 04/20/25 10:00 05/02/25 09:18 20 MG Patient Own Medication 1 tab DAILY PO 04/20/25 10:00 UNV Patient Own Medication 1 cap BID PO 04/19/25 22:00 UNV Apixaban 5 mg BID PO 04/20/25 22:00 05/02/25 23:08 5 MG Amiodarone HCl 200 mg Q12HR PO 04/20/25 22:00 05/02/25 23:07 200 MG Pramipexole Dihydrochloride 0.25 mg HS PO 04/20/25 22:00 05/02/25 23:08 0.25 MG Morphine Sulfate 2 mg Q6HPRN PRN IV 04/20/25 16:15 04/28/25 07:33 2 MG Ondansetron HCl 4 mg Q6HPRN PRN IV 04/20/25 16:15 04/21/25 14:28 4 MG Morphine Sulfate 2 mg Q30M PRN IV 04/20/25 16:30 Patient Own Medication 1 HS LEFTEYE 04/21/25 22:00 05/02/25 23:11 1 Oxybutynin Chloride 5 mg TID PO 04/21/25 14:00 05/02/25 23:07 5 MG Patient Own Medication 0.2 mg BID LEFTEYE 04/21/25 22:00 05/02/25 23:10 0.2 MG Patient Own Medication 1 drop BID LEFTEYE 04/21/25 22:00 05/02/25 23:11 1 DROP Furosemide 40 mg DAILY IV 04/23/25 10:00 05/02/25 09:17 40 MG Pantoprazole Sodium 40 mg DAILY IV 04/24/25 10:00 05/02/25 09:17 40 MG Aspirin 81 mg DAILY NG 04/24/25 10:00 05/02/25 09:17 81 MG Atorvastatin Calcium 40 mg HS NG 04/23/25 22:00 05/02/25 23:07 40 MG Enteral Nutritional Formula 1,000 ml 70ML/HR GT 04/24/25 11:45 UNV Acetaminophen/ Hydrocodone Bitart 1 tab Q6HPRN PRN PO 04/26/25 15:00 05/01/25 22:19 1 TAB Lidocaine 2 patch DAILY@1500 TOP 04/28/25 03:00 05/02/25 15:00 2 PATCH Docusate Sodium 100 mg BID PRN GT 04/28/25 09:00 Sodium Chloride 10 ml QSHIFT@10,22 IV 04/28/25 22:00 05/02/25 23:09 10 ML Lactulose 30 ml BID PO 04/30/25 22:00 05/02/25 09:17 30 ML Acetaminophen 650 mg Q6HP PRN PO 05/01/25 16:30 05/01/25 16:43 650 MG Doxycycline Monohydrate 100 mg Q12HR PO 05/02/25 22:00 05/02/25 23:08 100 MG Laboratory Results Laboratory Tests 05/02/25 03:12 Chemistry Test 05/02/25 03:12 Calcium Level 9.8 mg/dL (8.7-10.4) Magnesium Level 2.2 mg/dL (1.6-2.6) Urinalysis Test 04/25/25 05:50 Urine Color Light-orange (Yellow) Urine Clarity Turbid (Clear) H Urine pH 8.0 (5.0-9.0) Urine Specific [place] 1.019 (1.001-1.035) Urine Protein 1+ (Negative) H Urine Ketones Trace (Negative) Urine Blood 3+ /uL (Negative) H Urine Nitrite Negative (Negative) Urine Bilirubin Negative (Negative) Urine Urobilinogen 8 mg/dL (Negative) H Urine Leukocyte Esterase 3+ /uL (Negative) Urine RBC 829 /hpf (0 - 4) Urine Microscopic WBC 82 /HPF (0-5) H Urine Squamous Epithelial Cells Many /hpf (<5) Urine Bacteria None seen /hpf (None Seen) Urine Glucose Normal mg/dL (Normal) Microbiology Microbiology Date/Time Source Procedure Growth Status 04/23/25 13:20 Blood Blood Culture - Final NO GROWTH AFTER 5 DAYS OF INCUBATION. Complete 04/23/25 04:47 Urine - [place] Urine Culture - Final Complete 04/21/25 00:00 Sputum Gram Stain - Final Complete 04/21/25 00:00 Respiratory Culture - Final Staphylococcus aureus Complete 04/20/25 03:00 Nose MRSA Screen - Final Methicillin Resistant S.aureus Complete Assessment/Plan Assessment/Plan Impression: Acute hypoxic respiratory failure Acute hypercapnic respiratory failure Dependence on supplemental oxygen Altered mental status Congestive heart failure Morbid obesity Events: Remains on supplemental oxygen, 2 LPM NC Taper O2 as tolerated Head of bed elevation Aspiration precautions Off pressors since 04/30/25 Monitor hemodynamics Continue bronchodilators Continue antibiotics Continue steroids On lactulose due to constipation. Amiodarone, Eliquis for AFib Incentive spirometry Diurese with Lasix as tolerated Monitor renal function Monitor electrolytes. Supplement as necessary. Potassium, magnesium supplementation Maintain euvolemia Labs and imaging reviewed. Rest of plan as noted below. Plan: Patient is s/p extubation on 04/28/25 Supplemental oxygen Titrate to keep O2 sats above 92%. Pressors as necessary for hemodynamic support Titrate to keep mean arterial pressure greater than 65 mmHg. Continue bronchodilators. Continue antibiotics Amiodarone, Eliquis for atrial fibrillation Incentive spirometry Diurese with Lasix to maintain euvolemia Monitor renal function. Monitor electrolytes. Supplement as necessary. Monitor ins and outs. Recommend diet and lifestyle modifications for weight reduction Obesity complicates all care DVT prophylaxis. Prognosis: Poor given patient's multiple co-morbidities. Condition: Critical Rest of plan per hospitalist and other consultants. A total of 35 minutes of critical care time was spent reviewing the patient record, examining the patient, making a diagnostic and therapeutic plan, discussing this plan with the medical personnel, following up on diagnostic studies and following the patient for clinical stability excluding any and all procedures. At least 50% of this time was spent in direct, [id number] contact. Thank you, BONNIE Jenkins, for allowing me to participate in this patient's care. Further recommendations will depend on the patient's clinical course. Please do not hesitate to contact me if you have any questions or concerns. This medical document was created using an electronic medical record system with [employer] dictation system. Although these documentations are being carefully reviewed, there may still be some phonetic and typographical changes. The errors are purely typographical, due to imperfection on the software program, and do not reflect any compromise in the patient's medical care. Plan discussed with: Patient, Other (KRISTEL Jimenez) Visit Coding Pulmonary Billing Provider: CATHERINE SANCHEZ MD Date of Service if different f: May 02, 2025 Common Visit Codes: [id number] INP/OBS CARE(HIGH) CATHERINE SANCHEZ MD May 02, 2025 23:49
[2025-05-03] VITALS (7 sets, daily range): BP systolic 128–139; BP diastolic 74–85; PULSE 69–121; RESP 16–18; TEMP 36.7; O2SAT 94–99
--- NOTE | 2025-05-03 12:49 | DVHDS2 ---
Discharge Summary Date of Admission Apr 19, 2025 at 12:56 Date of Discharge: May 03, 2025 Admitting Diagnosis New onset atrial fibrillation with rapid ventricular rate Labs/Diagnostic Data: Laboratory Results Test 05/02/25 03:12 05/01/25 03:38 04/28/25 10:50 04/28/25 02:32 White Blood Count 8.0 10^3/uL (4.4-10.8) Red Blood Count 4.32 10^6/uL (4.0-5.20) Hemoglobin 12.3 g/dL (12.2-16.2) Hematocrit 36.4 % (36.0-46.0) Mean Corpuscular Volume 84.3 fL (80.0-100.0) Mean Corpuscular Hemoglobin 28.4 pg (28.0-32.0) Mean Corpuscular Hemoglobin Concent 33.7 g/dL (32.0-36.0) Red Cell Distribution Width 15.1 % (11.8-14.3) Platelet Count 236 10^3/uL (140-450) Mean Platelet Volume 7.4 fL (6.9-10.8) Neutrophils (%) (Auto) 84.8 % (37.0-80.0) Lymphocytes (%) (Auto) 9.4 % (10.0-50.0) Monocytes (%) (Auto) 4.9 % (0.0-12.0) Eosinophils (%) (Auto) 0.3 % (0.0-7.0) Basophils (%) (Auto) 0.6 % (0.0-2.0) Neutrophils # (Auto) 6.8 10 ^3/uL (1.6-8.6) Lymphocytes # (Auto) 0.8 10 ^3/uL (0.4-5.4) Monocytes # (Auto) 0.4 10 ^3/uL (0-1.3) Eosinophils # (Auto) 0 10 ^3/uL (0-0.8) Basophils # (Auto) 0 10 ^3/uL (0-0.2) Nucleated Red Blood Cells 0.3 % Sodium Level 138 mmol/L (136-145) Potassium Level 3.9 mmol/L (3.5-5.1) Chloride Level 94 mmol/L (98-107) Carbon Dioxide Level 39 mmol/L (20-31) Anion Gap 5 (5-15) Blood Urea Nitrogen 10 mg/dL (9-23) Creatinine 0.61 mg/dL (0.550-1.02) Glomerular Filtration Rate Calc 93 mL/min (>90) BUN/Creatinine Ratio 16.4 (10.0-20.0) Serum Glucose 144 mg/dL (74-106) Calcium Level 9.8 mg/dL (8.7-10.4) Magnesium Level 2.2 mg/dL (1.6-2.6) Phosphorus Level 3.0 mg/dL (2.4-5.1) Total Bilirubin 0.4 mg/dL (0.2-1.0) Aspartate Amino Transferase (AST) 36 U/L (13-40) Alanine Aminotransferase (ALT) 36 U/L (7-40) Alkaline Phosphatase 58 U/L (46-116) Total Protein 6.4 g/dL (5.7-8.2) Albumin 3.3 g/dL (3.2-4.8) Blood Gas Specimen Type Arterial Blood Gas Sample Site Right radial Blood Gas Patient Temperature 37.0 Arterial Blood Date Drawn [id number] Arterial Blood pH 7.457 (7.350-7.450) Arterial Blood Partial Pressure CO2 48.3 mmHg (32.0-45.0) Arterial Blood Partial Pressure O2 65.6 mmHg (83.0-108.0) Arterial Blood HCO3 33.3 mmol/L (21.0-28.0) Arterial Blood Oxygen Saturation 92.6 % (94.0-98.0) Arterial Blood Base Excess 8.2 mmol/L (-2.0-3.0) Arterial Blood Oxyhemoglobin 90.9 % (94.0-98.0) Arterial Blood Carboxyhemoglobin 1.4 % (0.5-1.5) Arterial Blood Methemoglobin 0.4 % (0.0-1.5) Arterial Blood Deoxyhemoglobin 7.3 % (0.0-5.0) Brandon Test Modified Blood Gas Total Hemoglobin 12.60 g/dL (12.0-16.0) Blood Gas Modality Vent - cpap FiO2 % 30.0 Blood Gas Pressure Support 8 Blood Gas PEEP or CPAP 5.0 Random Vancomycin Level 13.8 ug/mL (5-10) Test 04/27/25 10:50 04/27/25 07:07 04/25/25 05:50 04/24/25 06:23 Vancomycin Level Trough 24.7 ug/mL (5-10) Blood Gas Set Respiration Rate 16.0 Blood Gas Tidal Volume 450.0 Urine Color Light-orange (Yellow) Urine Clarity Turbid (Clear) Urine pH 8.0 (5.0-9.0) Urine Specific [place] 1.019 (1.001-1.035) Urine Protein 1+ (Negative) Urine Ketones Trace (Negative) Urine Blood 3+ /uL (Negative) Urine Nitrite Negative (Negative) Urine Bilirubin Negative (Negative) Urine Urobilinogen 8 mg/dL (Negative) Urine Leukocyte Esterase 3+ /uL (Negative) Urine RBC 829 /hpf (0 - 4) Urine Microscopic WBC 82 /HPF (0-5) Urine Squamous Epithelial Cells Many /hpf (<5) Urine Bacteria None seen /hpf (None Seen) Urine Glucose Normal mg/dL (Normal) Blood Gas Critical Value Read Back Yes Blood Gas Notified Whom Dr. mckinney Blood Gas Notified Time [id number] Blood Gas Notified By Ray smart, coatings inspector Test 04/21/25 22:10 04/21/25 20:04 04/19/25 17:54 04/19/25 16:13 Prothrombin Time 12.9 sec (9.3-11.8) Prothrombin Time INR 1.24 (0.9-1.15) Activated Partial Thromboplast Time 29.0 SEC (24.5-34.5) Lactic Acid Level 1.3 mmol/L (0.4-2.0) Blood Gas EPAP 8 Blood Gas IPAP 16 Blood Gas Liter Flow 3.00 Troponin I High Sensitivity 15 ng/L (</=34) Test 04/19/25 13:29 04/19/25 10:41 Triglycerides Level 71 mg/dL (< 150) Cholesterol Level 139 mg/dL (< 200) LDL Cholesterol 87 mg/dL (< 100) HDL Cholesterol 41 mg/dL (40-59) Thyroid Stimulating Hormone (TSH) 1.58 uIU/mL (0.55-4.78) D-Dimer, Quantitative 0.47 mg/L FEU (0.0-0.49) Hemoglobin A1c 5.5 % A1C (<5.7) B-Type Natriuretic Peptide 239.22 pg/mL (0-100) Other Laboratory Tests 05/02/25 03:12 Brief Hx & Hospital Course: History of Present Illness Mayelin Ziegler is a 74-year-old female with past medical history of hypertension, hyperlipidemia, and home oxygen use, who came to the hospital for shortness of breath. Patient states her shortness of breath began last night. It was continuing to worsen this morning so her became concerned and called EMS. Patient was found to be in atrial fibrillation with RVR. Patient denies any chest pain or palpitations. Course of hospitalization: Patient was started on IV amiodarone. Patient has some shortness of breath worsened, subsequently with the patient being placed on mechanical ventilation. Sputum cultures positive Staphylococcus aureus. Patient was placed on vancomycin, with patient's pneumonia improving. Patient was subsequently weaned off mechanical ventilation as currently on 2 L via nasal cannula. According to the patient, she states that she has been bed-bound with physical therapy strengthening exercises while at nose with alf facility. Patient's overall clinical status has improved. She will be discharged back to [facility], and completed course of p.o. doxycycline. Patient was placed on p.o. Eliquis, as well as having rate control with amiodarone and beta-monica therapy. She will continue all previous home medications as reported and medication reconciliation form at discharge. She is agreeable with discharge plan. All questions answered. Physical examination General: Alert and Oriented x3. No acute distress. Well-nourished. Morbid obesity Eyes: EOMI. Anicteric. HENT: Moist mucous membranes. Lungs: Clear to auscultation bilaterally. No accessory muscle use. Cardiovascular: Regular rate and rhythm. No murmur. No JVD. Abdomen: Soft, non-tender and non-distended. No palpable masses. Extremities: No edema. Non-tender. Skin: No rashes or lesions. Warm. Neurologic: No focal neurological deficits. CN II-XII grossly intact, but not individually tested. Psychiatric: Cooperative. Appropriate mood and affect. Total time spent with patient discussing and formulating plan of care: 35 minutes. This medical document was created using an electronic medical record system with [employer] system. Although this document has been carefully reviewed, there may still be some phonetic and typographical errors. These areas are purely typographical due to imperfections of the software programs, and do not reflect any compromise in the patient's medical care. Consults/Reason for consult Cardiology: AFib with RVR Pulmonology: Respiratory failure with mechanical ventilation Condition at Discharge: Fair Final Diagnosis/Problems List Acute respiratory failure secondary to Staphylococcus aureus pneumonia -septic shock -questionable aspiration pneumonia -positive aspiration of the nares -acute hypoxic and hypercarbic respiratory failure -metabolic encephalopathy -acute on chronic diastolic heart failure, HFpEF -AFib with RVR, now controlled -probable obstructive sleep apnea, obesity related hypoventilation syndrome -dyslipidemia -primary hypertension -functional quadriplegia -peripheral arterial disease -morbid obesity -constipation [facility] Discharge Instruct/Medications Diet: Consistent carbohydrate, Cardiac 2g Na,low cholest Activity: No Restrictions, As Tolerated Follow Up/Referral: Per accepting provider Medications: Refer to medication reconciliation form Scheduled Brimonidine Tartrate-Timolol M (Combigan), 0.2 MG LEFTEYE BID, (Reported) Dorzolamide-Timolol (Dorzolamide Hcl/Timolol M), 1 DROP LEFTEYE BID, (Reported) Hydroxyzine Hcl (Hydroxyzine Hcl), 1 TAB PO BID, (Reported) Latanoprost (Latanoprost), 1 DROP [place]FTE[place] QPM, (Reported) Lidocaine (Lidoderm 5% Topical Patch), 1 PATCH TOP DAILY, (Reported) Losartan Potassium (Losartan Potassium), 1 TAB PO DAILY, (Reported) Metoprolol Succinate (Metoprolol Succinate Er), 1 TAB PO DAILY, (Reported) Omeprazole (Omeprazole Dr), 1 CAP PO BID, (Reported) Oxybutynin Chloride (Oxybutynin Chloride), 15 MG PO HS, (Reported) Pramipexole Dihydrochloride (Mirapex Er), 0.5 MG PO HS, (Reported) Pravastatin Sodium (Pravachol Tablet), 1 TAB PO DAILY, (Reported) 36 Discharge Statement: "Patient was advised to return to the ER or call 911 if any headaches, dizziness, shortness of breath, chest pain, abdominal pain, bleeding, fevers, or worsening of medical condition. Patient was counseled about treatment plan, medications, possible side effects, patientverbalized understanding. All questions were answered to the best of my ability. This discharge took greater then 30 minutes in planning, reviewing documentation, counseling the patient, and discussing with other team members." ASSESSMENT ASSESSMENT Assessment Acute respiratory failure secondary to Staphylococcus aureus pneumonia Date of Service: May 03, 2025 Billing Provider: TRICIA GALARZA NP Common Visit Codes: 83313-TIN/OBS DISCH DAY >30min TRICIA GALARZA NP May 03, 2025 12:49
[2025-05-03] MEDS: LORATADINE 10 MG TAB PO ONE (15:09)
--- NOTE | 2025-05-03 21:06 | DVHPN2 ---
Progress Note - Dictate Date Seen: May 03, 2025 Has the PT tested + for MRSA If YES, has PT been informed?: No Medical Necessity Reason Pt with a Central, PICC or Fol: Yes The following are medically ne: Smith Catheter Reason for smith catheter: Strict I&O Subjective Patient was seen and evaluated in follow up. Patient was downgraded to telemetry. Patient has no new complaints at this time. Patient denies any cardiac symptoms. Patient is cardiac stable for discharge back to [facility]. Telemetry reviewed. vital signs Vital Sign Date Time Temp Pulse Resp B/P (MAP) Pulse Ox O2 Delivery O2 Flow Rate FiO2 05/03/25 13:00 98.1 89 16 131/74 (93) 98 98.1 05/03/25 08:10 Nasal Cannula* 2 28 Total Intake and Output 05/02/25 05/02/25 05/03/25 15:00 23:00 07:00 Intake Total 750 ml 0 ml 420 ml Output Total 1800 ml 650 ml Balance -1050 ml 0 ml -230 ml medications Current Medications Medications Dose Ordered Sig/Jl Route Start Time Stop Time Status Last Admin Dose Admin Nitroglycerin 0.4 mg Q5MINP PRN SL 04/19/25 13:00 Ipratropium [place] 0.5 mg Q4HPRN PRN NEB 04/19/25 13:00 Pravastatin Sodium 20 mg DAILY PO 04/20/25 10:00 05/03/25 09:12 20 MG Patient Own Medication 1 tab DAILY PO 04/20/25 10:00 UNV Patient Own Medication 1 cap BID PO 04/19/25 22:00 UNV Apixaban 5 mg BID PO 04/20/25 22:00 05/03/25 09:12 5 MG Amiodarone HCl 200 mg Q12HR PO 04/20/25 22:00 05/03/25 09:11 200 MG Pramipexole Dihydrochloride 0.25 mg HS PO 04/20/25 22:00 05/02/25 23:08 0.25 MG Morphine Sulfate 2 mg Q6HPRN PRN IV 04/20/25 16:15 04/28/25 07:33 2 MG Ondansetron HCl 4 mg Q6HPRN PRN IV 04/20/25 16:15 04/21/25 14:28 4 MG Morphine Sulfate 2 mg Q30M PRN IV 04/20/25 16:30 Patient Own Medication 1 HS LEFTEYE 04/21/25 22:00 05/02/25 23:11 1 Oxybutynin Chloride 5 mg TID PO 04/21/25 14:00 05/03/25 05:47 5 MG Patient Own Medication 0.2 mg BID LEFTEYE 04/21/25 22:00 05/03/25 09:07 0.2 MG Patient Own Medication 1 drop BID LEFTEYE 04/21/25 22:00 05/03/25 09:07 1 DROP Furosemide 40 mg DAILY IV 04/23/25 10:00 05/03/25 09:11 40 MG Pantoprazole Sodium 40 mg DAILY IV 04/24/25 10:00 05/03/25 09:11 40 MG Aspirin 81 mg DAILY NG 04/24/25 10:00 05/03/25 09:12 81 MG Atorvastatin Calcium 40 mg HS NG 04/23/25 22:00 05/02/25 23:07 40 MG Enteral Nutritional Formula 1,000 ml 70ML/HR GT 04/24/25 11:45 UNV Acetaminophen/ Hydrocodone Bitart 1 tab Q6HPRN PRN PO 04/26/25 15:00 05/01/25 22:19 1 TAB Lidocaine 2 patch DAILY@1500 TOP 04/28/25 03:00 05/02/25 15:00 2 PATCH Docusate Sodium 100 mg BID PRN GT 04/28/25 09:00 Sodium Chloride 10 ml QSHIFT@10,22 IV 04/28/25 22:00 05/03/25 09:12 10 ML Lactulose 30 ml BID PO 04/30/25 22:00 05/03/25 09:56 30 ML Acetaminophen 650 mg Q6HP PRN PO 05/01/25 16:30 05/01/25 16:43 650 MG Doxycycline Monohydrate 100 mg Q12HR PO 05/02/25 22:00 05/03/25 09:12 100 MG objective GENERAL: Alert and oriented x 3. Morbidly obese. EYES: PERRL, EOMI. Anicteric. HENT: Moist mucous membranes. LUNGS: Diminished breath sounds. CARDIOVASCULAR: Regular rate and rhythm. ABDOMEN: Soft, non-tender and non-distended. EXTREMITIES: No edema. SKIN: Warm, dry. laboratory and microbiology Laboratory Tests 05/02/25 03:12 Test 05/02/25 03:12 Range/Units Serum Glucose 144 H 74-106 mg/dL Problem List Atrial fibrillation with rapid ventricular rate, newly diagnosed. [place] decompensated HFpEF, NYHA Class III. +Anisocoria, acute CVA ruled out. Pulmonary hypertension, moderate degree. Acute respiratory failure. Hypertension. Home O2 dependence. Bed-bound status. Morbid obesity. Assessment/Plan Continued all current supportive medical care. Morphine and [place] for pain management. Amiodarone. Eliquis. Aspirin, Lipitor. IV antibiotics as ordered. Diuretics with Lasix. GI prophylactics. Additional plan as per the hospital course. Dietary Evaluation Review Comments: Vital High Protein Goal Rate @70ml/hr, providing 147g Protein, 1680 kcal, 1404ml free water in 24 hours, This protocol will meet her needs @101% protein, @90% energy. Initiate rate @35ml/hr, increase 10ml/6hr increment till meeting her goal rate@70ml/hr. Expected Outcomes/Goals: Meeting Pt's needs for being on mechanical ventilator. Gradual weight loss, improved nutrition related lab values and overall nutrition status. Fluid Accumulation (Severe): Moderate Fluid Retention Protein Calorie Malnutrition: Severe Plan discussed with: Patient AZAR MELGOZA MD May 03, 2025 13:50
--- NOTE | 2025-05-03 23:36 | DVHPN2 ---
[facility] DOS: 05/03/2025 Patient seen and examined at bedside. Remains on supplemental oxygen Overnight events reviewed. Reviewed: Care Plan, H&P, Labs, Medications, Previous Orders, Radiology, Other (Consultations) Changes from previous H/P or p: No Changes General: Per HPI Objective Vitals Vital Signs Date Time Temp Pulse Resp B/P (MAP) Pulse Ox O2 Delivery O2 Flow Rate FiO2 05/03/25 13:45 36.7 121 05/03/25 13:00 16 131/74 (93) 98 05/03/25 08:10 Nasal Cannula* 2 28 Intake/Output Intake and Output 05/03/25 07:00 Intake Total 1170 ml Output Total 2450 ml Balance -1280 ml Intake Oral 1170 ml Output Urine Total 2450 ml Exam Gen.: Patient lying in bed in no apparent distress. On supplemental oxygen. Head: Normocephalic, atraumatic. Eyes: EOMI/PERRLA. Ears: Normal hearing. Normal anatomy. Neck/trachea: Trachea midline, supple. Nose: Normal external anatomy. Mouth: Moist mucous membranes. Chest: Decreased air entry bilaterally. No wheezing or rhonchi. Cardiovascular: Positive S1, positive S2. Regular rate and rhythm. Abdomen: Positive bowel sounds in all 4 quadrants. Soft, non-tender, non- distended. : Deferred. Rectal: Deferred. Skin: Warm, dry. Intact. Extremities: 2+ radial pulses bilaterally. No lower extremity edema. Neuro: Awake, alert, oriented x3. No gross motor or sensory deficits. Cranial nerves II through XII intact. Gait not assessed. 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) Musculoskeletal: Normal sensory function, Normal motor function Extremities: Other (Left femoral central line) Skin: Dry, Intact, Wounds (See nurse notes and pictures), Other (Dusky feet) Psych/Mental Status: Mental status NL, Mood NL Medications Current Medications Medications Dose Ordered Sig/Jl Route Start Time Stop Time Status Last Admin Dose Admin Patient Own Medication 1 tab DAILY PO 04/20/25 10:00 UNV Patient Own Medication 1 cap BID PO 04/19/25 22:00 UNV Enteral Nutritional Formula 1,000 ml 70ML/HR GT 04/24/25 11:45 UNV Laboratory Results Laboratory Tests 05/02/25 03:12 Urinalysis Test 04/25/25 05:50 Urine Color Light-orange (Yellow) Urine Clarity Turbid (Clear) H Urine pH 8.0 (5.0-9.0) Urine Specific [place] 1.019 (1.001-1.035) Urine Protein 1+ (Negative) H Urine Ketones Trace (Negative) Urine Blood 3+ /uL (Negative) H Urine Nitrite Negative (Negative) Urine Bilirubin Negative (Negative) Urine Urobilinogen 8 mg/dL (Negative) H Urine Leukocyte Esterase 3+ /uL (Negative) Urine RBC 829 /hpf (0 - 4) Urine Microscopic WBC 82 /HPF (0-5) H Urine Squamous Epithelial Cells Many /hpf (<5) Urine Bacteria None seen /hpf (None Seen) Urine Glucose Normal mg/dL (Normal) Microbiology Microbiology Date/Time Source Procedure Growth Status 04/23/25 13:20 Blood Blood Culture - Final NO GROWTH AFTER 5 DAYS OF INCUBATION. Complete 04/23/25 04:47 Urine - [place] Urine Culture - Final Complete 04/21/25 00:00 Sputum Gram Stain - Final Complete 04/21/25 00:00 Respiratory Culture - Final Staphylococcus aureus Complete 04/20/25 03:00 Nose MRSA Screen - Final Methicillin Resistant S.aureus Complete Assessment/Plan Assessment/Plan Impression: Acute hypoxic respiratory failure Acute hypercapnic respiratory failure Dependence on supplemental oxygen Altered mental status Congestive heart failure Morbid obesity Events: Remains on supplemental oxygen, 2 LPM NC Taper O2 as tolerated CXR on 05/02/25 reveals cardiomegaly with mild pulmonary vascular congestion. Head of bed elevation Aspiration precautions Off pressors since 04/30/25 Monitor hemodynamics Continue bronchodilators Continue antibiotics Continue steroids Lactulose for constipation. Amiodarone, Eliquis for AFib Incentive spirometry Diurese with Lasix as tolerated Monitor renal function Monitor electrolytes. Supplement as necessary. Potassium, magnesium supplementation Maintain euvolemia Labs and imaging reviewed. Rest of plan as noted below. Plan: Patient is s/p extubation on 04/28/25 Supplemental oxygen Titrate to keep O2 sats above 92%. Pressors as necessary for hemodynamic support Titrate to keep mean arterial pressure greater than 65 mmHg. Continue bronchodilators. Continue antibiotics Amiodarone, Eliquis for atrial fibrillation Incentive spirometry Diurese with Lasix to maintain euvolemia Monitor renal function. Monitor electrolytes. Supplement as necessary. Monitor ins and outs. Recommend diet and lifestyle modifications for weight reduction Obesity complicates all care DVT prophylaxis. Prognosis: Poor given patient's multiple co-morbidities. Rest of plan per hospitalist and other consultants. Thank you, BONNIE Jenkins, for allowing me to participate in this patient's care. Further recommendations will depend on the patient's clinical course. Please do not hesitate to contact me if you have any questions or concerns. This medical document was created using an electronic medical record system with [employer] dictation system. Although these documentations are being carefully reviewed, there may still be some phonetic and typographical changes. The errors are purely typographical, due to imperfection on the software program, and do not reflect any compromise in the patient's medical care. Plan discussed with: Patient, Other (RN) Visit Coding Pulmonary Billing Provider: CATHERINE SANCHEZ MD Date of Service if different f: May 03, 2025 Common Visit Codes: 89335-[id number] INP/OBS CARE(HIGH) CATHERINE SANCHEZ MD May 03, 2025 23:36
== END 2025-05-03 17:00 | DRG 870 ==
LOC: EDBD 09:55 → ER 09:55 → EDSEX 09:55 → OVERFLOW 12:56 → TELE-EAST 04-20 02:05 → ICU CENTRL 04-21 20:55 → TELE-CENTR 05-02 13:36
PROVIDERS: ADMIT Nurse Practitioner Acute Care; ATTEND Nurse Practitioner Acute Care
PROC: 5A09357 Assistance with Respiratory Ventilation, Less than 24 Consecutive Hours, Continuous Positive Airway Pressure (ICD-10-PCS; 2025-04-19)
PROC: 0BH17EZ Insertion of Endotracheal Airway into Trachea, Via Natural or Artificial Opening (ICD-10-PCS; principal; 2025-04-21)
PROC: 5A1955Z Respiratory Ventilation, Greater than 96 Consecutive Hours (ICD-10-PCS; 2025-04-21)
PROC: 06HY33Z Insertion of Infusion Device into Lower Vein, Percutaneous Approach (ICD-10-PCS; 2025-04-21)
PROC: 5A09357 Assistance with Respiratory Ventilation, Less than 24 Consecutive Hours, Continuous Positive Airway Pressure (ICD-10-PCS; 2025-04-21)
PROC: 02HV33Z Insertion of Infusion Device into Superior Vena Cava, Percutaneous Approach (ICD-10-PCS; 2025-04-28)
PROC: B548ZZA Ultrasonography of Superior Vena Cava, Guidance (ICD-10-PCS; 2025-04-28)
DX: A41.9 Sepsis, unspecified organism (principal); J15.211 Pneumonia due to Methicillin susceptible Staphylococcus aureus; E43 Unspecified severe protein-calorie malnutrition; R53.2 Functional quadriplegia; R65.21 Severe sepsis with septic shock; J96.02 Acute respiratory failure with hypercapnia; J96.01 Acute respiratory failure with hypoxia; G93.41 Metabolic encephalopathy; I50.33 Acute on chronic diastolic (congestive) heart failure; J69.0 Pneumonitis due to inhalation of food and vomit; I11.0 Hypertensive heart disease with heart failure; Z68.43 Body mass index [BMI] 50.0-59.9, adult; I27.20 Pulmonary hypertension, unspecified; I73.9 Peripheral vascular disease, unspecified; E66.2 Morbid (severe) obesity with alveolar hypoventilation; E78.5 Hyperlipidemia, unspecified; I48.91 Unspecified atrial fibrillation; H57.02 Anisocoria; K59.00 Constipation, unspecified; I49.3 Ventricular premature depolarization; Z82.49 Family history of ischemic heart disease and other diseases of the circulatory system; Z74.01 Bed confinement status; Z99.81 Dependence on supplemental oxygen; Z90.49 Acquired absence of other specified parts of digestive tract; Z90.710 Acquired absence of both cervix and uterus; Z86.73 Personal history of transient ischemic attack (TIA), and cerebral infarction without residual deficits
CPT/HCPCS: 36415; 36556; 36569; 36600; 70450; 71045; 76937; 80048; 80053; 80061; 80202; 81001; 82565; 82805; 83036; 83605; 83735; 83880; 84100; 84132; 84443; 84484; 85025; 85379; 85610; 85730; 87040; 87070; 87077; 87081; 87086; 87186; 87205; 93005; 93306; 93925; 93970; 94002; 94003; 94640; 94660; 96365; 97162; 97163; 99291; 99292; G0378; J2405; J2470; J2543; J3480